=== PATIENT | male | born 1940 | race Caucasian/White ===

== ENCOUNTER 2018-02-14 16:00 | Inpatient (IN) | payer MEDICARE, OTHER, SELFPAY ==
[2018-02-14] VITALS (23 sets, daily range): BP systolic 94–154; BP diastolic 55–84; PULSE 84–94; RESP 12–41; TEMP 36.1–38.1; O2SAT 50–97; BMI 21.5; BMI 18.9; BMI 19.0
--- NOTE | 2018-02-14 16:13 | RAD_ITS ---
STUDY: X-RAY CHEST REASON FOR EXAM: Male, 77 years old. Respiratory failure. TECHNIQUE: Single frontal view of the chest. COMPARISON: Chest x-ray report dated January 21, 2010. FINDINGS: The lungs are hyperexpanded. There is a patchy opacity in the left lower lobe compatible with pneumonia. There is a left pleural effusion. There is borderline cardiomegaly. Normal mediastinum and homer. Normal visualized pulmonary arteries. Normal visualized aortic arch and descending thoracic aorta. Normal visualized thoracic spine. Normal visualized ribs, clavicles, and shoulders. There is no demonstrated abnormality of the visualized soft tissue structures of the upper abdomen. RAD/Chest 1 View (Portable) IMPRESSION: Hyperexpansion with left lower lobe pneumonia and small left effusion. Electronically Signed: Nacho Banda MD at 17:09 EST , Service support ,
--- NOTE | 2018-02-14 16:14 | EKG12_ITS ---
Test Reason : SOB Blood Pressure : / mmHG Vent. Rate : 091 BPM Atrial Rate : 091 BPM P-R Int : 164 ms QRS Dur : 074 ms QT Int : 336 ms P-R-T Axes : 081 057 087 degrees QTc Int : 413 ms Normal sinus rhythm Low voltage QRS (limb lead) Borderline ECG Confirmed by KEVIN AMOR, LAINA ([id number]), editor at large NISA CAMPOS ([id number] on 02/16/2018 12:44:47 PM Referred By: Marla Temple Confirmed By:LAINA BROWN MD
--- NOTE | 2018-02-14 16:18 | ED.VISSUMM ---
- ER Visit Summary Date of Service: 02/14/18 Chief Complaint: Shortness of breath my COPD is worse History of Present Illness: The patient is a 77 M with history of COPD was not smoked in 7 years. Presents because of increased shortness of breath over the past couple of days. He is on home oxygen. He does not have a living will and there is no POA. His initial pulse ox was 66% on 2 L. His O2 sat is presently 84% on 50% Venturi mask. CO2 on monitor is 30. Patient denies fever, chills night sweats. Does report productive cough colored sputum. He states he is having trouble breathing. He denies history of PE or DVT. He denies leg pain, swelling or discoloration. He denies history of congestive heart failure. History is limited secondary to acuity and respiratory distress several questions were answered with yes no by nodding. He denies ocular, visual or auditory symptoms. He denies rhinorrhea, congestion, postnasal drainage or sore throat. He denies palpitations or chest pain. He denies nausea, vomiting or diarrhea. He denies urologic symptoms. He does complain of weakness. Physical Examination: Vital signs noted and remarkable for a blood pressure of 110/79, heart rate 89 breathing 27 times a minute with an O2 sat of 82% presently on Venturi mask. Temperature noted. He appears cyanotic. He has both central and peripheral cyanosis. He appears somewhat cachectic. Head is atraumatic normocephalic. Pupils are equal round reactive. Extraocular muscles are intact. TMs are pearly white with landmarks noted. Nares patent with no drainage. Posterior pharynx without erythema or exudate. Uvula is midline. There is no dysphonia or dysphasia. Trachea is midline. There is no stridor with auscultation of the neck. There is use of accessory muscles with mild retractions. Breath sounds are diminished bilaterally. He has wheezing throughout. Heart is regular with distant heart tones. Abdomen soft nontender. There is no asymmetry, swelling, discoloration, leg vein distention, palpable cords or tenderness along the distribution of the deep venous system. Neuro exam is nonfocal Test Results: ABG reveals a metabolic acidosis with a significant AA gradient. White count is 19.6 thousand. Troponin is less than 0.015. Basic metabolic panel is remarkable for a BUN of 76 and a creatinine of 3.39. EKG revealed a sinus rhythm rate of 91 with motion artifact. Single view portable chest x-ray reveals a left lower lobe pneumonia with chronic changes consistent with COPD. Lactate is 3.7. Since he is not human apically unstable i.e. systolic less than 90 or mean arterial less than 65 lactate is not greater for fluid bolus is not indicated. Emergency Department Course and Treatment: ABG will be obtained to assess acid-base status and determine appropriate settings on BiPAP. DuoNeb and 3 albuterol treatments were ordered. Since he is complaining of productive cough and concern for pneumonia he was started on Rocephin and azithromycin. Troponin was obtained to determine if he had any cardiac ischemia since he was hypoxic. Sepsis workup was initiated. Since patient has COPD and dependent on oxygen goal is saturation between 88-92%. Treatment Plan: Patient will require admission to ICU for further testing, treatment and monitoring. Patient saturation on BiPAP is 92%. FiO2 is 0.8. Disposition: Full admit ICU Impression: 1. Respiratory failure with hypoxia acute on chronic 2. Severe sepsis 3. Left lower lobe pneumonia 4. Acute renal failure 5. Exacerbation of COPD 6. Critical care time 33 minutes This note was generated with [employer] dictation software. It may contain incorrect words, spelling, and punctuation that were not noted in review of the chart prior to signing ED Disposition - Plan for ED Patient: Chief Complaint: Shortness of Breath Referrals: Giovanni Aranda MD [Primary Care Provider] -
[2018-02-14] MEDS: Ipratropium/Albuterol Sulfate 3 ML AMPUL.NEB INHALATION ×3 (16:34→23:25)
[2018-02-14] MEDS: Albuterol 2.5 MG/3 ML VIAL.NEB. INHALATION ×3 (16:34→17:00)
[2018-02-14] MEDS: Ceftriaxone 1 GM/50 ML BAG IV (16:37)
[2018-02-14 16:45] LABS: Base Excess -5 mmol/L (-2 to +2); Bicarbonate 21.2 mmol/L (22-26); Blood Gas Specimen Type ART; FI02 50; PO2 52 mmHG (75-100); SITE R Brachial; SO2 82 % (95-99); Time Given 1640; Total Carbon Dioxide 23 mmol/L; pCO2 44.6 mmHg (35-45); pH 7.29 (7.35-7.45)
[2018-02-14 16:47] LABS: Absolute Lymphocyte Count 0.58 X10^3/ul (0.83-4.51); Absolute Neutrophil Count 18.9 X10^3/uL (2.0-7.7); Basophil# 0.01 X10^3/uL; Basophil% 0.1 % (0-1); Hematocrit 36.1 % (40-54); Lymphocyte # 0.58 X10^3/ul (4.0); Mean Corp Hgb Conc 33.2 g/gl (32-36); Mean Corpuscular Hgb 30.3 pg (27.0-32.0); Mean Corpuscular Volume 91.2 fL (80-94); Mean Platelet Vol. 9.8 fl (6.2-12.0); Monocyte# 0.02 X10^3/uL; Monocyte% 0.1 % (0-10); Neutrophil # 18.86 X10^3/uL (2.7-7.7); Neutrophil % 96.4 % (47-70); Platelet Count 247 K/mm3 (150-450); RBC Distribution Width CV 14.4 % (11.6-14.6); RBC Distribution Width SD 48.7 fl (35.1-43.9); Red Blood Count 3.96 M/mm3 (4.6-6.2); White Blood Count 19.6 K/mm3 (4.4-11.0)
[2018-02-14 16:49] LABS: Differential Indicated SCAN CRITERIA MET; POSITIVE COUNT NO; POSITIVE DIFFERENTIAL YES; POSITIVE MORPHOLOGY YES
[2018-02-14 16:56] LABS: ALB/GLOB Ratio 0.6 RATIO (0.9-2.4); AST(SGOT) 23 U/L (15-37); Alanine Aminotransfer ALT/SGPT 19 U/L (16-61); Albumin, Serum 2.8 g/dL (3.2-5.0); Alkaline Phosphatase 55 U/L (45-117); Anion Gap 16 (5-15); BUN 76 mg/dL (7-18); BUN/Creat Ratio 22.4 RATIO (10-20); Calcium,Total 8.7 mg/dL (8.5-10.1); Chloride 100 mmol/L (98-107); Creatinine, Serum 3.39 mg/dL (0.70-1.30); EST Glomerular Filtration Rate 19 mL/min (>60); Est Glom Filt Rate - Afr Amer 23 mL/min (>60); Estimated Creatinine Clearance 17.56 ml/min; Globulin 4.7 g/dL (2.2-4.2); Glucose 119 mg/dL (74-106); Potassium 4.9 mmol/L (3.5-5.1); Protein, Total 7.5 g/dL (6.4-8.2); Sodium Level 138 mmol/L (136-145)
[2018-02-14 17:05] LABS: Differential Comment SCANNED
--- NOTE | 2018-02-14 17:24 | ED.RN ---
lactic 3.[address] lab[address] dr zafar aware
[2018-02-14 17:25] LABS: Lactic Acid 3.7 mmol/L (0.4-2.0)
--- NOTE | 2018-02-14 18:03 | HP.PCM_ITS ---
Problem List (1) Acute renal failure (ARF) Status: Acute (2) Acute and chronic respiratory failure with hypoxia Status: Acute (3) Severe sepsis Status: Acute (4) Community acquired pneumonia Status: Acute (5) Hypertension Status: Chronic (6) Chronic respiratory failure Status: Chronic (7) COPD (chronic obstructive pulmonary disease) Status: Chronic History of Present Illness Date of Admission: 02/14/18 Chief Complaint: Shortness of breath. The patient is a 77 year old M with past medical history as mentioned above presented to the emergency room because of worsening shortness of breath. The patient is a very poor informant and was not able to provide consistent history. He came to the ED today because of worsening shortness of breath over the last couple of days, gets short of breath at rest, worsening up on minimal activity, not relieved with rest and associated with productive sputum. He mentioned that he does have oxygen at home and he has been on 2-3 L of oxygen. He quit smoking 7 years ago. He denied chest pain, palpitation, dizziness or lightheadedness. He denies fever or chills. He complained of diarrhea over the last several days and was not able to provide any more details about his diarrhea. He had a history of COPD and he has been on bronchodilators, quit smoking 7 years ago but he remained on oxygen. He has chronic respiratory failure secondary to COPD and he has been on home oxygen at 3 L. He had history of hypertension and he has been on 3 different antihypertensive medication including Norvasc, Cozaar and Toprol-XL and apparently, his blood pressure has been under control. He denied any kidney disease in the past. In the emergency department, patient was dyspneic and tachypneic, was afebrile, blood pressure was stable and pulse ox was 66% on 2 L upon arrival to ER. He was started on Ventimask and oxygen improved. Later, he was started on BiPAP and her pulse ox maintained above 90%. His routine blood work was remarkable for leukocytosis, BUN of 76 and creatinine of 3.39. His lactic acid was 3.7. His troponin was negative. EKG revealed sinus rhythm, normal parenchyma, normal QRS without evidence of acute ischemic changes. His ABG revealed pH of 7.29, PCO2 of 44 and PO2 of 52. Chest x-ray revealed left lower base infiltrate with minimal left side pleural effusion. He is being admitted for left lower lobe community acquired pneumonia complicated by severe sepsis and acute on chronic hypoxic respiratory failure as well as acute renal failure. Past Medical History Past Medical History (Chronic Problems): Chronic Problems Hypertension (Chronic) Chronic respiratory failure (Chronic) COPD (chronic obstructive pulmonary disease) (Chronic) Allergies No Known Allergies Allergy (Verified 02/14/18 16:18) Home Medications: Ambulatory Orders Medication Instructions Recorded Albuterol Aerosols [Ventolin 2.5 mg INHALATION Q4HWA.RT 02/14/18 Aerosols] Amlodipine [Norvasc] 5 mg PO DAILY 02/14/18 Losartan Potassium [Cozaar] 50 mg PO DAILY 02/14/18 Metoprolol Succinate [Toprol Xl] 100 mg PO DAILY 02/14/18 Umeclidinium Brm/Vilanterol Tr 02/14/18 [Anoro Ellipta 62.5-25 Mcg INH] Surgical History: herniorrhaphy Psychiatric History: No pertinent psych hx Lives: Alone Smoking Status: Former smoker Alcohol: None Drugs: None - *Family History Maternal History Items: No pertinent history Paternal History Items: No pertinent history Review of Systems Constitutional: Reports: Weakness. Denies: Anorexia, Chills, Fever Eyes: Denies: Blurred vision, Double vision, Drainage, Redness HEENT: Denies: Difficulty Hearing, Ear Pain, Eye Pain, Nasal Congestion, Sore Throat Cardiovascular: Denies: Chest Pain, Chest Pressure, Heaviness, Light Headedness, Palpitations, Syncope Respiratory: Reports: Cough, Shortness of Breath, Shortness of breath at rest, Shortness of breath upon exertion, Sputum production. Denies: Hemoptysis, Pleuritic Pain, Wheezing Gastrointestinal: Reports: Diarrhea. Denies: Abdominal Pain, Constipation, Nausea, Vomiting Genitourinary: Denies: Dysuria, Frequency, Hematuria Musculoskeletal: Denies: Arm Pain, Back Pain, Foot Pain Skin: Denies: Dryness, Rash Neurological: Denies: Balance problems, Double vision, Change in Speech, Slurred speech, Confusion, Focal weakness, Headaches, Incoordination Psychiatric: Denies: Anxiety, Depression Endocrine: Denies: Change in Body Habitus, Polydipsia VTE Information - Inpt Only VTE Present on Admission: No VTE Mechan Device Prophylaxis: None VTE Pharm Prophylaxis ordered?: Yes Patient Problems: Active and Suspected Problems Acute renal failure (ARF) (Acute) Acute and chronic respiratory failure with hypoxia (Acute) Severe sepsis (Acute) Community acquired pneumonia (Acute) - Physical Exam General: Alert, Oriented x3, Cooperative, - - Dyspneic, tachypneic, on BiPAP. HEENT: Atraumatic, PERRLA, EOMI, Normocephalic Oral: Moist Mucosa, No Gingival or Mucosal Lesions/ Ulcerations Neck: Supple, No JVD, Negative Carotid Bruits, Trachea Midline, Thyroid Normal Size and Texture Lungs: Diminished, Rales, Rhonchi, Short of Breath, Tachypneic, - - Decreased breath sounds bilateral, coarse crackles in the left base, bilateral rhonchi, wheezes. Cardiovascular: Regular rate, Regular Rhythm, Normal S1, Normal S2, PMI Normal Abdomen: Bowel Sounds Present, Soft, Non Tender, Non-Distended, No Hepato- splenomegaly Extremities: No clubbing, No cyanosis, No edema Skin: No rashes, No breakdown Lymphatic: No Cervical, Supraclavicular, or Inguinal Adenopathy Neurological: Cranial nerves II-XII grossly intact, Motor Exam 5/5 strength throughout Psych/Mental Status: Normal Affect, Appropriate, Alert and oriented to time, place, person, mood and affect Vital Signs Temp Pulse Resp BP Pulse Ox 98.3 F 85 27 H 122/82 H 92 02/14/18 17:05 02/14/18 17:05 02/14/18 17:05 02/14/18 17:05 02/14/18 17:05 Oxygen Flow Rate (L/min) 15 Oxygen Delivery Method Bi-pap Weight: 150 lb Body Mass Index (BMI) 21.5 Laboratory Tests Past 24 Hrs 02/14/18 02/14/18 02/14/18 16:20 16:20 16:20 WBC 19.6 H RBC 3.96 L Hgb 12.0 L Hct 36.1 L MCV 91.2 MCH 30.3 MCHC 33.2 RDW 14.4 RDW Differential 48.7 H Plt Count 247 MPV 9.8 Immature Gran % (Auto) 0.400 Neut % (Auto) 96.4 H Lymph % (Auto) 3.0 L [place] % (Auto) 0.1 Eos % (Auto) 0.0 Baso % (Auto) 0.1 Absolute Neuts (auto) 18.9 H Absolute Lymphs (auto) 0.58 L Total Counted Not Reportable Differential Comment SCANNED Specimen Type Sample Site pH Bicarbonate Actual POC Total CO2 Base Excess O2 Saturation O2 % ABG pCO2 ABG pO2 Burt Test O2 Delivery Device Blood Gas Notified Whom Blood Gas Notified Time Sodium 138 Potassium 4.9 Chloride 100 Carbon Dioxide 22.0 Anion Gap 16 H BUN 76 H Creatinine 3.39 H Estim Creat Clear Calc 17.56 Est GFR (MDRD) Af Amer 23 L Est GFR (MDRD) Non-Af 19 L BUN/Creatinine Ratio 22.4 H Glucose 119 H Lactic Acid 3.7 H Calcium 8.7 Total Bilirubin 0.70 AST 23 ALT 19 Alkaline Phosphatase 55 Troponin I < 0.015 Total Protein 7.5 Albumin 2.8 L Globulin 4.7 H Albumin/Globulin Ratio 0.6 L 02/14/18 16:37 WBC RBC Hgb Hct MCV MCH MCHC RDW RDW Differential Plt Count MPV Immature Gran % (Auto) Neut % (Auto) Lymph % (Auto) [place] % (Auto) Eos % (Auto) Baso % (Auto) Absolute Neuts (auto) Absolute Lymphs (auto) Total Counted Differential Comment Specimen Type ART Sample Site R Brachial pH 7.29 L Bicarbonate Actual 21.2 L POC Total CO2 23 Base Excess -5 L O2 Saturation 82 L O2 % 50 ABG pCO2 44.6 ABG pO2 52 L Burt Test NA O2 Delivery Device Vent Mask Blood Gas Notified Whom ED Blood Gas Notified Time 1640 Sodium Potassium Chloride Carbon Dioxide Anion Gap BUN Creatinine Estim Creat Clear Calc Est GFR (MDRD) Af Amer Est GFR (MDRD) Non-Af BUN/Creatinine Ratio Glucose Lactic Acid Calcium Total Bilirubin AST ALT Alkaline Phosphatase Troponin I Total Protein Albumin Globulin Albumin/Globulin Ratio Clinical Impression(s) from Imaging Studies Chest X-Ray 02/14/18 16:13 IMPRESSION: Hyperexpansion with left lower lobe pneumonia and small left effusion. Electronically Signed: Nacho Banda MD at 17:09 EST , Service support , Assessment/Plan All Active Problems Acute renal failure (ARF) (Acute) Acute and chronic respiratory failure with hypoxia (Acute) Severe sepsis (Acute) Community acquired pneumonia (Acute) This is a 77 years old male patient presented to the emergency room because of shortness of breath and productive cough and he was found to have left lower lobe infiltrate with small left pleural effusion consistent with community- acquired pneumonia, complicated by severe sepsis and acute on chronic hypoxic respiratory failure as well as acute kidney injury. #1 left lower lobe community-acquired pneumonia/severe sepsis: Chest x-ray reviewed as above. Lactic acid is elevated, he does have leukocytosis. Plan: Admit to PCU stepdown, clear liquids, blood culture, urine culture, sputum c ulture, urinalysis, bronchodilators, IV Rocephin and Zithromax, DuoNeb every 4 hours, albuterol as needed, repeat lactic acid in 3 hours, repeat CBC and BMP tomorrow morning, incentive spirometer, chest physiotherapy, PT OT evaluation and treatment. #2 acute on chronic hypoxic respiratory failure/probable COPD exacerbation: Patient has been on oxygen at home at 3 L. Initially in the ER, pulse ox was 60% on 2 L. Started on BiPAP. ABG revealed pH of 7.34, PCO2 of 39 and PO2 of 67. Plan: DuoNeb every 6 hours, albuterol as needed, IV antibiotics as above, continue BiPAP, incentive spirometer, chest physiotherapy, mucolytic's. #3 acute kidney injury: Admission creatinine is 3.39. Unknown baseline kidney function. Patient is unaware of any chronic kidney disease. Plan: IV fluids, input output chart, repeat BMP tomorrow morning, obtain records from PCPs office. #4 hypertension: Blood pressure stable, continue Norvasc and metoprolol. #5 COPD/chronic respiratory failure: Plan as above, continue BiPAP, bronchodilators, antibiotics. #6 CODE STATUS: Full code. At this time, patient wanted everything to be done if necessary. #7 DVT prophylaxis: Subcu heparin. This note was generated with [employer] dictation software. It may contain incorrect words, spelling, and punctuation that were not noted in checking the note before signing. Code Visit Inpatient E&M: 19334 Init Hosp L3
[2018-02-14 18:21] LABS: Base Excess -4 mmol/L (-2 to +2); Bicarbonate 21.2 mmol/L (22-26); Blood Gas Specimen Type ART; EPAP 7; FI02 70; IPAP 14; PO2 67 mmHG (75-100); RR 12; SITE R Brachial; SO2 92 % (95-99); Time Given 1813; Total Carbon Dioxide 22 mmol/L; pCO2 39.1 mmHg (35-45); pH 7.34 (7.35-7.45)
[2018-02-14 20:25] LABS: Reflex Lactate? Y
[2018-02-14] MEDS: 0.9% Normal Saline 1,000 ML 100 ML IV (21:02)
[2018-02-14 21:03] LABS: Lactic Acid 2.6 mmol/L (0.4-2.0)
[2018-02-14] MEDS: Heparin Injection (Vial) 5,000 UNIT/ML VIAL 5000 UNIT SC (21:34)
[2018-02-14] MEDS: guaiFENesin 1,200 MG Tablet 1200 MG PO (21:35)
[2018-02-14 21:57] LABS: Color, Urine Yellow (Yellow); Glucose, Dipstick Normal (Normal); Ketone-Dipstick Negative (Negative); Leukocyte Esterase-Dipstick 25 /ul (Negative); Nitrite-Dipstick Negative (Negative); Occult Blood-Urine 250 /ul (Negative); Protein-Dipstick 100 mg/dl (Negative); Urine Bilirubin Dipstick Negative (Negative); Urine Clarity Cloudy (Clear); Urine Urobilinogen Normal (Normal)
--- NOTE | 2018-02-14 23:25 | PCM.PN.BLA ---
Progress Note Patient with a significant history of hypertension, COPD, previous TIA with a CVA sepsis secondary to community-acquired pneumonia whiles on telemetric unit continued to have tachycardia; severe respiratory distress with use of accessory muscles and with respiratory rate in the 40s while on AVAP. On 70% FiO2 his oxygen saturation was 90%. A discussion was made with the patient whether it is okay to intubated to intubate him due to impending respiratory failure. Patient responded in the affirmative. His lactic acid was initially 3.7 and it decreased to 2.6 per Patient is alert and oriented. S1, S2 present; tachycardia Lung sounds are very diminished. Abdomen is soft and nontender. Extremities: No cyanosis, no edema Severe sepsis due to committee acquired pneumonia. Acute hypoxemic respiratory failure with hypoxia Acute kidney injury Probable cystitis Due to respiratory failure will transfer patient to the intensive care unit and if he continues to decompensate will intubate. We will give patient Solu-Medrol 125 mg x1. We will put patient on scheduled Solu-Medrol. Continue ceftriaxone for Streptococcus pneumoniae Azithromycin was discontinued with positive showed glucose pneumonia antigen. Will do mycoplasma antibody to see whether there is any need for azithromycin. Continue normal saline IV infusion. Blood cultures are pending. Continue scheduled and as needed breathing treatments. When the patient reached the ICU he was more talkative and interactive. His respiratory rate remained 30s-40s. A decision was made to continue patient on a AVAP; to continue clinical monitoring and get blood gas. Critical time spent with patient from [id number] (1 hour and 5 minutes.). This involved time examining patient; assessment; communication with nurses; and reviewing medical history Code Visit Procedures: 20790 Critial Care 1st Hr
[2018-02-14] MEDS: MethylPREDNISolone 125 MG/2 ML Vial IV (23:27)
--- NOTE | 2018-02-14 23:30 | PN_ITS ---
Progress Note Patient with a significant history of hypertension, COPD, previous TIA with a CVA sepsis secondary to community-acquired pneumonia whiles on telemetric unit continued to have tachycardia; severe respiratory distress with use of accessory muscles and with respiratory rate in the 40s while on AVAP. On 70% FiO2 his oxygen saturation was 90%. A discussion was made with the patient whether it is okay to intubated to intubate him due to impending respiratory failure. Patient responded in the affirmative. His lactic acid was initially 3.7 and it decreased to 2.6 per Patient is alert and oriented. S1, S2 present; tachycardia Lung sounds are very diminished. Abdomen is soft and nontender. Extremities: No cyanosis, no edema Severe sepsis due to committee acquired pneumonia. Acute hypoxemic respiratory failure with hypoxia Acute kidney injury Probable cystitis Due to respiratory failure will transfer patient to the intensive care unit and if he continues to decompensate will intubate. We will give patient Solu-Medrol 125 mg x1. We will put patient on scheduled Solu-Medrol. Continue ceftriaxone for Streptococcus pneumoniae Azithromycin was discontinued with positive showed glucose pneumonia antigen. Will do mycoplasma antibody to see whether there is any need for azithromycin. Continue normal saline IV infusion. Blood cultures are pending. Continue scheduled and as needed breathing treatments. When the patient reached the ICU he was more talkative and interactive. His respiratory rate remained 30s-40s. A decision was made to continue patient on a AVAP; to continue clinical monitoring and get blood gas. Critical time spent with patient from [id number] (1 hour and 5 minutes.). This involved time examining patient; assessment; communication with nurses; and reviewing medical history Code Visit Procedures: [id number] Critial Care 1st Hr
--- NOTE | 2018-02-14 23:35 | NURSING ---
Report given to Fani auriculotherapist at this time and pt transfered to icu at this time.
[2018-02-15] VITALS (58 sets, daily range): BP systolic 59–161; BP diastolic 34–105; PULSE 65–149; RESP 12–46; TEMP 36.8–38.4; O2SAT 89–100
--- NOTE | 2018-02-15 00:35 | NURSING ---
Pts brother Nacho aware of pts transfer to icu and plan to closer monitor pt at this time.
[2018-02-15 01:06] LABS: Anion Gap 13 (5-15); BUN 82 mg/dL (7-18); BUN/Creat Ratio 27.4 RATIO (10-20); Calcium,Total 8.3 mg/dL (8.5-10.1); Chloride 102 mmol/L (98-107); Creatinine, Serum 2.99 mg/dL (0.70-1.30); EST Glomerular Filtration Rate 22 mL/min (>60); Est Glom Filt Rate - Afr Amer 26 mL/min (>60); Estimated Creatinine Clearance 17.24 ml/min; Glucose 94 mg/dL (74-106); Magnesium 1.7 mg/dL (1.6-2.6); Potassium 4.5 mmol/L (3.5-5.1); Sodium Level 135 mmol/L (136-145)
[2018-02-15 01:07] LABS: Phosphorus 4.4 mg/dL (2.5-4.9)
[2018-02-15] MEDS: Acetaminophen 325 MG Tablet 650 MG PO (01:44)
[2018-02-15] MEDS: 0.9% NaCl Peripheral Flush Adult/Peds IV ×3 (01:46→20:17)
[2018-02-15 02:06] LABS: Allen Test POS; Base Excess -5 mmol/L (-2 to +2); Bicarbonate 20.1 mmol/L (22-26); Blood Gas Specimen Type ART; EPAP 8; FI02 100; PO2 118 mmHG (75-100); SITE R Radial; SO2 98 % (95-99); Time Given 155; Total Carbon Dioxide 21 mmol/L; pCO2 35.3 mmHg (35-45); pH 7.36 (7.35-7.45)
[2018-02-15] MEDS: Ipratropium/Albuterol Sulfate 3 ML AMPUL.NEB INHALATION ×5 (03:34→19:06)
[2018-02-15 04:13] LABS: Absolute Lymphocyte Count 0.17 X10^3/ul (0.83-4.51); Absolute Neutrophil Count 10.2 X10^3/uL (2.0-7.7); Basophil# 0.01 X10^3/uL; Basophil% 0.1 % (0-1); Hematocrit 30.1 % (40-54); Lymphocyte # 0.17 X10^3/ul (4.0); Lymphocyte % 1.6 % (19-41); Mean Corp Hgb Conc 33.2 g/gl (32-36); Mean Corpuscular Hgb 30.6 pg (27.0-32.0); Mean Platelet Vol. 10.6 fl (6.2-12.0); Monocyte# 0.16 X10^3/uL; Monocyte% 1.5 % (0-10); Neutrophil # 10.16 X10^3/uL (2.7-7.7); Neutrophil % 96.4 % (47-70); Platelet Count 191 K/mm3 (150-450); RBC Distribution Width CV 14.1 % (11.6-14.6); RBC Distribution Width SD 46.2 fl (35.1-43.9); Red Blood Count 3.27 M/mm3 (4.6-6.2); White Blood Count 10.5 K/mm3 (4.4-11.0)
[2018-02-15 04:17] LABS: Differential Indicated SCAN CRITERIA MET; POSITIVE COUNT NO; POSITIVE DIFFERENTIAL YES; POSITIVE MORPHOLOGY YES
[2018-02-15 04:22] LABS: Anion Gap 14 (5-15); BUN 85 mg/dL (7-18); BUN/Creat Ratio 27.4 RATIO (10-20); Chloride 102 mmol/L (98-107); EST Glomerular Filtration Rate 21 mL/min (>60); Est Glom Filt Rate - Afr Amer 25 mL/min (>60); Estimated Creatinine Clearance 16.63 ml/min; Glucose 99 mg/dL (74-106); Potassium 4.8 mmol/L (3.5-5.1); Sodium Level 138 mmol/L (136-145)
[2018-02-15 04:44] LABS: Differential Comment SCANNED
[2018-02-15] MEDS: Heparin Injection (Vial) 5,000 UNIT/ML VIAL 5000 UNIT SC ×3 (05:12→20:45)
[2018-02-15] MEDS: 0.9% Normal Saline 1,000 ML 100 ML IV ×2 (05:12→16:00)
--- NOTE | 2018-02-15 07:30 | CON.PCM_ITS ---
Problem List (1) Acute renal failure (ARF) Status: Acute (2) Acute and chronic respiratory failure with hypoxia Status: Acute (3) Severe sepsis Status: Acute (4) Community acquired pneumonia Status: Acute (5) Hypertension Status: Chronic (6) Chronic respiratory failure Status: Chronic (7) COPD (chronic obstructive pulmonary disease) Status: Chronic Reason for Consult Date of Consultation: 02/15/18 Reason for Consultation: Acute hypoxic respiratory failure History of Present Illness: The patient is a 77 year old M, with past medical history listed below, who presented to [facility] on 02/14/2018 secondary to increased shortness of breath over the last couple of days. Patient reportedly has a history of COPD and is on chronic supplemental oxygen at baseline. Patient was noted to be 66% on his baseline 2 L nasal cannula on presentation to the emergency room. Patient does report a cough productive of sputum, but denied any fevers, chills, leg pain or history of congestive heart failure. Patient has not had any recent URI symptoms or chest pain. On presentation to the emergency room, patient had an adequate blood pressure 110/79, but tachypneic and saturating 82% on Ventimask. Patient did appear cyanotic and was using accessory muscles for respirations. Patient was noted to have an elevated white blood cell count, BUN of 76 and creatinine of 3.39. Chest x-ray showed a left lower lobe pneumonia and patient had an elevated lactate of 3.7. Patient was placed on BiPAP therapy and received aerosols. Oxygenation is slightly improved. Patient was initially triaged to the PCU, but then was transitioned to ICU overnight secondary to worsening respiratory status. Since being in the intensive care unit, patient has responded well to AVAPS therapy. Patient will open his eyes to voice, but is not following any commands or answering questions. Patient has no family at the bedside. Unable to obtain any further information. Patient does not appear to have been here previously. No pulmonary function tests are available for review. Patient does not currently have any echocardiogram available for review. Past Medical History Past Medical History (Chronic Problems): Chronic Problems Hypertension (Chronic) Chronic respiratory failure (Chronic) COPD (chronic obstructive pulmonary disease) (Chronic) Allergies No Known Allergies Allergy (Verified 02/14/18 16:18) Home Medications: Ambulatory Orders Medication Instructions Recorded Albuterol Aerosols [Ventolin 2.5 mg INHALATION Q4HWA.RT 02/14/18 Aerosols] Amlodipine [Norvasc] 5 mg PO DAILY 02/14/18 Losartan Potassium [Cozaar] 50 mg PO DAILY 02/14/18 Metoprolol Succinate [Toprol Xl] 100 mg PO DAILY 02/14/18 Umeclidinium Brm/Vilanterol Tr 02/14/18 [Anoro Ellipta 62.5-25 Mcg INH] Surgical History: herniorrhaphy Psychiatric History: No pertinent psych hx Lives: Alone Smoking Status: Former smoker Alcohol: None Drugs: None - *Family History Maternal History Items: No pertinent history Paternal History Items: No pertinent history Review of Systems Unable to obtain accurate/complete ROS d/t: See HPI Patient Problems: Active and Suspected Problems Acute renal failure (ARF) (Acute) Acute and chronic respiratory failure with hypoxia (Acute) Severe sepsis (Acute) Community acquired pneumonia (Acute) Objective: Chest x-ray was personally reviewed and shows a possible left upper lobe infiltrate with associated effusion. - Physical Exam General: - - Good BiPAP synchrony. Appears older than stated age. Thin build. HEENT: Atraumatic, PERRLA, EOMI, Normocephalic, - - Slight temporal wasting noted. Slight scleral injection without icterus Oral: No Gingival or Mucosal Lesions/ Ulcerations, Dry Mucosa Neck: Supple, No JVD, No Nodes, Trachea Midline Lungs: No rhonchi, No wheeze, No rales, Diminished, - - Symmetric expansion. No dullness to percussion. Cardiovascular: Normal S1, Normal S2, No murmurs, Irregular Rate, No rub noted, No Gallop, - - Frequent PVCs Abdomen: Bowel Sounds Present, Soft, Non Tender, Non-Distended Extremities: No cyanosis, No edema, Capillary Refill Less than 3 Seconds, Clubbing Skin: No rashes, No breakdown Musculoskeletal: No Tenderness to Palpation of Joints or Extremities, Cachexia, Muscle Wasting Lymphatic: No Cervical, Supraclavicular, or Inguinal Adenopathy Neurological: Cranial nerves II-XII grossly intact, Neuro grossly intact, Motor Exam 5/5 strength throughout Psych/Mental Status: Flat Affect, Impulsive Vital Signs Temp Pulse Resp BP Pulse Ox 37.3 C H 67 22 H 106/64 99 02/15/18 07:00 02/15/18 07:00 02/15/18 07:00 02/15/18 07:00 02/15/18 07:00 Oxygen Flow Rate (L/min) 15 Oxygen Delivery Method Bi-pap Weight: 58.9 kg Body Mass Index (BMI) 18.9 Intake and Output for Last 24 Hours 02/13/18 02/14/18 02/15/18 23:59 23:59 23:59 Intake Total 343 / 343 660 / 660 Output Total 125 / 125 150 / 150 Balance 218 / 218 510 / 510 Microbiology Past 72 Hours 02/14/18 21:30 Streptococcus pneumoniae Antigen (M - Final Urine Catheter - Catheter Streptococcus pneumonia Ag 02/14/18 21:30 Legionella Antigen - Final Urine Catheter - Catheter Laboratory Tests Past 24 Hrs 02/14/18 02/14/18 02/14/18 16:20 16:20 16:20 WBC 19.6 H RBC 3.96 L Hgb 12.0 L Hct 36.1 L MCV 91.2 MCH 30.3 MCHC 33.2 RDW 14.4 RDW Differential 48.7 H Plt Count 247 MPV 9.8 Immature Gran % (Auto) 0.400 Neut % (Auto) 96.4 H Lymph % (Auto) 3.0 L [place] % (Auto) 0.1 Eos % (Auto) 0.0 Baso % (Auto) 0.1 Absolute Neuts (auto) 18.9 H Absolute Lymphs (auto) 0.58 L Total Counted Not Reportable Differential Comment SCANNED Specimen Type Sample Site pH Bicarbonate Actual POC Total CO2 Base Excess O2 Saturation O2 % ABG pCO2 ABG pO2 Burt Test Respiration Rate O2 Delivery Device EPAP IPAP Blood Gas Notified Whom Blood Gas Notified Time Sodium 138 Potassium 4.9 Chloride 100 Carbon Dioxide 22.0 Anion Gap 16 H BUN 76 H Creatinine 3.39 H Estim Creat Clear Calc 17.56 Est GFR (MDRD) Af Amer 23 L Est GFR (MDRD) Non-Af 19 L BUN/Creatinine Ratio 22.4 H Glucose 119 H Lactic Acid 3.7 H Calcium 8.7 Phosphorus Magnesium Total Bilirubin 0.70 AST 23 ALT 19 Alkaline Phosphatase 55 Troponin I < 0.015 Total Protein 7.5 Albumin 2.8 L Globulin 4.7 H Albumin/Globulin Ratio 0.6 L Urine Color Urine Clarity Urine pH Ur Specific [place] Urine Protein Urine Glucose (UA) Urine Ketones Urine Occult Blood Urine Nitrite Urine Bilirubin Urine Urobilinogen Ur Leukocyte Esterase Mycoplasma pneumon IgG Mycoplasma pneumon IgM 02/14/18 02/14/18 02/14/18 16:37 18:15 20:10 WBC RBC Hgb Hct MCV MCH MCHC RDW RDW Differential Plt Count MPV Immature Gran % (Auto) Neut % (Auto) Lymph % (Auto) [place] % (Auto) Eos % (Auto) Baso % (Auto) Absolute Neuts (auto) Absolute Lymphs (auto) Total Counted Differential Comment Specimen Type ART ART Sample Site R Brachial R Brachial pH 7.29 L 7.34 L Bicarbonate Actual 21.2 L 21.2 L POC Total CO2 23 22 Base Excess -5 L -4 L O2 Saturation 82 L 92 L O2 % 50 70 ABG pCO2 44.6 39.1 ABG pO2 52 L 67 L Burt Test NA NA Respiration Rate 12 O2 Delivery Device Vent Mask Bi / C PAP EPAP 7 IPAP 14 Blood Gas Notified Whom ED MD ED MD Blood Gas Notified Time 1640 1813 Sodium Potassium Chloride Carbon Dioxide Anion Gap BUN Creatinine Estim Creat Clear Calc Est GFR (MDRD) Af Amer Est GFR (MDRD) Non-Af BUN/Creatinine Ratio Glucose Lactic Acid Cancelled Calcium Phosphorus Magnesium Total Bilirubin AST ALT Alkaline Phosphatase Troponin I Total Protein Albumin Globulin Albumin/Globulin Ratio Urine Color Urine Clarity Urine pH Ur Specific [place] Urine Protein Urine Glucose (UA) Urine Ketones Urine Occult Blood Urine Nitrite Urine Bilirubin Urine Urobilinogen Ur Leukocyte Esterase Mycoplasma pneumon IgG Mycoplasma pneumon IgM 02/14/18 02/14/18 02/15/18 20:10 21:30 00:30 WBC RBC Hgb Hct MCV MCH MCHC RDW RDW Differential Plt Count MPV Immature Gran % (Auto) Neut % (Auto) Lymph % (Auto) [place] % (Auto) Eos % (Auto) Baso % (Auto) Absolute Neuts (auto) Absolute Lymphs (auto) Total Counted Differential Comment Specimen Type Sample Site pH Bicarbonate Actual POC Total CO2 Base Excess O2 Saturation O2 % ABG pCO2 ABG pO2 Burt Test Respiration Rate O2 Delivery Device EPAP IPAP Blood Gas Notified Whom Blood Gas Notified Time Sodium Potassium Chloride Carbon Dioxide Anion Gap BUN Creatinine Estim Creat Clear Calc Est GFR (MDRD) Af Amer Est GFR (MDRD) Non-Af BUN/Creatinine Ratio Glucose Lactic Acid 2.6 H Calcium Phosphorus Magnesium Total Bilirubin AST ALT Alkaline Phosphatase Troponin I Total Protein Albumin Globulin Albumin/Globulin Ratio Urine Color Yellow Urine Clarity Cloudy Urine pH 6.0 Ur Specific [place] 1.020 Urine Protein 100 H Urine Glucose (UA) Normal Urine Ketones Negative Urine Occult Blood 250 H Urine Nitrite Negative Urine Bilirubin Negative Urine Urobilinogen Normal Ur Leukocyte Esterase 25 H Mycoplasma pneumon IgG Pending Mycoplasma pneumon IgM Pending 02/15/18 02/15/18 02/15/18 00:30 00:30 01:59 WBC RBC Hgb Hct MCV MCH MCHC RDW RDW Differential Plt Count MPV Immature Gran % (Auto) Neut % (Auto) Lymph % (Auto) [place] % (Auto) Eos % (Auto) Baso % (Auto) Absolute Neuts (auto) Absolute Lymphs (auto) Total Counted Differential Comment Specimen Type ART Sample Site R Radial pH 7.36 Bicarbonate Actual 20.1 L POC Total CO2 21 Base Excess -5 L O2 Saturation 98 O2 % 100 ABG pCO2 35.3 ABG pO2 118 H Burt Test POS Respiration Rate O2 Delivery Device Bi / C PAP EPAP 8 IPAP Blood Gas Notified Whom HOSP Blood Gas Notified Time 155 Sodium 135 L Potassium 4.5 Chloride 102 Carbon Dioxide 20.0 L Anion Gap 13 BUN 82 H Creatinine 2.99 H Estim Creat Clear Calc 17.24 Est GFR (MDRD) Af Amer 26 L Est GFR (MDRD) Non-Af 22 L BUN/Creatinine Ratio 27.4 H Glucose 94 Lactic Acid Calcium 8.3 L Phosphorus 4.4 Magnesium 1.7 Total Bilirubin AST ALT Alkaline Phosphatase Troponin I Total Protein Albumin Globulin Albumin/Globulin Ratio Urine Color Urine Clarity Urine pH Ur Specific [place] Urine Protein Urine Glucose (UA) Urine Ketones Urine Occult Blood Urine Nitrite Urine Bilirubin Urine Urobilinogen Ur Leukocyte Esterase Mycoplasma pneumon IgG Mycoplasma pneumon IgM 02/15/18 02/15/18 04:00 04:00 WBC 10.5 RBC 3.27 L Hgb 10.0 L Hct 30.1 L MCV 92.0 MCH 30.6 MCHC 33.2 RDW 14.1 RDW Differential 46.2 H Plt Count 191 MPV 10.6 Immature Gran % (Auto) 0.400 Neut % (Auto) 96.4 H Lymph % (Auto) 1.6 L [place] % (Auto) 1.5 Eos % (Auto) 0.0 Baso % (Auto) 0.1 Absolute Neuts (auto) 10.2 H Absolute Lymphs (auto) 0.17 L Total Counted Not Reportable Differential Comment SCANNED Specimen Type Sample Site pH Bicarbonate Actual POC Total CO2 Base Excess O2 Saturation O2 % ABG pCO2 ABG pO2 Burt Test Respiration Rate O2 Delivery Device EPAP IPAP Blood Gas Notified Whom Blood Gas Notified Time Sodium 138 Potassium 4.8 Chloride 102 Carbon Dioxide 22.0 Anion Gap 14 BUN 85 H Creatinine 3.10 H Estim Creat Clear Calc 16.63 Est GFR (MDRD) Af Amer 25 L Est GFR (MDRD) Non-Af 21 L BUN/Creatinine Ratio 27.4 H Glucose 99 Lactic Acid Calcium 8.0 L Phosphorus Magnesium Total Bilirubin AST ALT Alkaline Phosphatase Troponin I Total Protein Albumin Globulin Albumin/Globulin Ratio Urine Color Urine Clarity Urine pH Ur Specific [place] Urine Protein Urine Glucose (UA) Urine Ketones Urine Occult Blood Urine Nitrite Urine Bilirubin Urine Urobilinogen Ur Leukocyte Esterase Mycoplasma pneumon IgG Mycoplasma pneumon IgM Clinical Impression(s) from Imaging Studies Chest X-Ray 02/14/18 16:13 IMPRESSION: Hyperexpansion with left lower lobe pneumonia and small left effusion. Electronically Signed: Nacho Banda MD at 17:09 EST , Service support , Assessment/Plan Active and Suspected Problems Acute renal failure (ARF) (Acute) Acute and chronic respiratory failure with hypoxia (Acute) Severe sepsis (Acute) Community acquired pneumonia (Acute) RECOMMENDATIONS: 1. Continue with empiric antibiotics, steroids and bronchodilator therapy 2. Continue rehydration 3. Attempt to obtain more baseline information 4. Wean oxygen as tolerated 5. Okay to initiate p.o. diet if able to tolerate 1 hour off of BiPAP 6. Obtain viral panel IMPRESSIONS: 1. Acute on chronic hypoxic respiratory failure secondary to presumed COPD exacerbation secondary to left-sided CAP Patient appears to be responding to AVAPS therapy well at this time, but is still requiring significant FiO2. We will continue to wean FiO2 as tolerated. Patient may be able to take BiPAP breaks, but anticipate short breaks over the next 24-48 hours until steroids can become effective. Patient is having significant elevation in temperature and is on empiric antibiotics. Patient may also have RSV or parainfluenza virus. Sputum culture has not been obtained to this time. Will obtain a viral panel. 2. Probable acute kidney injury Patient was significant elevation of creatinine at this time. No previous labs are available for review. Patient does have significant uremia, but this appears to be indicative of possible prerenal etiology. Cannot exclude the need for renal replacement therapy. Follow urine output closely. 3. Severe sepsis secondary to left-sided pneumonia Unclear if patient has endorgan damage as demonstrated by kidney function. Patient's blood pressure is responding well to current therapy. Will obtain an echocardiogram for evaluation of heart function. Patient reportedly had an element of diarrhea at home, but this cannot be verified. Patient is in C. difficile precautions, but is not had any stool since admission. 4. Hypertension/advanced age/lack of baseline information/metabolic encephalopathy Complicates care, management, recovery and prognosis. Blood pressure appears to be adequate at this time. Will attempt to obtain old records from patient's primary care physician. Continue with delirium protocol TIME: 40 minutes critical care time spent addressing patient's respiratory failure, acute kidney injury, severe sepsis, review of all data and collaboration with care team (6:30 AM to 7:40 AM) Code Visit 9xxxx: [id number] Critical care first hour
--- NOTE | 2018-02-15 07:32 | ECHOD_ITS ---
Reason For Study: dyspnea/SOB Procedure This was a 2D Doppler, Color Flow transthoracic echocardiogram. The study was technically difficult. Due to body habitus, deep rapid respirations and heart rhythm. Exam performed portable in ICU/CCU. Left Ventricle Normal LV size. Left ventricular systolic function is normal. The estimated ejection fraction is 65 %. Diastolic function is indeterminate. No regional wall motion abnormalities noted. Right Ventricle Normal RV size. Normal systolic function. Atria Normal left atrium. Normal right atrium. No doppler evidence for ASD. Mitral Valve There is moderate mitral annular calcification. Extension of the mitral annular calcification onto the base of the posterior mitral valve leaflet. Trivial mitral valve insufficiency. Tricuspid Valve Normal tricuspid valve. Trivial tricuspid valve insufficiency. Right ventricular systolic pressure estimated to be 41 mmHg. Aortic Valve The aortic valve is not well visualized. Pulmonic Valve The pulmonic valve is not well visualized. Great Vessels Normal sized aortic root. Pericardium/Pleural No pericardial effusion. MMode/2D Measurements & Calculations LVIDd: 3.7 cm IVSd: 0.92 cm Ao root diam: 3.5 cm LVIDs: 2.4 cm LVPWd: 0.80 cm RVDd: 3.1 cm FS: 36.9 % LAV(MOD-bp): 56.2 ml LA A4 area: 16.2 cm2 LA dimension(2D): 3.3 cm LAV(MOD-bp) Indexed: 32.5 ml/m2 LAV(MOD-sp2): 49.9 ml LAV(MOD-sp4): 47.6 ml RA A4 area: 13.3 cm2 Doppler Measurements & Calculations MV E max cresencio: 93.0 cm/sec Ao V2 max: 110.6 cm/sec LV V1 max: 73.0 cm/sec Ao max P.9 mmHg LV V1 max P.1 mmHg PA V2 max: 79.9 cm/sec TR max cresencio: 309.4 cm/sec TR max P.3 mmHg Interpretation Summary The study was technically difficult. Left ventricular systolic function is normal. The estimated ejection fraction is 65 %. There is moderate mitral annular calcification. Extension of the mitral annular calcification onto the base of the posterior mitral valve leaflet. Trivial mitral valve insufficiency. Trivial tricuspid valve insufficiency. Right ventricular systolic pressure estimated to be 41 mmHg. Diastolic function is indeterminate. Ordering Physician: Joe Zayas Referring Physician: Giovanni Aranda Performed By: Amy Acuna, FRANCISCO, RVT
[2018-02-15] MEDS: CHLORHEXIDINE GLUC 2% CLOTH 1 EACH TOWELETTE TOPICAL (10:23)
[2018-02-15] MEDS: guaiFENesin 1,200 MG Tablet 1200 MG PO ×2 (10:23→20:45)
--- NOTE | 2018-02-15 10:28 | PCM.PN.HOSP ---
Patient Problems: Active and Suspected Problems Acute renal failure (ARF) (Acute) Acute and chronic respiratory failure with hypoxia (Acute) Severe sepsis (Acute) Community acquired pneumonia (Acute) Subjective: Complains of cramps in calves bilaterally, R>L. Breathing better. Vitals/I&O's: Vital Signs Temp Pulse Resp BP Pulse Ox 37.2 C 65 22 H 101/59 L 96 02/15/18 10:00 02/15/18 10:00 02/15/18 10:00 02/15/18 10:00 02/15/18 10:00 Oxygen Flow Rate (L/min) 5 Oxygen Delivery Method Bi-pap Weight: 58.9 kg Body Mass Index (BMI) 18.9 Intake and Output for Last 24 Hours 02/13/18 02/14/18 02/15/18 23:59 23:59 23:59 Intake Total 343 / 343 660 / 660 Output Total 125 / 125 150 / 150 Balance 218 / 218 510 / 510 General: Alert, Cooperative, No apparent distress HEENT: Atraumatic, Normocephalic Oral: Moist Mucosa, No Gingival or Mucosal Lesions/ Ulcerations Neck: No Nodes, Thyroid Normal Size and Texture Lungs: Diminished, - - coarse breath sounds. Cardiovascular: Regular rate, Regular Rhythm, Normal S1, Normal S2 Abdomen: Bowel Sounds Present, Soft, Non Tender, Non-Distended Extremities: No edema, - - right calf tenderness. no palpable cords. Skin: No rashes, No breakdown Musculoskeletal: No Tenderness to Palpation of Joints or Extremities, No Muscle Wasting Neurological: Sensory exam intact to light touch and pain, - - no clonus Psych/Mental Status: Normal Affect, Appropriate Microbiology Past 72 Hours 02/14/18 21:30 Urine Catheter - Catheter Streptococcus pneumoniae Antigen (M - Final Streptococcus pneumonia Ag 02/14/18 21:30 Urine Catheter - Catheter Legionella Antigen - Final Laboratory Results 02/14/18 16:20: WBC 19.6 H, RBC 3.96 L, Hgb 12.0 L, Hct 36.1 L, MCV 91.2, MCH 30.3, MCHC 33.2, RDW 14.4, RDW Differential 48.7 H, Plt Count 247, MPV 9.8, Immature Gran % (Auto) 0.400, Neut % (Auto) 96.4 H, Lymph % (Auto) 3.0 L, [place] % (Auto) 0.1, Eos % (Auto) 0.0, Baso % (Auto) 0.1, Absolute Neuts (auto) 18.9 H, Absolute Lymphs (auto) 0.58 L, Total Counted Not Reportable, Differential Comment SCANNED 02/14/18 16:20: Sodium 138, Potassium 4.9, Chloride 100, Carbon Dioxide 22.0, Anion Gap 16 H, BUN 76 H, Creatinine 3.39 H, Estim Creat Clear Calc 17.56, Est GFR (MDRD) Af Amer 23 L, Est GFR (MDRD) Non-Af 19 L, BUN/Creatinine Ratio 22.4 H, Glucose 119 H, Calcium 8.7, Total Bilirubin 0.70, AST 23, ALT 19, Alkaline Phosphatase 55, Troponin I < 0.015, Total Protein 7.5, Albumin 2.8 L, Globulin 4.7 H, Albumin/Globulin Ratio 0.6 L 02/14/18 16:20: Lactic Acid 3.7 H 02/14/18 16:37: Specimen Type ART, Sample Site R Brachial, pH 7.29 L, Bicarbonate Actual 21.2 L, POC Total CO2 23, Base Excess -5 L, O2 Saturation 82 L, O2 % 50, ABG pCO2 44.6, ABG pO2 52 L, Burt Test NA, O2 Delivery Device Vent Mask, Blood Gas Notified Whom ED MD, Blood Gas Notified Time 1640 02/14/18 18:15: Specimen Type ART, Sample Site R Brachial, pH 7.34 L, Bicarbonate Actual 21.2 L, POC Total CO2 22, Base Excess -4 L, O2 Saturation 92 L, O2 % 70, ABG pCO2 39.1, ABG pO2 67 L, Burt Test NA, Respiration Rate 12, O2 Delivery Device Bi / C PAP, EPAP 7, IPAP 14, Blood Gas Notified Whom ED MD, Blood Gas Notified Time 1813 02/14/18 20:10: Lactic Acid Cancelled 02/14/18 20:10: Lactic Acid 2.6 H 02/14/18 21:30: Urine Color Yellow, Urine Clarity Cloudy, Urine pH 6.0, Ur Specific [place] 1.020, Urine Protein 100 H, Urine Glucose (UA) Normal, Urine Ketones Negative, Urine Occult Blood 250 H, Urine Nitrite Negative, Urine Bilirubin Negative, Urine Urobilinogen Normal, Ur Leukocyte Esterase 25 H 02/15/18 00:30: Mycoplasma pneumon IgG Pending, Mycoplasma pneumon IgM Pending 02/15/18 00:30: Sodium 135 L, Potassium 4.5, Chloride 102, Carbon Dioxide 20.0 L, Anion Gap 13, BUN 82 H, Creatinine 2.99 H, Estim Creat Clear Calc 17.24, Est GFR (MDRD) Af Amer 26 L, Est GFR (MDRD) Non-Af 22 L, BUN/Creatinine Ratio 27.4 H, Glucose 94, Calcium 8.3 L, Magnesium 1.7 02/15/18 00:30: Phosphorus 4.4 02/15/18 01:59: Specimen Type ART, Sample Site R Radial, pH 7.36, Bicarbonate Actual 20.1 L, POC Total CO2 21, Base Excess -5 L, O2 Saturation 98, O2 % 100, ABG pCO2 35.3, ABG pO2 118 H, Burt Test POS, O2 Delivery Device Bi / C PAP, EPAP 8, Blood Gas Notified Whom [facility] , Blood Gas Notified Time 155 02/15/18 04:00: WBC 10.5, RBC 3.27 L, Hgb 10.0 L, Hct 30.1 L, MCV 92.0, MCH 30.6, MCHC 33.2, RDW 14.1, RDW Differential 46.2 H, Plt Count 191, MPV 10.6, Immature Gran % (Auto) 0.400, Neut % (Auto) 96.4 H, Lymph % (Auto) 1.6 L, [place] % (Auto) 1.5, Eos % (Auto) 0.0, Baso % (Auto) 0.1, Absolute Neuts (auto) 10.2 H, Absolute Lymphs (auto) 0.17 L, Total Counted Not Reportable, Differential Comment SCANNED 02/15/18 04:00: Sodium 138, Potassium 4.8, Chloride 102, Carbon Dioxide 22.0, Anion Gap 14, BUN 85 H, Creatinine 3.10 H, Estim Creat Clear Calc 16.63, Est GFR (MDRD) Af Amer 25 L, Est GFR (MDRD) Non-Af 21 L, BUN/Creatinine Ratio 27.4 H, Glucose 99, Calcium 8.0 L Current Medications Acetaminophen (Tylenol) 650 mg PO Q4H PRN PRN PRN Reason: FEVER Last Admin: 02/15/18 01:44 Dose: 650 mg Albuterol Sulfate (Ventolin Aerosols) 2.5 mg INHALATION Q2H PRN PRN PRN Reason: SHORTNESS OF BREATH Albuterol/Ipratropium (Duoneb) 3 ml INHALATION Q4H.RT [facility] Last Admin: 02/15/18 07:21 Dose: 3 ml Amlodipine Besylate (Norvasc) 5 mg PO DAILY [facility] Last Admin: 02/15/18 09:33 Dose: Not Given Chlorhexidine Gluconate () 1 each TOPICAL DAILY [facility] Last Admin: 02/15/18 10:23 Dose: 1 each Guaifenesin (Mucinex) 1,200 mg PO BID [facility] Last Admin: 02/15/18 10:23 Dose: 1,200 mg Heparin Sodium (Porcine) (Heparin Na) 5,000 unit SC Q8 [facility] Last Admin: 02/15/18 05:12 Dose: 5,000 unit Sodium Chloride () 1,000 mls @ 100 mls/hr IV .Q10H [facility] Last Admin: 02/15/18 05:12 Dose: 100 mls/hr Ceftriaxone Sodium 2 gm/ (Sodium Chloride) 50 mls @ 100 mls/hr IV Q24 [facility] Last Admin: 02/15/18 10:23 Dose: 100 mls/hr Sodium Chloride () 250 mls @ 15 mls/hr IV .[id number] PRN PRN Reason: SALINE FLUSH Pantoprazole Sodium 40 mg/ (Sodium Chloride) 110 mls @ 330 mls/hr IV Q24 [facility] Last Admin: 02/15/18 03:35 Dose: 330 mls/hr Magnesium Hydroxide (Milk Of Magnesia) 30 ml PO DAILY PRN PRN Reason: Constipation Methylprednisolone (Solu-Medrol) 40 mg IV Q8 [facility] Last Admin: 02/15/18 05:12 Dose: 40 mg Metoprolol Succinate (Toprol Xl (Beta Ammy)) 100 mg PO DAILY [facility] Last Admin: 02/15/18 09:33 Dose: Not Given Ondansetron HCl (Zofran) 4 mg IV Q8H PRN PRN PRN Reason: NAUSEA Sodium Chloride () 5 - 15 ml IV UD PRN PRN Reason: SALINE FLUSH Last Admin: 02/15/18 10:23 Dose: 10 ml Medical Necessity - Tobacco Use Smoking Status: Former smoker Assessment/Plan All Active Problems Acute renal failure (ARF) (Acute) Acute and chronic respiratory failure with hypoxia (Acute) Severe sepsis (Acute) Community acquired pneumonia (Acute) 1. Acute hypoxic respiratory failure improved present on arrival was tachypneic on admission 2/2 pneumonia + COPD wean oxygen as tolerated 2. Pneumococcal pneumonia + antigen CTX pulmonary toilet 3. AECOPD steroids and BDs 4. Severe sepsis improving 2/2 pneumonia part of the lactic acidosis may be due to hypoxia (unable to completely separate it from it) IVF 5. IVONNE, presumed Cr minimally changed since admission Last Cr in our system from 2012 and was normal at 0.9 monitor check urine studies, renal US 6.DVT proph: SQ heparin 7. Calf pain r/o DVT check Duplex check CPK Code Visit Inpatient E&M: 30275 Subs Hosp L3
--- NOTE | 2018-02-15 10:41 | PN_ITS ---
Patient Problems: Active and Suspected Problems Acute renal failure (ARF) (Acute) Acute and chronic respiratory failure with hypoxia (Acute) Severe sepsis (Acute) Community acquired pneumonia (Acute) Subjective: Complains of cramps in calves bilaterally, R>L. Breathing better. Vitals/I&O's: Vital Signs Temp Pulse Resp BP Pulse Ox 37.2 C 65 22 H 101/59 L 96 02/15/18 10:00 02/15/18 10:00 02/15/18 10:00 02/15/18 10:00 02/15/18 10:00 Oxygen Flow Rate (L/min) 5 Oxygen Delivery Method Bi-pap Weight: 58.9 kg Body Mass Index (BMI) 18.9 Intake and Output for Last 24 Hours 02/13/18 02/14/18 02/15/18 23:59 23:59 23:59 Intake Total 343 / 343 660 / 660 Output Total 125 / 125 150 / 150 Balance 218 / 218 510 / 510 General: Alert, Cooperative, No apparent distress HEENT: Atraumatic, Normocephalic Oral: Moist Mucosa, No Gingival or Mucosal Lesions/ Ulcerations Neck: No Nodes, Thyroid Normal Size and Texture Lungs: Diminished, - - coarse breath sounds. Cardiovascular: Regular rate, Regular Rhythm, Normal S1, Normal S2 Abdomen: Bowel Sounds Present, Soft, Non Tender, Non-Distended Extremities: No edema, - - right calf tenderness. no palpable cords. Skin: No rashes, No breakdown Musculoskeletal: No Tenderness to Palpation of Joints or Extremities, No Muscle Wasting Neurological: Sensory exam intact to light touch and pain, - - no clonus Psych/Mental Status: Normal Affect, Appropriate Microbiology Past 72 Hours 02/14/18 21:30 Urine Catheter - Catheter Streptococcus pneumoniae Antigen (M - Final Streptococcus pneumonia Ag 02/14/18 21:30 Urine Catheter - Catheter Legionella Antigen - Final Laboratory Results 02/14/18 16:20: WBC 19.6 H, RBC 3.96 L, Hgb 12.0 L, Hct 36.1 L, MCV 91.2, MCH 30.3, MCHC 33.2, RDW 14.4, RDW Differential 48.7 H, Plt Count 247, MPV 9.8, Immature Gran % (Auto) 0.400, Neut % (Auto) 96.4 H, Lymph % (Auto) 3.0 L, [place] % (Auto) 0.1, Eos % (Auto) 0.0, Baso % (Auto) 0.1, Absolute Neuts (auto) 18.9 H, Absolute Lymphs (auto) 0.58 L, Total Counted Not Reportable, Differential Comment SCANNED 02/14/18 16:20: Sodium 138, Potassium 4.9, Chloride 100, Carbon Dioxide 22.0, Anion Gap 16 H, BUN 76 H, Creatinine 3.39 H, Estim Creat Clear Calc 17.56, Est GFR (MDRD) Af Amer 23 L, Est GFR (MDRD) Non-Af 19 L, BUN/Creatinine Ratio 22.4 H , Glucose 119 H, Calcium 8.7, Total Bilirubin 0.70, AST 23, ALT 19, Alkaline Phosphatase 55, Troponin I < 0.015, Total Protein 7.5, Albumin 2.8 L, Globulin 4.7 H, Albumin/Globulin Ratio 0.6 L 02/14/18 16:20: Lactic Acid 3.7 H 02/14/18 16:37: Specimen Type ART, Sample Site R Brachial, pH 7.29 L, Bicarbonate Actual 21.2 L, POC Total CO2 23, Base Excess -5 L, O2 Saturation 82 L, O2 % 50, ABG pCO2 44.6, ABG pO2 52 L, Burt Test NA, O2 Delivery Device Vent Mask, Blood Gas Notified Whom ED MD, Blood Gas Notified Time 1640 02/14/18 18:15: Specimen Type ART, Sample Site R Brachial, pH 7.34 L, Bicarbonate Actual 21.2 L, POC Total CO2 22, Base Excess -4 L, O2 Saturation 92 L, O2 % 70, ABG pCO2 39.1, ABG pO2 67 L, Burt Test NA, Respiration Rate 12, O2 Delivery Device Bi / C PAP, EPAP 7, IPAP 14, Blood Gas Notified Whom ED MD, Blood Gas Notified Time 1813 02/14/18 20:10: Lactic Acid Cancelled 02/14/18 20:10: Lactic Acid 2.6 H 02/14/18 21:30: Urine Color Yellow, Urine Clarity Cloudy, Urine pH 6.0, Ur Specific [place] 1.020, Urine Protein 100 H, Urine Glucose (UA) Normal, Urine Ketones Negative, Urine Occult Blood 250 H, Urine Nitrite Negative, Urine Bilirubin Negative, Urine Urobilinogen Normal, Ur Leukocyte Esterase 25 H 02/15/18 00:30: Mycoplasma pneumon IgG Pending, Mycoplasma pneumon IgM Pending 02/15/18 00:30: Sodium 135 L, Potassium 4.5, Chloride 102, Carbon Dioxide 20.0 L , Anion Gap 13, BUN 82 H, Creatinine 2.99 H, Estim Creat Clear Calc 17.24, Est GFR (MDRD) Af Amer 26 L, Est GFR (MDRD) Non-Af 22 L, BUN/Creatinine Ratio 27.4 H , Glucose 94, Calcium 8.3 L, Magnesium 1.7 02/15/18 00:30: Phosphorus 4.4 02/15/18 01:59: Specimen Type ART, Sample Site R Radial, pH 7.36, Bicarbonate Actual 20.1 L, POC Total CO2 21, Base Excess -5 L, O2 Saturation 98, O2 % 100, ABG pCO2 35.3, ABG pO2 118 H, Burt Test POS, O2 Delivery Device Bi / C PAP, EPAP 8, Blood Gas Notified Whom [facility] , Blood Gas Notified Time 155 02/15/18 04:00: WBC 10.5, RBC 3.27 L, Hgb 10.0 L, Hct 30.1 L, MCV 92.0, MCH 30.6, MCHC 33.2, RDW 14.1, RDW Differential 46.2 H, Plt Count 191, MPV 10.6, Immature Gran % (Auto) 0.400, Neut % (Auto) 96.4 H, Lymph % (Auto) 1.6 L, [place] % (Auto) 1.5, Eos % (Auto) 0.0, Baso % (Auto) 0.1, Absolute Neuts (auto) 10.2 H, Absolute Lymphs (auto) 0.17 L, Total Counted Not Reportable, Differential Comment SCANNED 02/15/18 04:00: Sodium 138, Potassium 4.8, Chloride 102, Carbon Dioxide 22.0, Anion Gap 14, BUN 85 H, Creatinine 3.10 H, Estim Creat Clear Calc 16.63, Est GFR (MDRD) Af Amer 25 L, Est GFR (MDRD) Non-Af 21 L, BUN/Creatinine Ratio 27.4 H, Glucose 99, Calcium 8.0 L Current Medications Acetaminophen (Tylenol) 650 mg PO Q4H PRN PRN PRN Reason: FEVER Last Admin: 02/15/18 01:44 Dose: 650 mg Albuterol Sulfate (Ventolin Aerosols) 2.5 mg INHALATION Q2H PRN PRN PRN Reason: SHORTNESS OF BREATH Albuterol/Ipratropium (Duoneb) 3 ml INHALATION Q4H.RT [facility] Last Admin: 02/15/18 07:21 Dose: 3 ml Amlodipine Besylate (Norvasc) 5 mg PO DAILY [facility] Last Admin: 02/15/18 09:33 Dose: Not Given Chlorhexidine Gluconate () 1 each TOPICAL DAILY [facility] Last Admin: 02/15/18 10:23 Dose: 1 each Guaifenesin (Mucinex) 1,200 mg PO BID [facility] Last Admin: 02/15/18 10:23 Dose: 1,200 mg Heparin Sodium (Porcine) (Heparin Na) 5,000 unit SC Q8 [facility] Last Admin: 02/15/18 05:12 Dose: 5,000 unit Sodium Chloride () 1,000 mls @ 100 mls/hr IV .Q10H [facility] Last Admin: 02/15/18 05:12 Dose: 100 mls/hr Ceftriaxone Sodium 2 gm/ (Sodium Chloride) 50 mls @ 100 mls/hr IV Q24 [facility] Last Admin: 02/15/18 10:23 Dose: 100 mls/hr Sodium Chloride () 250 mls @ 15 mls/hr IV .[id number] PRN PRN Reason: SALINE FLUSH Pantoprazole Sodium 40 mg/ (Sodium Chloride) 110 mls @ 330 mls/hr IV Q24 [facility] Last Admin: 02/15/18 03:35 Dose: 330 mls/hr Magnesium Hydroxide (Milk Of Magnesia) 30 ml PO DAILY PRN PRN Reason: Constipation Methylprednisolone (Solu-Medrol) 40 mg IV Q8 [facility] Last Admin: 02/15/18 05:12 Dose: 40 mg Metoprolol Succinate (Toprol Xl (Beta Ammy)) 100 mg PO DAILY [facility] Last Admin: 02/15/18 09:33 Dose: Not Given Ondansetron HCl (Zofran) 4 mg IV Q8H PRN PRN PRN Reason: NAUSEA Sodium Chloride () 5 - 15 ml IV UD PRN PRN Reason: SALINE FLUSH Last Admin: 02/15/18 10:23 Dose: 10 ml Medical Necessity - Tobacco Use Smoking Status: Former smoker Assessment/Plan All Active Problems Acute renal failure (ARF) (Acute) Acute and chronic respiratory failure with hypoxia (Acute) Severe sepsis (Acute) Community acquired pneumonia (Acute) 1. Acute hypoxic respiratory failure * improved * present on arrival * was tachypneic on admission * 2/2 pneumonia + COPD * wean oxygen as tolerated 2. Pneumococcal pneumonia * + antigen * CTX * pulmonary toilet 3. AECOPD * steroids and BDs 4. Severe sepsis * improving * 2/2 pneumonia * part of the lactic acidosis may be due to hypoxia (unable to completely separate it from it) * IVF 5. IVONNE, presumed * Cr minimally changed since admission * Last Cr in our system from 2012 and was normal at 0.9 * monitor * check urine studies, renal US 6.DVT proph: SQ heparin 7. Calf pain * r/o DVT * check Duplex * check CPK Code Visit Inpatient E&M: 36236 Subs Hosp L3
[2018-02-15 11:51] LABS: Urine Sodium 18 mmol/L (Not Establ.)
--- NOTE | 2018-02-15 12:33 | EKG12_ITS ---
Test Reason : AFIB Blood Pressure : / mmHG Vent. Rate : 138 BPM Atrial Rate : 070 BPM P-R Int : 000 ms QRS Dur : 084 ms QT Int : 284 ms P-R-T Axes : 000 025 115 degrees QTc Int : 430 ms Atrial fibrillation with premature ventricular or aberrantly conducted complexes Low voltage QRS (LIMB LEADS) ST & T wave abnormality, consider lateral ischemia Abnormal ECG Confirmed by KEVIN AMOR, LAINA ([id number]), newspaper copy editor NISA CAMPOS ([id number]) on 02/20/2018 3:40:29 PM Referred By: Marla Temple Confirmed By:LAINA BROWN MD
[2018-02-15] MEDS: Metoprolol Tartrate 5 MG/5 ML Vial 2.5 MG IV ×2 (12:38→14:10)
[2018-02-15] MEDS: Metoprolol Tartrate 5 MG/5 ML Vial IV ×2 (17:06→23:09)
[2018-02-15] MEDS: Haloperidol Lactate 5 MG/ML Vial 3 MG IV (20:19)
--- NOTE | 2018-02-15 20:22 | CPS ---
pt refusing I.S. and pep therapy at this time
[2018-02-15] MEDS: Haloperidol Lactate 5 MG/ML Vial 2 MG IV (21:21)
--- NOTE | 2018-02-15 21:31 | NURSING ---
Pt resistive to care, but cooperates with extensive education. Negotiates time to spend on BiPap and has high anxiety with wearing the mask. C/O dry mouth and throat. Nurse applies mouth moisturizer to aide in pt comfort. Pt tolerates poorly, is difficult to console, but reluctantly agrees to maintain BiPap for agreed upon time of 3-4 hours. Will continue to monitor after administration of ordered haldol for anxiety. While on BiPap, pt pulse ox in high 90's and respirations low to mid 20's.
[2018-02-16] VITALS (42 sets, daily range): BP systolic 101–163; BP diastolic 63–114; PULSE 24–131; RESP 12–40; TEMP 36.4–37.4; O2SAT 88–100
[2018-02-16] MEDS: 0.9% Normal Saline 1,000 ML 100 ML IV ×2 (01:51→13:38)
--- NOTE | 2018-02-16 03:49 | CPS ---
pt refusing bipap
[2018-02-16] MEDS: 0.9% NaCl Peripheral Flush Adult/Peds IV ×4 (04:32→21:58)
[2018-02-16 04:52] LABS: Absolute Lymphocyte Count 0.12 X10^3/ul (0.83-4.51); Absolute Neutrophil Count 8.3 X10^3/uL (2.0-7.7); Basophil# 0.01 X10^3/uL; Basophil% 0.1 % (0-1); Hematocrit 29.1 % (40-54); Hemoglobin 9.5 g/dl (13.0-16.5); Lymphocyte # 0.12 X10^3/ul (4.0); Lymphocyte % 1.4 % (19-41); Mean Corp Hgb Conc 32.6 g/gl (32-36); Mean Corpuscular Hgb 29.9 pg (27.0-32.0); Mean Corpuscular Volume 91.5 fL (80-94); Mean Platelet Vol. 10.4 fl (6.2-12.0); Monocyte% 4.5 % (0-10); Neutrophil # 8.27 X10^3/uL (2.7-7.7); Neutrophil % 93.2 % (47-70); Platelet Count 171 K/mm3 (150-450); RBC Distribution Width CV 14.4 % (11.6-14.6); RBC Distribution Width SD 46.3 fl (35.1-43.9); Red Blood Count 3.18 M/mm3 (4.6-6.2); White Blood Count 8.9 K/mm3 (4.4-11.0)
[2018-02-16 04:53] LABS: Differential Indicated SCAN CRITERIA MET; POSITIVE COUNT NO; POSITIVE DIFFERENTIAL YES; POSITIVE MORPHOLOGY NO
[2018-02-16 04:58] LABS: Anion Gap 13 (5-15); BUN 86 mg/dL (7-18); BUN/Creat Ratio 35.8 RATIO (10-20); Calcium,Total 8.1 mg/dL (8.5-10.1); Chloride 108 mmol/L (98-107); EST Glomerular Filtration Rate 28 mL/min (>60); Est Glom Filt Rate - Afr Amer 34 mL/min (>60); Estimated Creatinine Clearance 21.47 ml/min; Glucose 148 mg/dL (74-106); Magnesium 2.5 mg/dL (1.6-2.6); Potassium 3.5 mmol/L (3.5-5.1); Sodium Level 140 mmol/L (136-145)
[2018-02-16 05:22] LABS: Differential Comment SCANNED
[2018-02-16] MEDS: Metoprolol Tartrate 5 MG/5 ML Vial IV (06:21)
[2018-02-16] MEDS: Heparin Injection (Vial) 5,000 UNIT/ML VIAL 5000 UNIT SC ×2 (06:21→14:00)
[2018-02-16] MEDS: Ipratropium/Albuterol Sulfate 3 ML AMPUL.NEB INHALATION ×5 (07:03→23:27)
--- NOTE | 2018-02-16 07:04 | PCM.PN.INT ---
Subjective: The patient was seen and examined at the bedside this morning. Events from the last 24 hours have been reviewed. The patient is currently afebrile, hemodynamically stable and maintaining appropriate oxygen saturations on BiPAP. Yesterday, the patient was noted to go into atrial fibrillation. He was subsequently started on amiodarone infusion. He only utilized his BiPAP last night for approximately 3.5 hours. The patient reports that he utilizes anywhere between 2 and 3 L/min of supplemental oxygen at his baseline. Objective: The patient's most recent lab work, culture data and imaging studies have all been personally reviewed. Urine Streptococcus antigen was positive. Respiratory viral panel was positive for rhinovirus. General: Alert, Cooperative, No apparent distress, - - BiPAP in place HEENT: Atraumatic, PERRLA, Normocephalic Oral: Dry Mucosa Neck: Supple, No Nodes, Trachea Midline Lungs: No rhonchi, No wheeze, No rales, Diminished, Tachypneic Cardiovascular: Normal S1, Normal S2, Irregular Rate, Tachycardic Abdomen: Bowel Sounds Present, Soft, Non Tender Extremities: No cyanosis, No edema, Clubbing Skin: No breakdown Musculoskeletal: No Tenderness to Palpation of Joints or Extremities, Cachexia, Muscle Wasting Lymphatic: No Cervical, Supraclavicular, or Inguinal Adenopathy Neurological: Neuro grossly intact Psych/Mental Status: Flat Affect Vital Signs Temp Pulse Resp BP Pulse Ox 36.6 C 96 18 153/94 H 92 02/16/18 07:00 02/16/18 07:00 02/16/18 07:00 02/16/18 07:00 02/16/18 07:00 Oxygen Flow Rate (L/min) 4 Oxygen Delivery Method Nasal Cannula Weight: 135 lb 12.876 oz Body Mass Index (BMI) 18.9 Intake and Output for Last 24 Hours 02/14/18 02/15/18 02/16/18 23:59 23:59 23:59 Intake Total 343 / 343 2909 / 2909 2044 / 2044 Output Total 125 / 125 400 / 400 640 / 640 Balance 218 / 218 2509 / 2509 1404 / 1404 Labs (Last 48 Hours) 02/14/18 02/14/18 02/14/18 16:20 16:20 16:20 WBC 19.6 H RBC 3.96 L Hgb 12.0 L Hct 36.1 L MCV 91.2 MCH 30.3 MCHC 33.2 RDW 14.4 RDW Differential 48.7 H Plt Count 247 MPV 9.8 Immature Gran % (Auto) 0.400 Neut % (Auto) 96.4 H Lymph % (Auto) 3.0 L [place] % (Auto) 0.1 Eos % (Auto) 0.0 Baso % (Auto) 0.1 Absolute Neuts (auto) 18.9 H Absolute Lymphs (auto) 0.58 L Total Counted Not Reportable Differential Comment SCANNED Eos Smear Total Cells Specimen Type Sample Site pH Bicarbonate Actual POC Total CO2 Base Excess O2 Saturation O2 % ABG pCO2 ABG pO2 Burt Test Respiration Rate O2 Delivery Device EPAP IPAP Blood Gas Notified Whom Blood Gas Notified Time Sodium 138 Potassium 4.9 Chloride 100 Carbon Dioxide 22.0 Anion Gap 16 H BUN 76 H Creatinine 3.39 H Estim Creat Clear Calc 17.56 Est GFR (MDRD) Af Amer 23 L Est GFR (MDRD) Non-Af 19 L BUN/Creatinine Ratio 22.4 H Glucose 119 H Lactic Acid 3.7 H Calcium 8.7 Phosphorus Magnesium Total Bilirubin 0.70 AST 23 ALT 19 Alkaline Phosphatase 55 Troponin I < 0.015 Total Protein 7.5 Albumin 2.8 L Globulin 4.7 H Albumin/Globulin Ratio 0.6 L Urine Color Urine Clarity Urine pH Ur Specific [place] Urine Protein Urine Glucose (UA) Urine Ketones Urine Occult Blood Urine Nitrite Urine Bilirubin Urine Urobilinogen Ur Leukocyte Esterase Ur Random Sodium Urine Creatinine Mycoplasma pneumon IgG Mycoplasma pneumon IgM 02/14/18 02/14/18 02/14/18 16:37 18:15 20:10 WBC RBC Hgb Hct MCV MCH MCHC RDW RDW Differential Plt Count MPV Immature Gran % (Auto) Neut % (Auto) Lymph % (Auto) [place] % (Auto) Eos % (Auto) Baso % (Auto) Absolute Neuts (auto) Absolute Lymphs (auto) Total Counted Differential Comment Eos Smear Total Cells Specimen Type ART ART Sample Site R Brachial R Brachial pH 7.29 L 7.34 L Bicarbonate Actual 21.2 L 21.2 L POC Total CO2 23 22 Base Excess -5 L -4 L O2 Saturation 82 L 92 L O2 % 50 70 ABG pCO2 44.6 39.1 ABG pO2 52 L 67 L Burt Test NA NA Respiration Rate 12 O2 Delivery Device Vent Mask Bi / C PAP EPAP 7 IPAP 14 Blood Gas Notified Whom ED MD ED MD Blood Gas Notified Time 1640 1813 Sodium Potassium Chloride Carbon Dioxide Anion Gap BUN Creatinine Estim Creat Clear Calc Est GFR (MDRD) Af Amer Est GFR (MDRD) Non-Af BUN/Creatinine Ratio Glucose Lactic Acid Cancelled Calcium Phosphorus Magnesium Total Bilirubin AST ALT Alkaline Phosphatase Troponin I Total Protein Albumin Globulin Albumin/Globulin Ratio Urine Color Urine Clarity Urine pH Ur Specific [place] Urine Protein Urine Glucose (UA) Urine Ketones Urine Occult Blood Urine Nitrite Urine Bilirubin Urine Urobilinogen Ur Leukocyte Esterase Ur Random Sodium Urine Creatinine Mycoplasma pneumon IgG Mycoplasma pneumon IgM 02/14/18 02/14/18 02/15/18 20:10 21:30 00:30 WBC RBC Hgb Hct MCV MCH MCHC RDW RDW Differential Plt Count MPV Immature Gran % (Auto) Neut % (Auto) Lymph % (Auto) [place] % (Auto) Eos % (Auto) Baso % (Auto) Absolute Neuts (auto) Absolute Lymphs (auto) Total Counted Differential Comment Eos Smear Total Cells Specimen Type Sample Site pH Bicarbonate Actual POC Total CO2 Base Excess O2 Saturation O2 % ABG pCO2 ABG pO2 Burt Test Respiration Rate O2 Delivery Device EPAP IPAP Blood Gas Notified Whom Blood Gas Notified Time Sodium Potassium Chloride Carbon Dioxide Anion Gap BUN Creatinine Estim Creat Clear Calc Est GFR (MDRD) Af Amer Est GFR (MDRD) Non-Af BUN/Creatinine Ratio Glucose Lactic Acid 2.6 H Calcium Phosphorus Magnesium Total Bilirubin AST ALT Alkaline Phosphatase Troponin I Total Protein Albumin Globulin Albumin/Globulin Ratio Urine Color Yellow Urine Clarity Cloudy Urine pH 6.0 Ur Specific [place] 1.020 Urine Protein 100 H Urine Glucose (UA) Normal Urine Ketones Negative Urine Occult Blood 250 H Urine Nitrite Negative Urine Bilirubin Negative Urine Urobilinogen Normal Ur Leukocyte Esterase 25 H Ur Random Sodium Urine Creatinine Mycoplasma pneumon IgG Pending Mycoplasma pneumon IgM Pending 02/15/18 02/15/18 02/15/18 00:30 00:30 01:59 WBC RBC Hgb Hct MCV MCH MCHC RDW RDW Differential Plt Count MPV Immature Gran % (Auto) Neut % (Auto) Lymph % (Auto) [place] % (Auto) Eos % (Auto) Baso % (Auto) Absolute Neuts (auto) Absolute Lymphs (auto) Total Counted Differential Comment Eos Smear Total Cells Specimen Type ART Sample Site R Radial pH 7.36 Bicarbonate Actual 20.1 L POC Total CO2 21 Base Excess -5 L O2 Saturation 98 O2 % 100 ABG pCO2 35.3 ABG pO2 118 H Burt Test POS Respiration Rate O2 Delivery Device Bi / C PAP EPAP 8 IPAP Blood Gas Notified Whom [facility] Blood Gas Notified Time 155 Sodium 135 L Potassium 4.5 Chloride 102 Carbon Dioxide 20.0 L Anion Gap 13 BUN 82 H Creatinine 2.99 H Estim Creat Clear Calc 17.24 Est GFR (MDRD) Af Amer 26 L Est GFR (MDRD) Non-Af 22 L BUN/Creatinine Ratio 27.4 H Glucose 94 Lactic Acid Calcium 8.3 L Phosphorus 4.4 Magnesium 1.7 Total Bilirubin AST ALT Alkaline Phosphatase Troponin I Total Protein Albumin Globulin Albumin/Globulin Ratio Urine Color Urine Clarity Urine pH Ur Specific [place] Urine Protein Urine Glucose (UA) Urine Ketones Urine Occult Blood Urine Nitrite Urine Bilirubin Urine Urobilinogen Ur Leukocyte Esterase Ur Random Sodium Urine Creatinine Mycoplasma pneumon IgG Mycoplasma pneumon IgM 02/15/18 02/15/18 02/15/18 04:00 04:00 11:25 WBC 10.5 RBC 3.27 L Hgb 10.0 L Hct 30.1 L MCV 92.0 MCH 30.6 MCHC 33.2 RDW 14.1 RDW Differential 46.2 H Plt Count 191 MPV 10.6 Immature Gran % (Auto) 0.400 Neut % (Auto) 96.4 H Lymph % (Auto) 1.6 L [place] % (Auto) 1.5 Eos % (Auto) 0.0 Baso % (Auto) 0.1 Absolute Neuts (auto) 10.2 H Absolute Lymphs (auto) 0.17 L Total Counted Not Reportable Differential Comment SCANNED Eos Smear Total Cells Pending Specimen Type Sample Site pH Bicarbonate Actual POC Total CO2 Base Excess O2 Saturation O2 % ABG pCO2 ABG pO2 Burt Test Respiration Rate O2 Delivery Device EPAP IPAP Blood Gas Notified Whom Blood Gas Notified Time Sodium 138 Potassium 4.8 Chloride 102 Carbon Dioxide 22.0 Anion Gap 14 BUN 85 H Creatinine 3.10 H Estim Creat Clear Calc 16.63 Est GFR (MDRD) Af Amer 25 L Est GFR (MDRD) Non-Af 21 L BUN/Creatinine Ratio 27.4 H Glucose 99 Lactic Acid Calcium 8.0 L Phosphorus Magnesium Total Bilirubin AST ALT Alkaline Phosphatase Troponin I Total Protein Albumin Globulin Albumin/Globulin Ratio Urine Color Urine Clarity Urine pH Ur Specific [place] Urine Protein Urine Glucose (UA) Urine Ketones Urine Occult Blood Urine Nitrite Urine Bilirubin Urine Urobilinogen Ur Leukocyte Esterase Ur Random Sodium Urine Creatinine Mycoplasma pneumon IgG Mycoplasma pneumon IgM 02/15/18 02/15/18 02/16/18 11:25 11:25 04:35 WBC 8.9 RBC 3.18 L Hgb 9.5 L Hct 29.1 L MCV 91.5 MCH 29.9 MCHC 32.6 RDW 14.4 RDW Differential 46.3 H Plt Count 171 MPV 10.4 Immature Gran % (Auto) 0.800 Neut % (Auto) 93.2 H Lymph % (Auto) 1.4 L [place] % (Auto) 4.5 Eos % (Auto) 0.0 Baso % (Auto) 0.1 Absolute Neuts (auto) 8.3 H Absolute Lymphs (auto) 0.12 L Total Counted Not Reportable Differential Comment SCANNED Eos Smear Total Cells Specimen Type Sample Site pH Bicarbonate Actual POC Total CO2 Base Excess O2 Saturation O2 % ABG pCO2 ABG pO2 Burt Test Respiration Rate O2 Delivery Device EPAP IPAP Blood Gas Notified Whom Blood Gas Notified Time Sodium Potassium Chloride Carbon Dioxide Anion Gap BUN Creatinine Estim Creat Clear Calc Est GFR (MDRD) Af Amer Est GFR (MDRD) Non-Af BUN/Creatinine Ratio Glucose Lactic Acid Calcium Phosphorus Magnesium Total Bilirubin AST ALT Alkaline Phosphatase Troponin I Total Protein Albumin Globulin Albumin/Globulin Ratio Urine Color Urine Clarity Urine pH Ur Specific [place] Urine Protein Urine Glucose (UA) Urine Ketones Urine Occult Blood Urine Nitrite Urine Bilirubin Urine Urobilinogen Ur Leukocyte Esterase Ur Random Sodium 18 Urine Creatinine 119.00 Mycoplasma pneumon IgG Mycoplasma pneumon IgM 02/16/18 04:35 WBC RBC Hgb Hct MCV MCH MCHC RDW RDW Differential Plt Count MPV Immature Gran % (Auto) Neut % (Auto) Lymph % (Auto) [place] % (Auto) Eos % (Auto) Baso % (Auto) Absolute Neuts (auto) Absolute Lymphs (auto) Total Counted Differential Comment Eos Smear Total Cells Specimen Type Sample Site pH Bicarbonate Actual POC Total CO2 Base Excess O2 Saturation O2 % ABG pCO2 ABG pO2 Burt Test Respiration Rate O2 Delivery Device EPAP IPAP Blood Gas Notified Whom Blood Gas Notified Time Sodium 140 Potassium 3.5 Chloride 108 H Carbon Dioxide 19.0 L Anion Gap 13 BUN 86 H Creatinine 2.40 H Estim Creat Clear Calc 21.47 Est GFR (MDRD) Af Amer 34 L Est GFR (MDRD) Non-Af 28 L BUN/Creatinine Ratio 35.8 H Glucose 148 H Lactic Acid Calcium 8.1 L Phosphorus Magnesium 2.5 Total Bilirubin AST ALT Alkaline Phosphatase Troponin I Total Protein Albumin Globulin Albumin/Globulin Ratio Urine Color Urine Clarity Urine pH Ur Specific [place] Urine Protein Urine Glucose (UA) Urine Ketones Urine Occult Blood Urine Nitrite Urine Bilirubin Urine Urobilinogen Ur Leukocyte Esterase Ur Random Sodium Urine Creatinine Mycoplasma pneumon IgG Mycoplasma pneumon IgM Microbiology 02/15/18 07:30 Mucosa - Nasopharyngeal Respiratory Panel (PCR) - Final Rhinovirus 02/14/18 21:30 Urine Catheter - Catheter Streptococcus pneumoniae Antigen (M - Final Streptococcus pneumonia Ag 02/14/18 21:30 Urine Catheter - Catheter Legionella Antigen - Final Clinical Impression(s) from Imaging Studies Chest X-Ray 02/14/18 16:13 IMPRESSION: Hyperexpansion with left lower lobe pneumonia and small left effusion. Electronically Signed: Nacho Banda MD at 17:09 EST , Service support , Medical Necessity - Tobacco Use Smoking Status: Former smoker Assessment/Plan All Active Problems Acute renal failure (ARF) (Acute) Acute and chronic respiratory failure with hypoxia (Acute) Severe sepsis (Acute) Community acquired pneumonia (Acute) RECOMMENDATIONS: 1. Wean patient from BiPAP as tolerated. 2. Continue supplemental oxygen to maintain saturations at or above 90%. 3. Continue amiodarone, pending cardiology consultation. 4. Continue antibiotics 5. Continue scheduled bronchodilators and IV steroids for now. 6. Echocardiogram and renal ultrasound are pending. IMPRESSIONS: 1. Acute on chronic hypoxemic respiratory failure secondary to COPD with exacerbation due to combined pneumococcal pneumonia and rhinovirus infection Plan to continue current supportive measures including scheduled bronchodilators, antibiotics and steroids. IV Solu-Medrol can be transitioned to prednisone over the next 24-48 hours. Continue noninvasive positive pressure ventilation as tolerated. Wean FiO2/supplemental oxygen to maintain saturations at or above 90%. 2. Severe sepsis secondary to pneumococcal pneumonia and rhinovirus infection As noted above, antibiotics will be continued. Once the patient is able to tolerate p.o. intake, supplemental IV fluids will be discontinued. 3. New-onset atrial fibrillation Continue amiodarone as ordered, pending cardiology consultation. Echocardiogram is pending. 4. Acute kidney injury Likely prerenal in etiology, as the patient is responding to IV volume expansion. He may also have a component of chronic kidney disease as well. We will continue to monitor. No indication for renal replacement therapy at this time. 5. Advanced age/hypertension/metabolic encephalopathy Complicates care, management, recovery and prognosis. This note was generated with [employer] dictation software. It may contain incorrect words, spelling, and punctuation that were not noted in checking the note before signing. Code Visit Inpatient E&M: 20800 Subs Hosp L3
--- NOTE | 2018-02-16 08:10 | NURSING ---
renal US in progress
--- NOTE | 2018-02-16 08:51 | PCM.PROGNOTE ---
Patient Problems: Active and Suspected Problems Atrial fibrillation (Acute) Acute renal failure (ARF) (Acute) Acute and chronic respiratory failure with hypoxia (Acute) Severe sepsis (Acute) Community acquired pneumonia (Acute) Subjective: Mr. Nogueira is a 77-year-old male with a past medical history of chronic respiratory failure with hypoxia, hypertension and COPD who presented to the emergency department at [facility] on 02/14/2018 complaining of increasing shortness of breath. He was diagnosed with a left lower lobe community-acquired pneumonia, acute on chronic hypoxic respiratory failure and acute renal failure. He was admitted to ICU on BIPAP. All events of the past 24 hours of been reviewed. He initially had a mild increase in temp to 99.4 but has been afebrile since 02/15/2018 at 7 PM. Blood pressure is currently 153/94 and is periodically elevated. Respiratory rate is currently 35 and he is 97% saturated with an FiO2 of 40%. All lab was personally reviewed. White blood cell count is normal at 8.9 and the platelet count is also normal. Hemoglobin is 9.5, down from 14.8 in May 2017. He has normochromic normocytic indices with a normal RDW. Serum bicarb today is low at 19 and his BUN is 86 with a creatinine of 2.40, down from 3.39 at admission. The last creatinine we have on this gentleman is from 2012 and at that time it was 0.9. Microbiology: Urine streptococcal antigen is positive and patient also has positive rhinovirus on the respiratory panel. Radiology: Renal ultrasound was done today but has not been reported yet. Tells me that he had a fungal infection a few years ago and he sent a swab off to a veterinary clinic in [place] and they were able to give him a diagnosis and recommended inhaled colloidal silver for tx and a probiotic. He does not recall the name of the fungus. - Physical Exam General: Alert, Oriented x3, Cooperative HEENT: Atraumatic Oral: Dry Mucosa Lungs: No rhonchi, No wheeze, No rales, Diminished, Short of Breath, Tachypneic, Using Accessory Muscles, - - Positive conversational dyspnea, symmetric chest expansion Cardiovascular: No murmurs, Irregular Rate - at a rate in the 130's currently, Tachycardic, - - distant heart sounds Abdomen: Bowel Sounds Present, Soft, Non Tender, Distended - Mildly distended and tympanic, likely secondary to tachypnea Extremities: No cyanosis, No edema, Clubbing Skin: No rashes, No breakdown Neurological: Cranial nerves II-XII grossly intact, Neuro grossly intact Psych/Mental Status: Normal Affect, Appropriate Vital Signs Temp Pulse Resp BP Pulse Ox 97.8 F 127 H 35 H 153/94 H 97 02/16/18 07:00 02/16/18 07:44 02/16/18 07:44 02/16/18 07:00 02/16/18 07:44 Oxygen Flow Rate (L/min) 4 Oxygen Delivery Method Nasal Cannula Weight: 135 lb 12.876 oz Body Mass Index (BMI) 18.9 Intake and Output for Last 24 Hours 02/14/18 02/15/18 02/16/18 23:59 23:59 23:59 Intake Total 343 / 343 2909 / 2909 2044 / 2044 Output Total 125 / 125 400 / 400 640 / 640 Balance 218 / 218 2509 / 2509 1404 / 1404 Microbiology Past 72 Hours 02/15/18 07:30 Respiratory Panel (PCR) - Final Mucosa - Nasopharyngeal Rhinovirus 02/14/18 21:30 Streptococcus pneumoniae Antigen (M - Final Urine Catheter - Catheter Streptococcus pneumonia Ag 02/14/18 21:30 Legionella Antigen - Final Urine Catheter - Catheter Laboratory Tests Past 24 Hrs 02/15/18 02/15/18 02/15/18 11:25 11:25 11:25 WBC RBC Hgb Hct MCV MCH MCHC RDW RDW Differential Plt Count MPV Immature Gran % (Auto) Neut % (Auto) Lymph % (Auto) Rankin % (Auto) Eos % (Auto) Baso % (Auto) Absolute Neuts (auto) Absolute Lymphs (auto) Total Counted Differential Comment Eos Smear Total Cells Pending Sodium Potassium Chloride Carbon Dioxide Anion Gap BUN Creatinine Estim Creat Clear Calc Est GFR (MDRD) Af Amer Est GFR (MDRD) Non-Af BUN/Creatinine Ratio Glucose Calcium Magnesium Ur Random Sodium 18 Urine Creatinine 119.00 02/16/18 02/16/18 04:35 04:35 WBC 8.9 RBC 3.18 L Hgb 9.5 L Hct 29.1 L MCV 91.5 MCH 29.9 MCHC 32.6 RDW 14.4 RDW Differential 46.3 H Plt Count 171 MPV 10.4 Immature Gran % (Auto) 0.800 Neut % (Auto) 93.2 H Lymph % (Auto) 1.4 L Rankin % (Auto) 4.5 Eos % (Auto) 0.0 Baso % (Auto) 0.1 Absolute Neuts (auto) 8.3 H Absolute Lymphs (auto) 0.12 L Total Counted Not Reportable Differential Comment SCANNED Eos Smear Total Cells Sodium 140 Potassium 3.5 Chloride 108 H Carbon Dioxide 19.0 L Anion Gap 13 BUN 86 H Creatinine 2.40 H Estim Creat Clear Calc 21.47 Est GFR (MDRD) Af Amer 34 L Est GFR (MDRD) Non-Af 28 L BUN/Creatinine Ratio 35.8 H Glucose 148 H Calcium 8.1 L Magnesium 2.5 Ur Random Sodium Urine Creatinine Medical Necessity - Tobacco Use Smoking Status: Former smoker Assessment/Plan All Active Problems Atrial fibrillation (Acute) Acute renal failure (ARF) (Acute) Acute and chronic respiratory failure with hypoxia (Acute) Severe sepsis (Acute) Community acquired pneumonia (Acute) Impressions 1. Acute hypoxic respiratory failure secondary to pneumococcal pneumonia and rhinovirus 2. Community-acquired pneumonia secondary to Streptococcus pneumoniae 3. Severe sepsis with acute respiratory failure secondary to pneumonia 4. Atrial fibrillation with rapid ventricular response 5. Acute kidney injury? no recent baseline - FENA is consistent with prerenal azotemia-heart rate currently controlled with restarting metoprolol and amiodarone infusion. 7. Acute exacerbation of COPD Continue amiodarone, restart PO Metoprolol he was taking at home Continue ceftriaxone Continue high-dose intravenous steroids Continue subcutaneous heparin for DVT prophylaxis Obtain records from Dr. Mcgee - labs and testing and recent progress note The fractional excretion of sodium is 0.34% which is consistent with prerenal azotemia so will continue to hydrate Echo has been ordered but not done yet Supplement the potassium to keep potassium around 4 and supplement the magnesium as needed to keep the magnesium at 2 or greater. Recheck lab in the a.m. Code Visit Inpatient E&M: [id number] [facility] Hosp L3
[2018-02-16] MEDS: amLODIPine 5 MG Tablet PO (09:46)
[2018-02-16] MEDS: guaiFENesin 1,200 MG Tablet 1200 MG PO ×2 (09:46→22:00)
--- NOTE | 2018-02-16 10:00 | NURSING ---
echo in progress
--- NOTE | 2018-02-16 10:38 | US_ITS ---
STUDY: RENAL ULTRASOUND - COMPLETE REASON FOR EXAM: Male, 77 years old. Acute renal insufficiency. TECHNIQUE: Ultrasound evaluation of the kidneys was performed with real-time and static campos-scale imaging. COMPARISON: None. FINDINGS: RIGHT KIDNEY: Normal location of the right kidney, which is normal in size. The right kidney measures 9.5 cm x 4.1 cm x 3.6 cm. There is diffuse thinning of the renal cortex. The renal cortex measures 0.8 cm. There is increased echotexture of the renal cortex suggestive of possible renal medical disease. There is a 1 cm x 1 cm x 0.8 cm cyst. There are no right renal calculi. There is no right hydronephrosis. DISTAL RIGHT URETER: There is non-visualization of the distal right ureter. There is no demonstrated right ureterovesical junction calculus. There is no demonstrated right ureteral jet. LEFT KIDNEY: Normal location of the left kidney, which is normal in size. The left kidney measures 9.3 cm x 4.5 cm x 4.8 cm. There is a normal cortex of the left kidney. The renal cortex measures 1.8 cm. Increased cortical echotexture suggestive of medical renal disease. There is no left renal mass or cyst. There are no left renal calculi. There is no left hydronephrosis. DISTAL LEFT URETER: There is non-visualization of the distal left ureter. There is no demonstrated left ureterovesical junction calculus. There is no demonstrated left ureteral jet. AORTA: There is evidence of a fusiform infrarenal abdominal aortic aneurysm with a transverse dimension of 5.3 cm. I.V.C.: The IVC is patent. BLADDER: A Trejo catheter is seen within the urinary bladder. The urinary bladder is empty. US/Kidney and Bladder IMPRESSION: Cortical thinning in the right kidney. Findings suggestive of medical renal disease. Infrarenal abdominal aortic aneurysm with a transverse dimension of 5.3 cm. Electronically Signed: Vineet Carias MD at 12:24 EST Tel [phone], Service support ,
--- NOTE | 2018-02-16 13:35 | CASEMGMT ---
CAROLINE HUBER ASSESSMENT To room to meet with patient for initial transition planning/care coordination assessment. CAROLINE HUBER introduced self and role at [facility]. Pt voices understanding and consents to assessment at this time. Care providers, pharmacy, and demographics veified/updated at this time. PCP: Rosi Vizcarra [facility]acy: [facility] Insurance: [facility], [facility] Prescription Benefit: Yes, [employer] Living Will/HPOA: States does not have LW or HCPOA . Interested in more information but states does not want to talk with SW at this time to complete paperwork d/t SOB issues currently. States he is interested in talking with someone before he is discharged. SW, Kori, notified. LNOK: Brother, Nacho Living Arrangements: Lives alone. Has spaghetti press helper come in daily for about 3 hours every morning to assist with bathing, dressing, cleaning/home mgmt tasks, and meals. Pt states she is also available to come help him other times of the day as well and that he just has to call her and she'll come help him. Transportation: Pt states drives self and states no transportation concerns at this time. DME: States is independent with ambulation, although states he does not walk very far d/c SOB. States is on home O2 @ 2L/M through [employer]. Has concentrator and portable tanks. States does not need any further DME. HHC/SNF: Pt states has never used HHC or been to a SNF. Pt declines any offer of assistance on discharge. Denies need for SNF or HHC. Pt states, I have plenty of money and resources. I can get who I need and can hire someone to come live with me if I need. If I need anything, I can call and get it myself. Pt stated that he has many resources and connections where he can get help to come if he needs it and get medical equipment if needed, stating, my cousin is the head [facility] @ retirement in [place] and I have connections with the [facility]. Pt wishes to return home and states has no concerns with going home at time of discharge. CM to follow for home oxygen needs and any further discharge planning/needs. Pt voices no further concerns/needs at this time. Advised pt to ask for CM if any further questions/concerns/needs arise. Voices understanding. Plan: Home with support of family and friends. Lily GUZMANN RN CM
[2018-02-16] MEDS: Metoprolol(XL)Succ 100 MG Tablet PO ×2 (13:41→21:59)
[2018-02-16] MEDS: 0.9% NaCl IVPB Med Flush (250 mL) 15 ML IV (15:14)
[2018-02-16] MEDS: Potassium Chloride 10mEq/100mL 10 MEQ/100 ML IV.SOLN. 100 MEQ IV BOLUS ×2 (15:14→16:17)
--- NOTE | 2018-02-16 16:42 | CON.PCM_ITS ---
Problem List (1) Atrial fibrillation Status: Acute (2) Severe sepsis Status: Acute (3) Acute and chronic respiratory failure with hypoxia Status: Acute (4) Community acquired pneumonia Status: Acute (5) COPD (chronic obstructive pulmonary disease) Status: Chronic (6) Acute renal failure (ARF) Status: Acute (7) Hypertension Status: Chronic Reason for Consult Date of Consultation: 02/16/18 History of Present Illness: The patient is a 77 year old white male with a past medical history of underlying retention and COPD who is referred for evaluation of atrial fibrillation with rapid ventricular response during ongoing evaluation care for concerns of severe sepsis, acute on chronic respiratory failure/hypoxia, and a community-acquired pneumonia. He states that he has noted, with his primary care physician, that he has had episodes of elevated heart rates. He does not know whether this was a normal heart rate versus he had a true underlying cardiac dysrhythmia. He has been treated with beta-blockers in the past which she states have helped his heart rate control. He notes his main concern has been his progressive shortness of breath and dyspnea. He has not had ongoing chest discomfort that he admits to. He does not necessarily sense his heart rate changes all the time. He has had no near syncope or syncope. He has been undergoing evaluation care in the [facility] ICU for the aforementioned noncardiac issues. He was noted to develop atrial fibrillation with rapid ventricular response. Is undergone evaluation with cardiac enzymes which have been negative. His ECG on 02/14/2018 demonstrated sinus rhythm with low voltage QRS in the limb leads with no acute ECG changes. His ECG performed yesterday demonstrated the appearance of atrial fibrillation with a rapid ventricular response with occasional PVCs and nonspecific ST and T wave abnormality. He underwent evaluation this day with a transthoracic echocardiogram. His left ventricle was thought to be normal with an LVEF of 65% with moderate mitral annular calcification and trivial MR and trivial TR. His estimated RV systolic pressure was 41 mmHg. He has been treated with medical management. This has included his oral beta- anne therapy as well as the addition of IV amiodarone. [] Past Medical History Allergies/Adverse Reactions: Allergies No Known Allergies Allergy (Verified 02/14/18 16:18) Home Medications: Ambulatory Orders Medication Instructions Recorded Albuterol Aerosols [Ventolin 2.5 mg INHALATION Q4HWA.RT 02/14/18 Aerosols] Amlodipine [Norvasc] 10 mg PO DAILY 02/14/18 Losartan Potassium [Cozaar] 100 mg PO DAILY 02/14/18 Metoprolol Succinate [Toprol Xl] 200 mg PO DAILY 02/14/18 Umeclidinium Brm/Vilanterol Tr 1 puff INHALATION DAILY 02/14/18 [Anoro Ellipta 62.5-25 Mcg INH] Albuterol IH (ProAir) [Proair Hfa] 2 puff INHALATION Q4H PRN PRN 02/16/18 Fluticasone Furoate [Arnuity 1 puff INHALATION DAILY 02/16/18 Ellipta] Tamsulosin HCl 1 cap PO DAILY 02/16/18 Past Medical History (Chronic Problems): Chronic Problems Hypertension (Chronic) Chronic respiratory failure (Chronic) COPD (chronic obstructive pulmonary disease) (Chronic) Surgical History: herniorrhaphy Psychiatric History: No pertinent psych hx - *Family History Maternal History Items: No pertinent history Paternal History Items: No pertinent history Lives: Alone Smoking Status: Former smoker Alcohol: None Drugs: None Review of Systems - Review of Systems General: Denies: Fever, Night Sweats, Fatigue Cardiovascular: Reports: Shortness of Breath, Palpitations. Denies: Chest Discomfort, Orthopnea, PND, Peripheral Edema, Lightheadedness, Dizziness, Near Syncope, Syncope Respiratory: Reports: Sputum Production, Shortness of Breath. Denies: Cough, Hemoptysis Gastrointestinal: Denies: Hematemesis, Hematochezia, Melena Genitourinary: Denies: Dysuria, Hematuria Skin: Reports: Rash Subjectve: Is a thin 77-year-old white male who appears to be resting reasonably comfortably at the moment in no acute distress. Objective: Vital Signs Temp Pulse Resp BP Pulse Ox 98.6 F 124 H 40 H 159/104 H 98 02/16/18 14:00 02/16/18 15:41 02/16/18 15:41 02/16/18 14:00 02/16/18 15:41 Oxygen Flow Rate (L/min) 4 Oxygen Delivery Method Bi-pap Weight: 135 lb 12.876 oz Body Mass Index (BMI) 18.9 Intake and Output for Last 24 Hours 02/14/18 02/15/18 02/16/18 23:59 23:59 23:59 Intake Total 343 / 343 2909 / 2909 2871 / 2871 Output Total 125 / 125 400 / 400 915 / 915 Balance 218 / 218 2509 / 2509 1955 / 1955 General: Awake, Alert, Oriented x 3, Cooperative, No Acute Distress HEENT: Atraumatic, Normocephalic, PERRL, EOMI Oral: Moist Mucosa Neck: Supple, Good ROM, No JVD Lungs: Rhonchi, Expiratory Wheezes-Bebo Cardiovascular: Irregular Rhythm, Normal S1, Normal S2 Vascular: No Carotid Bruits Abdomen: Bowel Sounds Present, Soft, Non Tender Extremities: No edema Neurological: No Focal Motor or Sensory Deficit Psych/Mental Status: Appropriate 02/16/18 04:35: WBC 8.9, RBC 3.18 L, Hgb 9.5 L, Hct 29.1 L, MCV 91.5, MCH 29.9, MCHC 32.6, RDW 14.4, RDW Differential 46.3 H, Plt Count 171, MPV 10.4, Immature Gran % (Auto) 0.800, Neut % (Auto) 93.2 H, Lymph % (Auto) 1.4 L, Alger % (Auto) 4.5, Eos % (Auto) 0.0, Baso % (Auto) 0.1, Absolute Neuts (auto) 8.3 H, Total Counted Not Reportable 02/16/18 04:35: Sodium 140, Potassium 3.5, Chloride 108 H, Carbon Dioxide 19.0 L , Anion Gap 13, BUN 86 H, Creatinine 2.40 H, Est GFR (MDRD) Af Amer 34 L, Est GFR (MDRD) Non-Af 28 L, BUN/Creatinine Ratio 35.8 H, Glucose 148 H, Calcium 8.1 L, Magnesium 2.5 02/16/18 11:05: Troponin I 0.020 02/16/18 13:50: Troponin I < 0.015 Rhythm: Atrial fibrillation EKG: As noted above ECHO: As noted above Assessment/Plan 1. Atrial fibrillation with rapid ventricular response At the present time the patient's atrial fibrillation with RVR may be secondary to combination of his age, his history of hypertension, his history of under lying acute on chronic pulmonary disease, as he has had no other definitive findings thus far to explain his atrial dysrhythmia. He is being monitored. His cardiac enzymes are negative. His echocardiogram is as noted above. He is being treated medically. He has been on his beta-anne therapy. He is receiving IV amiodarone. He is also receiving subcutaneous Afrin. He will need to continue rate control therapy as best as possible along with the IV antiarrhythmic agent. He should be considered for systemic anticoagulant therapy. This would include agents such as IV heparin for the time being as he may not be an ideal candidate for agents such as subcutaneous Lovenox based upon his renal insufficiency. Depending upon his clinical course he may need a future attempt at regaining si nus rhythm with a synchronized biphasic DC cardioversion which upon the timing may or may not need to be proceeded by JACKI. However it may be challenging to obtain and maintain sinus rhythm during his underlying acute infectious disease state. Thus it is also prudent to treat that as best as possible. 2. Sepsis Again he is thought to be septic related to his underlying pulmonary condition. This may be a contributing factor to his atrial dysrhythmia. He will need continued evaluation care per internal medicine and pulmonology/radical care medicine for this. 3. Acute on chronic respiratory related issues/hypoxemia He has required oxygen supplement at home as well as at [facility]. He is required BiPAP therapy at [facility]. He will continue evaluation and care. 4. Pneumonia There is concern he has an underlying acute pneumonia. He will continue evaluation care per internal medicine. He is also receiving input per pulmonary medicine/critical care. 5. COPD He does have underlying chronic COPD. He is on various forms of inhalers and/or nebulizers at home. He states he is no longer smoking tobacco. 6. Acute renal insufficiency The patient states that his oral intake has been diminished. This may be contributing to his acute renal insufficiency as well as contribution from his underlying sepsis syndrome. He is receiving IV fluids. His creatinine level has demonstrated some element of improvement. 7. Hypertension He will continue to have his blood pressure monitored. His medication can be adjusted as needed. Comment: The patient's case has been discussed and reviewed with Dr. Smith of the pulmonology and critical care medicine staff. This note was generated with [email or web address] software. It may contain incorrect words, spelling, and punctuation that were not noted in checking the note before signing.
[2018-02-16] MEDS: dilTIAZem 25 MG/5 ML Vial 20 MG IV BOLUS (17:26)
[2018-02-16] MEDS: HEPARIN/D5w 25,000 UNITS 25,000 UNITS/250 ML IV.SOLN. 10 UNITS IV (17:29)
[2018-02-16 18:19] LABS: Partial Thromboplast Time 27.2 Seconds (24.1-36.2)
[2018-02-17] VITALS (35 sets, daily range): BP systolic 113–191; BP diastolic 65–111; PULSE 74–127; RESP 12–38; TEMP 36.9–37.3; O2SAT 86–100
[2018-02-17 00:01] LABS: Partial Thromboplast Time 68.3 Seconds (24.1-36.2)
[2018-02-17] MEDS: 0.9% Normal Saline 1,000 ML 100 ML IV (00:23)
[2018-02-17] MEDS: Ipratropium/Albuterol Sulfate 3 ML AMPUL.NEB INHALATION ×6 (03:40→22:49)
--- NOTE | 2018-02-17 03:54 | NURSING ---
Pt back on bipap per psn
--- NOTE | 2018-02-17 05:25 | EKG12_ITS ---
Test Reason : AM EKG Blood Pressure : / mmHG Vent. Rate : 083 BPM Atrial Rate : 083 BPM P-R Int : 176 ms QRS Dur : 088 ms QT Int : 386 ms P-R-T Axes : 067 027 065 degrees QTc Int : 453 ms Sinus rhythm with occasional Premature ventricular complexes Low voltage QRS (LIMB LEADS) Borderline ECG Confirmed by KEVIN AMOR, LAINA ([id number]), photo editor NISA CAMPOS ([id number]) on 02/20/2018 3:16:28 PM Referred By: Marla Temple Confirmed By:LAINA BROWN MD
[2018-02-17] MEDS: 0.9% NaCl Peripheral Flush Adult/Peds IV ×3 (06:10→18:50)
--- NOTE | 2018-02-17 06:25 | PN_ITS ---
Subjective: The patient was seen and examined at the bedside this morning. Events from the last 24 hours have been reviewed. The patient is currently afebrile, hemodynamically stable and maintaining appropriate oxygen saturations on BiPAP. The patient has been intermittently requesting the use of BiPAP due to shortness of breath, but only utilizes the therapy for approximately 1 hour at a time. He also reportedly keeps asking for his supplemental oxygen flow rate to be increased, despite having appropriate oxygen saturations. The patient's main concern this morning is that he wishes to get his bowels working. Objective: The patient's most recent lab work, culture data and imaging studies have all been personally reviewed. Respiratory viral panel was positive for the presence of rhinovirus. Streptococcus pneumoniae urinary antigen was positive. Surface echocardiogram revealed normal LV size and systolic function. Diastolic function was indeterminate. Right ventricular systolic pressure was estimated to be 41 mmHg. Renal ultrasound revealed cortical thinning of the right kidney suggestive of medical renal disease. General: Alert, Cooperative, No apparent distress, - - Nasal cannula currently in the patient's mouth. HEENT: Atraumatic, PERRLA, Normocephalic Oral: No Gingival or Mucosal Lesions/ Ulcerations Neck: Supple, No Nodes, Trachea Midline Lungs: No rhonchi, No rales, Diminished, Wheezes Cardiovascular: Normal S1, Normal S2, No murmurs, Irregular Rate Abdomen: Bowel Sounds Present, Soft, Non Tender Extremities: No cyanosis, No edema, Clubbing Skin: No breakdown Musculoskeletal: No Tenderness to Palpation of Joints or Extremities, Cachexia, Muscle Wasting Lymphatic: No Cervical, Supraclavicular, or Inguinal Adenopathy Neurological: Cranial nerves II-XII grossly intact, Neuro grossly intact Psych/Mental Status: Normal Affect, Appropriate Vital Signs Temp Pulse Resp BP Pulse Ox 37.1 C 78 27 H 133/65 H 94 02/17/18 06:00 02/17/18 06:00 02/17/18 06:00 02/17/18 06:00 02/17/18 06:00 Oxygen Flow Rate (L/min) 6 Oxygen Delivery Method Nasal Cannula Weight: 137 lb 5.568 oz Body Mass Index (BMI) 18.9 Intake and Output for Last 24 Hours 02/15/18 02/16/18 02/17/18 23:59 23:59 23:59 Intake Total 2909 / 2909 4242 / 4242 1990.5 / 1989. Output Total 400 / 400 1215 / 1215 575 / 575 Balance 2509 / 2509 3027 / 3027 1415.5 / 1415.5 Labs (Last 48 Hours) 02/15/18 02/15/18 02/15/18 11:25 11:25 11:25 WBC RBC Hgb Hct MCV MCH MCHC RDW RDW Differential Plt Count MPV Immature Gran % (Auto) Neut % (Auto) Lymph % (Auto) [place] % (Auto) Eos % (Auto) Baso % (Auto) Absolute Neuts (auto) Absolute Lymphs (auto) Total Counted Differential Comment Eos Smear Total Cells Pending APTT Sodium Potassium Chloride Carbon Dioxide Anion Gap BUN Creatinine Estim Creat Clear Calc Est GFR (MDRD) Af Amer Est GFR (MDRD) Non-Af BUN/Creatinine Ratio Glucose Calcium Magnesium Troponin I Ur Random Sodium 18 Urine Creatinine 119.00 02/16/18 02/16/18 02/16/18 04:35 04:35 11:05 WBC 8.9 RBC 3.18 L Hgb 9.5 L Hct 29.1 L MCV 91.5 MCH 29.9 MCHC 32.6 RDW 14.4 RDW Differential 46.3 H Plt Count 171 MPV 10.4 Immature Gran % (Auto) 0.800 Neut % (Auto) 93.2 H Lymph % (Auto) 1.4 L [place] % (Auto) 4.5 Eos % (Auto) 0.0 Baso % (Auto) 0.1 Absolute Neuts (auto) 8.3 H Absolute Lymphs (auto) 0.12 L Total Counted Not Reportable Differential Comment SCANNED Eos Smear Total Cells APTT Sodium 140 Potassium 3.5 Chloride 108 H Carbon Dioxide 19.0 L Anion Gap 13 BUN 86 H Creatinine 2.40 H Estim Creat Clear Calc 21.47 Est GFR (MDRD) Af Amer 34 L Est GFR (MDRD) Non-Af 28 L BUN/Creatinine Ratio 35.8 H Glucose 148 H Calcium 8.1 L Magnesium 2.5 Troponin I 0.020 Ur Random Sodium Urine Creatinine 02/16/18 02/16/18 02/16/18 13:50 17:20 17:20 WBC RBC Hgb Hct MCV MCH MCHC RDW RDW Differential Plt Count MPV Immature Gran % (Auto) Neut % (Auto) Lymph % (Auto) [place] % (Auto) Eos % (Auto) Baso % (Auto) Absolute Neuts (auto) Absolute Lymphs (auto) Total Counted Differential Comment Eos Smear Total Cells APTT 27.2 Sodium Potassium Chloride Carbon Dioxide Anion Gap BUN Creatinine Estim Creat Clear Calc Est GFR (MDRD) Af Amer Est GFR (MDRD) Non-Af BUN/Creatinine Ratio Glucose Calcium Magnesium Troponin I < 0.015 < 0.015 Ur Random Sodium Urine Creatinine 02/16/18 02/17/18 02/17/18 23:30 05:10 05:10 WBC RBC Hgb Hct MCV MCH MCHC RDW RDW Differential Plt Count MPV Immature Gran % (Auto) Neut % (Auto) Lymph % (Auto) [place] % (Auto) Eos % (Auto) Baso % (Auto) Absolute Neuts (auto) Absolute Lymphs (auto) Total Counted Differential Comment Eos Smear Total Cells APTT 68.3 H Pending Sodium Pending Potassium Pending Chloride Pending Carbon Dioxide Pending Anion Gap Pending BUN Pending Creatinine Pending Estim Creat Clear Calc Est GFR (MDRD) Af Amer Pending Est GFR (MDRD) Non-Af Pending BUN/Creatinine Ratio Pending Glucose Pending Calcium Pending Magnesium Pending Troponin I Ur Random Sodium Urine Creatinine Microbiology 02/15/18 08:00 Sputum, Expectorated/Coughed Gram Stain - Final 02/15/18 08:00 Sputum, Expectorated/Coughed Respiratory Culture - Preliminary Appears to be normal respiratory colton. Further studies to follow. 02/14/18 21:30 Urine Catheter - Catheter Urine Culture - Preliminary Culture exhibits no growth. 02/15/18 07:30 Mucosa - Nasopharyngeal Respiratory Panel (PCR) - Final Rhinovirus Clinical Impression(s) from Imaging Studies Chest X-Ray 02/14/18 16:13 IMPRESSION: Hyperexpansion with left lower lobe pneumonia and small left effusion. Electronically Signed: Nacho Banda MD at 17:09 EST , Service support , Renal Ultrasound 02/16/18 10:38 IMPRESSION: Cortical thinning in the right kidney. Findings suggestive of medical renal disease. Infrarenal abdominal aortic aneurysm with a transverse dimension of 5.3 cm. Electronically Signed: Vineet Carias MD at 12:24 EST Tel [phone], Service support , Medical Necessity - Tobacco Use Smoking Status: Former smoker Assessment/Plan All Active Problems Atrial fibrillation (Acute) Acute renal failure (ARF) (Acute) Acute and chronic respiratory failure with hypoxia (Acute) Severe sepsis (Acute) Community acquired pneumonia (Acute) RECOMMENDATIONS: 1. Wean patient from BiPAP. 2. Continue supplemental oxygen to maintain saturations at or above 90%. 3. Continue rate/rhythm control per cardiology recommendations 4. Continue antibiotics 5. Continue scheduled bronchodilators. Will transition patient to prednisone from IV steroids. 6. Encourage incentive spirometer use and mobilize patient as tolerated. 7. Discontinue supplemental IV fluids IMPRESSIONS: 1. Acute on chronic hypoxemic respiratory failure secondary to COPD with exacerbation due to combined pneumococcal pneumonia and rhinovirus infection Plan to continue current supportive measures including scheduled bronchodilators, antibiotics and steroids. IV Solu-Medrol can be transitioned to prednisone today. Wean FiO2/supplemental oxygen to maintain saturations at or above 90%. Encourage incentive spirometer use and mobilize patient as tolerated. 2. Severe sepsis secondary to pneumococcal pneumonia and rhinovirus infection As noted above, antibiotics will be continued. Okay to advance to regular diet today. Discontinue supplemental IV fluids. 3. New-onset atrial fibrillation Continue rate/rhythm control per cardiology recommendations. 4. Acute kidney injury Likely prerenal in etiology, as the patient initially responded to IV volume expansion. He may also have a component of chronic kidney disease as well. We will continue to monitor. No indication for renal replacement therapy at this time. 5. Advanced age/hypertension/metabolic encephalopathy Complicates care, management, recovery and prognosis. This note was generated with [employer] dictation software. It may contain incorrect words, spelling, and punctuation that were not noted in checking the note before signing. Code Visit Inpatient E&M: 03164 [facility] Hosp L3
[2018-02-17 06:32] LABS: Partial Thromboplast Time 70.6 Seconds (24.1-36.2)
[2018-02-17 06:39] LABS: Anion Gap 14 (5-15); BUN 83 mg/dL (7-18); BUN/Creat Ratio 33.5 RATIO (10-20); Calcium,Total 8.3 mg/dL (8.5-10.1); Chloride 111 mmol/L (98-107); Creatinine, Serum 2.48 mg/dL (0.70-1.30); EST Glomerular Filtration Rate 27 mL/min (>60); Est Glom Filt Rate - Afr Amer 33 mL/min (>60); Estimated Creatinine Clearance 21.98 ml/min; Glucose 131 mg/dL (74-106); Magnesium 2.3 mg/dL (1.6-2.6); Potassium 3.8 mmol/L (3.5-5.1); Sodium Level 142 mmol/L (136-145)
--- NOTE | 2018-02-17 07:46 | PCM.PROGNOTE ---
Patient Problems: Active and Suspected Problems Atrial fibrillation (Acute) Acute renal failure (ARF) (Acute) Acute and chronic respiratory failure with hypoxia (Acute) Severe sepsis (Acute) Community acquired pneumonia (Acute) Subjective: All events of the past 24 hours have been reviewed. Antibiotic Day #4, ceftriaxone using BIPAP intermittently for usually an hour at a time TMAX: 99.4 Vital signs: Stable, 94-100% saturated on a 6 L nasal cannula Fluid balance: + 7169 since admission Urine output: 1215 Weight: 137, up from 124 at admission All radiologic testing was reviewed: Renal ultrasound showed cortical thickening in the right kidney. There is an infrarenal abdominal aortic aneurysm with a transverse dimension of 5.3 cm All labs were personally reviewed: Creatinine today is 2.48 with a BUN of 83. Serum bicarb is low at 17. Magnesium is 2.3. Serial cardiac enzymes on 02/16 were all WNL Microbiology: Strep + in the urine and + for rhinovirus also Telemetry: ECHO: Normal left ventricular systolic function with an ejection fraction of 65%. Trivial MR and TR. Elevated right ventricular systolic pressure estimated to be 41 consistent with mild pulmonary hypertension Subjective: Denies nausea and abdominal pain. Coughing up yellow sputum. Some chest pain with prolonged coughing....does not want any pain medication. No BM since admission. Wants to have 30 cc olive oil to drink.......he does this at home regularly to keep his bowels working. He also takes a probiotic 4 times a day. Objective: - Physical Exam General: Alert, Oriented x3, Cooperative HEENT: Atraumatic Oral: Dry Mucosa Lungs: No rhonchi, expiratory wheeze, No rales, Diminished, Short of Breath, Tachypneic, Using Accessory Muscles, - - Positive conversational dyspnea, symmetric chest expansion...has his nasal cannula in his mouth...says it does not work in his mouth. I stood outside his room and observed him watching TV and he had no accessory muscle use and was less tachypneic Cardiovascular: No murmurs, Irregular Rate - in the 90's currently, Tachycardic, - - distant heart sounds Abdomen: Bowel Sounds Present, Soft, Non Tender, Distended - Mildly distended and tympanic, likely secondary to tachypnea Extremities: No cyanosis, No edema, Clubbing Skin: No rashes, No breakdown Neurological: Cranial nerves II-XII grossly intact, Neuro grossly intact Psych/Mental Status: Normal Affect, Appropriate - Physical Exam Vital Signs Temp Pulse Resp BP Pulse Ox 98.6 F 79 31 H 138/76 H 100 02/17/18 07:00 02/17/18 07:00 02/17/18 07:00 02/17/18 07:00 02/17/18 07:00 Oxygen Flow Rate (L/min) 6 Oxygen Delivery Method Nasal Cannula Weight: 137 lb 5.568 oz Body Mass Index (BMI) 18.9 Intake and Output for Last 24 Hours 02/15/18 02/16/18 02/17/18 23:59 23:59 23:59 Intake Total 2909 / 2909 4242 / 4242 1989.5 / 1989.5 Output Total 400 / 400 1215 / 1215 575 / 575 Balance 2509 / 2509 3027 / 3027 1415.5 / 1415.5 Microbiology Past 72 Hours 02/15/18 08:00 Gram Stain - Final Sputum, Expectorated/Coughed Respiratory Culture - Preliminary Appears to be normal respiratory colton. Further studies to follow. 02/14/18 21:30 Urine Culture - Preliminary Urine Catheter - Catheter Culture exhibits no growth. 02/15/18 07:30 Respiratory Panel (PCR) - Final Mucosa - Nasopharyngeal Rhinovirus 02/14/18 21:30 Streptococcus pneumoniae Antigen (M - Final Urine Catheter - Catheter Streptococcus pneumonia Ag 02/14/18 21:30 Legionella Antigen - Final Urine Catheter - Catheter Laboratory Tests Past 24 Hrs 02/16/18 02/16/18 02/16/18 11:05 13:50 17:20 APTT Sodium Potassium Chloride Carbon Dioxide Anion Gap BUN Creatinine Estim Creat Clear Calc Est GFR (MDRD) Af Amer Est GFR (MDRD) Non-Af BUN/Creatinine Ratio Glucose Calcium Magnesium Troponin I 0.020 < 0.015 < 0.015 02/16/18 02/16/18 02/17/18 17:20 23:30 05:10 APTT 27.2 68.3 H Sodium 142 Potassium 3.8 Chloride 111 H Carbon Dioxide 17.0 L Anion Gap 14 BUN 83 H Creatinine 2.48 H Estim Creat Clear Calc 21.98 Est GFR (MDRD) Af Amer 33 L Est GFR (MDRD) Non-Af 27 L BUN/Creatinine Ratio 33.5 H Glucose 131 H Calcium 8.3 L Magnesium 2.3 Troponin I 02/17/18 05:10 APTT 70.6 H Sodium Potassium Chloride Carbon Dioxide Anion Gap BUN Creatinine Estim Creat Clear Calc Est GFR (MDRD) Af Amer Est GFR (MDRD) Non-Af BUN/Creatinine Ratio Glucose Calcium Magnesium Troponin I Medical Necessity - Tobacco Use Smoking Status: Former smoker Assessment/Plan All Active Problems Atrial fibrillation (Acute) Acute renal failure (ARF) (Acute) Acute and chronic respiratory failure with hypoxia (Acute) Severe sepsis (Acute) Community acquired pneumonia (Acute) Impressions 1. Acute hypoxic respiratory failure secondary to pneumococcal pneumonia and rhinovirus 2. Community-acquired pneumonia secondary to Streptococcus pneumoniae 3. Severe sepsis with acute respiratory failure secondary to pneumonia 4. Atrial fibrillation with rapid ventricular response 5. Acute kidney injury? no recent baseline - FENA is consistent with prerenal azotemia-heart rate currently controlled with restarting metoprolol and amiodarone infusion. 7. Acute exacerbation of COPD discussed on rounds. DC intravenous steroids and convert to prednisone 40 mg daily Wean patient from BiPAP Wean oxygen to maintain saturations at or above 90% Continue Rocephin Continue bronchodilators Start probiotics Up to chair today Recheck a BMP in the AM Discussed with Dr. Olivas transitioning to an oral anticoagulant Maintain in ICU until he no longer has a BiPAP requirement CXR in the AM Code Visit Inpatient E&M: 70911 [facility] Hosp L3
[2018-02-17] MEDS: Pantoprazole Sodium 40 MG Tablet PO (10:23)
[2018-02-17] MEDS: Metoprolol(XL)Succ 100 MG Tablet PO ×2 (10:23→22:03)
[2018-02-17] MEDS: guaiFENesin 1,200 MG Tablet 1200 MG PO ×2 (10:23→22:03)
--- NOTE | 2018-02-17 11:06 | PN.CARD_ITS ---
Subjectve: The patient is awake and alert. He has been on and off BiPAP therapy. He continues with a cough with sputum production. He denies any ongoing chest discomfort or ongoing palpitations. He states he does have some difficulty at times, based upon his breathing and coughing, with respect to swallowing his food. Thus he is going to undergo evaluation by speech therapy with respect to his swallowing ability. Objective: Vital Signs Temp Pulse Resp BP Pulse Ox 98.6 F 86 31 H 138/76 H 100 02/17/18 07:00 02/17/18 10:23 02/17/18 07:00 02/17/18 07:00 02/17/18 07:00 Oxygen Flow Rate (L/min) 4 Oxygen Delivery Method Nasal Cannula Weight: 137 lb 5.568 oz Body Mass Index (BMI) 18.9 Intake and Output for Last 24 Hours 02/15/18 02/16/18 02/17/18 23:59 23:59 23:59 Intake Total 2909 / 2909 4242 / 4242 1989.5 / 1989.5 Output Total 400 / 400 1215 / 1215 575 / 575 Balance 2509 / 2509 3027 / 3027 1415.5 / 1415.5 General: Awake, Alert, Oriented x 3, Cooperative, Ill Appearing HEENT: Atraumatic, Normocephalic, PERRL, EOMI, Sclera Non Icteric Oral: Moist Mucosa Neck: Supple, Good ROM, No JVD Lungs: Expiratory Wheezes-Bebo Cardiovascular: Regular Rhythm, Premature Ectopic Beats, Normal S1, Normal S2 Abdomen: Bowel Sounds Present, Soft, Non Tender Extremities: No edema Psych/Mental Status: Appropriate 02/16/18 11:05: Troponin I 0.020 02/16/18 13:50: Troponin I < 0.015 02/16/18 17:20: Troponin I < 0.015 02/16/18 17:20: APTT 27.2 02/16/18 23:30: APTT 68.3 H 02/17/18 05:10: Sodium 142, Potassium 3.8, Chloride 111 H, Carbon Dioxide 17.0 L , Anion Gap 14, BUN 83 H, Creatinine 2.48 H, Est GFR (MDRD) Af Amer 33 L, Est GFR (MDRD) Non-Af 27 L, BUN/Creatinine Ratio 33.5 H, Glucose 131 H, Calcium 8.3 L, Magnesium 2.3 02/17/18 05:10: APTT 70.6 H Rhythm: Sinus rhythm; PVCs EKG: Sinus rhythm; low voltage QRS limb leads; PVCs ECHO: Please see official report: Left ventricle considered normal with an estimated LVEF of 65%; estimated RV systolic pressure 41 mmHg Medical Necessity - Tobacco Use Smoking Status: Former smoker Assessment/Plan 1. Atrial fibrillation with rapid ventricular response At the present time the patient's atrial fibrillation with RVR may be secondary to combination of his age, his history of hypertension, his history of underlying acute on chronic pulmonary disease, as he has had no other definitive findings thus far to explain his atrial dysrhythmia. At the present time it appears he has regained sinus rhythm. He will continue to be monitored. He will continue medical management with rate control therapy, anti-arrhythmic therapy, and anticoagulant therapy. At some point in time in the future, when he has improved from his noncardiac conditions, it may be reasonable to further evaluate his cardiovascular status for other cardiovascular concerns such as underlying coronary artery disease with at minimum a noninvasive study such as a pharmacologic stress imaging study. 2. Sepsis Again he is thought to be septic related to his underlying pulmonary condition. This may be a contributing factor to his atrial dysrhythmia. He will need continued evaluation care per internal medicine and pulmonology/radical care medicine for this. 3. Acute on chronic respiratory related issues/hypoxemia He has required oxygen supplement at home as well as at [facility]. He is required BiPAP therapy at [facility]. He will continue evaluation and care. 4. Pneumonia There is concern he has an underlying acute pneumonia. He will continue evaluation care per internal medicine. He is also receiving input per pulmonary medicine/critical care. 5. COPD He does have underlying chronic COPD. He is on various forms of inhalers and/or nebulizers at home. He states he is no longer smoking tobacco. 6. Acute renal insufficiency The patient states that his oral intake has been diminished. This may be contributing to his acute renal insufficiency as well as contribution from his underlying sepsis syndrome. His creatinine level remains elevated. This does have to be taken into consideration with respect to his ongoing evaluation and care. 7. Hypertension He will continue to have his blood pressure monitored. His medication can be adjusted as needed. Comment: The patient's case has been discussed and reviewed with Dr. Smith of the pulmonology and critical care medicine staff and Dr. Thomas of the [facility] hospitalist staff. This note was generated with [employer] software. It may contain incorrect words, spelling, and punctuation that were not noted in checking the note before signing.
[2018-02-17] MEDS: APIXABAN 2.5 MG TABLET PO ×2 (12:12→22:02)
[2018-02-17] MEDS: CHLORHEXIDINE GLUC 2% CLOTH 1 EACH TOWELETTE TOPICAL (12:12)
[2018-02-17] MEDS: 0.9% NaCl IVPB Med Flush (250 mL) 15 ML IV (12:17)
[2018-02-17] MEDS: Amiodarone 200 MG Tablet PO ×2 (12:20→22:02)
[2018-02-17 14:09] LABS: Eosinophil Ct. Urine No Eosinophils Seen % (.)
--- NOTE | 2018-02-17 16:56 | NURSING ---
Pt does not want to cooperate with the plan of care. He has firm opinions about how the care should be done regardless of education provided to the patient about how the current plan of care would benefit him. At times he threatens and swears at staff when feeling overwhelmed. Continued education and encouragement will be provided.
[2018-02-17 18:22] LABS: Allen Test POS; Base Excess -11 mmol/L (-2 to +2); Bicarbonate 16.4 mmol/L (22-26); Blood Gas Specimen Type ART; O2 Delivery Device Nasal Can; PO2 100 mmHG (75-100); SITE R Radial; SO2 96 % (95-99); Time Given 1810; Total Carbon Dioxide 18 mmol/L; pCO2 39.7 mmHg (35-45); pH 7.23 (7.35-7.45)
[2018-02-17] MEDS: Sodium Bicarbonate 8.4% 50 ML Syringe 50 MEQ IV (18:50)
--- NOTE | 2018-02-17 21:00 | NURSING ---
This RN sitting at pt bedside providing extensive education regarding current respiratory status and encouragement of BiPAP use provided. Much emotional support given and pt continues to refuse BiPAP. Pt's cousin, Evangelina, who is a nurse is at bedside attempting to console pt and encourage BiPAP use without success.
[2018-02-18] VITALS (32 sets, daily range): BP systolic 102–178; BP diastolic 66–119; PULSE 100–127; RESP 12–40; TEMP 36.2–37.2; O2SAT 92–100
--- NOTE | 2018-02-18 05:00 | RAD_ITS ---
STUDY: X-RAY CHEST REASON FOR EXAM: Male, 77 years old. Shortness of breath. TECHNIQUE: 2 AP portable views chest were obtained. COMPARISON: 02/14/2018. FINDINGS: There is a persistent left lower lobe infiltrate and small left pleural effusion, not significantly different from the previous study. There is mild interstitial prominence in the remainder of the lung villar which is probably chronic. Normal size heart. Normal mediastinum and homer. Normal visualized pulmonary arteries. There is atherosclerotic calcification of the aortic arch with tortuosity. Normal visualized thoracic spine. Normal visualized ribs, clavicles, and shoulders. There is no demonstrated abnormality of the visualized soft tissue structures of the upper abdomen. RAD/Chest 1 View (Portable) IMPRESSION: Persistent left lower lobe infiltrate and small left pleural effusion, not significantly changed. Chronic interstitial lung disease. Electronically Signed: Mil Cole MD at 5:48 EST , Service support ,
[2018-02-18 05:06] LABS: Allen Test POS; Base Excess -8 mmol/L (-2 to +2); Bicarbonate 19.6 mmol/L (22-26); Blood Gas Specimen Type ART; O2 Delivery Device Nasal Can; PO2 74 mmHG (75-100); SITE R Radial; SO2 91 % (95-99); Time Given 500; Total Carbon Dioxide 21 mmol/L; pCO2 49.5 mmHg (35-45); pH 7.21 (7.35-7.45)
[2018-02-18] MEDS: Haloperidol Lactate 5 MG/ML Vial 1 MG IV (05:23)
[2018-02-18] MEDS: Amiodarone 200 MG Tablet PO ×3 (05:24→22:20)
[2018-02-18] MEDS: CHLORHEXIDINE GLUC 2% CLOTH 1 EACH TOWELETTE TOPICAL (05:24)
[2018-02-18] MEDS: 0.9% NaCl Peripheral Flush Adult/Peds IV (05:25)
[2018-02-18 05:48] LABS: Anion Gap 13 (5-15); BUN 87 mg/dL (7-18); BUN/Creat Ratio 29.3 RATIO (10-20); Calcium,Total 8.7 mg/dL (8.5-10.1); Chloride 114 mmol/L (98-107); Creatinine, Serum 2.97 mg/dL (0.70-1.30); EST Glomerular Filtration Rate 22 mL/min (>60); Est Glom Filt Rate - Afr Amer 27 mL/min (>60); Estimated Creatinine Clearance 18.74 ml/min; Glucose 143 mg/dL (74-106); Magnesium 2.6 mg/dL (1.6-2.6); Potassium 4.3 mmol/L (3.5-5.1); Sodium Level 146 mmol/L (136-145)
--- NOTE | 2018-02-18 06:40 | PCM.PN.INT ---
Subjective: The patient was seen and examined at the bedside this morning. Events from the last 24 hours have been reviewed. The patient is currently afebrile, hemodynamically stable and maintaining appropriate oxygen saturations on 3 L/min via nasal cannula. The patient has become progressively tachycardic overnight. He has been adamantly refusing to use his BiPAP. The patient was started on a continuous bicarbonate infusion last evening. Objective: The patient's most recent lab work, culture data and imaging studies have all been personally reviewed. Respiratory viral panel was positive for the presence of rhinovirus. Streptococcus pneumoniae urinary antigen was positive. Surface echocardiogram revealed normal LV size and systolic function. Diastolic function was indeterminate. Right ventricular systolic pressure was estimated to be 41 mmHg. Renal ultrasound revealed cortical thinning of the right kidney suggestive of medical renal disease. General: Alert, Cooperative, No apparent distress, - - Nasal cannula remains in the patient's mouth. HEENT: Atraumatic, PERRLA, Normocephalic Oral: No Gingival or Mucosal Lesions/ Ulcerations Neck: Supple, No Nodes, Trachea Midline Lungs: No rhonchi, No rales, Diminished, Wheezes Cardiovascular: Normal S1, Normal S2, No murmurs, Irregular Rate Abdomen: Bowel Sounds Present, Soft, Non Tender Extremities: No cyanosis, No edema, Clubbing Skin: No breakdown Musculoskeletal: No Tenderness to Palpation of Joints or Extremities, Cachexia, Muscle Wasting Lymphatic: No Cervical, Supraclavicular, or Inguinal Adenopathy Neurological: Cranial nerves II-XII grossly intact, Neuro grossly intact Psych/Mental Status: Normal Affect, Appropriate Vital Signs Temp Pulse Resp BP Pulse Ox 36.2 C L 120 H 37 H 178/94 H 95 02/18/18 00:00 02/18/18 06:00 02/18/18 06:00 02/18/18 06:00 02/18/18 06:00 Oxygen Flow Rate (L/min) 3 Oxygen Delivery Method Nasal Cannula Weight: 140 lb 3.424 oz Body Mass Index (BMI) 18.9 Intake and Output for Last 24 Hours 02/16/18 02/17/18 02/18/18 23:59 23:59 23:59 Intake Total 4242 / 4242 2780.5 / 2780.5 799 / 799 Output Total 1215 / 1215 985 / 985 275 / 275 Balance 3027 / 3027 1795.5 / 1795.5 524 / 524 Labs (Last 48 Hours) 02/15/18 02/16/18 02/16/18 11:25 11:05 13:50 Eos Smear Total Cells No Eosinophils Seen APTT Specimen Type Sample Site pH Bicarbonate Actual POC Total CO2 Base Excess O2 Saturation ABG pCO2 ABG pO2 Burt Test O2 Delivery Device Liter Flow Blood Gas Notified Whom Blood Gas Notified Time Sodium Potassium Chloride Carbon Dioxide Anion Gap BUN Creatinine Estim Creat Clear Calc Est GFR (MDRD) Af Amer Est GFR (MDRD) Non-Af BUN/Creatinine Ratio Glucose Calcium Magnesium Troponin I 0.020 < 0.015 Urine Color Urine Clarity Urine pH Ur Specific [place] Urine Protein Urine Glucose (UA) Urine Ketones Urine Occult Blood Urine Nitrite Urine Bilirubin Urine Urobilinogen Ur Leukocyte Esterase 02/16/18 02/16/18 02/16/18 17:20 17:20 23:30 Eos Smear Total Cells APTT 27.2 68.3 H Specimen Type Sample Site pH Bicarbonate Actual POC Total CO2 Base Excess O2 Saturation ABG pCO2 ABG pO2 Burt Test O2 Delivery Device Liter Flow Blood Gas Notified Whom Blood Gas Notified Time Sodium Potassium Chloride Carbon Dioxide Anion Gap BUN Creatinine Estim Creat Clear Calc Est GFR (MDRD) Af Amer Est GFR (MDRD) Non-Af BUN/Creatinine Ratio Glucose Calcium Magnesium Troponin I < 0.015 Urine Color Urine Clarity Urine pH Ur Specific [place] Urine Protein Urine Glucose (UA) Urine Ketones Urine Occult Blood Urine Nitrite Urine Bilirubin Urine Urobilinogen Ur Leukocyte Esterase 02/17/18 02/17/18 02/17/18 05:10 05:10 18:15 Eos Smear Total Cells APTT 70.6 H Specimen Type ART Sample Site R Radial pH 7.23 L Bicarbonate Actual 16.4 L POC Total CO2 18 Base Excess -11 L O2 Saturation 96 ABG pCO2 39.7 ABG pO2 100 Burt Test POS O2 Delivery Device Nasal Can Liter Flow 3.0 Blood Gas Notified Whom [facility] Blood Gas Notified Time 1810 Sodium 142 Potassium 3.8 Chloride 111 H Carbon Dioxide 17.0 L Anion Gap 14 BUN 83 H Creatinine 2.48 H Estim Creat Clear Calc 21.98 Est GFR (MDRD) Af Amer 33 L Est GFR (MDRD) Non-Af 27 L BUN/Creatinine Ratio 33.5 H Glucose 131 H Calcium 8.3 L Magnesium 2.3 Troponin I Urine Color Urine Clarity Urine pH Ur Specific [place] Urine Protein Urine Glucose (UA) Urine Ketones Urine Occult Blood Urine Nitrite Urine Bilirubin Urine Urobilinogen Ur Leukocyte Esterase 02/18/18 02/18/18 02/18/18 04:58 05:15 06:15 Eos Smear Total Cells APTT Specimen Type ART Sample Site R Radial pH 7.21 L Bicarbonate Actual 19.6 L POC Total CO2 21 Base Excess -8 L O2 Saturation 91 L ABG pCO2 49.5 H ABG pO2 74 L Burt Test POS O2 Delivery Device Nasal Can Liter Flow 3.0 Blood Gas Notified Whom [facility] Blood Gas Notified Time 500 Sodium 146 H Potassium 4.3 Chloride 114 H Carbon Dioxide 19.0 L Anion Gap 13 BUN 87 H Creatinine 2.97 H Estim Creat Clear Calc 18.74 Est GFR (MDRD) Af Amer 27 L Est GFR (MDRD) Non-Af 22 L BUN/Creatinine Ratio 29.3 H Glucose 143 H Calcium 8.7 Magnesium 2.6 Troponin I Urine Color Pending Urine Clarity Pending Urine pH Pending Ur Specific [place] Pending Urine Protein Pending Urine Glucose (UA) Pending Urine Ketones Pending Urine Occult Blood Pending Urine Nitrite Pending Urine Bilirubin Pending Urine Urobilinogen Pending Ur Leukocyte Esterase Pending Microbiology 02/14/18 16:20 Blood Culture (Wb) - Left Forearm Blood Culture - Preliminary No growth in 48 hours. 02/14/18 16:20 Blood Culture (Wb) - Anticubital Right Blood Culture - Preliminary No growth in 48 hours. 02/15/18 08:00 Sputum, Expectorated/Coughed Gram Stain - Final 02/15/18 08:00 Sputum, Expectorated/Coughed Respiratory Culture - Preliminary Streptococcus pneumoniae 02/14/18 21:30 Urine Catheter - Catheter Urine Culture - Final Culture exhibits no growth. Clinical Impression(s) from Imaging Studies Chest X-Ray 02/14/18 16:13 IMPRESSION: Hyperexpansion with left lower lobe pneumonia and small left effusion. Electronically Signed: Nacho Banda MD at 17:09 EST , Service support , Renal Ultrasound 02/16/18 10:38 IMPRESSION: Cortical thinning in the right kidney. Findings suggestive of medical renal disease. Infrarenal abdominal aortic aneurysm with a transverse dimension of 5.3 cm. Electronically Signed: Vineet Carias MD at 12:24 EST Tel [phone], Service support , Chest X-Ray 02/18/18 05:00 IMPRESSION: Persistent left lower lobe infiltrate and small left pleural effusion, not significantly changed. Chronic interstitial lung disease. Electronically Signed: Mil Cole MD at 5:48 EST , Service support , Medical Necessity - Tobacco Use Smoking Status: Former smoker Assessment/Plan All Active Problems Atrial fibrillation (Acute) Acute renal failure (ARF) (Acute) Acute and chronic respiratory failure with hypoxia (Acute) Severe sepsis (Acute) Community acquired pneumonia (Acute) RECOMMENDATIONS: 1. Transition patient from AVAPS to BIPAP 12/6 and utilize as needed. 2. Continue supplemental oxygen to maintain saturations at or above 90%. 3. Continue rate/rhythm control per cardiology recommendations 4. Continue antibiotics 5. Continue scheduled bronchodilators and prednisone. 6. Encourage incentive spirometer use and mobilize patient as tolerated. 7. Nephrology consultation is pending. IMPRESSIONS: 1. Acute on chronic hypoxemic respiratory failure secondary to COPD with exacerbation due to combined pneumococcal pneumonia and rhinovirus infection Plan to continue current supportive measures including scheduled bronchodilators, antibiotics and steroids. Recommend prolonged steroid taper at discharge. The patient's AVAPS will be transition to BiPAP 12/6 centimeters of water, in hopes of encouraging patient compliance with use. Continue to wean supplemental oxygen to maintain saturations at or above 90%. Encourage incentive spirometer use and mobilize patient as tolerated. 2. Severe sepsis secondary to pneumococcal pneumonia and rhinovirus infection As noted above, antibiotics will be continued. The patient remains hemodynamically stable. 3. New-onset atrial fibrillation Continue rate/rhythm control per cardiology recommendations. 4. Combined metabolic and respiratory acidosis Likely secondary to underlying COPD and renal insufficiency. Defer management of the patient's kidney disease to nephrology. Compliance with the use of noninvasive positive pressure ventilation has been encouraged to the patient. 5. Acute kidney injury Likely prerenal in etiology, as the patient initially responded to IV volume expansion. He may also have a component of chronic kidney disease as well. We will continue to monitor. No indication for renal replacement therapy at this time. Nephrology has been consulted to assist with management. 6. Advanced age/hypertension/metabolic encephalopathy Complicates care, management, recovery and prognosis. Aggressive physical therapy is warranted. This note was generated with [employer] dictation software. It may contain incorrect words, spelling, and punctuation that were not noted in checking the note before signing. DISPOSITION: The patient is medically stable for transfer out of the intensive care unit. Code Visit Inpatient E&M: 75285 Subs Hosp L3
[2018-02-18 06:42] LABS: Color, Urine Yellow (Yellow); Glucose, Dipstick Normal (Normal); Ketone-Dipstick Negative (Negative); Leukocyte Esterase-Dipstick Negative /ul (Negative); Nitrite-Dipstick Negative (Negative); Occult Blood-Urine 250 /ul (Negative); Protein-Dipstick 30 mg/dl (Negative); Urine Bilirubin Dipstick Negative (Negative); Urine Clarity Sl. Cloudy (Clear); Urine Urobilinogen Normal (Normal)
[2018-02-18] MEDS: Ipratropium/Albuterol Sulfate 3 ML AMPUL.NEB INHALATION ×5 (06:42→23:09)
--- NOTE | 2018-02-18 06:45 | PN_ITS ---
Subjective: The patient was seen and examined at the bedside this morning. Events from the last 24 hours have been reviewed. The patient is currently afebrile, hemodynamically stable and maintaining appropriate oxygen saturations on 3 L/min via nasal cannula. The patient has become progressively tachycardic overnight. He has been adamantly refusing to use his BiPAP. The patient was started on a continuous bicarbonate infusion last evening. Objective: The patient's most recent lab work, culture data and imaging studies have all been personally reviewed. Respiratory viral panel was positive for the presence of rhinovirus. Streptococcus pneumoniae urinary antigen was positive. Surface echocardiogram revealed normal LV size and systolic function. Diastolic function was indeterminate. Right ventricular systolic pressure was estimated to be 41 mmHg. Renal ultrasound revealed cortical thinning of the right kidney suggestive of medical renal disease. General: Alert, Cooperative, No apparent distress, - - Nasal cannula remains in the patient's mouth. HEENT: Atraumatic, PERRLA, Normocephalic Oral: No Gingival or Mucosal Lesions/ Ulcerations Neck: Supple, No Nodes, Trachea Midline Lungs: No rhonchi, No rales, Diminished, Wheezes Cardiovascular: Normal S1, Normal S2, No murmurs, Irregular Rate Abdomen: Bowel Sounds Present, Soft, Non Tender Extremities: No cyanosis, No edema, Clubbing Skin: No breakdown Musculoskeletal: No Tenderness to Palpation of Joints or Extremities, Cachexia, Muscle Wasting Lymphatic: No Cervical, Supraclavicular, or Inguinal Adenopathy Neurological: Cranial nerves II-XII grossly intact, Neuro grossly intact Psych/Mental Status: Normal Affect, Appropriate Vital Signs Temp Pulse Resp BP Pulse Ox 36.2 C L 120 H 37 H 178/94 H 95 02/18/18 00:00 02/18/18 06:00 02/18/18 06:00 02/18/18 06:00 02/18/18 06:00 Oxygen Flow Rate (L/min) 3 Oxygen Delivery Method Nasal Cannula Weight: 140 lb 3.424 oz Body Mass Index (BMI) 18.9 Intake and Output for Last 24 Hours 02/16/18 02/17/18 02/18/18 23:59 23:59 23:59 Intake Total 4242 / 4242 2780.5 / 2780.5 799 / 799 Output Total 1215 / 1215 985 / 985 275 / 275 Balance 3027 / 3027 1795.5 / 1795.5 524 / 524 Labs (Last 48 Hours) 02/15/18 02/16/18 02/16/18 11:25 11:05 13:50 Eos Smear Total Cells No Eosinophils Seen APTT Specimen Type Sample Site pH Bicarbonate Actual POC Total CO2 Base Excess O2 Saturation ABG pCO2 ABG pO2 Burt Test O2 Delivery Device Liter Flow Blood Gas Notified Whom Blood Gas Notified Time Sodium Potassium Chloride Carbon Dioxide Anion Gap BUN Creatinine Estim Creat Clear Calc Est GFR (MDRD) Af Amer Est GFR (MDRD) Non-Af BUN/Creatinine Ratio Glucose Calcium Magnesium Troponin I 0.020 < 0.015 Urine Color Urine Clarity Urine pH Ur Specific [place] Urine Protein Urine Glucose (UA) Urine Ketones Urine Occult Blood Urine Nitrite Urine Bilirubin Urine Urobilinogen Ur Leukocyte Esterase 02/16/18 02/16/18 02/16/18 17:20 17:20 23:30 Eos Smear Total Cells APTT 27.2 68.3 H Specimen Type Sample Site pH Bicarbonate Actual POC Total CO2 Base Excess O2 Saturation ABG pCO2 ABG pO2 Burt Test O2 Delivery Device Liter Flow Blood Gas Notified Whom Blood Gas Notified Time Sodium Potassium Chloride Carbon Dioxide Anion Gap BUN Creatinine Estim Creat Clear Calc Est GFR (MDRD) Af Amer Est GFR (MDRD) Non-Af BUN/Creatinine Ratio Glucose Calcium Magnesium Troponin I < 0.015 Urine Color Urine Clarity Urine pH Ur Specific [place] Urine Protein Urine Glucose (UA) Urine Ketones Urine Occult Blood Urine Nitrite Urine Bilirubin Urine Urobilinogen Ur Leukocyte Esterase 02/17/18 02/17/18 02/17/18 05:10 05:10 18:15 Eos Smear Total Cells APTT 70.6 H Specimen Type ART Sample Site R Radial pH 7.23 L Bicarbonate Actual 16.4 L POC Total CO2 18 Base Excess -11 L O2 Saturation 96 ABG pCO2 39.7 ABG pO2 100 Burt Test POS O2 Delivery Device Nasal Can Liter Flow 3.0 Blood Gas Notified Whom [facility] Blood Gas Notified Time 1810 Sodium 142 Potassium 3.8 Chloride 111 H Carbon Dioxide 17.0 L Anion Gap 14 BUN 83 H Creatinine 2.48 H Estim Creat Clear Calc 21.98 Est GFR (MDRD) Af Amer 33 L Est GFR (MDRD) Non-Af 27 L BUN/Creatinine Ratio 33.5 H Glucose 131 H Calcium 8.3 L Magnesium 2.3 Troponin I Urine Color Urine Clarity Urine pH Ur Specific [place] Urine Protein Urine Glucose (UA) Urine Ketones Urine Occult Blood Urine Nitrite Urine Bilirubin Urine Urobilinogen Ur Leukocyte Esterase 02/18/18 02/18/18 02/18/18 04:58 05:15 06:15 Eos Smear Total Cells APTT Specimen Type ART Sample Site R Radial pH 7.21 L Bicarbonate Actual 19.6 L POC Total CO2 21 Base Excess -8 L O2 Saturation 91 L ABG pCO2 49.5 H ABG pO2 74 L Burt Test POS O2 Delivery Device Nasal Can Liter Flow 3.0 Blood Gas Notified Whom [facility] Blood Gas Notified Time 500 Sodium 146 H Potassium 4.3 Chloride 114 H Carbon Dioxide 19.0 L Anion Gap 13 BUN 87 H Creatinine 2.97 H Estim Creat Clear Calc 18.74 Est GFR (MDRD) Af Amer 27 L Est GFR (MDRD) Non-Af 22 L BUN/Creatinine Ratio 29.3 H Glucose 143 H Calcium 8.7 Magnesium 2.6 Troponin I Urine Color Pending Urine Clarity Pending Urine pH Pending Ur Specific [place] Pending Urine Protein Pending Urine Glucose (UA) Pending Urine Ketones Pending Urine Occult Blood Pending Urine Nitrite Pending Urine Bilirubin Pending Urine Urobilinogen Pending Ur Leukocyte Esterase Pending Microbiology 02/14/18 16:20 Blood Culture (Wb) - Left Forearm Blood Culture - Preliminary No growth in 48 hours. 02/14/18 16:20 Blood Culture (Wb) - Anticubital Right Blood Culture - Preliminary No growth in 48 hours. 02/15/18 08:00 Sputum, Expectorated/Coughed Gram Stain - Final 02/15/18 08:00 Sputum, Expectorated/Coughed Respiratory Culture - Preliminary Streptococcus pneumoniae 02/14/18 21:30 Urine Catheter - Catheter Urine Culture - Final Culture exhibits no growth. Clinical Impression(s) from Imaging Studies Chest X-Ray 02/14/18 16:13 IMPRESSION: Hyperexpansion with left lower lobe pneumonia and small left effusion. Electronically Signed: Nacho Banda MD at 17:09 EST , Service support , Renal Ultrasound 02/16/18 10:38 IMPRESSION: Cortical thinning in the right kidney. Findings suggestive of medical renal disease. Infrarenal abdominal aortic aneurysm with a transverse dimension of 5.3 cm. Electronically Signed: Vineet Carias MD at 12:24 EST Tel [phone], Service support , Chest X-Ray 02/18/18 05:00 IMPRESSION: Persistent left lower lobe infiltrate and small left pleural effusion, not significantly changed. Chronic interstitial lung disease. Electronically Signed: Mil Cole MD at 5:48 EST , Service support , Medical Necessity - Tobacco Use Smoking Status: Former smoker Assessment/Plan All Active Problems Atrial fibrillation (Acute) Acute renal failure (ARF) (Acute) Acute and chronic respiratory failure with hypoxia (Acute) Severe sepsis (Acute) Community acquired pneumonia (Acute) RECOMMENDATIONS: 1. Transition patient from AVAPS to BIPAP 12/6 and utilize as needed. 2. Continue supplemental oxygen to maintain saturations at or above 90%. 3. Continue rate/rhythm control per cardiology recommendations 4. Continue antibiotics 5. Continue scheduled bronchodilators and prednisone. 6. Encourage incentive spirometer use and mobilize patient as tolerated. 7. Nephrology consultation is pending. IMPRESSIONS: 1. Acute on chronic hypoxemic respiratory failure secondary to COPD with exacerbation due to combined pneumococcal pneumonia and rhinovirus infection Plan to continue current supportive measures including scheduled bronchodilators, antibiotics and steroids. Recommend prolonged steroid taper at discharge. The patient's AVAPS will be transition to BiPAP 12/6 centimeters of water, in hopes of encouraging patient compliance with use. Continue to wean supplemental oxygen to maintain saturations at or above 90%. Encourage incentive spirometer use and mobilize patient as tolerated. 2. Severe sepsis secondary to pneumococcal pneumonia and rhinovirus infection As noted above, antibiotics will be continued. The patient remains hemodynamically stable. 3. New-onset atrial fibrillation Continue rate/rhythm control per cardiology recommendations. 4. Combined metabolic and respiratory acidosis Likely secondary to underlying COPD and renal insufficiency. Defer management of the patient's kidney disease to nephrology. Compliance with the use of noninvasive positive pressure ventilation has been encouraged to the patient. 5. Acute kidney injury Likely prerenal in etiology, as the patient initially responded to IV volume expansion. He may also have a component of chronic kidney disease as well. We will continue to monitor. No indication for renal replacement therapy at this time. Nephrology has been consulted to assist with management. 6. Advanced age/hypertension/metabolic encephalopathy Complicates care, management, recovery and prognosis. Aggressive physical therapy is warranted. This note was generated with [employer] dictation software. It may contain incorrect words, spelling, and punctuation that were not noted in checking the note before signing. DISPOSITION: The patient is medically stable for transfer out of the intensive care unit. Code Visit Inpatient E&M: 03807 Subs Hosp L3
--- NOTE | 2018-02-18 06:49 | CPS ---
Pt refusing to wear PAP at this time. Benefits of PAP explained to pt and pt continues to refuse.
--- NOTE | 2018-02-18 08:33 | PCM.CONS.R ---
Consultation - Renal 02/18/18 PCP/ Referring MD: Requesting physician: [] Primary care physician: Giovanni Aranda MD Reason for Consultation:: IVONNE on CKD, metabolic acidosis - History of Present Illness History of Present Illness: The patient is a 77 year old M who was at his baseline respiratory status well compensated over the past several years with COPD on home oxygen presents with worsening shortness of breath with productive cough with yellow sputum. He had his nieces children over for the holiday. He denied fever, chills, nausea, vomiting. He has increased wheezing, SOB at rest with increase secretions. He is treated for rhinovirus and strep pneumonia CAP. He currently is full code. He was refusing the BiPAP due to trouble breathing with it on especially with productive cough. His niece is at bedside. He quit smoking 7 years ago. He denied chest pain, palpitation, dizziness or lightheadedness. He complained of diarrhea over the last several days with diarrhea resolved. He had history of hypertension and he has been on 3 different antihypertensive medication including Norvasc, Cozaar and Toprol-XL. His bedside states that he had kidney disease but details unknown. He has not seen a foreman/project manager in the past. She is not aware of his baseline renal function. His COPD was managed by his PCP. In the emergency department, patient was dyspneic and tachypneic, was afebrile, blood pressure was stable and pulse ox was 66% on 2 L upon arrival to ER. His routine blood work was remarkable for leukocytosis, BUN of 76 and creatinine of 3.39. His lactic acid was 3.7. His troponin was negative. Chest x-ray revealed left lower base infiltrate with minimal left side pleural effusion. Echocardiogram during this admission showed normal LV function. Creatinine improved to 2.4 then back up to 2.97 today. He had a hypotensive episode last night. No recent IV contrast exposure. His Cardizem was discontinued. Currently he is nonoliguric. He does complain of thirst and feels dehydrated. Complains that his fluid intake was restricted with IV Lasix ordered 8 L positive fluid balance since admission. - Allergies Allergies: Allergies No Known Allergies Allergy (Verified 02/14/18 16:18) - Current Medications Current Medications: Current Medications Acetaminophen (Tylenol) 650 mg PO Q4H PRN PRN PRN Reason: FEVER Last Admin: 02/15/18 01:44 Dose: 650 mg Albuterol Sulfate (Ventolin Aerosols) 2.5 mg INHALATION Q2H PRN PRN PRN Reason: SHORTNESS OF BREATH Albuterol/Ipratropium (Duoneb) 3 ml INHALATION Q4H.RT [facility] Last Admin: 02/18/18 06:42 Dose: 3 ml Amiodarone HCl (Cordarone) 200 mg PO TID [facility] Last Admin: 02/18/18 05:24 Dose: 200 mg Apixaban (Eliquis) 2.5 mg PO BID [facility] Last Admin: 02/17/18 22:02 Dose: 2.5 mg Chlorhexidine Gluconate () 1 each TOPICAL DAILY [facility] Last Admin: 02/18/18 05:24 Dose: 1 each Guaifenesin (Mucinex) 1,200 mg PO BID [facility] Last Admin: 02/17/18 22:03 Dose: 1,200 mg Ceftriaxone Sodium 2 gm/ (Sodium Chloride) 50 mls @ 100 mls/hr IV Q24 [facility] Last Admin: 02/17/18 10:17 Dose: 100 mls/hr Sodium Chloride () 250 mls @ 15 mls/hr IV .[id number] PRN PRN Reason: SALINE FLUSH Last Admin: 02/17/18 12:17 Dose: 15 mls/hr Lactobacillus Acidophilus (Acidophilus) 1 tablet PO 4X/DAY [facility] Last Admin: 02/17/18 22:02 Dose: 1 tablet Magnesium Hydroxide (Milk Of Magnesia) 30 ml PO DAILY PRN PRN Reason: Constipation Metoprolol Succinate (Toprol Xl (Beta Ammy)) 100 mg PO BID [facility] Last Admin: 02/17/18 22:03 Dose: 100 mg Nutritional Formula (Lactose Free) (Ensure Clear) 120 ml PO 4X/DAY [facility] Last Admin: 02/17/18 22:03 Dose: 120 ml Ondansetron HCl (Zofran) 4 mg IV Q8H PRN PRN PRN Reason: NAUSEA Pantoprazole Sodium (Protonix) 40 mg PO DAILY [facility] Last Admin: 02/17/18 10:23 Dose: 40 mg Potassium Chloride (K-Dur) [facility] Prednisone () 40 mg PO DAILY@0800 [facility] Sodium Chloride () 5 - 15 ml IV UD PRN PRN Reason: SALINE FLUSH Last Admin: 02/18/18 05:25 Dose: 10 ml - Past Medical History Past Medical History (Chronic Problems): Chronic Problems Hypertension (Chronic) Chronic respiratory failure (Chronic) COPD (chronic obstructive pulmonary disease) (Chronic) - Past Surgical History Surgical History: herniorrhaphy - Social History Marital Status: Smoking Status: Former smoker Alcohol: None Drugs: None - Family History Maternal History Items: No pertinent history Paternal History Items: No pertinent history Review of Systems Constitutional: Reports: Malaise, Weakness, Fatigue. Denies: Anorexia, Chills, Fever Eyes: Denies: Vision Change HEENT: Denies: Head Aches, Sore Throat Cardiovascular: Reports: Orthopnea, Palpitations. Denies: Chest Pain, Edema, Syncope Respiratory: Reports: Cough, Shortness of Breath, Shortness of breath at rest, Sputum production, Wheezing. Denies: Hemoptysis Gastrointestinal: Reports: Diarrhea - 1 week then resolved. Denies: Abdominal Pain, Constipation, Nausea, Vomiting Genitourinary: Denies: Dysuria, Frequency, Hematuria, Hesitancy, Nocturia, Retention Musculoskeletal: Reports: - - no swelling. Denies: Joint Pain Neurological: Denies: Balance problems, Tremor, Seizures Psychiatric: Reports: Anxiety Hematologic/ Lymphatic: Reports: Anemia. Denies: Hx of blood clot Patient Problems: Active and Suspected Problems Streptococcal pneumonia (Acute) Rhinovirus (Acute) Atrial fibrillation (Acute) Acute renal failure (ARF) (Acute) Acute and chronic respiratory failure with hypoxia (Acute) Severe sepsis (Acute) Community acquired pneumonia (Acute) - Physical Exam General: Alert, Oriented x3, Cooperative, - - Tachypneic, tachycardic HEENT: PERRLA, EOMI Oral: Dry Mucosa Neck: Supple Lungs: Rales, Rhonchi, Wheezes Cardiovascular: Tachycardic Abdomen: Bowel Sounds Present, Soft, Non Tender, Non-Distended Extremities: No edema Skin: No rashes Musculoskeletal: Muscle Wasting Neurological: Cranial nerves II-XII grossly intact Psych/Mental Status: Normal Affect, Appropriate, Alert and oriented to time, place, person, mood and affect Vital Signs Temp Pulse Resp BP Pulse Ox 97.1 F L 110 H 29 H 163/102 H 94 02/18/18 00:00 02/18/18 08:00 02/18/18 08:00 02/18/18 08:00 02/18/18 08:00 Oxygen Flow Rate (L/min) 3 Oxygen Delivery Method Nasal Cannula Weight: 63.6 kg Body Mass Index (BMI) 18.9 Intake and Output for Last 24 Hours 02/16/18 02/17/18 02/18/18 23:59 23:59 23:59 Intake Total 4242 / 4242 2780.5 / 2780.5 799 / 799 Output Total 1215 / 1215 985 / 985 275 / 275 Balance 3027 / 3027 1795.5 / 1795.5 524 / 524 Microbiology Past 72 Hours 02/15/18 08:00 Gram Stain - Final Sputum, Expectorated/Coughed Respiratory Culture - Final Streptococcus pneumoniae 02/14/18 16:20 Blood Culture - Preliminary Blood Culture (Wb) - Left Forearm No growth in 48 hours. 02/14/18 16:20 Blood Culture - Preliminary Blood Culture (Wb) - Anticubital Right No growth in 48 hours. 02/14/18 21:30 Urine Culture - Final Urine Catheter - Catheter Culture exhibits no growth. 02/15/18 07:30 Respiratory Panel (PCR) - Final Mucosa - Nasopharyngeal Rhinovirus Laboratory Tests Past 24 Hrs 02/15/18 02/17/18 02/18/18 11:25 18:15 04:58 Eos Smear Total Cells No Eosinophils Seen Specimen Type ART ART Sample Site R Radial R Radial pH 7.23 L 7.21 L Bicarbonate Actual 16.4 L 19.6 L POC Total CO2 18 21 Base Excess -11 L -8 L O2 Saturation 96 91 L ABG pCO2 39.7 49.5 H ABG pO2 100 74 L Burt Test POS POS O2 Delivery Device Nasal Can Nasal Can Liter Flow 3.0 3.0 Blood Gas Notified Whom HOSP HOSP Blood Gas Notified Time 1810 500 Sodium Potassium Chloride Carbon Dioxide Anion Gap BUN Creatinine Estim Creat Clear Calc Est GFR (MDRD) Af Amer Est GFR (MDRD) Non-Af BUN/Creatinine Ratio Glucose Calcium Magnesium Urine Color Urine Clarity Urine pH Ur Specific [place] Urine Protein Urine Glucose (UA) Urine Ketones Urine Occult Blood Urine Nitrite Urine Bilirubin Urine Urobilinogen Ur Leukocyte Esterase 02/18/18 02/18/18 05:15 06:15 Eos Smear Total Cells Specimen Type Sample Site pH Bicarbonate Actual POC Total CO2 Base Excess O2 Saturation ABG pCO2 ABG pO2 Burt Test O2 Delivery Device Liter Flow Blood Gas Notified Whom Blood Gas Notified Time Sodium 146 H Potassium 4.3 Chloride 114 H Carbon Dioxide 19.0 L Anion Gap 13 BUN 87 H Creatinine 2.97 H Estim Creat Clear Calc 18.74 Est GFR (MDRD) Af Amer 27 L Est GFR (MDRD) Non-Af 22 L BUN/Creatinine Ratio 29.3 H Glucose 143 H Calcium 8.7 Magnesium 2.6 Urine Color Yellow Urine Clarity Sl. Cloudy Urine pH 6.0 Ur Specific [place] 1.020 Urine Protein 30 H Urine Glucose (UA) Normal Urine Ketones Negative Urine Occult Blood 250 H Urine Nitrite Negative Urine Bilirubin Negative Urine Urobilinogen Normal Ur Leukocyte Esterase Negative Clinical Impression(s) from Imaging Studies Chest X-Ray 02/14/18 16:13 IMPRESSION: Hyperexpansion with left lower lobe pneumonia and small left effusion. Electronically Signed: Nacho Banda MD at 17:09 EST , Service support , Renal Ultrasound 02/16/18 10:38 IMPRESSION: Cortical thinning in the right kidney. Findings suggestive of medical renal disease. Infrarenal abdominal aortic aneurysm with a transverse dimension of 5.3 cm. Electronically Signed: Vineet Carias MD at 12:24 EST Tel [phone], Service support , Chest X-Ray 02/18/18 05:00 IMPRESSION: Persistent left lower lobe infiltrate and small left pleural effusion, not significantly changed. Chronic interstitial lung disease. Electronically Signed: Mil Cole MD at 5:48 EST , Service support , Assessment/Plan All Active Problems Streptococcal pneumonia (Acute) Rhinovirus (Acute) Atrial fibrillation (Acute) Acute renal failure (ARF) (Acute) Acute and chronic respiratory failure with hypoxia (Acute) Severe sepsis (Acute) Community acquired pneumonia (Acute) 1. Acute on chronic kidney disease. Baseline creatinine unknown. Creatinine 3.38 on admit improved to 2.4 now at 2.97. Will obtain old records from his PCP office. Rise in creatinine likely from prerenal event. 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 Suggest to discontinue his Lasix. FENA < 1%. Pt Full code. discussed advanced care. No urgent indication for dialysis at this time. Avoid nephrotoxins. 2. Acute respiratory and metabolic acidosis. Received bicarbonate solution overnight. Patient intolerant to BiPAP for prolonged period of time due to increased respiratory secretions. Suggest low-dose bicarb drip. 3. CAP with strep pna, rhinoviris on renal dose antibx. 4. COPD exacerbation pulmonary following 5. HTN stable
[2018-02-18] MEDS: AMOXICILLIN 500 MG CAPSULE PO ×2 (10:35→22:20)
[2018-02-18] MEDS: Metoprolol(XL)Succ 100 MG Tablet PO ×2 (10:35→22:21)
[2018-02-18] MEDS: Pantoprazole Sodium 40 MG Tablet PO (10:35)
[2018-02-18] MEDS: guaiFENesin 1,200 MG Tablet 1200 MG PO ×2 (10:35→22:20)
[2018-02-18] MEDS: APIXABAN 2.5 MG TABLET PO ×2 (10:35→22:21)
[2018-02-18] MEDS: predniSONE 20 MG Tablet 40 MG PO (10:35)
--- NOTE | 2018-02-18 13:49 | CPS ---
Pt switched from AVAPS to bipap 01/[address] Smith verbal order.
[2018-02-18] MEDS: Sodium Bicarbonate 75 MEQ in 0.45% Normal Saline 1,000 ML 50 MEQ IV (16:29)
--- NOTE | 2018-02-18 19:10 | PN.CARD_ITS ---
Subjectve: The patient is awake and alert. He continues with his cough, sputum production, and shortness of breath. He continues with difficulty using his BiPAP device. He denies any ongoing chest pain or obvious palpitations. Objective: Vital Signs Temp Pulse Resp BP Pulse Ox 99.0 F 108 H 16 129/72 H 94 02/18/18 16:00 02/18/18 16:00 02/18/18 16:00 02/18/18 16:00 02/18/18 16:00 Oxygen Flow Rate (L/min) 3 Oxygen Delivery Method Nasal Cannula Weight: 140 lb 3.424 oz Body Mass Index (BMI) 18.9 Intake and Output for Last 24 Hours 02/16/18 02/17/18 02/18/18 23:59 23:59 23:59 Intake Total 4242 / 4242 2780.5 / 2780.5 1049 / 1049 Output Total 1215 / 1215 985 / 985 875 / 875 Balance 3027 / 3027 1795.5 / 1795.5 174 / 174 General: Awake, Alert, Oriented x 3, Cooperative, Ill Appearing HEENT: Atraumatic, Normocephalic, PERRL, EOMI, Sclera Non Icteric Oral: Moist Mucosa Neck: Supple, Good ROM Lungs: Rhonchi, Expiratory Wheezes-[place]ebo Cardiovascular: Irregular Rhythm, Normal S1, Normal S2 Abdomen: Bowel Sounds Present, Soft, Non Tender Extremities: No edema Psych/Mental Status: Appropriate 02/18/18 04:58: pH 7.21 L, Bicarbonate Actual 19.6 L, POC Total CO2 21, Base Excess -8 L, O2 Saturation 91 L, ABG pCO2 49.5 H, ABG pO2 74 L, Burt Test POS 02/18/18 05:15: Sodium 146 H, Potassium 4.3, Chloride 114 H, Carbon Dioxide 19.0 L, Anion Gap 13, BUN 87 H, Creatinine 2.97 H, Est GFR (MDRD) Af Amer 27 L, Est GFR (MDRD) Non-Af 22 L, BUN/Creatinine Ratio 29.3 H, Glucose 143 H, Calcium 8.7, Magnesium 2.6 02/18/18 06:15: Urine Color Yellow, Urine Clarity Sl. Cloudy, Urine pH 6.0, Ur Specific [place] 1.020, Urine Protein 30 H, Urine Glucose (UA) Normal, Urine Ketones Negative, Urine Occult Blood 250 H, Urine Nitrite Negative, Urine Bilirubin Negative, Urine Urobilinogen Normal, Ur Leukocyte Esterase Negative Rhythm: Atrial fibrillation; PVCs Medical Necessity - Tobacco Use Smoking Status: Former smoker Assessment/Plan 1. Atrial fibrillation with rapid ventricular response At the present time the patient's atrial fibrillation with RVR may be secondary to combination of his age, his history of hypertension, his history of underlying acute on chronic pulmonary disease, as he has had no other definitive findings thus far to explain his atrial dysrhythmia. He has returned to atrial fibrillation with occasional PVCs. He will continue to be monitored. He will continue medical management with rate control therapy, anti-arrhythmic therapy, and anticoagulant therapy. At some point in time in the future, when he has improved from his noncardiac conditions, it may be reasonable to further evaluate his cardiovascular status for other cardiovascular concerns such as underlying coronary artery disease with at minimum a noninvasive study such as a pharmacologic stress imaging study. 2. Sepsis Again he is thought to be septic related to his underlying pulmonary condition. This may be a contributing factor to his atrial dysrhythmia. He will need continued evaluation care per internal medicine and pulmonology/radical care medicine for this. 3. Acute on chronic respiratory related issues/hypoxemia He has required oxygen supplement at home as well as at [facility]. He is required BiPAP therapy at [facility]. He will continue evaluation and care. 4. Pneumonia There is concern he has an underlying acute pneumonia. He will continue evaluation care per internal medicine. He is also receiving input per pulmonary medicine/critical care. 5. COPD He does have underlying chronic COPD. He is on various forms of inhalers and/or nebulizers at home. He states he is no longer smoking tobacco. 6. Acute renal insufficiency The patient states that his oral intake has been diminished. This may be contributing to his acute renal insufficiency as well as contribution from his underlying sepsis syndrome. His creatinine level remains elevated. He is now being evaluated by nephrology. This does have to be taken into consideration with respect to his ongoing evaluation and care. 7. Hypertension He will continue to have his blood pressure monitored. His medication can be adjusted as needed. Comment: The patient's case has been discussed and reviewed with Dr. Smith of the pulmonology and critical care medicine staff. This note was generated with [employer] software. It may contain incorrect words, spelling, and punctuation that were not noted in checking the note before signing.
[2018-02-18] MEDS: Albuterol 2.5 MG/3 ML VIAL.NEB. INHALATION (20:40)
[2018-02-19] VITALS (38 sets, daily range): BP systolic 81–183; BP diastolic 49–139; PULSE 93–129; RESP 14–37; TEMP 36.4–37.2; O2SAT 86–99
[2018-02-19] MEDS: Ipratropium/Albuterol Sulfate 3 ML AMPUL.NEB INHALATION ×6 (03:09→23:17)
[2018-02-19] MEDS: Amiodarone 200 MG Tablet PO (05:07)
[2018-02-19 06:15] LABS: Albumin, Serum 2.5 g/dL (3.2-5.0); BUN 89 mg/dL (7-18); BUN/Creat Ratio 30.3 RATIO (10-20); Calcium,Total 8.6 mg/dL (8.5-10.1); Chloride 113 mmol/L (98-107); Creatinine, Serum 2.94 mg/dL (0.70-1.30); EST Glomerular Filtration Rate 22 mL/min (>60); Est Glom Filt Rate - Afr Amer 27 mL/min (>60); Estimated Creatinine Clearance 18.87 ml/min; Glucose 155 mg/dL (74-106); Phosphorus 5.4 mg/dL (2.5-4.9); Potassium 4.2 mmol/L (3.5-5.1); Sodium Level 146 mmol/L (136-145)
--- NOTE | 2018-02-19 07:08 | PN_ITS ---
Subjective: The patient was seen and examined at the bedside this morning. Events from the last 24 hours have been reviewed. The patient is currently afebrile, hemodynamically stable and maintaining appropriate oxygen saturations on 3 L/min via nasal cannula. The patient refuses to utilize his BiPAP for greater than 1 hour at a time. He is currently overall net +7.9 L for the admission. Physical therapy is recommending additional rehabilitation. Unfortunately, the patient has been refusing treatment, including supplemental oxygen. The importance of the use of supplemental oxygen was emphasized to the patient. The consequences of noncompliance with prescribed medical therapy, including clinical decompensation leading to intubation, was described to the patient. He is understanding of the potential outcome of his current medical decision making. Over the course of the afternoon the patient's respiratory status continued to decline. He remained increasingly tachypneic with increased worked of breathing. A repeat arterial blood gas revealed continued respiratory acidosis. Despite recommendations, the patient remained insistent that he would not use the Bipap. In addition, he has been removing his supplemental oxygen and allowing himself to become increasingly hypoxic. I spent a great deal of time at the bedside explaining my concerns to the patient and my recommendations to proceed with intubation, as I felt he would continue to deteriorate over the course of the night. Despite this, the patient reported to me that he wanted to wait and refused to allow for intubation. He understood that by waiting, his declining respiratory status could lead to an emergency situation in which he had to be intubated. The patient still wishes to remain a full code. Objective: The patient's most recent lab work, culture data and imaging studies have all been personally reviewed. Respiratory viral panel was positive for the presence of rhinovirus. Streptococcus pneumoniae urinary antigen was positive. Surface echocardiogram revealed normal LV size and systolic function. Diastolic function was indeterminate. Right ventricular systolic pressure was estimated to be 41 mmHg. Renal ultrasound revealed cortical thinning of the right kidney suggestive of medical renal disease. General: Alert, Cooperative, No apparent distress HEENT: Atraumatic, PERRLA, Normocephalic Oral: No Gingival or Mucosal Lesions/ Ulcerations Neck: Supple, No Nodes, Trachea Midline Lungs: Diminished, Short of Breath, Tachypneic, Wheezes Cardiovascular: Normal S1, Normal S2, No murmurs, Irregular Rate, Tachycardic Abdomen: Bowel Sounds Present, Soft, Non Tender Extremities: No cyanosis, No edema, Clubbing Skin: No breakdown Musculoskeletal: Cachexia, Muscle Wasting Lymphatic: No Cervical, Supraclavicular, or Inguinal Adenopathy Neurological: Neuro grossly intact Psych/Mental Status: Anxious, Impulsive Vital Signs Temp Pulse Resp BP Pulse Ox 36.5 C L 113 H 34 H 154/86 H 95 02/19/18 07:00 02/19/18 07:00 02/19/18 07:00 02/19/18 07:00 02/19/18 07:00 Oxygen Flow Rate (L/min) 3 Oxygen Delivery Method Nasal Cannula Weight: 139 lb 12.369 oz Body Mass Index (BMI) 18.9 Intake and Output for Last 24 Hours 02/17/18 02/18/18 02/19/18 23:59 23:59 23:59 Intake Total 2780.5 / 2780.5 1049 / 1049 938 / 938 Output Total 985 / 985 875 / 875 750 / 750 Balance 1795.5 / 1795.5 174 / 174 188 / 188 Labs (Last 48 Hours) 02/15/18 02/17/18 02/18/18 11:25 18:15 04:58 Eos Smear Total Cells No Eosinophils Seen Specimen Type ART ART Sample Site R Radial R Radial pH 7.23 L 7.21 L Bicarbonate Actual 16.4 L 19.6 L POC Total CO2 18 21 Base Excess -11 L -8 L O2 Saturation 96 91 L ABG pCO2 39.7 49.5 H ABG pO2 100 74 L Burt Test POS POS O2 Delivery Device Nasal Can Nasal Can Liter Flow 3.0 3.0 Blood Gas Notified Whom HOSP MD HOSP MD Blood Gas Notified Time 1810 500 Sodium Potassium Chloride Carbon Dioxide Anion Gap BUN Creatinine Estim Creat Clear Calc Est GFR (MDRD) Af Amer Est GFR (MDRD) Non-Af BUN/Creatinine Ratio Glucose Calcium Phosphorus Magnesium Albumin Urine Color Urine Clarity Urine pH Ur Specific [place] Urine Protein Urine Glucose (UA) Urine Ketones Urine Occult Blood Urine Nitrite Urine Bilirubin Urine Urobilinogen Ur Leukocyte Esterase 02/18/18 02/18/18 02/19/18 05:15 06:15 05:20 Eos Smear Total Cells Specimen Type Sample Site pH Bicarbonate Actual POC Total CO2 Base Excess O2 Saturation ABG pCO2 ABG pO2 Burt Test O2 Delivery Device Liter Flow Blood Gas Notified Whom Blood Gas Notified Time Sodium 146 H 146 H Potassium 4.3 4.2 Chloride 114 H 113 H Carbon Dioxide 19.0 L 20.0 L Anion Gap 13 BUN 87 H 89 H Creatinine 2.97 H 2.94 H Estim Creat Clear Calc 18.74 18.87 Est GFR (MDRD) Af Amer 27 L 27 L Est GFR (MDRD) Non-Af 22 L 22 L BUN/Creatinine Ratio 29.3 H 30.3 H Glucose 143 H 155 H Calcium 8.7 8.6 Phosphorus 5.4 H Magnesium 2.6 Albumin 2.5 L Urine Color Yellow Urine Clarity Sl. Cloudy Urine pH 6.0 Ur Specific [place] 1.020 Urine Protein 30 H Urine Glucose (UA) Normal Urine Ketones Negative Urine Occult Blood 250 H Urine Nitrite Negative Urine Bilirubin Negative Urine Urobilinogen Normal Ur Leukocyte Esterase Negative Microbiology 02/15/18 08:00 Sputum, Expectorated/Coughed Gram Stain - Final 02/15/18 08:00 Sputum, Expectorated/Coughed Respiratory Culture - Final Streptococcus pneumoniae 02/14/18 16:20 Blood Culture (Wb) - Left Forearm Blood Culture - Preliminary No growth in 48 hours. 02/14/18 16:20 Blood Culture (Wb) - Anticubital Right Blood Culture - Preliminary No growth in 48 hours. 02/14/18 21:30 Urine Catheter - Catheter Urine Culture - Final Culture exhibits no growth. Clinical Impression(s) from Imaging Studies Chest X-Ray 02/14/18 16:13 IMPRESSION: Hyperexpansion with left lower lobe pneumonia and small left effusion. Electronically Signed: Nacho Banda MD at 17:09 EST , Service support , Renal Ultrasound 02/16/18 10:38 IMPRESSION: Cortical thinning in the right kidney. Findings suggestive of medical renal disease. Infrarenal abdominal aortic aneurysm with a transverse dimension of 5.3 cm. Electronically Signed: Vineet Carias MD at 12:24 EST Tel [phone], Service support , Chest X-Ray 02/18/18 05:00 IMPRESSION: Persistent left lower lobe infiltrate and small left pleural effusion, not significantly changed. Chronic interstitial lung disease. Electronically Signed: Mil Cole MD at 5:48 EST , Service support , Medical Necessity - Tobacco Use Smoking Status: Former smoker Assessment/Plan All Active Problems Streptococcal pneumonia (Acute) Rhinovirus (Acute) Atrial fibrillation (Acute) Acute renal failure (ARF) (Acute) Acute and chronic respiratory failure with hypoxia (Acute) Severe sepsis (Acute) Community acquired pneumonia (Acute) RECOMMENDATIONS: 1. Compliance with the use of BiPAP was emphasized to the patient. Low threshold for intubation. 2. Continue supplemental oxygen to maintain saturations at or above 90%. 3. Continue rate/rhythm control per cardiology recommendations 4. Continue antibiotics 5. Continue scheduled bronchodilators and prednisone. 6. Encourage incentive spirometer use and mobilize patient as tolerated. IMPRESSIONS: 1. Acute on chronic hypoxemic respiratory failure secondary to COPD with exacerbation due to combined pneumococcal pneumonia and rhinovirus infection Plan to continue current supportive measures including scheduled bronchodilators, antibiotics and steroids. Recommend prolonged steroid taper at discharge. The patient's AVAPS will be transition to BiPAP 12/6 centimeters of water, in hopes of encouraging patient compliance with use. However, the patient's respiratory status has continued to decline with time due to patient noncompliance with the use of noninvasive positive pressure ventilation and supplemental oxygen. Given the patient's tenuous respiratory status, there is a low threshold for intubation. Continue to wean supplemental oxygen to maintain saturations at or above 90%. Encourage incentive spirometer use and mobilize patient as tolerated. 2. Severe sepsis secondary to pneumococcal pneumonia and rhinovirus infection As noted above, antibiotics will be continued. The patient remains hemodynamically stable. 3. New-onset atrial fibrillation Continue rate/rhythm control per cardiology recommendations. 4. Combined metabolic and respiratory acidosis Likely secondary to underlying COPD and renal insufficiency. Defer management of the patient's kidney disease to nephrology. Compliance with the use of noninvasive positive pressure ventilation has been encouraged to the patient. 5. Acute kidney injury Likely prerenal in etiology, as the patient initially responded to IV volume expansion. He may also have a component of chronic kidney disease as well. We will continue to monitor. No indication for renal replacement therapy at this time. Nephrology is following. 6. Advanced age/hypertension/metabolic encephalopathy Complicates care, management, recovery and prognosis. Aggressive physical therapy is warranted. This note was generated with [employer] dictation software. It may contain incorrect words, spelling, and punctuation that were not noted in checking the note before signing. Code Visit Inpatient E&M: 94075 Subs Hosp L3
[2018-02-19] MEDS: predniSONE 20 MG Tablet 40 MG PO (08:42)
[2018-02-19 08:46] LABS: Mycoplasma Pneum AB IgG < 100 U/mL (0-99); Mycoplasma pneum. AB IgM < 770 U/mL (0-769)
--- NOTE | 2018-02-19 08:56 | PCM.PN.REN ---
Patient Problems: Active and Suspected Problems Atrial fibrillation (Acute) Acute renal failure (ARF) (Acute) Acute and chronic respiratory failure with hypoxia (Acute) Severe sepsis (Acute) Community acquired pneumonia (Acute) Subjective: less secretions, still with productive cough and shortness of breath. Refusing medications, oxygen, BIPAP per nursing staff. Mouth dry. - Physical Exam General: Alert, Oriented x3, - - mild tachypnea Oral: Dry Mucosa Lungs: Diminished Cardiovascular: Tachycardic Abdomen: Bowel Sounds Present, Soft, Non Tender, Non-Distended Extremities: No edema Musculoskeletal: Muscle Wasting Neurological: Cranial nerves II-XII grossly intact Psych/Mental Status: Agitated, Alert and oriented to time, place, person, mood and affect Vital Signs Temp Pulse Resp BP Pulse Ox 98.7 F 112 H 23 H 183/93 H 88 02/19/18 08:00 02/19/18 08:00 02/19/18 08:00 02/19/18 08:00 02/19/18 08:00 Oxygen Flow Rate (L/min) 3 Oxygen Delivery Method Nasal Cannula Weight: 63.4 kg Body Mass Index (BMI) 18.9 Intake and Output for Last 24 Hours 02/17/18 02/18/18 02/19/18 23:59 23:59 23:59 Intake Total 2780.5 / 2780.5 1049 / 1049 938 / 938 Output Total 985 / 985 875 / 875 750 / 750 Balance 1795.5 / 1795.5 174 / 174 188 / 188 Microbiology Past 72 Hours 02/15/18 08:00 Gram Stain - Final Sputum, Expectorated/Coughed Respiratory Culture - Final Streptococcus pneumoniae 02/14/18 16:20 Blood Culture - Preliminary Blood Culture (Wb) - Left Forearm No growth in 48 hours. 02/14/18 16:20 Blood Culture - Preliminary Blood Culture (Wb) - Anticubital Right No growth in 48 hours. 02/14/18 21:30 Urine Culture - Final Urine Catheter - Catheter Culture exhibits no growth. Laboratory Tests Past 24 Hrs 02/15/18 02/19/18 00:30 05:20 Sodium 146 H Potassium 4.2 Chloride 113 H Carbon Dioxide 20.0 L BUN 89 H Creatinine 2.94 H Estim Creat Clear Calc 18.87 Est GFR (MDRD) Af Amer 27 L Est GFR (MDRD) Non-Af 22 L BUN/Creatinine Ratio 30.3 H Glucose 155 H Calcium 8.6 Phosphorus 5.4 H Albumin 2.5 L Mycoplasma pneumon IgG < 100 Mycoplasma pneumon IgM < 770 Medical Necessity - Tobacco Use Smoking Status: Former smoker Assessment/Plan All Active Problems Streptococcal pneumonia (Acute) Rhinovirus (Acute) Atrial fibrillation (Acute) Acute renal failure (ARF) (Acute) Acute and chronic respiratory failure with hypoxia (Acute) Severe sepsis (Acute) Community acquired pneumonia (Acute) 1. Acute on chronic kidney disease. Baseline creatinine unknown. Creatinine 3.38 on admit improved to 2.4 now at 2.94. Will obtain old records from his PCP office. Rise in creatinine likely from prerenal event. 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 2. Acute respiratory and metabolic acidosis. continue bicarbonate drip. 3. CAP with strep pna, rhinoviris on renal dose antibx. 4. COPD exacerbation pulmonary following 5. HTN stable
--- NOTE | 2018-02-19 09:53 | PCM.PN.CARD ---
Subjectve: The patient continues to be short of breath and dyspneic. He continues to use O2 nasal cannula. He has been resistant with respect to BiPAP therapy at least for prolonged periods of time. He denies any other forms of chest discomfort or palpitations at this time. Objective: Vital Signs Temp Pulse Resp BP Pulse Ox 98.7 F 112 H 23 H 183/93 H 86 02/19/18 08:00 02/19/18 08:00 02/19/18 08:00 02/19/18 08:00 02/19/18 08:30 Oxygen Flow Rate (L/min) 3 Oxygen Delivery Method Nasal Cannula Weight: 139 lb 12.369 oz Body Mass Index (BMI) 18.9 Intake and Output for Last 24 Hours 02/17/18 02/18/18 02/19/18 23:59 23:59 23:59 Intake Total 2780.5 / 2780.5 1049 / 1049 938 / 938 Output Total 985 / 985 875 / 875 750 / 750 Balance 1795.5 / 1795.5 174 / 174 188 / 188 General: Awake, Alert, Oriented x 3, Ill Appearing HEENT: Atraumatic, Normocephalic, PERRL, EOMI, Sclera Non Icteric Oral: Moist Mucosa Neck: Supple, Good ROM, No JVD Lungs: Rhonchi, Expiratory Wheezes-Bebo Cardiovascular: Irregular Rhythm, Normal S1, Normal S2 Abdomen: Bowel Sounds Present, Soft, Non Tender Extremities: No edema Psych/Mental Status: Appropriate 02/19/18 05:20: Sodium 146 H, Potassium 4.2, Chloride 113 H, Carbon Dioxide 20.0 L, BUN 89 H, Creatinine 2.94 H, Est GFR (MDRD) Af Amer 27 L, Est GFR (MDRD) Non-Af 22 L, BUN/Creatinine Ratio 30.3 H, Glucose 155 H, Calcium 8.6, Phosphorus 5.4 H Rhythm: Atrial fibrillation Medical Necessity - Tobacco Use Smoking Status: Former smoker Assessment/Plan 1. Atrial fibrillation with rapid ventricular response At the present time the patient's atrial fibrillation with RVR may be secondary to combination of his age, his history of hypertension, his history of underlying acute on chronic pulmonary disease, as he has had no other definitive findings thus far to explain his atrial dysrhythmia. He has returned to atrial fibrillation with occasional PVCs. He will continue to be monitored. He will continue medical management with rate control therapy, anti-arrhythmic therapy, and anticoagulant therapy. He may eventually need an attempt at regaining sinus rhythm with synchronized biphasic DC cardioversion. However prior to doing so it would be prudent to improve his underlying pulmonary disease process and metabolic process if possible. At some point in time in the future, when he has improved from his noncardiac conditions, it may be reasonable to further evaluate his cardiovascular status for other cardiovascular concerns such as underlying coronary artery disease with at minimum a noninvasive study such as a pharmacologic stress imaging study. 2. Sepsis Again he is thought to be septic related to his underlying pulmonary condition. This may be a contributing factor to his atrial dysrhythmia. He will need continued evaluation care per internal medicine and pulmonology/radical care medicine for this. 3. Acute on chronic respiratory related issues/hypoxemia He has required oxygen supplement at home as well as at [facility]. He is required BiPAP therapy at [facility]. He will continue evaluation and care. 4. Pneumonia There is concern he has an underlying acute pneumonia. He will continue evaluation care per internal medicine. He is also receiving input per pulmonary medicine/critical care. 5. COPD He does have underlying chronic COPD. He is on various forms of inhalers and/or nebulizers at home. He states he is no longer smoking tobacco. 6. Acute renal insufficiency The patient states that his oral intake has been diminished. This may be contributing to his acute renal insufficiency as well as contribution from his underlying sepsis syndrome. His creatinine level remains elevated. He is now being evaluated by nephrology. 7. Hypertension He will continue to have his blood pressure monitored. His medication can be adjusted as needed. Comment: The patient's case has been discussed and reviewed with Dr. Smith of the pulmonology and critical care medicine staff. This note was generated with [employer] dictation software. It may contain incorrect words, spelling, and punctuation that were not noted in checking the note before signing.
[2018-02-19] MEDS: Metoprolol(XL)Succ 100 MG Tablet PO ×2 (10:55→22:16)
[2018-02-19] MEDS: guaiFENesin 1,200 MG Tablet 1200 MG PO (10:55)
[2018-02-19] MEDS: APIXABAN 2.5 MG TABLET PO (10:55)
[2018-02-19] MEDS: amLODIPine 2.5 MG Tablet PO (10:56)
[2018-02-19] MEDS: AMOXICILLIN 500 MG CAPSULE PO (10:56)
[2018-02-19] MEDS: Pantoprazole Sodium 40 MG Tablet PO (10:56)
--- NOTE | 2018-02-19 11:01 | NURSING ---
pt sitting slouched in bed w/tray pushed away a few inches. pt states he is unable to eat tray is too far away, she (RT) moved it 30min ago. RT has only been in room a few minutes. pt again positioned w/tray in approp place for eating. This RN gave pt meds in applesauce, which he took w/no diff. he states he needs to be fed. Pt has been seen on camera, moving tray, picking up/dialing/talking on phone, moving oxygen tubing around. He refuses to put on VM till I am done eating. pt instructed to push call button when finished. This RN to station and saw pt push tray away.
--- NOTE | 2018-02-19 11:20 | PN_ITS ---
Patient Problems: Active and Suspected Problems Atrial fibrillation (Acute) Acute renal failure (ARF) (Acute) Acute and chronic respiratory failure with hypoxia (Acute) Severe sepsis (Acute) Community acquired pneumonia (Acute) Subjective: All events of the past 24 hours of been reviewed. He has been afebrile. Blood pressure and heart rate are consistently increased- likely secondary to adrenaline drive due to fear and SOB He is 90% to 95% saturated on a Ventimask at 35% FiO2, he is tachypneic with conversational dyspnea and using accessory muscles of respiration. All lab was personally reviewed. The sodium is 146 today with a creatinine of 2.94 and a BUN of 89. Serum bicarb is 20. He will not consistently keep his oxygen on and has not been wearing BiPAP. Laboratory atrial fibrillation with rapid ventricular response Fluid balance is +7.9 L since admission however he has been incontinent a number of times. He has been refusing BiPAP and when he does wear it he wears it only for 1 hour at a time. He is taking his oxygen off. He is desaturating into the 70s and low 80s when he takes his oxygen off. He continues to have accessory muscle use, tachypnea and conversational dyspnea. Objective: - Physical Exam General: Alert, Oriented x3, Cooperative at times but wants things to be done his way HEENT: Atraumatic Oral: Very Dry Mucosa Lungs: No rhonchi, expiratory wheeze, No rales, Very Diminished, Short of Breath, Tachypneic, Using Accessory Muscles, - - Positive conversational dyspnea, symmetric chest expansion...has his nasal cannula in his mouth... and s ometimes it is on his shoulder. Cardiovascular: No murmurs, Irregular Rate - in the 108-115 range currently, Tachycardic, - - distant heart sounds Abdomen: Bowel Sounds Present, Soft, Non Tender, Distended - Mildly distended and tympanic, likely secondary to tachypnea Extremities: No cyanosis, No edema, Clubbing Skin: No rashes, No breakdown Neurological: Cranial nerves II-XII grossly intact, Neuro grossly intact Psych/Mental Status: Normal Affect, Appropriate....he is very afraid and he finally admitted that today. - Physical Exam Vital Signs Temp Pulse Resp BP Pulse Ox 98.7 F 129 H 26 H 172/98 H 86 02/19/18 08:00 02/19/18 10:55 02/19/18 10:40 02/19/18 10:55 02/19/18 08:30 Oxygen Flow Rate (L/min) 3 Oxygen Delivery Method Nasal Cannula Weight: 139 lb 12.369 oz Body Mass Index (BMI) 18.9 Intake and Output for Last 24 Hours 02/17/18 02/18/18 02/19/18 23:59 23:59 23:59 Intake Total 2780.5 / 2780.5 1049 / 1049 938 / 938 Output Total 985 / 985 875 / 875 750 / 750 Balance 1795.5 / 1795.5 174 / 174 188 / 188 Microbiology Past 72 Hours 02/15/18 08:00 Gram Stain - Final Sputum, Expectorated/Coughed Respiratory Culture - Final Streptococcus pneumoniae 02/14/18 16:20 Blood Culture - Preliminary Blood Culture (Wb) - Left Forearm No growth in 48 hours. 02/14/18 16:20 Blood Culture - Preliminary Blood Culture (Wb) - Anticubital Right No growth in 48 hours. 02/14/18 21:30 Urine Culture - Final Urine Catheter - Catheter Culture exhibits no growth. Laboratory Tests Past 24 Hrs 02/15/18 02/19/18 00:30 05:20 Sodium 146 H Potassium 4.2 Chloride 113 H Carbon Dioxide 20.0 L BUN 89 H Creatinine 2.94 H Estim Creat Clear Calc 18.87 Est GFR (MDRD) Af Amer 27 L Est GFR (MDRD) Non-Af 22 L BUN/Creatinine Ratio 30.3 H Glucose 155 H Calcium 8.6 Phosphorus 5.4 H Albumin 2.5 L Mycoplasma pneumon IgG < 100 Mycoplasma pneumon IgM < 770 Medical Necessity - Tobacco Use Smoking Status: Former smoker Assessment/Plan All Active Problems Streptococcal pneumonia (Acute) Rhinovirus (Acute) Atrial fibrillation (Acute) Acute renal failure (ARF) (Acute) Acute and chronic respiratory failure with hypoxia (Acute) Severe sepsis (Acute) Community acquired pneumonia (Acute) Impressions 1. Acute hypoxic respiratory failure secondary to pneumococcal pneumonia and rhinovirus 2. Community-acquired pneumonia secondary to Streptococcus pneumoniae 3. Severe sepsis with acute respiratory failure secondary to pneumonia 4. Atrial fibrillation with rapid ventricular response 5. Acute kidney injury? no recent baseline - FENA is consistent with prerenal azotemia-heart rate currently not adequately controlled and I think this may be due to the high adrenaline drive due to air hunger and fear 7. Acute exacerbation of COPD 8. Acute on chronic kidney disease 9. Hyperphosphatemia 10. Normochromic normocytic anemia I had a long discussion with the patient regarding his CODE STATUS, noncompliance, weakness and plans for discharge. We discussed intubation and he is considering but, wants to talk with family. He is fatiguing and would like to do this electively rather than emergently. Dr. Smith has discussed this with him as well. Urged him to try the BIPAP again and to wear his oxygen continuously....will try a venti mask CODE STATUS: Discussed code status at length with him including the difference between FULL CODE, DNR CCA and DNR CC status. All questions were answered. An order for full code was entered into the computer. A total of 20 minutes face to face time was devoted to advanced care planning. Code Visit Inpatient E&M: 11283 Subs Hosp L3
--- NOTE | 2018-02-19 12:48 | NURSING ---
This RN entered patients room to clear IV alarm. Patient was found to be slouched down in recliner with Venti-mask pulled down around neck. Offered to assist patient with replacing the Venti-mask, he refused and stated that he would replace it when he felt like it.
[2018-02-19 13:31] LABS: Allen Test POS; Base Excess -4 mmol/L (-2 to +2); Bicarbonate 22.6 mmol/L (22-26); Blood Gas Specimen Type ART; FI02 35; PO2 64 mmHG (75-100); SITE R Radial; SO2 88 % (95-99); Time Given 1322; Total Carbon Dioxide 24 mmol/L; pCO2 50.2 mmHg (35-45); pH 7.26 (7.35-7.45)
--- NOTE | 2018-02-19 17:41 | NURSING ---
pt refuses all attempts at education, wether it be for chronic or acute illnes
[2018-02-19] MEDS: Propofol 200 MG/20 ML Vial 100 MG IV BOLUS (18:31)
[2018-02-19] MEDS: Etomidate 20 MG/10 ML Vial IV (18:32)
[2018-02-19] MEDS: Propofol 10MG/Ml 1,000 MG/100 ML Bottle 3.804 MG CONT INF (18:35)
--- NOTE | 2018-02-19 18:50 | PCM.PN.BLA ---
Progress Note Procedure note: Pt was electively intubated tonight with a 7.5 ETT on the first pass. There was thick dry green brown DC above the vocal cords that was suctioned out prior to intubation. He was given 100 mg of Propofol for sedation and then Atomidate 20 mg. He tolerated the procedure well and tube was verified with a CXR. Will get an ABG in 30 minutes. Trejo and OG to be inserted and will sedate with Propofol and Fentanyl. Dr. Smith notified.
[2018-02-19] MEDS: fentaNYL drip 100 ML 5 MCG IV (19:15)
--- NOTE | 2018-02-19 19:38 | NURSING ---
Patient intubated by Dr Thomas with Dr Reyez, Alyssa RT, and Jocelyne RN at bedside. Events/Medications administered and times administered during intubation as follows: 183: 100 Mg Propofol administered per Dr Thomas 183: 20 Mg Etomidate administered per Dr Thomas 1833: Patient intubated with 7.5 Fr Ett, 23 CM @ lip. Lung sounds equal bilaterally, good color change on Easy Cap. CXR ordered 183: Propofol gtt initiated at 10 mcg/kg/min 1900: Fentanyl gtt initiated at 50 mcg/hr Intubation successful on first attempt without complication
--- NOTE | 2018-02-19 19:55 | RAD_ITS ---
STUDY: X-RAY CHEST REASON FOR EXAM: Male, 77 years old. Endotracheal tube placement. Oral gastric tube placement. TECHNIQUE: Single AP portable view of the chest. COMPARISON: February 18, 2018. FINDINGS: There is an endotracheal tube with its tip 4.7 cm above the [place]ingo. There is an NG tube extending below the left hemidiaphragm. There is persistent left lower lobe infiltrate. There is mild interstitial prominence in the remainder of the lungs most marked at the right lung base appears stable. There is no demonstrated pleural abnormality. Normal size heart. Normal mediastinum and homer. Normal visualized pulmonary arteries. There is atherosclerotic calcification of the aortic arch with tortuosity. No visualized osseous changes. There is no demonstrated abnormality of the visualized soft tissue structures of the upper abdomen. RAD/Chest 1 View (Portable) IMPRESSION: Endotracheal tube and enteric tube as described. There is no other major interval change. Electronically Signed: Javier Dos Santos DO at 20:33 EST Tel [phone], Service support ,
[2018-02-19 20:55] LABS: Base Excess -2 mmol/L (-2 to +2); Bicarbonate 24.5 mmol/L (22-26); Blood Gas Specimen Type ART; FI02 35; Mode A-C; O2 Delivery Device Vent; PEEP 5; PO2 60 mmHG (75-100); RR 14; SITE R Radial; SO2 88 % (95-99); Time Given 2047; Total Carbon Dioxide 26 mmol/L; Vt 450; pH 7.31 (7.35-7.45)
[2018-02-19] MEDS: APIXABAN 2.5 MG TABLET GT (22:16)
[2018-02-19] MEDS: CHLORHEXIDINE GLUC 2% CLOTH 1 EACH TOWELETTE TOPICAL (22:16)
[2018-02-19] MEDS: AMOXICILLIN 500 MG CAPSULE GT (22:16)
[2018-02-20] VITALS (48 sets, daily range): BP systolic 65–160; BP diastolic 40–108; PULSE 79–132; RESP 14–30; TEMP 36.4–37.4; O2SAT 91–98
[2018-02-20] MEDS: Propofol 10MG/Ml 1,000 MG/100 ML Bottle 3.804 MG CONT INF ×2 (02:37→13:58)
[2018-02-20] MEDS: Chlorhexidine 15 ML PO ×2 (02:38→07:45)
[2018-02-20] MEDS: Ipratropium/Albuterol Sulfate 3 ML AMPUL.NEB INHALATION ×6 (03:01→23:10)
[2018-02-20 05:25] LABS: Albumin, Serum 2.3 g/dL (3.2-5.0); BUN 80 mg/dL (7-18); BUN/Creat Ratio 30.9 RATIO (10-20); Calcium,Total 8.1 mg/dL (8.5-10.1); Chloride 110 mmol/L (98-107); Creatinine, Serum 2.59 mg/dL (0.70-1.30); EST Glomerular Filtration Rate 26 mL/min (>60); Est Glom Filt Rate - Afr Amer 31 mL/min (>60); Estimated Creatinine Clearance 21.42 ml/min; Glucose 171 mg/dL (74-106); Phosphorus 4.6 mg/dL (2.5-4.9); Potassium 3.9 mmol/L (3.5-5.1); Sodium Level 147 mmol/L (136-145)
--- NOTE | 2018-02-20 06:53 | PCM.PN.INT ---
Subjective: The patient was seen and examined at the bedside this morning. Events from the last 24 hours have been reviewed. The patient is currently afebrile, hemodynamically stable and maintaining appropriate oxygen saturations with an FiO2 requirement of 40%. Following a period of gradually worsening respiratory status due to noncompliance with the use of BiPAP and supplemental oxygen, the patient was intubated on the evening of February 19. Overnight, the patient has had tenuous blood pressure readings, likely due to to his current sedation regimen. Ventilator settings are currently being adjusted to optimize his minute ventilation. Thick secretions were noted by the overnight respiratory staff. Creatinine is improved this morning. The patient is currently overall net +9 L for the admission, as of this morning. Objective: The patient's most recent lab work, culture data and imaging studies have all been personally reviewed. Respiratory viral panel was positive for the presence of rhinovirus. Streptococcus pneumoniae urinary antigen was positive. Surface echocardiogram revealed normal LV size and systolic function. Diastolic function was indeterminate. Right ventricular systolic pressure was estimated to be 41 mmHg. Renal ultrasound revealed cortical thinning of the right kidney suggestive of medical renal disease. General: - - Intubated, sedated and mechanically ventilated. HEENT: Atraumatic, PERRLA, Normocephalic Oral: No Gingival or Mucosal Lesions/ Ulcerations, - - Endotracheal and OG tubes currently in place. Neck: Supple, No Nodes, Trachea Midline Lungs: No rhonchi, No wheeze, No rales, Diminished Cardiovascular: Normal S1, Normal S2, No murmurs, Irregular Rate Abdomen: Bowel Sounds Present, Soft, Non Tender Extremities: No cyanosis, No edema, Clubbing Skin: No breakdown Musculoskeletal: No Tenderness to Palpation of Joints or Extremities, Cachexia, Muscle Wasting Lymphatic: No Cervical, Supraclavicular, or Inguinal Adenopathy Neurological: - - No focal neurological deficits. Currently sedated. Vital Signs Temp Pulse Resp BP Pulse Ox 36.4 C L 87 14 85/61 L 92 02/20/18 04:00 02/20/18 06:00 02/20/18 06:00 02/20/18 06:00 02/20/18 06:00 Oxygen Flow Rate (L/min) 3 Oxygen Delivery Method Mechanical Ventilator Weight: 144 lb 13.499 oz Body Mass Index (BMI) 18.9 Intake and Output for Last 24 Hours 02/18/18 02/19/1819 23:59 23:59 23:59 Intake Total 1049 / 1049 2020 1104 / 1104 Output Total 875 / 875 1370 / 1370 550 / 550 Balance 174 / 174 651 / 651 554 / 554 Labs (Last 48 Hours) 02/15/18 02/19/18 02/19/18 00:30 05:20 13:26 Specimen Type ART Sample Site R Radial pH 7.26 L Bicarbonate Actual 22.6 POC Total CO2 24 Base Excess -4 L O2 Saturation 88 L O2 % 35 ABG pCO2 50.2 H ABG pO2 64 L Burt Test POS Respiration Rate O2 Delivery Device Vent Mask Minute Volume Vent Mode Tidal Volume POC PEEP Blood Gas Notified Whom ICU MD Blood Gas Notified Time 1322 Sodium 146 H Potassium 4.2 Chloride 113 H Carbon Dioxide 20.0 L BUN 89 H Creatinine 2.94 H Estim Creat Clear Calc 18.87 Est GFR (MDRD) Af Amer 27 L Est GFR (MDRD) Non-Af 22 L BUN/Creatinine Ratio 30.3 H Glucose 155 H Calcium 8.6 Phosphorus 5.4 H Total Creatine Kinase Albumin 2.5 L Triglycerides Mycoplasma pneumon IgG < 100 Mycoplasma pneumon IgM < 770 02/19/18 02/19/18 02/20/18 20:52 21:30 05:00 Specimen Type ART Sample Site R Radial pH 7.31 L Bicarbonate Actual 24.5 POC Total CO2 26 Base Excess -2 O2 Saturation 88 L O2 % 35 ABG pCO2 49.0 H ABG pO2 60 L Burt Test Respiration Rate 14 O2 Delivery Device Vent Minute Volume 6.00 Vent Mode A-C Tidal Volume 450 POC PEEP 5 Blood Gas Notified Whom [facility] MD Blood Gas Notified Time 2046 Sodium 147 H Potassium 3.9 Chloride 110 H Carbon Dioxide 27.0 BUN 80 H Creatinine 2.59 H Estim Creat Clear Calc 21.42 Est GFR (MDRD) Af Amer 31 L Est GFR (MDRD) Non-Af 26 L BUN/Creatinine Ratio 30.9 H Glucose 171 H Calcium 8.1 L Phosphorus 4.6 Total Creatine Kinase Cancelled Albumin 2.3 L Triglycerides Cancelled Mycoplasma pneumon IgG Mycoplasma pneumon IgM Microbiology 02/15/18 08:00 Sputum, Expectorated/Coughed Gram Stain - Final 02/15/18 08:00 Sputum, Expectorated/Coughed Respiratory Culture - Final Streptococcus pneumoniae Clinical Impression(s) from Imaging Studies Chest X-Ray 02/14/18 16:13 IMPRESSION: Hyperexpansion with left lower lobe pneumonia and small left effusion. Electronically Signed: Nacho Banda MD at 17:09 EST , Service support , Renal Ultrasound 02/16/18 10:38 IMPRESSION: Cortical thinning in the right kidney. Findings suggestive of medical renal disease. Infrarenal abdominal aortic aneurysm with a transverse dimension of 5.3 cm. Electronically Signed: Vineet Carias MD at 12:24 EST Tel [phone], Service support , Chest X-Ray 02/18/18 05:00 IMPRESSION: Persistent left lower lobe infiltrate and small left pleural effusion, not significantly changed. Chronic interstitial lung disease. Electronically Signed: Mil Cole MD at 5:48 EST , Service support , Chest X-Ray 02/19/18 19:55 IMPRESSION: Endotracheal tube and enteric tube as described. There is no other major interval change. Electronically Signed: Javier Dos Santos DO at 20:33 EST Tel [phone], Service support , Medical Necessity - Tobacco Use Smoking Status: Former smoker Assessment/Plan All Active Problems Streptococcal pneumonia (Acute) Rhinovirus (Acute) Atrial fibrillation (Acute) Acute renal failure (ARF) (Acute) Acute and chronic respiratory failure with hypoxia (Acute) Severe sepsis (Acute) Community acquired pneumonia (Acute) RECOMMENDATIONS: 1. We will adjust patient's tidal volume, respiratory rate and flow volumes to optimize minute ventilation. 2. Continue to wean propofol and continue fentanyl for sedation. 3. If hemodynamics improved, can consider gentle diuresis. 4. We will plan to start tube feeds today. 5. Amiodarone can be transitioned from IV to p.o. formulation down OG tube. 6. Continue bronchodilators and steroids. 7. Discontinue bicarbonate infusion 8. Continue appropriate ICU prophylaxis IMPRESSIONS: 1. Acute on chronic hypoxemic respiratory failure secondary to COPD with exacerbation due to combined pneumococcal pneumonia and rhinovirus infection The patient was initially admitted to the hospital on February 14 with significant pneumococcal pneumonia and superimposed rhinovirus infection. Despite attempts at aggressive therapy, the patient's respiratory status progressively declined with time, largely due to patient noncompliance with the use of prescribed noninvasive positive pressure ventilation and supplemental oxygen. Despite the patient's insistence to refuse certain medical therapies, he wished to remain full code. Due to the aforementioned, the patient had to be intubated on February 19. He remains on appropriate antimicrobial coverage, bronchodilators and steroids. His ventilator settings are currently being augmented to optimize his minute ventilation. We will plan to continue these supportive measures accordingly. We will plan to start tube feeds today. Propofol will be weaned and fentanyl continued for sedation. If the patient's hemodynamics improved today, would recommend initiation of gentle diuresis. Continue to wean FiO2 to maintain an oxygen saturation at or above 90%. 2. Severe sepsis secondary to pneumococcal pneumonia and rhinovirus infection As noted above, antibiotics will be continued as ordered. 3. New-onset atrial fibrillation Continue rate/rhythm control per cardiology recommendations. 4. Combined metabolic and respiratory acidosis Improved. Likely secondary to underlying COPD and renal insufficiency. Defer management of the patient's kidney disease to nephrology. Continuous bicarbonate infusion has been discontinued. 5. Acute kidney injury Likely prerenal in etiology, as the patient initially responded to IV volume expansion. He may also have a component of chronic kidney disease as well. We will continue to monitor. No indication for renal replacement therapy at this time. Nephrology is following. 6. Advanced age/hypertension/metabolic encephalopathy Complicates care, management, recovery and prognosis. Aggressive physical therapy is warranted. TIME: 40 minutes of critical care time, independent of procedures, was spent addressing the patient's acute on chronic hypoxemic and hypercarbic respiratory failure, COPD with exacerbation, pneumococcal pneumonia, rhinovirus infection, severe sepsis, atrial fibrillation, acute kidney injury, review of all data and collaboration with the care team. ([id number]) Code Visit 9xxxx: [id number] Critical care first hour
--- NOTE | 2018-02-20 07:02 | PN_ITS ---
Subjective: The patient was seen and examined at the bedside this morning. Events from the last 24 hours have been reviewed. The patient is currently afebrile, hemodynamically stable and maintaining appropriate oxygen saturations with an FiO2 requirement of 40%. Following a period of gradually worsening respiratory status due to noncompliance with the use of BiPAP and supplemental oxygen, the patient was intubated on the evening of February 19. Overnight, the patient has had tenuous blood pressure readings, likely due to to his current sedation regimen. Ventilator settings are currently being adjusted to optimize his minute ventilation. Thick secretions were noted by the overnight respiratory staff. Creatinine is improved this morning. The patient is currently overall net +9 L for the admission, as of this morning. Objective: The patient's most recent lab work, culture data and imaging studies have all been personally reviewed. Respiratory viral panel was positive for the presence of rhinovirus. Streptococcus pneumoniae urinary antigen was positive. Surface echocardiogram revealed normal LV size and systolic function. Diastolic function was indeterminate. Right ventricular systolic pressure was estimated to be 41 mmHg. Renal ultrasound revealed cortical thinning of the right kidney suggestive of medical renal disease. General: - - Intubated, sedated and mechanically ventilated. HEENT: Atraumatic, PERRLA, Normocephalic Oral: No Gingival or Mucosal Lesions/ Ulcerations, - - Endotracheal and OG tubes currently in place. Neck: Supple, No Nodes, Trachea Midline Lungs: No rhonchi, No wheeze, No rales, Diminished Cardiovascular: Normal S1, Normal S2, No murmurs, Irregular Rate Abdomen: Bowel Sounds Present, Soft, Non Tender Extremities: No cyanosis, No edema, Clubbing Skin: No breakdown Musculoskeletal: No Tenderness to Palpation of Joints or Extremities, Cachexia, Muscle Wasting Lymphatic: No Cervical, Supraclavicular, or Inguinal Adenopathy Neurological: - - No focal neurological deficits. Currently sedated. Vital Signs Temp Pulse Resp BP Pulse Ox 36.4 C L 87 14 85/61 L 92 02/20/18 04:00 02/20/18 06:00 02/20/18 06:00 02/20/18 06:00 02/20/18 06:00 Oxygen Flow Rate (L/min) 3 Oxygen Delivery Method Mechanical Ventilator Weight: 144 lb 13.499 oz Body Mass Index (BMI) 18.9 Intake and Output for Last 24 Hours 02/18/18 02/19/1819 23:59 23:59 23:59 Intake Total 1049 / 1049 2020 1104 / 1104 Output Total 875 / 875 1370 / 1370 550 / 550 Balance 174 / 174 651 / 651 554 / 554 Labs (Last 48 Hours) 02/15/18 02/19/18 02/19/18 00:30 05:20 13:26 Specimen Type ART Sample Site R Radial pH 7.26 L Bicarbonate Actual 22.6 POC Total CO2 24 Base Excess -4 L O2 Saturation 88 L O2 % 35 ABG pCO2 50.2 H ABG pO2 64 L Butr Test POS Respiration Rate O2 Delivery Device Vent Mask Minute Volume Vent Mode Tidal Volume POC PEEP Blood Gas Notified Whom ICU MD Blood Gas Notified Time 1322 Sodium 146 H Potassium 4.2 Chloride 113 H Carbon Dioxide 20.0 L BUN 89 H Creatinine 2.94 H Estim Creat Clear Calc 18.87 Est GFR (MDRD) Af Amer 27 L Est GFR (MDRD) Non-Af 22 L BUN/Creatinine Ratio 30.3 H Glucose 155 H Calcium 8.6 Phosphorus 5.4 H Total Creatine Kinase Albumin 2.5 L Triglycerides Mycoplasma pneumon IgG < 100 Mycoplasma pneumon IgM < 770 02/19/18 02/19/18 02/20/18 20:52 21:30 05:00 Specimen Type ART Sample Site R Radial pH 7.31 L Bicarbonate Actual 24.5 POC Total CO2 26 Base Excess -2 O2 Saturation 88 L O2 % 35 ABG pCO2 49.0 H ABG pO2 60 L Burt Test Respiration Rate 14 O2 Delivery Device Vent Minute Volume 6.00 Vent Mode A-C Tidal Volume 450 POC PEEP 5 Blood Gas Notified Whom [facility] MD Blood Gas Notified Time 2046 Sodium 147 H Potassium 3.9 Chloride 110 H Carbon Dioxide 27.0 BUN 80 H Creatinine 2.59 H Estim Creat Clear Calc 21.42 Est GFR (MDRD) Af Amer 31 L Est GFR (MDRD) Non-Af 26 L BUN/Creatinine Ratio 30.9 H Glucose 171 H Calcium 8.1 L Phosphorus 4.6 Total Creatine Kinase Cancelled Albumin 2.3 L Triglycerides Cancelled Mycoplasma pneumon IgG Mycoplasma pneumon IgM Microbiology 02/15/18 08:00 Sputum, Expectorated/Coughed Gram Stain - Final 02/15/18 08:00 Sputum, Expectorated/Coughed Respiratory Culture - Final Streptococcus pneumoniae Clinical Impression(s) from Imaging Studies Chest X-Ray 02/14/18 16:13 IMPRESSION: Hyperexpansion with left lower lobe pneumonia and small left effusion. Electronically Signed: Nacho Banda MD at 17:09 EST , Service support , Renal Ultrasound 02/16/18 10:38 IMPRESSION: Cortical thinning in the right kidney. Findings suggestive of medical renal disease. Infrarenal abdominal aortic aneurysm with a transverse dimension of 5.3 cm. Electronically Signed: Vineet Carias MD at 12:24 EST Tel [phone], Service support , Chest X-Ray 02/18/18 05:00 IMPRESSION: Persistent left lower lobe infiltrate and small left pleural effusion, not significantly changed. Chronic interstitial lung disease. Electronically Signed: Mil Cole MD at 5:48 EST , Service support , Chest X-Ray 02/19/18 19:55 IMPRESSION: Endotracheal tube and enteric tube as described. There is no other major interval change. Electronically Signed: Javier Dos Santos DO at 20:33 EST Tel [phone], Service support , Medical Necessity - Tobacco Use Smoking Status: Former smoker Assessment/Plan All Active Problems Streptococcal pneumonia (Acute) Rhinovirus (Acute) Atrial fibrillation (Acute) Acute renal failure (ARF) (Acute) Acute and chronic respiratory failure with hypoxia (Acute) Severe sepsis (Acute) Community acquired pneumonia (Acute) RECOMMENDATIONS: 1. We will adjust patient's tidal volume, respiratory rate and flow volumes to optimize minute ventilation. 2. Continue to wean propofol and continue fentanyl for sedation. 3. If hemodynamics improved, can consider gentle diuresis. 4. We will plan to start tube feeds today. 5. Amiodarone can be transitioned from IV to p.o. formulation down OG tube. 6. Continue bronchodilators and steroids. 7. Discontinue bicarbonate infusion 8. Continue appropriate ICU prophylaxis IMPRESSIONS: 1. Acute on chronic hypoxemic respiratory failure secondary to COPD with exacerbation due to combined pneumococcal pneumonia and rhinovirus infection The patient was initially admitted to the hospital on February 14 with significant pneumococcal pneumonia and superimposed rhinovirus infection. Despite attempts at aggressive therapy, the patient's respiratory status progressively declined with time, largely due to patient noncompliance with the use of prescribed noninvasive positive pressure ventilation and supplemental oxygen. Despite the patient's insistence to refuse certain medical therapies, he wished to remain full code. Due to the aforementioned, the patient had to be intubated on February 19. He remains on appropriate antimicrobial coverage, bronchodilators and steroids. His ventilator settings are currently being augmented to optimize his minute ventilation. We will plan to continue these supportive measures accordingly. We will plan to start tube feeds today. Propofol will be weaned and fentanyl continued for sedation. If the patient's hemodynamics improved today, would recommend initiation of gentle diuresis. Continue to wean FiO2 to maintain an oxygen saturation at or above 90%. 2. Severe sepsis secondary to pneumococcal pneumonia and rhinovirus infection As noted above, antibiotics will be continued as ordered. 3. New-onset atrial fibrillation Continue rate/rhythm control per cardiology recommendations. 4. Combined metabolic and respiratory acidosis Improved. Likely secondary to underlying COPD and renal insufficiency. Defer management of the patient's kidney disease to nephrology. Continuous bicarbonate infusion has been discontinued. 5. Acute kidney injury Likely prerenal in etiology, as the patient initially responded to IV volume expansion. He may also have a component of chronic kidney disease as well. We will continue to monitor. No indication for renal replacement therapy at this time. Nephrology is following. 6. Advanced age/hypertension/metabolic encephalopathy Complicates care, management, recovery and prognosis. Aggressive physical therapy is warranted. TIME: 40 minutes of critical care time, independent of procedures, was spent addressing the patient's acute on chronic hypoxemic and hypercarbic respiratory failure, COPD with exacerbation, pneumococcal pneumonia, rhinovirus infection, severe sepsis, atrial fibrillation, acute kidney injury, review of all data and collaboration with the care team. ([id number]) Code Visit 9xxxx: [id number] Critical care first hour
[2018-02-20] MEDS: 0.9% NaCl Peripheral Flush Adult/Peds IV ×3 (07:45→21:32)
[2018-02-20 07:59] LABS: CPK Total, Creatine Kinase 903 U/L (39-308); Triglycerides 223 mg/dL
[2018-02-20] MEDS: predniSONE 20 MG Tablet 40 MG GT (09:32)
[2018-02-20] MEDS: Amiodarone 200 MG Tablet GT ×3 (09:32→21:29)
[2018-02-20] MEDS: Vital AF 1.2 Cal Liquid 1,000 ML 60 ML GT (09:33)
[2018-02-20] MEDS: APIXABAN 2.5 MG TABLET GT ×2 (09:33→22:35)
[2018-02-20] MEDS: AMOXICILLIN 500 MG CAPSULE GT ×2 (09:33→21:29)
--- NOTE | 2018-02-20 11:26 | PCM.PN.REN ---
Patient Problems: Active and Suspected Problems Atrial fibrillation (Acute) Acute renal failure (ARF) (Acute) Acute and chronic respiratory failure with hypoxia (Acute) Severe sepsis (Acute) Community acquired pneumonia (Acute) Subjective: Sedated on vent. Intubated last night for respiratory distress. Blood pressure low with antihypertensive medications on hold. Remains in atrial fibrillation. Rate controlled on amiodarone. - Physical Exam General: - - Sedate on vent Oral: Moist Mucosa Neck: No JVD Lungs: Clear to auscultation, Diminished Cardiovascular: Irregular Rate - Atrial fibrillation on the monitor Abdomen: Bowel Sounds Present, Soft, Non Tender, Non-Distended Extremities: No edema, - - Cool extremities Musculoskeletal: Muscle Wasting Neurological: - - Sedate Psych/Mental Status: - Vital Signs Temp Pulse Resp BP Pulse Ox 98.4 F 101 H 14 85/61 L 94 02/20/18 08:00 02/20/18 09:17 02/20/18 09:17 02/20/18 09:34 02/20/18 09:17 Oxygen Flow Rate (L/min) 3 Oxygen Delivery Method Mechanical Ventilator Weight: 65.7 kg Body Mass Index (BMI) 18.9 Intake and Output for Last 24 Hours 02/18/18 02/19/18 02/20/18 23:59 23:59 23:59 Intake Total 1049 / 1049 202 / 202 1154 / 1154 Output Total 875 / 875 1370 / 1370 550 / 550 Balance 174 / 174 651 / 651 604 / 604 Microbiology Past 72 Hours 02/14/18 16:20 Blood Culture - Final Blood Culture (Wb) - Left Forearm No growth in 5 days. 02/14/18 16:20 Blood Culture - Final Blood Culture (Wb) - Anticubital Right No growth in 5 days. 02/15/18 08:00 Gram Stain - Final Sputum, Expectorated/Coughed Respiratory Culture - Final Streptococcus pneumoniae 02/14/18 21:30 Urine Culture - Final Urine Catheter - Catheter Culture exhibits no growth. Laboratory Tests Past 24 Hrs 02/19/18 02/19/18 02/19/18 13:26 20:52 21:30 Specimen Type ART ART Sample Site R Radial R Radial pH 7.26 L 7.31 L Bicarbonate Actual 22.6 24.5 POC Total CO2 24 26 Base Excess -4 L -2 O2 Saturation 88 L 88 L O2 % 35 35 ABG pCO2 50.2 H 49.0 H ABG pO2 64 L 60 L Burt Test POS Respiration Rate 14 O2 Delivery Device Vent Mask Vent Minute Volume 6.00 Vent Mode A-C Tidal Volume 450 POC PEEP 5 Blood Gas Notified Whom ICU MD HOSP Blood Gas Notified Time 1321 2046 Sodium Potassium Chloride Carbon Dioxide BUN Creatinine Estim Creat Clear Calc Est GFR (MDRD) Af Amer Est GFR (MDRD) Non-Af BUN/Creatinine Ratio Glucose Calcium Phosphorus Total Creatine Kinase Cancelled B-Natriuretic Peptide Albumin Triglycerides Cancelled 02/20/18 02/20/18 02/20/18 05:00 05:00 05:00 Specimen Type Sample Site pH Bicarbonate Actual POC Total CO2 Base Excess O2 Saturation O2 % ABG pCO2 ABG pO2 Burt Test Respiration Rate O2 Delivery Device Minute Volume Vent Mode Tidal Volume POC PEEP Blood Gas Notified Whom Blood Gas Notified Time Sodium 147 H Potassium 3.9 Chloride 110 H Carbon Dioxide 27.0 BUN 80 H Creatinine 2.59 H Estim Creat Clear Calc 21.42 Est GFR (MDRD) Af Amer 31 L Est GFR (MDRD) Non-Af 26 L BUN/Creatinine Ratio 30.9 H Glucose 171 H Calcium 8.1 L Phosphorus 4.6 Total Creatine Kinase 903 H B-Natriuretic Peptide 883.0 H Albumin 2.3 L Triglycerides 223 H Clinical Impression(s) from Imaging Studies Chest X-Ray 02/19/18 19:55 IMPRESSION: Endotracheal tube and enteric tube as described. There is no other major interval change. Electronically Signed: Javier Dos Santos DO at 20:33 EST Tel [phone], Service support , Medical Necessity - Tobacco Use Smoking Status: Former smoker Assessment/Plan All Active Problems Streptococcal pneumonia (Acute) Rhinovirus (Acute) Atrial fibrillation (Acute) Acute renal failure (ARF) (Acute) Acute and chronic respiratory failure with hypoxia (Acute) Severe sepsis (Acute) Community acquired pneumonia (Acute) 1. Acute on chronic kidney disease. Baseline creatinine unknown. Creatinine improved to 2.59 today but urine output dropping. May need iv fluids. Initiating TF with free water. Will obtain old records from his PCP office. Rise in creatinine likely from prerenal event. 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 2. Acute respiratory and metabolic acidosis. s/p intubation 3. CAP with strep pna, rhinoviris on renal dose antibx. 4. COPD exacerbation pulmonary following 5. HTN BP low, holding BP medications 6. Hypernatremia free water via OG/NGT DW CCM team
[2018-02-20] MEDS: fentaNYL drip 100 ML 5 MCG IV ×2 (12:00→22:38)
--- NOTE | 2018-02-20 12:19 | PN.CARD_ITS ---
Subjectve: The patient was evaluated earlier this day in the ICU. He is currently intubated/sedated. He remains in atrial fibrillation. Objective: Vital Signs Temp Pulse Resp BP Pulse Ox 98.6 F 100 16 106/71 93 02/20/18 12:00 02/20/18 12:00 02/20/18 12:00 02/20/18 12:00 02/20/18 12:00 Oxygen Flow Rate (L/min) 3 Oxygen Delivery Method Mechanical Ventilator Weight: 144 lb 13.499 oz Body Mass Index (BMI) 18.9 Intake and Output for Last 24 Hours 02/18/18 02/19/18 02/20/18 23:59 23:59 23:59 Intake Total 1049 / 1049 202 / 2020 1444 / 1444 Output Total 875 / 875 1370 / 1370 700 / 700 Balance 174 / 174 651 / 651 744 / 744 Lungs: - - Scattered upper airway sounds Cardiovascular: Irregular Rhythm, Normal S1, Normal S2 Abdomen: Bowel Sounds Present, Soft Extremities: No edema 02/19/18 13:26: pH 7.26 L, Bicarbonate Actual 22.6, POC Total CO2 24, Base Excess -4 L, O2 Saturation 88 L, ABG pCO2 50.2 H, ABG pO2 64 L, Burt Test POS 02/19/18 20:52: pH 7.31 L, Bicarbonate Actual 24.5, POC Total CO2 26, Base Excess -2, O2 Saturation 88 L, ABG pCO2 49.0 H, ABG pO2 60 L 02/19/18 21:30: Triglycerides Cancelled 02/20/18 05:00: Sodium 147 H, Potassium 3.9, Chloride 110 H, Carbon Dioxide 27.0, BUN 80 H, Creatinine 2.59 H, Est GFR (MDRD) Af Amer 31 L, Est GFR (MDRD) Non-Af 26 L, BUN/Creatinine Ratio 30.9 H, Glucose 171 H, Calcium 8.1 L, Phosphorus 4.6 02/20/18 05:00: Triglycerides 223 H 02/20/18 05:00: B-Natriuretic Peptide 883.0 H Rhythm: Atrial fibrillation Medical Necessity - Tobacco Use Smoking Status: Former smoker Assessment/Plan 1. Atrial fibrillation with rapid ventricular response At the present time the patient's atrial fibrillation with RVR may be secondary to combination of his age, his history of hypertension, his history of underlying acute on chronic pulmonary disease, as he has had no other definitive findings thus far to explain his atrial dysrhythmia. He will continue medical management with rate control therapy, anti-arrhythmic therapy, and anticoagulant therapy as he is able to. He may eventually need an attempt at regaining sinus rhythm with synchronized biphasic DC cardioversion. However prior to doing so it would be prudent to improve his underlying pulmonary disease process and metabolic process if possible. At some point in time in the future, when he has improved from his noncardiac conditions, it may be reasonable to further evaluate his cardiovascular status for other cardiovascular concerns such as underlying coronary artery disease with at minimum a noninvasive study such as a pharmacologic stress imaging study. 2. Sepsis Again he is thought to be septic related to his underlying pulmonary condition. This may be a contributing factor to his atrial dysrhythmia. He will need continued evaluation care per internal medicine and pulmonology/radical care medicine for this. 3. Acute on chronic respiratory related issues/hypoxemia He is respiratory status had declined. He is now currently sedated/intubated. 4. Pneumonia There is concern he has an underlying acute pneumonia. He will continue evaluation care per internal medicine. He is also receiving input per pulmonary medicine/critical care. 5. COPD He does have underlying chronic COPD. He is on various forms of inhalers and/or nebulizers at home. He states he is no longer smoking tobacco. 6. Acute renal insufficiency The patient states that his oral intake has been diminished. This may be contributing to his acute renal insufficiency as well as contribution from his underlying sepsis syndrome. His creatinine level remains elevated. He is now being evaluated by nephrology. 7. Hypertension He has had intermittently low blood pressures. Thus his medications have been adjusted to avoid significant hypotension. This note was generated with [employer] dictation software. It may contain incorrect words, spelling, and punctuation that were not noted in checking the note before signing.
[2018-02-20] MEDS: Magnesium Hydroxide 30 ML UDC GT (13:58)
--- NOTE | 2018-02-20 16:59 | PN_ITS ---
Patient Problems: Active and Suspected Problems Atrial fibrillation (Acute) Acute renal failure (ARF) (Acute) Acute and chronic respiratory failure with hypoxia (Acute) Severe sepsis (Acute) Community acquired pneumonia (Acute) Subjective: Day 7 antibiotics Ventilator day #2 All events of the past 24 hours of been reviewed. Afebrile. Blood pressure has ranged from 85/61 to 106/55 over the past 11 hours. His HR is under much better control He is 97% saturated on a 40% FiO2. He is not assisting the ventilator. Fluid balance on 02/19/2018 was +651. Since admission he is positive greater than 9 L his weight is up from 124 pounds and 12 ounces on 2917-144 pounds and 13 ounces today and this would be equivalent to about 9 liters up. All lab was personally reviewed. Sodium is up to 147 today with a chloride of 110. BUN is 80 with a creatinine of 2.59, down from 2.97 on 02/18/2018. BNP is 883 today and this is not remarkable for a patient with stage IV chronic renal failure. He is sedated and on the ventilator. Objective: PHYSICAL EXAM: GENERAL: Sedated and on the ventilator, no plans for weaning trial today HEENT: Atraumatic, pupils are equal round reactive to light, normocephalic ORAL: dry mucosa, no mucosal lesions NECK: No JVD, supple, trachea midline LUNGS: Breath sounds are very diminished but the lungs are clear to auscultation today, symmetric chest expansion HEART: irregular, Normal S1 and S2, no rub, no gallop, distant heart sounds ABDOMEN: soft, NT, ND, BS present, no guarding with palpation EXTREMITIES: no edema, no cyanosis, no calf tenderness SKIN: No rashes, no breakdown - Physical Exam Vital Signs Temp Pulse Resp BP Pulse Ox 98.6 F 100 14 103/71 97 02/20/18 12:00 02/20/18 16:00 02/20/18 16:00 02/20/18 16:00 02/20/18 16:00 Oxygen Flow Rate (L/min) 3 Oxygen Delivery Method Mechanical Ventilator Weight: 144 lb 13.499 oz Body Mass Index (BMI) 18.9 Intake and Output for Last 24 Hours 02/18/18 02/19/18 02/20/18 23:59 23:59 23:59 Intake Total 1049 / 1049 2020 1644 / 1644 Output Total 875 / 875 1370 / 1370 700 / 700 Balance 174 / 174 651 / 651 944 / 944 Microbiology Past 72 Hours 02/14/18 16:20 Blood Culture - Final Blood Culture (Wb) - Left Forearm No growth in 5 days. 02/14/18 16:20 Blood Culture - Final Blood Culture (Wb) - Anticubital Right No growth in 5 days. 02/15/18 08:00 Gram Stain - Final Sputum, Expectorated/Coughed Respiratory Culture - Final Streptococcus pneumoniae Laboratory Tests Past 24 Hrs 02/19/18 02/19/18 02/20/18 20:52 21:30 05:00 Specimen Type ART Sample Site R Radial pH 7.31 L Bicarbonate Actual 24.5 POC Total CO2 26 Base Excess -2 O2 Saturation 88 L O2 % 35 ABG pCO2 49.0 H ABG pO2 60 L Respiration Rate 14 O2 Delivery Device Vent Minute Volume 6.00 Vent Mode A-C Tidal Volume 450 POC PEEP 5 Blood Gas Notified Whom [facility] Blood Gas Notified Time 2046 Sodium 147 H Potassium 3.9 Chloride 110 H Carbon Dioxide 27.0 BUN 80 H Creatinine 2.59 H Estim Creat Clear Calc 21.42 Est GFR (MDRD) Af Amer 31 L Est GFR (MDRD) Non-Af 26 L BUN/Creatinine Ratio 30.9 H Glucose 171 H Calcium 8.1 L Phosphorus 4.6 Total Creatine Kinase Cancelled B-Natriuretic Peptide Albumin 2.3 L Triglycerides Cancelled 02/20/18 02/20/18 05:00 05:00 Specimen Type Sample Site pH Bicarbonate Actual POC Total CO2 Base Excess O2 Saturation O2 % ABG pCO2 ABG pO2 Respiration Rate O2 Delivery Device Minute Volume Vent Mode Tidal Volume POC PEEP Blood Gas Notified Whom Blood Gas Notified Time Sodium Potassium Chloride Carbon Dioxide BUN Creatinine Estim Creat Clear Calc Est GFR (MDRD) Af Amer Est GFR (MDRD) Non-Af BUN/Creatinine Ratio Glucose Calcium Phosphorus Total Creatine Kinase 903 H B-Natriuretic Peptide 883.0 H Albumin Triglycerides 223 H Medical Necessity - Tobacco Use Smoking Status: Former smoker Assessment/Plan All Active Problems Streptococcal pneumonia (Acute) Rhinovirus (Acute) Atrial fibrillation (Acute) Acute renal failure (ARF) (Acute) Acute and chronic respiratory failure with hypoxia (Acute) Severe sepsis (Acute) Community acquired pneumonia (Acute) I Day #7 antibiotics Impressions 1. Acute hypoxic respiratory failure secondary to pneumococcal pneumonia and rhinovirus 2. Community-acquired pneumonia secondary to Streptococcus pneumoniae 3. Severe sepsis with acute respiratory failure secondary to pneumonia 4. Atrial fibrillation with rapid ventricular response 5. Acute kidney injury? no recent baseline - FENA is consistent with prerenal azotemia 7. Acute exacerbation of COPD 8. Acute on chronic kidney disease 9. Hyperphosphatemia 10. Normochromic normocytic anemia 11. Hypernatremia Tube feeds started and will add water flushes Accu-Cheks every 6 hours times 24 hours and if no sugar greater than 200 will discontinue Recheck lab in the a.m. Glycerides and CK are both elevated at 223 and 903 respectively Incision to amoxicillin per G-tube today Continue Keppra but decrease the dose to 750 mg IV every 12 hours Continue fentanyl infusion Transition to prednisone 40 mg per G-tube daily Will D/W Dr. Smith if Propofol should be discontinued due to high CK and TG Code Visit Inpatient E&M: 08590 [facility] L[facility]
--- NOTE | 2018-02-20 18:15 | RAD_ITS ---
STUDY: X-RAY CHEST REASON FOR EXAM: Male, 77 years old. PICC line placement. TECHNIQUE: Single AP portable view of the chest. COMPARISON: February 19, 2018 FINDINGS: There is a right PICC line with its tip in the upper superior vena cava. Stable endotracheal tube and nasogastric tube. The lungs are mildly hypoexpanded when compared to the prior study. There is persistent and lower lobe infiltrates left greater than right with questionable left pleural effusion. Normal size heart. Normal mediastinum and homer. Normal visualized pulmonary arteries. Normal visualized aortic arch and descending thoracic aorta. The thoracic spine is obscured by the mediastinum. Normal visualized ribs, clavicles, and shoulders. There is no demonstrated abnormality of the visualized soft tissue structures of the upper abdomen. RAD/CXR for Line Placement IMPRESSION: 1. Right PICC line as described. 2. Minimally diminished inspiratory effort without other major change from the previous exam. Electronically Signed: Javier Dos Santos DO at 18:56 EST Tel [phone], Service support ,
--- NOTE | 2018-02-20 18:40 | RAD_ITS ---
STUDY: X-RAY CHEST REASON FOR EXAM: Male, 77 years old. PICC line placement. TECHNIQUE: Portable chest. COMPARISON: 6:15 PM. FINDINGS: Right PICC line terminates in the superior vena cava. ET tube and nasogastric tube are unchanged in position. There is no pleural effusion. Moderate interstitial prominence is noted in the lung bases, unchanged from the prior study. Normal size heart. Normal mediastinum and homer. Normal visualized pulmonary arteries. Normal visualized aortic arch and descending thoracic aorta. Normal visualized thoracic spine. Normal visualized ribs, clavicles, and shoulders. There is no demonstrated abnormality of the visualized soft tissue structures of the upper abdomen. RAD/CXR for Line Placement IMPRESSION: 1. PICC line in the SVC. 2. Bibasilar interstitial prominence, no significant change from the prior study. Electronically Signed: Yu Mata MD at 22:15 EST Tel , Service support ,
[2018-02-20 22:19] LABS: Albumin, Serum 2.3 g/dL (3.2-5.0); BUN 81 mg/dL (7-18); BUN/Creat Ratio 31.3 RATIO (10-20); Calcium,Total 8.1 mg/dL (8.5-10.1); Chloride 110 mmol/L (98-107); Creatinine, Serum 2.59 mg/dL (0.70-1.30); EST Glomerular Filtration Rate 26 mL/min (>60); Est Glom Filt Rate - Afr Amer 31 mL/min (>60); Glucose 141 mg/dL (74-106); Phosphorus 3.4 mg/dL (2.5-4.9); Sodium Level 145 mmol/L (136-145)
[2018-02-21] VITALS (77 sets, daily range): BP systolic 70–180; BP diastolic 43–100; PULSE 78–126; RESP 12–25; TEMP 36.1–37.6; O2SAT 87–100
[2018-02-21] MEDS: Chlorhexidine 15 ML PO ×3 (00:22→21:55)
--- NOTE | 2018-02-21 01:06 | PCM.PN.BLA ---
Progress Note Arterial Line Placement Note Procedure: Right Radial Artery Arterial Line, U/S guided. Indication: Septic Shock Performed By: Dr. Velasquez Blanca Procedure Summary:Arterial Line Placement Note Procedure: Right Radial Artery Arterial Line Indication: Inability to obtain blood pressure on a patient with Sepsis Performed By: Dr. Velasquez Blanca Consent: Consent was obtained from the patient's family prior to the procedure. Indications, risks, and benefits were explained. Procedure Summary: The radial artery was assessed with ultrasound. A time-out was performed. The patient?s right wrist region was prepped and draped in sterile fashion using chlorhexidine scrub. The radial artery was palpated and accessed using a needle which was part of a [id number] assembly (Modified Seldinger Technique). The guidewire was advanced through the needle and the catheter was advanced over the guidewire with appropriate pulsatile blood return. The catheter was then sutured in place to the skin and a sterile dressing was applied. Perfusion to the extremity distal to the point of catheter insertion was checked and found to be adequate. Complications: NONE Estimated Blood Loss: 5ml Code Visit Procedures: 85998 Insertion Catheter Artery
[2018-02-21] MEDS: Ipratropium/Albuterol Sulfate 3 ML AMPUL.NEB INHALATION ×6 (03:14→22:55)
[2018-02-21 05:06] LABS: Albumin, Serum 2.2 g/dL (3.2-5.0); BUN 77 mg/dL (7-18); BUN/Creat Ratio 32.8 RATIO (10-20); Calcium,Total 7.8 mg/dL (8.5-10.1); Chloride 112 mmol/L (98-107); Creatinine, Serum 2.35 mg/dL (0.70-1.30); EST Glomerular Filtration Rate 29 mL/min (>60); Est Glom Filt Rate - Afr Amer 35 mL/min (>60); Estimated Creatinine Clearance 24.46 ml/min; Glucose 146 mg/dL (74-106); Phosphorus 3.2 mg/dL (2.5-4.9); Potassium 4.5 mmol/L (3.5-5.1); Sodium Level 146 mmol/L (136-145)
[2018-02-21] MEDS: fentaNYL drip 100 ML 5 MCG IV ×2 (05:44→15:50)
[2018-02-21] MEDS: Amiodarone 200 MG Tablet GT ×3 (05:48→21:55)
--- NOTE | 2018-02-21 06:28 | PCM.PN.INT ---
Subjective: The patient was seen and examined at the bedside this morning. Events from the last 24 hours have been reviewed. The patient is currently afebrile, hemodynamically stable and maintaining appropriate oxygen saturations with an FiO2 requirement of 40%. The patient's propofol was weaned and eventually discontinued yesterday due to elevated triglycerides and total CK level. Overnight, the patient's fentanyl was maximized and he was started on Precedex for additional sedation. In addition to the aforementioned, the patient's hemodynamics became unstable last night. It was difficult to obtain blood pressures. Therefore, the overnight hospitalist placed an arterial line. The patient was also subsequently started on a low-dose of Levophed. Objective: The patient's most recent lab work, culture data and imaging studies have all been personally reviewed. Respiratory viral panel was positive for the presence of rhinovirus. Streptococcus pneumoniae urinary antigen was positive. Surface echocardiogram revealed normal LV size and systolic function. Diastolic function was indeterminate. Right ventricular systolic pressure was estimated to be 41 mmHg. Renal ultrasound revealed cortical thinning of the right kidney suggestive of medical renal disease. General: - - Currently intubated, sedated and mechanically ventilated. HEENT: Atraumatic, PERRLA, Normocephalic Oral: Moist Mucosa, - - Endotracheal and OG tubes in place Neck: Supple, No Nodes, Trachea Midline Lungs: No rhonchi, No wheeze, No rales, Diminished Cardiovascular: Normal S1, Normal S2, No murmurs, Irregular Rate Abdomen: Bowel Sounds Present, Soft, Non Tender Extremities: No cyanosis, No edema, Clubbing Skin: - - No significant change from previous. Musculoskeletal: Cachexia, Muscle Wasting Lymphatic: No Cervical, Supraclavicular, or Inguinal Adenopathy Neurological: - - No focal neurological deficits. Currently sedated. Vital Signs Temp Pulse Resp BP Pulse Ox 36.1 C L 92 14 121/62 H 97 02/21/18 04:00 02/21/18 06:00 02/21/18 06:00 02/21/18 06:00 02/21/18 06:00 Oxygen Flow Rate (L/min) 3 Oxygen Delivery Method Mechanical Ventilator Weight: 145 lb 8.081 oz Body Mass Index (BMI) 18.9 Intake and Output for Last 24 Hours 02/19/18 02/20/18 02/21/18 23:59 23:59 23:59 Intake Total 2020 2220 / 2220 1266 / 1266 Output Total 1370 / 1370 950 / 950 400 / 400 Balance 651 / 651 1270 / 1270 866 / 866 Labs (Last 48 Hours) 02/15/18 02/19/18 02/19/18 00:30 13:26 20:52 Specimen Type ART ART Sample Site R Radial R Radial pH 7.26 L 7.31 L Bicarbonate Actual 22.6 24.5 POC Total CO2 24 26 Base Excess -4 L -2 O2 Saturation 88 L 88 L O2 % 35 35 ABG pCO2 50.2 H 49.0 H ABG pO2 64 L 60 L Burt Test POS Respiration Rate 14 O2 Delivery Device Vent Mask Vent Minute Volume 6.00 Vent Mode A-C Tidal Volume 450 POC PEEP 5 Blood Gas Notified Whom ICU MD HOSP Blood Gas Notified Time 1322 2047 Sodium Potassium Chloride Carbon Dioxide BUN Creatinine Estim Creat Clear Calc Est GFR (MDRD) Af Amer Est GFR (MDRD) Non-Af BUN/Creatinine Ratio Glucose Calcium Phosphorus Total Creatine Kinase B-Natriuretic Peptide Albumin Triglycerides Mycoplasma pneumon IgG < 100 Mycoplasma pneumon IgM < 770 02/19/18 02/20/18 02/20/18 21:30 05:00 05:00 Specimen Type Sample Site pH Bicarbonate Actual POC Total CO2 Base Excess O2 Saturation O2 % ABG pCO2 ABG pO2 Burt Test Respiration Rate O2 Delivery Device Minute Volume Vent Mode Tidal Volume POC PEEP Blood Gas Notified Whom Blood Gas Notified Time Sodium 147 H Potassium 3.9 Chloride 110 H Carbon Dioxide 27.0 BUN 80 H Creatinine 2.59 H Estim Creat Clear Calc 21.42 Est GFR (MDRD) Af Amer 31 L Est GFR (MDRD) Non-Af 26 L BUN/Creatinine Ratio 30.9 H Glucose 171 H Calcium 8.1 L Phosphorus 4.6 Total Creatine Kinase Cancelled 903 H B-Natriuretic Peptide Albumin 2.3 L Triglycerides Cancelled 223 H Mycoplasma pneumon IgG Mycoplasma pneumon IgM 02/20/18 02/20/18 02/21/18 05:00 21:45 04:45 Specimen Type Sample Site pH Bicarbonate Actual POC Total CO2 Base Excess O2 Saturation O2 % ABG pCO2 ABG pO2 Burt Test Respiration Rate O2 Delivery Device Minute Volume Vent Mode Tidal Volume POC PEEP Blood Gas Notified Whom Blood Gas Notified Time Sodium 145 146 H Potassium 5.0 4.5 Chloride 110 H 112 H Carbon Dioxide 26.0 27.0 BUN 81 H 77 H Creatinine 2.59 H 2.35 H Estim Creat Clear Calc 22.20 24.46 Est GFR (MDRD) Af Amer 31 L 35 L Est GFR (MDRD) Non-Af 26 L 29 L BUN/Creatinine Ratio 31.3 H 32.8 H Glucose 141 H 146 H Calcium 8.1 L 7.8 L Phosphorus 3.4 3.2 Total Creatine Kinase B-Natriuretic Peptide 883.0 H Albumin 2.3 L 2.2 L Triglycerides Mycoplasma pneumon IgG Mycoplasma pneumon IgM Microbiology 02/14/18 16:20 Blood Culture (Wb) - Left Forearm Blood Culture - Final No growth in 5 days. 02/14/18 16:20 Blood Culture (Wb) - Anticubital Right Blood Culture - Final No growth in 5 days. Clinical Impression(s) from Imaging Studies Chest X-Ray 02/14/18 16:13 IMPRESSION: Hyperexpansion with left lower lobe pneumonia and small left effusion. Electronically Signed: Nacho Banda MD at 17:09 EST , Service support , Renal Ultrasound 02/16/18 10:38 IMPRESSION: Cortical thinning in the right kidney. Findings suggestive of medical renal disease. Infrarenal abdominal aortic aneurysm with a transverse dimension of 5.3 cm. Electronically Signed: Vineet Carias MD at 12:24 EST Tel [phone], Service support , Chest X-Ray 02/18/18 05:00 IMPRESSION: Persistent left lower lobe infiltrate and small left pleural effusion, not significantly changed. Chronic interstitial lung disease. Electronically Signed: Mil Cole MD at 5:48 EST , Service support , Chest X-Ray 02/19/18 19:55 IMPRESSION: Endotracheal tube and enteric tube as described. There is no other major interval change. Electronically Signed: Javier Dos Santos DO at 20:33 EST Tel [phone], Service support , Chest X-Ray 02/20/18 18:15 IMPRESSION: 1. Right PICC line as described. 2. Minimally diminished inspiratory effort without other major change from the previous exam. Electronically Signed: Javier Dos Santos DO at 18:56 EST Tel [phone], Service support , Chest X-Ray 02/20/18 18:40 IMPRESSION: 1. PICC line in the SVC. 2. Bibasilar interstitial prominence, no significant change from the prior study. Electronically Signed: Yu Mata MD at 22:15 EST Tel , Service support , Medical Necessity - Tobacco Use Smoking Status: Former smoker Assessment/Plan All Active Problems Streptococcal pneumonia (Acute) Rhinovirus (Acute) Atrial fibrillation (Acute) Acute renal failure (ARF) (Acute) Acute and chronic respiratory failure with hypoxia (Acute) Severe sepsis (Acute) Community acquired pneumonia (Acute) RECOMMENDATIONS: 1. Give 500 cc bolus of D5W. 2. Wean Levophed. Goal to maintain a mean arterial pressure at or above 65 mmHg. 3. Wean sedation as tolerated. Can consider starting scheduled Seroquel twice daily in hopes of weaning fentanyl and/or Precedex. 4. Continue tube feeds and free water flushes. 5. Continue bronchodilators and steroids. 6. Continue appropriate ICU prophylaxis. IMPRESSIONS: 1. Acute on chronic hypoxemic respiratory failure secondary to COPD with exacerbation due to combined pneumococcal pneumonia and rhinovirus infection The patient was initially admitted to the hospital on February 14 with significant pneumococcal pneumonia and superimposed rhinovirus infection. Despite attempts at aggressive therapy, the patient's respiratory status progressively declined with time, largely due to patient noncompliance with the use of prescribed noninvasive positive pressure ventilation and supplemental oxygen. Despite the patient's insistence to refuse certain medical therapies, he wished to remain full code. Due to the aforementioned, the patient had to be intubated on February 19. He remains on appropriate antimicrobial coverage, bronchodilators and steroids. Tube feeds and free water flushes will be continued. Propofol was discontinued overnight due to elevated CK and triglyceride levels. The patient is currently sedated with fentanyl and Precedex. 2. Severe sepsis secondary to pneumococcal pneumonia and rhinovirus infection As noted above, antibiotics will be continued as ordered. While the patient is currently on a very low dose of Levophed, this is likely the consequence of his current sedation regimen. He did receive a small fluid bolus this morning and his sedation regimen is currently being optimized. Anticipate improvement in hemodynamics with weaning of sedation. 3. New-onset atrial fibrillation Continue rate/rhythm control per cardiology recommendations. 4. Combined metabolic and respiratory acidosis Improved. Likely secondary to underlying COPD and renal insufficiency. Defer management of the patient's kidney disease to nephrology. 5. Acute kidney injury Likely prerenal in etiology, as the patient initially responded to IV volume expansion. He may also have a component of chronic kidney disease as well. We will continue to monitor. No indication for renal replacement therapy at this time. Nephrology is following. 6. Advanced age/hypertension/metabolic encephalopathy Complicates care, management, recovery and prognosis. Aggressive physical therapy is warranted. TIME: 38 minutes of critical care time, independent of procedures, was spent addressing the patient's acute on chronic hypoxemic and hypercarbic respiratory failure, COPD with exacerbation, pneumococcal pneumonia, rhinovirus infection, severe sepsis, atrial fibrillation, acute kidney injury, review of all data and collaboration with the care team. ([id number]) Code Visit 9xxxx: 42062 Critical care first hour
--- NOTE | 2018-02-21 07:22 | PCM.PROGNOTE ---
Patient Problems: Active and Suspected Problems Atrial fibrillation (Acute) Acute renal failure (ARF) (Acute) Acute and chronic respiratory failure with hypoxia (Acute) Severe sepsis (Acute) Community acquired pneumonia (Acute) Subjective: Day #8 antibiotics Day #3 ventilator All events of the past 24 hours been reviewed. An arterial line was inserted by the night hospitalist early this morning. Propofol was discontinued last evening secondary to elevated triglycerides and a total creatine kinase of 903. Temperature today is low at 96.9 and this is a core temp. Blood pressures since midnight have ranged from 95/54-130 6/64. Current blood pressure is 97/52. Oxygen saturation ranges from 95-100% on a 40% FiO2 on AC Sodium remains elevated mildly at 146 with a chloride of 112. BUN is 77 with a creatinine of 2.35 today. He arouses and open his eyes and makes eye contact with me this morning. He is appropriately answering yes and no questions. He denies chest pain or any pain. He denies shortness of breath and when I ask him if he is adequately sedated he says yes. He is able to squeeze my hand on command. Objective: PHYSICAL EXAM: GENERAL: Sedated and on the ventilator, no plans for weaning trial today, he was converted to Precedex for sedation since the fentanyl dropped his blood pressure. He is currently arousable, follows commands and answers yes and no questions appropriately. He makes good eye contact with me. HEENT: Atraumatic, pupils are equal round reactive to light, normocephalic ORAL: dry mucosa, no mucosal lesions NECK: No JVD, supple, trachea midline LUNGS: Breath sounds are very diminished but the lungs are clear to auscultation today, symmetric chest expansion HEART: irregular, Normal S1 and S2, no rub, no gallop, distant heart sounds ABDOMEN: soft, NT, ND, BS present, no guarding with palpation EXTREMITIES: no edema, no cyanosis, no calf tenderness SKIN: No rashes, no breakdown - Physical Exam Vital Signs Temp Pulse Resp BP Pulse Ox 96.9 F L 100 14 97/52 L 100 02/21/18 04:00 02/21/18 07:00 02/21/18 07:00 02/21/18 07:00 02/21/18 07:00 Oxygen Flow Rate (L/min) 3 Oxygen Delivery Method Mechanical Ventilator Weight: 145 lb 8.081 oz Body Mass Index (BMI) 18.9 Intake and Output for Last 24 Hours 02/19/18 02/20/18 02/21/18 23:59 23:59 23:59 Intake Total 2020 2220 / 2220 1266 / 1266 Output Total 1370 / 1370 950 / 950 400 / 400 Balance 651 / 651 1270 / 1270 866 / 866 Microbiology Past 72 Hours 02/14/18 16:20 Blood Culture - Final Blood Culture (Wb) - Left Forearm No growth in 5 days. 02/14/18 16:20 Blood Culture - Final Blood Culture (Wb) - Anticubital Right No growth in 5 days. 02/15/18 08:00 Gram Stain - Final Sputum, Expectorated/Coughed Respiratory Culture - Final Streptococcus pneumoniae Laboratory Tests Past 24 Hrs 02/20/18 02/20/18 02/20/18 05:00 05:00 21:45 Sodium 145 Potassium 5.0 Chloride 110 H Carbon Dioxide 26.0 BUN 81 H Creatinine 2.59 H Estim Creat Clear Calc 22.20 Est GFR (MDRD) Af Amer 31 L Est GFR (MDRD) Non-Af 26 L BUN/Creatinine Ratio 31.3 H Glucose 141 H Calcium 8.1 L Phosphorus 3.4 Total Creatine Kinase 903 H B-Natriuretic Peptide 883.0 H Albumin 2.3 L Triglycerides 223 H 02/21/18 04:45 Sodium 146 H Potassium 4.5 Chloride 112 H Carbon Dioxide 27.0 BUN 77 H Creatinine 2.35 H Estim Creat Clear Calc 24.46 Est GFR (MDRD) Af Amer 35 L Est GFR (MDRD) Non-Af 29 L BUN/Creatinine Ratio 32.8 H Glucose 146 H Calcium 7.8 L Phosphorus 3.2 Total Creatine Kinase B-Natriuretic Peptide Albumin 2.2 L Triglycerides Medical Necessity - Tobacco Use Smoking Status: Former smoker Assessment/Plan All Active Problems Streptococcal pneumonia (Acute) Rhinovirus (Acute) Atrial fibrillation (Acute) Acute renal failure (ARF) (Acute) Acute and chronic respiratory failure with hypoxia (Acute) Severe sepsis (Acute) Community acquired pneumonia (Acute) I Day #8 antibiotics Ventilator day #3 Impressions 1. Acute hypoxic respiratory failure secondary to pneumococcal pneumonia and rhinovirus 2. Community-acquired pneumonia secondary to Streptococcus pneumoniae 3. Severe sepsis with acute respiratory failure secondary to pneumonia 4. Atrial fibrillation with rapid ventricular response 5. Acute kidney injury? no recent baseline - FENA is consistent with prerenal azotemia 7. Acute exacerbation of COPD 8. Acute on chronic kidney disease 9. Hyperphosphatemia 10. Normochromic normocytic anemia 11. Hypernatremia 12. Hypotension-currently on Levophed at 2 mcg Continue antibiotics Continue tube feed No weaning trial today Doing well on Precedex and hypotension is improving-currently on 2 mcg of Levophed with a blood pressure of 104 systolic and the Levophed is being weaned Recheck lab in the a.m. Chest x-ray in the a.m. FiO2 has been weaned down to 35% and he is tolerating Continue bronchodilators and steroids Start Seroquel 25 mg p.o. twice daily if the QT interval on an EKG is 450 ms or less Accu-Cheks every 6 hours and if all are less than 180 will discontinue Code Visit Inpatient E&M: 99251 [facility] Hosp L3
[2018-02-21 09:21] LABS: Hemoglobin A1c 5.5 % (4.2-6.3)
--- NOTE | 2018-02-21 09:39 | NS ---
Previous free fluid flushes ordered as 100cc every 4 hours to provide 1167cc H2O from formula and 600cc from flushes. Discussed in ICU rounds, Dr. Smith stating to increase flushes to 200cc every 4 hours to provide 1167cc H2O from formula and 1200cc from flushes (2376cc total/day). Jose Francisco Oneal MS, RDN, LD
--- NOTE | 2018-02-21 09:56 | CM.UR ---
Participated in ICU interdisciplinary rounds this am. Patient has been reintubated. Case management will continue to follow for discharge planning. Per Dr. Smith anticipating needing facility placement. Dr. Smith does not feel as if he should go straight home. Li Prado RN, [facility].
--- NOTE | 2018-02-21 10:24 | PCM.PN.CARD ---
Subjectve: Patient doing well, no 24-hour events. Telemetry shows atrial fibrillation with controlled ventricular response. No chest pain symptoms. Objective: Vital Signs Temp Pulse Resp BP Pulse Ox 97.6 F L 94 14 114/63 97 02/21/18 08:15 02/21/18 09:34 02/21/18 09:34 02/21/18 08:45 02/21/18 09:34 Oxygen Flow Rate (L/min) 3 Oxygen Delivery Method Mechanical Ventilator Weight: 145 lb 8.081 oz Body Mass Index (BMI) 18.9 Intake and Output for Last 24 Hours 02/19/18 02/20/18 02/21/18 23:59 23:59 23:59 Intake Total 2020 2220 / 2220 1266 / 1266 Output Total 1370 / 1370 950 / 950 400 / 400 Balance 651 / 651 1270 / 1270 866 / 866 General: Awake, Alert, Oriented x 3 HEENT: PERRL, EOMI, Sclera Non Icteric Neck: Supple, Good ROM, No Lymph Node Enlargement Lungs: Clear to auscultation Cardiovascular: Irregular Rhythm, Normal S1, Normal S2, No Murmurs, No Rubs, No Gallops Vascular: No Carotid Bruits, Normal Femoral Pulses, Normal Radial Pulses, Normal Dorsalis Pedal Pulse, Normal Posterior Tibial Pulses Abdomen: Bowel Sounds Present, Soft, Non Tender, No HSM, No Organomegaly Extremities: No Cyanosis, No Clubbing, No edema Neurological: No Focal Motor or Sensory Deficit 02/20/18 21:45: Sodium 145, Potassium 5.0, Chloride 110 H, Carbon Dioxide 26.0, BUN 81 H, Creatinine 2.59 H, Est GFR (MDRD) Af Amer 31 L, Est GFR (MDRD) Non-Af 26 L, BUN/Creatinine Ratio 31.3 H, Glucose 141 H, Calcium 8.1 L, Phosphorus 3.4 02/21/18 04:45: Sodium 146 H, Potassium 4.5, Chloride 112 H, Carbon Dioxide 27.0, BUN 77 H, Creatinine 2.35 H, Est GFR (MDRD) Af Amer 35 L, Est GFR (MDRD) Non-Af 29 L, BUN/Creatinine Ratio 32.8 H, Glucose 146 H, Calcium 7.8 L, Phosphorus 3.2 02/21/18 08:05: Hemoglobin A1c 5.5 Rhythm: EKG: ECHO: Stress Test: Cardiac Cath: PCI: CT Surgery: Holter monitor: EPS: PPM: CXR: Chest CT Scan: Medical Necessity - Tobacco Use Smoking Status: Former smoker Assessment/Plan 1. Atrial fibrillation with rapid ventricular response At the present time the patient's atrial fibrillation with RVR may be secondary to combination of his age, his history of hypertension, his history of underlying acute on chronic pulmonary disease, as he has had no other definitive findings thus far to explain his atrial dysrhythmia. His heart rate is well controlled on amiodarone therapy. He will continue medical management with rate control therapy, anti-arrhythmic therapy, and anticoagulant therapy with Eliquis as he is able to. He may eventually need an attempt at regaining sinus rhythm with synchronized biphasic DC cardioversion. However prior to doing so it would be prudent to improve his underlying pulmonary disease process and metabolic process if possible. At some point in time in the future, when he has improved from his noncardiac conditions, it may be reasonable to further evaluate his cardiovascular status for other cardiovascular concerns such as underlying coronary artery disease with at minimum a noninvasive study such as a pharmacologic stress imaging study. Recommend continuing amiodarone loading at 200 mg p.o. 3 times daily for a total of 5 days followed by decreasing to 200 mg p.o. daily. Continue Eliquis based therapy. His heart rate and blood pressure well controlled. 2. Thank you very much for the opportunity to participate in the cardiac care of your patient. Code Visit Inpatient E&M: 13134 [facility] Hosp L2
[2018-02-21] MEDS: AMOXICILLIN 500 MG CAPSULE GT ×2 (11:35→21:55)
[2018-02-21] MEDS: predniSONE 20 MG Tablet 40 MG GT (11:35)
[2018-02-21] MEDS: CHLORHEXIDINE GLUC 2% CLOTH 1 EACH TOWELETTE TOPICAL (11:36)
[2018-02-21] MEDS: APIXABAN 2.5 MG TABLET GT ×2 (11:36→21:55)
[2018-02-21] MEDS: QUEtiapine 25 MG Tablet PO ×2 (12:52→21:55)
[2018-02-21 13:00] LABS: Bedside Glucose 90 mg/dL (70-110)
--- NOTE | 2018-02-21 14:27 | PCM.PN.REN ---
Patient Problems: Active and Suspected Problems Atrial fibrillation (Acute) Acute renal failure (ARF) (Acute) Acute and chronic respiratory failure with hypoxia (Acute) Severe sepsis (Acute) Community acquired pneumonia (Acute) Subjective: Remains on vent, sedated. Renal function improved today. - Physical Exam General: - - Sedated on vent Oral: Moist Mucosa Lungs: Clear to auscultation, Diminished Cardiovascular: Irregular Rate - Atrial fibrillation with rate control Abdomen: Bowel Sounds Present, Soft, Non Tender, Non-Distended Extremities: Edema - Diffuse mild edema Musculoskeletal: Muscle Wasting Psych/Mental Status: - Vital Signs Temp Pulse Resp BP Pulse Ox 97.6 F L 101 H 15 114/63 91 02/21/18 08:15 02/21/18 13:08 02/21/18 13:08 02/21/18 08:45 02/21/18 13:08 Oxygen Flow Rate (L/min) 3 Oxygen Delivery Method Mechanical Ventilator Weight: 66 kg Body Mass Index (BMI) 18.9 Intake and Output for Last 24 Hours 02/19/18 02/20/18 02/21/18 23:59 23:59 23:59 Intake Total 2020 2220 / 2220 2811 / 2811 Output Total 1370 / 1370 950 / 950 725 / 725 Balance 651 / 651 1270 / 1270 2085 / 208 Microbiology Past 72 Hours 02/14/18 16:20 Blood Culture - Final Blood Culture (Wb) - Left Forearm No growth in 5 days. 02/14/18 16:20 Blood Culture - Final Blood Culture (Wb) - Anticubital Right No growth in 5 days. Laboratory Tests Past 24 Hrs 02/20/18 02/21/18 02/21/18 21:45 04:45 08:05 Sodium 145 146 H Potassium 5.0 4.5 Chloride 110 H 112 H Carbon Dioxide 26.0 27.0 BUN 81 H 77 H Creatinine 2.59 H 2.35 H Estim Creat Clear Calc 22.20 24.46 Est GFR (MDRD) Af Amer 31 L 35 L Est GFR (MDRD) Non-Af 26 L 29 L BUN/Creatinine Ratio 31.3 H 32.8 H Glucose 141 H 146 H Hemoglobin A1c 5.5 Calcium 8.1 L 7.8 L Phosphorus 3.4 3.2 Albumin 2.3 L 2.2 L POC Glucose 02/21/18 12:43 POC Glucose 90 Medical Necessity - Tobacco Use Smoking Status: Former smoker Assessment/Plan All Active Problems Streptococcal pneumonia (Acute) Rhinovirus (Acute) Atrial fibrillation (Acute) Acute renal failure (ARF) (Acute) Acute and chronic respiratory failure with hypoxia (Acute) Severe sepsis (Acute) Community acquired pneumonia (Acute) 1. Acute on chronic kidney disease. Baseline creatinine unknown. 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 2. Acute respiratory acidosis. s/p intubation 3. CAP with strep pna, rhinoviris on renal dose antibx. 4. COPD exacerbation pulmonary following 5. HTN BP low, holding BP medications 6. Hypernatremia free water via OG/NGT
[2018-02-21] MEDS: Vital AF 1.2 Cal Liquid 1,000 ML 60 ML GT (15:55)
[2018-02-21 18:06] LABS: Bedside Glucose 129 mg/dL (70-110)
[2018-02-22] VITALS (45 sets, daily range): BP systolic 101–158; BP diastolic 44–72; PULSE 58–96; RESP 14–33; TEMP 36–37.7; O2SAT 68–99
[2018-02-22] MEDS: Insulin Lispro 100 UNIT/ML INSULN.PEN SC (00:20)
[2018-02-22 00:26] LABS: Bedside Glucose 167 mg/dL (70-110)
[2018-02-22] MEDS: fentaNYL drip 100 ML 5 MCG IV (02:18)
[2018-02-22] MEDS: CHLORHEXIDINE GLUC 2% CLOTH 1 EACH TOWELETTE TOPICAL (02:19)
[2018-02-22] MEDS: Ipratropium/Albuterol Sulfate 3 ML AMPUL.NEB INHALATION ×6 (02:25→22:17)
[2018-02-22 04:33] LABS: Hematocrit 26.9 % (40-54); Hemoglobin 8.5 g/dl (13.0-16.5); Mean Corp Hgb Conc 31.6 g/gl (32-36); Mean Corpuscular Hgb 29.9 pg (27.0-32.0); Mean Corpuscular Volume 94.7 fL (80-94); Mean Platelet Vol. 9.9 fl (6.2-12.0); Platelet Count 356 K/mm3 (150-450); RBC Distribution Width CV 15.8 % (11.6-14.6); RBC Distribution Width SD 52.5 fl (35.1-43.9); Red Blood Count 2.84 M/mm3 (4.6-6.2); White Blood Count 14.7 K/mm3 (4.4-11.0)
[2018-02-22 04:37] LABS: Scan Indicated on CBC? Y/N NO
[2018-02-22 04:50] LABS: Anion Gap 8 (5-15); BUN 80 mg/dL (7-18); BUN/Creat Ratio 37.4 RATIO (10-20); Calcium,Total 7.6 mg/dL (8.5-10.1); Chloride 109 mmol/L (98-107); Creatinine, Serum 2.14 mg/dL (0.70-1.30); EST Glomerular Filtration Rate 32 mL/min (>60); Est Glom Filt Rate - Afr Amer 39 mL/min (>60); Estimated Creatinine Clearance 26.99 ml/min; Glucose 123 mg/dL (74-106); Phosphorus 3.9 mg/dL (2.5-4.9); Potassium 5.1 mmol/L (3.5-5.1); Sodium Level 144 mmol/L (136-145)
--- NOTE | 2018-02-22 05:35 | CPS ---
Patient placed on SBT. Pt started on 5/5 and increased to 10/5 for pt comfort. After ten minutes pt with accessory muscle use and periods of 20 second apneas. Patient placed back on rate and nursing aware of the following.
[2018-02-22] MEDS: Amiodarone 200 MG Tablet GT ×3 (06:26→22:54)
[2018-02-22 06:31] LABS: Bedside Glucose 115 mg/dL (70-110)
--- NOTE | 2018-02-22 06:43 | PCM.PN.INT ---
Subjective: The patient was seen and examined at the bedside this morning. Events from the last 24 hours have been reviewed. The patient is currently afebrile, hemodynamically stable and maintaining appropriate oxygen saturations with an FiO2 requirement of 35%. The patient is no longer on Levophed. His fentanyl has been discontinued and he is doing well from a sedation standpoint on Precedex alone. He failed his spontaneous breathing trial this morning with tachypnea and increased work of breathing noted. The patient is currently overall net +13.4 L for the admission. The patient also converted to normal sinus rhythm as well. Objective: The patient's most recent lab work, culture data and imaging studies have all been personally reviewed. Respiratory viral panel was positive for the presence of rhinovirus. Streptococcus pneumoniae urinary antigen was positive. Surface echocardiogram revealed normal LV size and systolic function. Diastolic function was indeterminate. Right ventricular systolic pressure was estimated to be 41 mmHg. Renal ultrasound revealed cortical thinning of the right kidney suggestive of medical renal disease. General: - - Remains intubated, sedated and mechanically ventilated. No ventilator dyssynchrony noted. HEENT: Atraumatic, PERRLA, Normocephalic Oral: No Gingival or Mucosal Lesions/ Ulcerations, - - Endotracheal and OG tubes in place Neck: Supple, No Nodes, Trachea Midline Lungs: Diminished, - - Clear across anterior lung villar. No wheezes, rales or rhonchi present. Cardiovascular: Regular rate, Regular Rhythm, Normal S1, Normal S2, No murmurs Abdomen: Bowel Sounds Present, Soft, Non Tender, - - Tolerating tube feeds currently Extremities: No cyanosis, No edema, Clubbing Skin: - - No significant change from previous. Musculoskeletal: Cachexia, Muscle Wasting Lymphatic: No Cervical, Supraclavicular, or Inguinal Adenopathy Neurological: - - No focal neurological deficits. The patient is currently sedated with a RASS of -1. He opens eyes to verbal cues. Vital Signs Temp Pulse Resp BP Pulse Ox 36.7 C 84 24 H 128/55 H 94 02/22/18 04:00 02/22/18 05:04 02/22/18 05:20 02/22/18 04:00 02/22/18 05:04 Oxygen Flow Rate (L/min) 3 Oxygen Delivery Method Mechanical Ventilator Weight: 149 lb 4.047 oz Body Mass Index (BMI) 18.9 Intake and Output for Last 24 Hours 02/20/18 02/21/18 02/22/18 23:59 23:59 23:59 Intake Total 2220 / 2220 3900 / 3900 1472 / 1472 Output Total 950 / 950 1075 / 1075 450 / 450 Balance 1270 / 1270 2825 / 2825 1022 / 1022 Labs (Last 48 Hours) 02/20/18 02/20/18 02/20/18 05:00 05:00 21:45 WBC RBC Hgb Hct MCV MCH MCHC RDW RDW Differential Plt Count MPV Sodium 145 Potassium 5.0 Chloride 110 H Carbon Dioxide 26.0 Anion Gap BUN 81 H Creatinine 2.59 H Estim Creat Clear Calc 22.20 Est GFR (MDRD) Af Amer 31 L Est GFR (MDRD) Non-Af 26 L BUN/Creatinine Ratio 31.3 H Glucose 141 H Hemoglobin A1c Calcium 8.1 L Phosphorus 3.4 Magnesium Total Creatine Kinase 903 H B-Natriuretic Peptide 883.0 H Albumin 2.3 L Triglycerides 223 H POC Glucose 02/21/18 02/21/18 02/21/18 04:45 08:05 12:43 WBC RBC Hgb Hct MCV MCH MCHC RDW RDW Differential Plt Count MPV Sodium 146 H Potassium 4.5 Chloride 112 H Carbon Dioxide 27.0 Anion Gap BUN 77 H Creatinine 2.35 H Estim Creat Clear Calc 24.46 Est GFR (MDRD) Af Amer 35 L Est GFR (MDRD) Non-Af 29 L BUN/Creatinine Ratio 32.8 H Glucose 146 H Hemoglobin A1c 5.5 Calcium 7.8 L Phosphorus 3.2 Magnesium Total Creatine Kinase B-Natriuretic Peptide Albumin 2.2 L Triglycerides POC Glucose 90 02/21/18 02/22/18 02/22/18 18:02 00:16 04:15 WBC 14.7 H RBC 2.84 L Hgb 8.5 L Hct 26.9 L MCV 94.7 H MCH 29.9 MCHC 31.6 L RDW 15.8 H RDW Differential 52.5 H Plt Count 356 MPV 9.9 Sodium Potassium Chloride Carbon Dioxide Anion Gap BUN Creatinine Estim Creat Clear Calc Est GFR (MDRD) Af Amer Est GFR (MDRD) Non-Af BUN/Creatinine Ratio Glucose Hemoglobin A1c Calcium Phosphorus Magnesium Total Creatine Kinase B-Natriuretic Peptide Albumin Triglycerides POC Glucose 129 H 167 H 02/22/18 02/22/18 04:15 06:25 WBC RBC Hgb Hct MCV MCH MCHC RDW RDW Differential Plt Count MPV Sodium 144 Potassium 5.1 Chloride 109 H Carbon Dioxide 27.0 Anion Gap 8 BUN 80 H Creatinine 2.14 H Estim Creat Clear Calc 26.99 Est GFR (MDRD) Af Amer 39 L Est GFR (MDRD) Non-Af 32 L BUN/Creatinine Ratio 37.4 H Glucose 123 H Hemoglobin A1c Calcium 7.6 L Phosphorus 3.9 Magnesium 2.0 Total Creatine Kinase B-Natriuretic Peptide Albumin Triglycerides POC Glucose 115 H Microbiology 02/14/18 16:20 Blood Culture (Wb) - Left Forearm Blood Culture - Final No growth in 5 days. 02/14/18 16:20 Blood Culture (Wb) - Anticubital Right Blood Culture - Final No growth in 5 days. Clinical Impression(s) from Imaging Studies Chest X-Ray 02/14/18 16:13 IMPRESSION: Hyperexpansion with left lower lobe pneumonia and small left effusion. Electronically Signed: Nacho Banda MD at 17:09 EST , Service support , Renal Ultrasound 02/16/18 10:38 IMPRESSION: Cortical thinning in the right kidney. Findings suggestive of medical renal disease. Infrarenal abdominal aortic aneurysm with a transverse dimension of 5.3 cm. Electronically Signed: Vineet Carias MD at 12:24 EST Tel [phone], Service support , Chest X-Ray 02/18/18 05:00 IMPRESSION: Persistent left lower lobe infiltrate and small left pleural effusion, not significantly changed. Chronic interstitial lung disease. Electronically Signed: Mil Cole MD at 5:48 EST , Service support , Chest X-Ray 02/19/18 19:55 IMPRESSION: Endotracheal tube and enteric tube as described. There is no other major interval change. Electronically Signed: Javier Dos Santos DO at 20:33 EST Tel [phone], Service support , Chest X-Ray 02/20/18 18:15 IMPRESSION: 1. Right PICC line as described. 2. Minimally diminished inspiratory effort without other major change from the previous exam. Electronically Signed: Javier Dos Santos DO at 18:56 EST Tel [phone], Service support , Chest X-Ray 02/20/18 18:40 IMPRESSION: 1. PICC line in the SVC. 2. Bibasilar interstitial prominence, no significant change from the prior study. Electronically Signed: Yu Mata MD at 22:15 EST Tel , Service support , Medical Necessity - Tobacco Use Smoking Status: Former smoker Assessment/Plan All Active Problems Streptococcal pneumonia (Acute) Rhinovirus (Acute) Atrial fibrillation (Acute) Acute renal failure (ARF) (Acute) Acute and chronic respiratory failure with hypoxia (Acute) Severe sepsis (Acute) Community acquired pneumonia (Acute) RECOMMENDATIONS: 1. Continue current supportive measures with invasive mechanical ventilation and antibiotics to complete treatment course. 2. Consider initiation of gentle diuresis 3. Continue scheduled Seroquel and Precedex for sedation. 4. Plan for daily paired spontaneous awakening and breathing trials. 5. Continue scheduled bronchodilators. 6. Continue tube feeds as ordered. 7. Continue appropriate ICU prophylaxis. IMPRESSIONS: 1. Acute on chronic hypoxemic respiratory failure secondary to COPD with exacerbation due to combined pneumococcal pneumonia and rhinovirus infection The patient was initially admitted to the hospital on February 14 with significant pneumococcal pneumonia and superimposed rhinovirus infection. Despite attempts at aggressive therapy, the patient's respiratory status progressively declined with time, largely due to patient noncompliance with the use of prescribed noninvasive positive pressure ventilation and supplemental oxygen. Despite the patient's insistence to refuse certain medical therapies, he wished to remain full code. Due to the aforementioned, the patient had to be intubated on February 19. He remains on appropriate antimicrobial coverage, bronchodilators and steroids. Tube feeds and free water flushes will be continued. He is appropriately sedated with scheduled Seroquel and Precedex. Plan for daily paired spontaneous awakening and breathing trials. In addition, the patient is overall net positive for the admission and would likely benefit from gentle diuresis. 2. Severe sepsis secondary to pneumococcal pneumonia and rhinovirus infection As noted above, antibiotics will be continued as ordered. The patient remains hemodynamically stable and afebrile. 3. New-onset atrial fibrillation Resolved. The patient converted to normal sinus rhythm overnight. Defer management to cardiology. 4. Combined metabolic and respiratory acidosis Improved. Likely secondary to underlying COPD and renal insufficiency. Defer management of the patient's kidney disease to nephrology. 5. Acute kidney injury Improving. Likely prerenal in etiology, as the patient initially responded to IV volume expansion. He may also have a component of chronic kidney disease as well. We will continue to monitor. No indication for renal replacement therapy at this time. Nephrology is following. 6. Advanced age/hypertension/metabolic encephalopathy Complicates care, management, recovery and prognosis. Aggressive physical therapy is warranted. TIME: 40 minutes of critical care time, independent of procedures, was spent addressing the patient's acute on chronic hypoxemic and hypercarbic respiratory failure, COPD with exacerbation, pneumococcal pneumonia, rhinovirus infection, severe sepsis, atrial fibrillation, acute kidney injury, review of all data and collaboration with the care team. ([id number]) Code Visit 9xxxx: [id number] Critical care first hour
--- NOTE | 2018-02-22 06:47 | PN_ITS ---
Subjective: The patient was seen and examined at the bedside this morning. Events from the last 24 hours have been reviewed. The patient is currently afebrile, hemodynamically stable and maintaining appropriate oxygen saturations with an FiO2 requirement of 35%. The patient is no longer on Levophed. His fentanyl has been discontinued and he is doing well from a sedation standpoint on Precedex alone. He failed his spontaneous breathing trial this morning with tachypnea and increased work of breathing noted. The patient is currently overall net +13.4 L for the admission. The patient also converted to normal sinus rhythm as well. Objective: The patient's most recent lab work, culture data and imaging studies have all been personally reviewed. Respiratory viral panel was positive for the presence of rhinovirus. Streptococcus pneumoniae urinary antigen was positive. Surface echocardiogram revealed normal LV size and systolic function. Diastolic function was indeterminate. Right ventricular systolic pressure was estimated to be 41 mmHg. Renal ultrasound revealed cortical thinning of the right kidney suggestive of medical renal disease. General: - - Remains intubated, sedated and mechanically ventilated. No ventilator dyssynchrony noted. HEENT: Atraumatic, PERRLA, Normocephalic Oral: No Gingival or Mucosal Lesions/ Ulcerations, - - Endotracheal and OG tubes in place Neck: Supple, No Nodes, Trachea Midline Lungs: Diminished, - - Clear across anterior lung villar. No wheezes, rales or rhonchi present. Cardiovascular: Regular rate, Regular Rhythm, Normal S1, Normal S2, No murmurs Abdomen: Bowel Sounds Present, Soft, Non Tender, - - Tolerating tube feeds currently Extremities: No cyanosis, No edema, Clubbing Skin: - - No significant change from previous. Musculoskeletal: Cachexia, Muscle Wasting Lymphatic: No Cervical, Supraclavicular, or Inguinal Adenopathy Neurological: - - No focal neurological deficits. The patient is currently sedated with a RASS of -1. He opens eyes to verbal cues. Vital Signs Temp Pulse Resp BP Pulse Ox 36.7 C 84 24 H 128/55 H 94 02/22/18 04:00 02/22/18 05:04 02/22/18 05:20 02/22/18 04:00 02/22/18 05:04 Oxygen Flow Rate (L/min) 3 Oxygen Delivery Method Mechanical Ventilator Weight: 149 lb 4.047 oz Body Mass Index (BMI) 18.9 Intake and Output for Last 24 Hours 02/20/18 02/21/18 02/22/18 23:59 23:59 23:59 Intake Total 2220 / 2220 3900 / 3900 1472 / 1472 Output Total 950 / 950 1075 / 1075 450 / 450 Balance 1270 / 1270 2825 / 2825 1022 / 1022 Labs (Last 48 Hours) 02/20/18 02/20/18 02/20/18 05:00 05:00 21:45 WBC RBC Hgb Hct MCV MCH MCHC RDW RDW Differential Plt Count MPV Sodium 145 Potassium 5.0 Chloride 110 H Carbon Dioxide 26.0 Anion Gap BUN 81 H Creatinine 2.59 H Estim Creat Clear Calc 22.20 Est GFR (MDRD) Af Amer 31 L Est GFR (MDRD) Non-Af 26 L BUN/Creatinine Ratio 31.3 H Glucose 141 H Hemoglobin A1c Calcium 8.1 L Phosphorus 3.4 Magnesium Total Creatine Kinase 903 H B-Natriuretic Peptide 883.0 H Albumin 2.3 L Triglycerides 223 H POC Glucose 02/21/18 02/21/18 02/21/18 04:45 08:05 12:43 WBC RBC Hgb Hct MCV MCH MCHC RDW RDW Differential Plt Count MPV Sodium 146 H Potassium 4.5 Chloride 112 H Carbon Dioxide 27.0 Anion Gap BUN 77 H Creatinine 2.35 H Estim Creat Clear Calc 24.46 Est GFR (MDRD) Af Amer 35 L Est GFR (MDRD) Non-Af 29 L BUN/Creatinine Ratio 32.8 H Glucose 146 H Hemoglobin A1c 5.5 Calcium 7.8 L Phosphorus 3.2 Magnesium Total Creatine Kinase B-Natriuretic Peptide Albumin 2.2 L Triglycerides POC Glucose 90 02/21/18 02/22/18 02/22/18 18:02 00:16 04:15 WBC 14.7 H RBC 2.84 L Hgb 8.5 L Hct 26.9 L MCV 94.7 H MCH 29.9 MCHC 31.6 L RDW 15.8 H RDW Differential 52.5 H Plt Count 356 MPV 9.9 Sodium Potassium Chloride Carbon Dioxide Anion Gap BUN Creatinine Estim Creat Clear Calc Est GFR (MDRD) Af Amer Est GFR (MDRD) Non-Af BUN/Creatinine Ratio Glucose Hemoglobin A1c Calcium Phosphorus Magnesium Total Creatine Kinase B-Natriuretic Peptide Albumin Triglycerides POC Glucose 129 H 167 H 02/22/18 02/22/18 04:15 06:25 WBC RBC Hgb Hct MCV MCH MCHC RDW RDW Differential Plt Count MPV Sodium 144 Potassium 5.1 Chloride 109 H Carbon Dioxide 27.0 Anion Gap 8 BUN 80 H Creatinine 2.14 H Estim Creat Clear Calc 26.99 Est GFR (MDRD) Af Amer 39 L Est GFR (MDRD) Non-Af 32 L BUN/Creatinine Ratio 37.4 H Glucose 123 H Hemoglobin A1c Calcium 7.6 L Phosphorus 3.9 Magnesium 2.0 Total Creatine Kinase B-Natriuretic Peptide Albumin Triglycerides POC Glucose 115 H Microbiology 02/14/18 16:20 Blood Culture (Wb) - Left Forearm Blood Culture - Final No growth in 5 days. 02/14/18 16:20 Blood Culture (Wb) - Anticubital Right Blood Culture - Final No growth in 5 days. Clinical Impression(s) from Imaging Studies Chest X-Ray 02/14/18 16:13 IMPRESSION: Hyperexpansion with left lower lobe pneumonia and small left effusion. Electronically Signed: Nacho Banda MD at 17:09 EST , Service support , Renal Ultrasound 02/16/18 10:38 IMPRESSION: Cortical thinning in the right kidney. Findings suggestive of medical renal disease. Infrarenal abdominal aortic aneurysm with a transverse dimension of 5.3 cm. Electronically Signed: Vineet Carias MD at 12:24 EST Tel [phone], Service support , Chest X-Ray 02/18/18 05:00 IMPRESSION: Persistent left lower lobe infiltrate and small left pleural effusion, not significantly changed. Chronic interstitial lung disease. Electronically Signed: Mil Cole MD at 5:48 EST , Service support , Chest X-Ray 02/19/18 19:55 IMPRESSION: Endotracheal tube and enteric tube as described. There is no other major interval change. Electronically Signed: Javier Dos Santos DO at 20:33 EST Tel [phone], Service support , Chest X-Ray 02/20/18 18:15 IMPRESSION: 1. Right PICC line as described. 2. Minimally diminished inspiratory effort without other major change from the previous exam. Electronically Signed: Javier Dos Santos DO at 18:56 EST Tel [phone], Service support , Chest X-Ray 02/20/18 18:40 IMPRESSION: 1. PICC line in the SVC. 2. Bibasilar interstitial prominence, no significant change from the prior study. Electronically Signed: Yu Mata MD at 22:15 EST Tel , Service support , Medical Necessity - Tobacco Use Smoking Status: Former smoker Assessment/Plan All Active Problems Streptococcal pneumonia (Acute) Rhinovirus (Acute) Atrial fibrillation (Acute) Acute renal failure (ARF) (Acute) Acute and chronic respiratory failure with hypoxia (Acute) Severe sepsis (Acute) Community acquired pneumonia (Acute) RECOMMENDATIONS: 1. Continue current supportive measures with invasive mechanical ventilation a nd antibiotics to complete treatment course. 2. Consider initiation of gentle diuresis 3. Continue scheduled Seroquel and Precedex for sedation. 4. Plan for daily paired spontaneous awakening and breathing trials. 5. Continue scheduled bronchodilators. 6. Continue tube feeds as ordered. 7. Continue appropriate ICU prophylaxis. IMPRESSIONS: 1. Acute on chronic hypoxemic respiratory failure secondary to COPD with exacerbation due to combined pneumococcal pneumonia and rhinovirus infection The patient was initially admitted to the hospital on February 14 with significant pneumococcal pneumonia and superimposed rhinovirus infection. Despite attempts at aggressive therapy, the patient's respiratory status progressively declined with time, largely due to patient noncompliance with the use of prescribed noninvasive positive pressure ventilation and supplemental oxygen. Despite the patient's insistence to refuse certain medical therapies, he wished to remain full code. Due to the aforementioned, the patient had to be intubated on February 19. He remains on appropriate antimicrobial coverage, bronchodilators and steroids. Tube feeds and free water flushes will be continued. He is appropriately sedated with scheduled Seroquel and Precedex. Plan for daily paired spontaneous awakening and breathing trials. In addition, the patient is overall net positive for the admission and would likely benefit from gentle diuresis. 2. Severe sepsis secondary to pneumococcal pneumonia and rhinovirus infection As noted above, antibiotics will be continued as ordered. The patient remains hemodynamically stable and afebrile. 3. New-onset atrial fibrillation Resolved. The patient converted to normal sinus rhythm overnight. Defer management to cardiology. 4. Combined metabolic and respiratory acidosis Improved. Likely secondary to underlying COPD and renal insufficiency. Defer management of the patient's kidney disease to nephrology. 5. Acute kidney injury Improving. Likely prerenal in etiology, as the patient initially responded to IV volume expansion. He may also have a component of chronic kidney disease as well. We will continue to monitor. No indication for renal replacement therapy at this time. Nephrology is following. 6. Advanced age/hypertension/metabolic encephalopathy Complicates care, management, recovery and prognosis. Aggressive physical therapy is warranted. TIME: 40 minutes of critical care time, independent of procedures, was spent addressing the patient's acute on chronic hypoxemic and hypercarbic respiratory failure, COPD with exacerbation, pneumococcal pneumonia, rhinovirus infection, severe sepsis, atrial fibrillation, acute kidney injury, review of all data and collaboration with the care team. ([id number]) Code Visit 9xxxx: [id number] Critical care first hour
--- NOTE | 2018-02-22 07:14 | PN_ITS ---
Patient Problems: Active and Suspected Problems Atrial fibrillation (Acute) Acute renal failure (ARF) (Acute) Acute and chronic respiratory failure with hypoxia (Acute) Severe sepsis (Acute) Community acquired pneumonia (Acute) Subjective: Mr. Nogueira is a 77-year-old male with a past medical history of chronic respiratory failure with hypoxia, hypertension and COPD who presented to the emergency department at [facility] on 02/14/2018 complaining of increasing shortness of breath. He was diagnosed with a left lower lobe community-acquired pneumonia, acute on chronic hypoxic respiratory failure and acute renal failure. He was admitted to ICU on BIPAP. Respiratory panel was + for rhinovirus and the streptococcal antigen in the urine was postive. Treated with high dose steroids, aerosolized bronchodilators and antibiotics. Intubated on 02/19/18. All events of the past 24 hours have been reviewed. He failed his weaning trial today due to tachypnea and increased work of breathing. He is off fentanyl and sedated with Precedex at the present time. He was started on Seroquel by Dr. Smith yesterday afternoon. Remains afebrile. Vital signs are stable and he is 94-96% saturated on the 35% FiO2. Hemoglobin today is 8.5 and I suspect this is dilutional. Platelets are within normal limits. Potassium is 5.1 today and the BUN is 80 with a creatinine of 2.14. Magnesium and phosphorus are within normal limits. Sodium is down to 144 with the addition of free water boluses to his tube feedings. Tolerating the TF with no large residuals. Scant DC from the ET tube He was intubated on 02/19/2018 in the early evening. Fluid balance on 02/20/2018 was +1270, on 02/21/2018 fluid balance was +2825 and overnight he was +1022. Her to that he was incontinent but intake likely grossly exceeded output. He is awake and able to answer yes and no questions appropriately. Denies pain, SOB, nausea. He appears anxious and gets agitated and the HR and BP increases. Chest x-ray today is consistent with congestive heart failure/pulmonary edema Objective: GENERAL: Sedated with Precedex and on the ventilator, no plans for weaning trial today, he was converted to Precedex for sedation since the fentanyl dropped his blood pressure. He is currently arousable, follows commands and answers yes and no questions appropriately. He makes good eye contact with me. HEENT: Atraumatic, pupils are equal round reactive to light, normocephalic ORAL: dry mucosa, no mucosal lesions NECK: No JVD, supple, trachea midline LUNGS: Breath sounds are very diminished but the lungs are clear to auscultation today, symmetric chest expansion HEART: regular, Normal S1 and S2, no rub, no gallop, distant heart sounds TELEMETRY: AF and then converted to NSR with PVC's...NO NSVT ABDOMEN: soft, NT, mildly distended adn tympanic, BS present, no guarding with palpation EXTREMITIES: + edema, no cyanosis, no calf tenderness SKIN: No rashes, no breakdown - Physical Exam Vital Signs Temp Pulse Resp BP Pulse Ox 98.1 F 70 17 121/57 H 96 02/22/18 04:00 02/22/18 06:49 02/22/18 06:49 02/22/18 06:00 02/22/18 06:48 Oxygen Flow Rate (L/min) 3 Oxygen Delivery Method Mechanical Ventilator Weight: 149 lb 4.047 oz Body Mass Index (BMI) 18.9 Intake and Output for Last 24 Hours 02/20/18 02/21/18 02/22/18 23:59 23:59 23:59 Intake Total 2220 / 2220 3900 / 3900 1472 / 1472 Output Total 950 / 950 1075 / 1075 450 / 450 Balance 1270 / 1270 2825 / 2825 1022 / 1022 Microbiology Past 72 Hours 02/14/18 16:20 Blood Culture - Final Blood Culture (Wb) - Left Forearm No growth in 5 days. 02/14/18 16:20 Blood Culture - Final Blood Culture (Wb) - Anticubital Right No growth in 5 days. Laboratory Tests Past 24 Hrs 02/21/18 02/22/18 02/22/18 08:05 04:15 04:15 WBC 14.7 H RBC 2.84 L Hgb 8.5 L Hct 26.9 L MCV 94.7 H MCH 29.9 MCHC 31.6 L RDW 15.8 H RDW Differential 52.5 H Plt Count 356 MPV 9.9 Sodium 144 Potassium 5.1 Chloride 109 H Carbon Dioxide 27.0 Anion Gap 8 BUN 80 H Creatinine 2.14 H Estim Creat Clear Calc 26.99 Est GFR (MDRD) Af Amer 39 L Est GFR (MDRD) Non-Af 32 L BUN/Creatinine Ratio 37.4 H Glucose 123 H Hemoglobin A1c 5.5 Calcium 7.6 L Phosphorus 3.9 Magnesium 2.0 POC Glucose 02/22/18 02/22/18 02/21/18 06:25 00:16 18:02 POC Glucose 115 H 167 H 129 H 02/21/18 12:43 POC Glucose 90 Medical Necessity - Tobacco Use Smoking Status: Former smoker Assessment/Plan All Active Problems Streptococcal pneumonia (Acute) Rhinovirus (Acute) Atrial fibrillation (Acute) Acute renal failure (ARF) (Acute) Acute and chronic respiratory failure with hypoxia (Acute) Severe sepsis (Acute) Community acquired pneumonia (Acute) I Day #9antibiotics Ventilator day #4 Impressions 1. Acute hypoxic respiratory failure secondary to pneumococcal pneumonia and rhinovirus 2. Community-acquired pneumonia secondary to Streptococcus pneumoniae 3. Severe sepsis with acute respiratory failure secondary to pneumonia 4. Atrial fibrillation with rapid ventricular response - converted to NSR 02/22/18 5. Acute kidney injury? no recent baseline - FENA is consistent with prerenal azotemia 7. Acute exacerbation of COPD 8. Acute on chronic kidney disease - suspected 9. Hyperphosphatemia 10. Normochromic normocytic anemia 11. Hypernatremia - resolved 12. Hypotension - resolved off Levophed....hypotension was likely due to the Propofol and the high dose Fentanyl Continue antibiotics Continue tube feed diurese today Recheck the lab in the AM Repeat weaning trial in the AM - hopefully will do better with diuresis but, he is very anxious and this complicates things Start BuSpar 5 mg per G-tube every 6 hours Continue apixaban for paroxysmal atrial fibrillation Continue Precedex through extubation Discontinue Accu-Cheks and insulin sliding scale Continue Prednisone and aerosolized bronchodilators Continue Seroquel Code Visit Inpatient E&M: [id number] [facility] H[facility] L3
--- NOTE | 2018-02-22 07:25 | RAD_ITS ---
STUDY: X-RAY CHEST REASON FOR EXAM: Male, 77 years old. CHF TECHNIQUE: Single AP portable view of the chest. COMPARISON: 02/20/2018 FINDINGS: Endotracheal tube tip 3 cm superior to the [place]. The enteric tube courses inferior to the left diaphragm, its tip is not included or visualized. There are superimposed monitor leads. Right-sided PICC line catheter tip over the superior vena cava. Stable areas of hyperinflation likely emphysema with interstitial opacification left greater than right base. Indistinct right diaphragmatic contour. Normal size heart. Normal mediastinum and homer. Normal visualized pulmonary arteries. There is atherosclerotic calcification of the aortic arch with tortuosity. Normal visualized thoracic spine. Normal visualized ribs, clavicles, and shoulders. There is no demonstrated abnormality of the visualized soft tissue structures of the upper abdomen. RAD/Chest 1 View (Portable) IMPRESSION: Emphysema with left greater than right basilar interstitial opacification. No significant interval change. Indistinct right diaphragmatic contour possible due to effusion or mild motion. Electronically Signed: Indira Hernandez MD at 7:56 EST , Service support ,
--- NOTE | 2018-02-22 09:48 | PN.CARD_ITS ---
Subjectve: Patient awake, intubated, somewhat agitated. Telemetry shows conversion from atrial fibrillation to normal sinus rhythm sometime last evening. No ve ntricular arrhythmias. Objective: Vital Signs Temp Pulse Resp BP Pulse Ox 99.8 F H 82 30 H 158/68 H 94 02/22/18 09:00 02/22/18 09:17 02/22/18 09:17 02/22/18 09:00 02/22/18 09:17 Oxygen Flow Rate (L/min) 3 Oxygen Delivery Method Mechanical Ventilator Weight: 149 lb 4.047 oz Body Mass Index (BMI) 18.9 Intake and Output for Last 24 Hours 02/20/18 02/21/18 02/22/18 23:59 23:59 23:59 Intake Total 2220 / 2220 3900 / 3900 1472 / 1472 Output Total 950 / 950 1075 / 1075 450 / 450 Balance 1270 / 1270 2825 / 2825 1022 / 1022 General: Awake, Alert, Oriented x 3 HEENT: PERRL, EOMI, Sclera Non Icteric Neck: Supple, Good ROM, No Lymph Node Enlargement Lungs: Clear to auscultation Cardiovascular: Regular Rhythm, Normal S1, Normal S2, No Murmurs, No Rubs, No Gallops 02/22/18 04:15: WBC 14.7 H, RBC 2.84 L, Hgb 8.5 L, Hct 26.9 L, MCV 94.7 H, MCH 29.9, MCHC 31.6 L, RDW 15.8 H, RDW Differential 52.5 H, Plt Count 356, MPV 9.9 02/22/18 04:15: Sodium 144, Potassium 5.1, Chloride 109 H, Carbon Dioxide 27.0, Anion Gap 8, BUN 80 H, Creatinine 2.14 H, Est GFR (MDRD) Af Amer 39 L, Est GFR (MDRD) Non-Af 32 L, BUN/Creatinine Ratio 37.4 H, Glucose 123 H, Calcium 7.6 L, Phosphorus 3.9, Magnesium 2.0 Rhythm: EKG: ECHO: Stress Test: Cardiac Cath: PCI: CT Surgery: Holter monitor: EPS: PPM: CXR: Chest CT Scan: Medical Necessity - Tobacco Use Smoking Status: Former smoker Assessment/Plan 1. Atrial fibrillation with rapid ventricular response At the present time the patient's atrial fibrillation with RVR may be secondary to combination of his age, his history of hypertension, his history of underlying acute on chronic pulmonary disease, as he has had no other definitive findings thus far to explain his atrial dysrhythmia. His heart rate is well controlled on amiodarone therapy. Patient converted to normal sinus rhythm last evening. Recommend continuing antiarrhythmic therapy. He will continue medical management with rate control therapy, anti-arrhythmic therapy, and anticoagulant therapy with Eliquis as he is able to. At some point in time in the future, when he has improved from his noncardiac conditions, it may be reasonable to further evaluate his cardiovascular status for other cardiovascular concerns such as underlying coronary artery disease with at minimum a noninvasive study such as a pharmacologic stress imaging study. Recommend continuing amiodarone loading at 200 mg p.o. 3 times daily for a total of 5 days followed by decreasing to 200 mg p.o. daily. Continue Eliquis based therapy. His heart rate and blood pressure well controlled. Land for extubation sometime tomorrow 02/23/18. 2. Thank you very much for the opportunity to participate in the cardiac care of your patient. Code Visit Inpatient E&M: 48768 Subs Hosp L2
[2018-02-22] MEDS: QUEtiapine 25 MG Tablet PO ×2 (10:30→22:54)
[2018-02-22] MEDS: Furosemide 40 MG/4 ML Vial IV ×2 (10:31→18:12)
[2018-02-22] MEDS: AMOXICILLIN 500 MG CAPSULE GT ×2 (10:31→22:54)
[2018-02-22] MEDS: APIXABAN 2.5 MG TABLET GT ×2 (10:31→22:54)
[2018-02-22] MEDS: predniSONE 20 MG Tablet 40 MG GT (10:31)
[2018-02-22] MEDS: Chlorhexidine 15 ML PO ×2 (10:31→22:55)
[2018-02-22] MEDS: 0.9% NaCl Peripheral Flush Adult/Peds IV ×2 (10:32→23:47)
[2018-02-22] MEDS: ALPRAZolam 0.25 MG Tablet PO (10:45)
[2018-02-22] MEDS: busPIRone 5 MG Tablet GT ×3 (10:45→23:00)
[2018-02-22] MEDS: Vital AF 1.2 Cal Liquid 1,000 ML 60 ML GT (13:11)
[2018-02-22] MEDS: Magnesium Hydroxide 30 ML UDC GT (23:46)
[2018-02-23] VITALS (41 sets, daily range): BP systolic 95–155; BP diastolic 47–89; PULSE 62–106; RESP 14–25; TEMP 35.8–37.7; O2SAT 86–98
[2018-02-23] MEDS: Ipratropium/Albuterol Sulfate 3 ML AMPUL.NEB INHALATION ×5 (03:47→18:54)
[2018-02-23 04:27] LABS: Hematocrit 27.9 % (40-54); Hemoglobin 9.2 g/dl (13.0-16.5)
[2018-02-23 04:47] LABS: Anion Gap 10 (5-15); BUN 78 mg/dL (7-18); BUN/Creat Ratio 40.4 RATIO (10-20); Calcium,Total 7.7 mg/dL (8.5-10.1); Chloride 103 mmol/L (98-107); Creatinine, Serum 1.93 mg/dL (0.70-1.30); EST Glomerular Filtration Rate 36 mL/min (>60); Est Glom Filt Rate - Afr Amer 44 mL/min (>60); Estimated Creatinine Clearance 30.69 ml/min; Glucose 135 mg/dL (74-106); Potassium 3.8 mmol/L (3.5-5.1); Sodium Level 144 mmol/L (136-145)
[2018-02-23] MEDS: busPIRone 5 MG Tablet GT (06:15)
[2018-02-23] MEDS: Amiodarone 200 MG Tablet GT (06:15)
[2018-02-23] MEDS: 0.9% NaCl Peripheral Flush Adult/Peds IV ×3 (06:17→17:30)
[2018-02-23 06:41] LABS: Base Excess 6 mmol/L (-2 to +2); Bicarbonate 29.3 mmol/L (22-26); Blood Gas Specimen Type ALINE; FI02 35; Mode CPAP PS; O2 Delivery Device Vent; PEEP 5; PO2 74 mmHG (75-100); PS 5; SITE OTHER; SO2 96 % (95-99); Time Given 638; Total Carbon Dioxide 30 mmol/L; pCO2 36.9 mmHg (35-45); pH 7.51 (7.35-7.45)
--- NOTE | 2018-02-23 06:48 | NURSING ---
Patient extubated at 0648 and placed on 3L NC. Vital Signs: 74 hr, 26 RR, 94% pulse ox, 119/51. 99 F core temp. Patient resting comfortably without any signs of respiratory distress.
--- NOTE | 2018-02-23 06:58 | PN_ITS ---
Subjective: Patient did well overnight. No acute issues were reported. Patient was able to be placed on a spontaneous breathing trial this morning and was able to tolerate 1 hour. Patient currently on Precedex therapy and not readily answering questions. Patient was reportedly tolerating tube feeds prior to spontaneous breathing trial. Patient has not had a bowel movement overnight per nursing. Objective: Patient passed spontaneous breathing and awakening trial. Patient was extubated under my direct supervision without complications. General: Alert, Cooperative, No apparent distress, - - RASS -1. Appears stated age. HEENT: Atraumatic, PERRLA, EOMI, Normocephalic, - - No scleral icterus or injection noted. Oral: Moist Mucosa, No Gingival or Mucosal Lesions/ Ulcerations Neck: Supple, No JVD, No Nodes, Trachea Midline Lungs: No rhonchi, No wheeze, No rales, Diminished, - - Symmetric expansion. No dullness to percussion. Cardiovascular: Regular rate, Regular Rhythm, Normal S1, Normal S2, No murmurs, No rub noted, No Gallop Abdomen: Bowel Sounds Present, Soft, Non Tender, Distended - Slightly Extremities: No cyanosis, No edema, Capillary Refill Less than 3 Seconds, Clubbing Skin: No rashes, No breakdown Musculoskeletal: No Tenderness to Palpation of Joints or Extremities Lymphatic: No Cervical, Supraclavicular, or Inguinal Adenopathy Neurological: Cranial nerves II-XII grossly intact, Neuro grossly intact, Motor Exam 5/5 strength throughout Psych/Mental Status: Appropriate, Flat Affect Vital Signs Temp Pulse Resp BP Pulse Ox 37.1 C 71 17 122/53 H 97 02/23/18 06:00 02/23/18 06:00 02/23/18 06:00 02/23/18 06:00 02/23/18 06:00 Oxygen Flow Rate (L/min) 3 Oxygen Delivery Method Mechanical Ventilator Weight: 63.3 kg Body Mass Index (BMI) 18.9 Intake and Output for Last 24 Hours 02/21/18 02/22/18 02/23/18 23:59 23:59 23:59 Intake Total 3900 / 3900 3017 / 3017 477 / 477 Output Total 1075 / 1075 4875 / 4875 950 / 950 Balance 2825 / 2825 -1858 / -1858 -473 / -473 Labs (Last 48 Hours) 02/21/18 02/21/18 02/21/18 08:05 12:43 18:02 WBC RBC Hgb Hct MCV MCH MCHC RDW RDW Differential Plt Count MPV Specimen Type Sample Site pH Bicarbonate Actual POC Total CO2 Base Excess O2 Saturation O2 % ABG pCO2 ABG pO2 O2 Delivery Device Vent Mode POC PEEP POC Pressure Suppt Blood Gas Notified Whom Blood Gas Notified Time Sodium Potassium Chloride Carbon Dioxide Anion Gap BUN Creatinine Estim Creat Clear Calc Est GFR (MDRD) Af Amer Est GFR (MDRD) Non-Af BUN/Creatinine Ratio Glucose Hemoglobin A1c 5.5 Calcium Phosphorus Magnesium POC Glucose 90 129 H 02/22/18 02/22/18 02/22/18 00:16 04:15 04:15 WBC 14.7 H RBC 2.84 L Hgb 8.5 L Hct 26.9 L MCV 94.7 H MCH 29.9 MCHC 31.6 L RDW 15.8 H RDW Differential 52.5 H Plt Count 356 MPV 9.9 Specimen Type Sample Site pH Bicarbonate Actual POC Total CO2 Base Excess O2 Saturation O2 % ABG pCO2 ABG pO2 O2 Delivery Device Vent Mode POC PEEP POC Pressure Suppt Blood Gas Notified Whom Blood Gas Notified Time Sodium 144 Potassium 5.1 Chloride 109 H Carbon Dioxide 27.0 Anion Gap 8 BUN 80 H Creatinine 2.14 H Estim Creat Clear Calc 26.99 Est GFR (MDRD) Af Amer 39 L Est GFR (MDRD) Non-Af 32 L BUN/Creatinine Ratio 37.4 H Glucose 123 H Hemoglobin A1c Calcium 7.6 L Phosphorus 3.9 Magnesium 2.0 POC Glucose 167 H 02/22/18 02/23/18 02/23/18 06:25 04:05 04:05 WBC RBC Hgb 9.2 L Hct 27.9 L MCV MCH MCHC RDW RDW Differential Plt Count MPV Specimen Type Sample Site pH Bicarbonate Actual POC Total CO2 Base Excess O2 Saturation O2 % ABG pCO2 ABG pO2 O2 Delivery Device Vent Mode POC PEEP POC Pressure Suppt Blood Gas Notified Whom Blood Gas Notified Time Sodium 144 Potassium 3.8 Chloride 103 Carbon Dioxide 31.0 Anion Gap 10 BUN 78 H Creatinine 1.93 H Estim Creat Clear Calc 30.69 Est GFR (MDRD) Af Amer 44 L Est GFR (MDRD) Non-Af 36 L BUN/Creatinine Ratio 40.4 H Glucose 135 H Hemoglobin A1c Calcium 7.7 L Phosphorus Magnesium POC Glucose 115 H 02/23/18 06:38 WBC RBC Hgb Hct MCV MCH MCHC RDW RDW Differential Plt Count MPV Specimen Type HENNIKER Sample Site OTHER pH 7.51 H Bicarbonate Actual 29.3 H POC Total CO2 30 Base Excess 6 H O2 Saturation 96 O2 % 35 ABG pCO2 36.9 ABG pO2 74 L O2 Delivery Device Vent Vent Mode CPAP PS POC PEEP 5 POC Pressure Suppt 5 Blood Gas Notified Whom ICU Blood Gas Notified Time 638 Sodium Potassium Chloride Carbon Dioxide Anion Gap BUN Creatinine Estim Creat Clear Calc Est GFR (MDRD) Af Amer Est GFR (MDRD) Non-Af BUN/Creatinine Ratio Glucose Hemoglobin A1c Calcium Phosphorus Magnesium POC Glucose Clinical Impression(s) from Imaging Studies Chest X-Ray 02/22/18 07:25 IMPRESSION: Emphysema with left greater than right basilar interstitial opacification. No significant interval change. Indistinct right diaphragmatic contour possible due to effusion or mild motion. Electronically Signed: Indira Hernandez MD at 7:56 EST , Service support , Medical Necessity - Tobacco Use Smoking Status: Former smoker Assessment/Plan All Active Problems Streptococcal pneumonia (Acute) Rhinovirus (Acute) Atrial fibrillation (Acute) Acute renal failure (ARF) (Acute) Acute and chronic respiratory failure with hypoxia (Acute) Severe sepsis (Acute) Community acquired pneumonia (Acute) RECOMMENDATIONS: 1. Extubate patient to supplemental oxygen 2. Continue gentle diuresis 3. Okay to discontinue Precedex therapy, will continue Seroquel for now 4. Wean oxygen as tolerated 5. Bedside swallow evaluation prior to initiation of p.o. diet IMPRESSIONS: 1. Acute on chronic hypoxic respiratory failure secondary to presumed COPD exacerbation secondary to left-sided CAP Patient intubated on February 19 secondary to aggressive respiratory failure. Patient has been on appropriate antimicrobial coverage, bronchodilators and steroids. Patient passed spontaneous breathing trial this morning and was successfully extubated. Precedex can likely be discontinued, but will continue Seroquel for now. No change in steroids for now, but possible weaning tomorrow. Continue with bronchodilators. 2. Severe sepsis secondary to pneumococcal pneumonia and rhinovirus infection As noted above, antibiotics will be continued as ordered. The patient remains hemodynamically stable and afebrile. 3. New-onset atrial fibrillation Resolved. Remains in normal sinus rhythm on amiodarone therapy. Patient is also anticoagulated with Eliquis therapy. Defer management to cardiology. 4. Combined metabolic and respiratory acidosis Resolved. Likely secondary to underlying COPD and renal insufficiency. Defer management of the patient's kidney disease to nephrology. 5. Acute kidney injury Improving. Likely prerenal in etiology, as the patient initially responded to IV volume expansion. He may also have a component of chronic kidney disease as well. We will continue to monitor. No indication for renal replacement therapy at this time. No plans for dialysis per nephrology. 6. Advanced age/hypertension/metabolic encephalopathy Complicates care, management, recovery and prognosis. Aggressive physical therapy is warranted. TIME: 32 minutes critical care time spent addressing patient's respiratory failure, acute kidney injury, severe sepsis, review of all data and collaboration with care team (6:00 AM to 7:00 AM) Code Visit 9xxxx: [id number] Critical care first hour
--- NOTE | 2018-02-23 08:31 | PCM.PN.HOSP ---
Patient Problems: Active and Suspected Problems Atrial fibrillation (Acute) Acute renal failure (ARF) (Acute) Acute and chronic respiratory failure with hypoxia (Acute) Severe sepsis (Acute) Community acquired pneumonia (Acute) Subjective: Extubated this morning, he is still on Precedex. Fatigued, and will open eyes and slowly answer questions. No issues overnight Vitals/I&O's: Vital Signs Temp Pulse Resp BP Pulse Ox 98.6 F 70 22 H 123/52 H 96 02/23/18 08:00 02/23/18 08:00 02/23/18 08:00 02/23/18 08:00 02/23/18 08:00 Oxygen Flow Rate (L/min) 3 Oxygen Delivery Method Nasal Cannula Weight: 139 lb 8.842 oz Body Mass Index (BMI) 18.9 Intake and Output for Last 24 Hours 02/21/18 02/22/18 02/23/18 23:59 23:59 23:59 Intake Total 3900 / 3900 3017 / 3017 477 / 477 Output Total 1075 / 1075 4875 / 4875 950 / 950 Balance 2825 / 2825 -1858 / -1858 -473 / -473 General: Alert, Cooperative, No apparent distress HEENT: Atraumatic, EOMI, Normocephalic Oral: Moist Mucosa Neck: Supple, No JVD, Trachea Midline Lungs: Clear to auscultation, Normal air movement, No rhonchi, No wheeze, No rales, Diminished Cardiovascular: Regular rate, Regular Rhythm, Normal S1, Normal S2, No murmurs, No rub noted, No Gallop Abdomen: Soft, Non Tender, Non-Distended, No Hepato-splenomegaly Extremities: No edema, Capillary Refill Less than 3 Seconds Skin: No rashes, No breakdown Neurological: Neuro grossly intact, Sensory exam intact to light touch and pain Psych/Mental Status: Appropriate, Flat Affect Microbiology Past 72 Hours 02/14/18 16:20 Blood Culture (Wb) - Left Forearm Blood Culture - Final No growth in 5 days. 02/14/18 16:20 Blood Culture (Wb) - Anticubital Right Blood Culture - Final No growth in 5 days. Laboratory Results 02/23/18 04:05: Hgb 9.2 L, Hct 27.9 L 02/23/18 04:05: Sodium 144, Potassium 3.8, Chloride 103, Carbon Dioxide 31.0, Anion Gap 10, BUN 78 H, Creatinine 1.93 H, Estim Creat Clear Calc 30.69, Est GFR (MDRD) Af Amer 44 L, Est GFR (MDRD) Non-Af 36 L, BUN/Creatinine Ratio 40.4 H, Glucose 135 H, Calcium 7.7 L 02/23/18 06:38: Specimen Type BRAVO, Sample Site OTHER, pH 7.51 H, Bicarbonate Actual 29.3 H, POC Total CO2 30, Base Excess 6 H, O2 Saturation 96, O2 % 35, ABG pCO2 36.9, ABG pO2 74 L, O2 Delivery Device Vent, Vent Mode CPAP PS, POC PEEP 5, POC Pressure Suppt 5, Blood Gas Notified Whom ICU MD, Blood Gas Notified Time 638 Current Medications Acetaminophen (Tylenol Liquid) 650 mg GT Q4H PRN PRN PRN Reason: FEVER Albuterol Sulfate (Ventolin Aerosols) 2.5 mg INHALATION Q2H PRN PRN PRN Reason: SHORTNESS OF BREATH Last Admin: 02/18/18 20:40 Dose: 2.5 mg Albuterol/Ipratropium (Duoneb) 3 ml INHALATION Q4H.RT [facility] Last Admin: 02/23/18 06:30 Dose: 3 ml Alprazolam (Xanax) 0.25 mg PO BID PRN PRN PRN Reason: ANXIETY Last Admin: 02/22/18 10:45 Dose: 0.25 mg Amiodarone HCl (Cordarone) 200 mg GT TID [facility] Last Admin: 02/23/18 06:15 Dose: 200 mg Amoxicillin (Amoxil) 500 mg GT Q12 LIANE Stop: 02/24/18 22:01 Last Admin: 02/22/18 22:54 Dose: 500 mg Apixaban (Eliquis) 2.5 mg GT BID [facility] Last Admin: 02/22/18 22:54 Dose: 2.5 mg Buspirone HCl (Buspar) 5 mg GT Q6 [facility] Last Admin: 02/23/18 06:15 Dose: 5 mg Chlorhexidine Gluconate () 1 each TOPICAL DAILY [facility] Last Admin: 02/22/18 02:19 Dose: 1 each Chlorhexidine Gluconate () 15 ml PO BID [facility] Last Admin: 02/22/18 22:55 Dose: 15 ml Furosemide (Lasix) 40 mg IV BID@1000,1800 [facility] Last Admin: 02/22/18 18:12 Dose: 40 mg Guaifenesin (Robitussin) 10 ml GT Q4H PRN PRN Sodium Chloride () 250 mls @ 15 mls/hr IV .[id number] PRN PRN Reason: SALINE FLUSH Last Admin: 02/17/18 12:17 Dose: 15 mls/hr Dexmedetomidine HCl 1,000 mcg/ (Sodium Chloride) 250 mls @ 8.46 mls/hr IV .[id number] [facility] Last Admin: 02/23/18 01:37 Dose: 8.46 mls/hr Enteral Nutritional Formula (Vital Af 1.2 Deyvi Liquid) 1,000 mls @ 60 mls/hr GT .[id number] [facility] Last Admin: 02/22/18 18:12 Dose: Not Given Lactobacillus Acidophilus (Acidophilus) 1 tablet GT 4X/DAY [facility] Last Admin: 02/22/18 22:54 Dose: 1 tablet Lansoprazole (Prevacid) 30 mg GT DAILY [facility] Last Admin: 02/22/18 10:31 Dose: 30 mg Magnesium Hydroxide (Milk Of Magnesia) 30 ml GT DAILY PRN PRN Reason: Constipation Last Admin: 02/22/18 23:46 Dose: 30 ml Ondansetron HCl (Zofran) 4 mg IV Q8H PRN PRN PRN Reason: NAUSEA Prednisone () 40 mg GT DAILY@0800 [facility] Last Admin: 02/22/18 10:31 Dose: 40 mg Quetiapine Fumarate (Seroquel) 25 mg PO BID [facility] Last Admin: 02/22/18 22:54 Dose: 25 mg Sodium Chloride () 5 - 15 ml IV UD PRN PRN Reason: SALINE FLUSH Last Admin: 02/23/18 06:17 Dose: 15 ml Medical Necessity - Tobacco Use Smoking Status: Former smoker Assessment/Plan All Active Problems Streptococcal pneumonia (Acute) Rhinovirus (Acute) Atrial fibrillation (Acute) Acute renal failure (ARF) (Acute) Acute and chronic respiratory failure with hypoxia (Acute) Severe sepsis (Acute) Community acquired pneumonia (Acute) 1. Acute hypoxic respiratory failure secondary to community-acquired pneumonia/sepsis secondary to pneumonia/IVONNE/acute exacerbation of COPD/metabolic encephalopathy secondary to sepsis and IVONNE -Continue with amoxicillin -Continue with breathing treatment -Creatinine is improving, 2.14 yesterday to 1.93 today -Sepsis is resolved -Continue with breathing treatments and prednisone. 2. Atrial fibrillation with RVR/hypertension -Continue with amiodarone and Eliquis, currently rate is normal as is rhythm -Continue with Lasix 3. Anxiety/depression -Stable on Xanax and Seroquel -BuSpar was added yesterday Diet: Tube feeds at 60 DVT: Lyly Code Visit Inpatient E&M: 11650 Subs Hosp L2
--- NOTE | 2018-02-23 08:41 | PN_ITS ---
Patient Problems: Active and Suspected Problems Atrial fibrillation (Acute) Acute renal failure (ARF) (Acute) Acute and chronic respiratory failure with hypoxia (Acute) Severe sepsis (Acute) Community acquired pneumonia (Acute) Subjective: Extubated this morning, he is still on Precedex. Fatigued, and will open eyes and slowly answer questions. No issues overnight Vitals/I&O's: Vital Signs Temp Pulse Resp BP Pulse Ox 98.6 F 70 22 H 123/52 H 96 02/23/18 08:00 02/23/18 08:00 02/23/18 08:00 02/23/18 08:00 02/23/18 08:00 Oxygen Flow Rate (L/min) 3 Oxygen Delivery Method Nasal Cannula Weight: 139 lb 8.842 oz Body Mass Index (BMI) 18.9 Intake and Output for Last 24 Hours 02/21/18 02/22/18 02/23/18 23:59 23:59 23:59 Intake Total 3900 / 3900 3017 / 3017 477 / 477 Output Total 1075 / 1075 4875 / 4875 950 / 950 Balance 2825 / 2825 -1858 / -1858 -473 / -473 General: Alert, Cooperative, No apparent distress HEENT: Atraumatic, EOMI, Normocephalic Oral: Moist Mucosa Neck: Supple, No JVD, Trachea Midline Lungs: Clear to auscultation, Normal air movement, No rhonchi, No wheeze, No rales, Diminished Cardiovascular: Regular rate, Regular Rhythm, Normal S1, Normal S2, No murmurs, No rub noted, No Gallop Abdomen: Soft, Non Tender, Non-Distended, No Hepato-splenomegaly Extremities: No edema, Capillary Refill Less than 3 Seconds Skin: No rashes, No breakdown Neurological: Neuro grossly intact, Sensory exam intact to light touch and pain Psych/Mental Status: Appropriate, Flat Affect Microbiology Past 72 Hours 02/14/18 16:20 Blood Culture (Wb) - Left Forearm Blood Culture - Final No growth in 5 days. 02/14/18 16:20 Blood Culture (Wb) - Anticubital Right Blood Culture - Final No growth in 5 days. Laboratory Results 02/23/18 04:05: Hgb 9.2 L, Hct 27.9 L 02/23/18 04:05: Sodium 144, Potassium 3.8, Chloride 103, Carbon Dioxide 31.0, Anion Gap 10, BUN 78 H, Creatinine 1.93 H, Estim Creat Clear Calc 30.69, Est GFR (MDRD) Af Amer 44 L, Est GFR (MDRD) Non-Af 36 L, BUN/Creatinine Ratio 40.4 H, Glucose 135 H, Calcium 7.7 L 02/23/18 06:38: Specimen Type BRAVO, Sample Site OTHER, pH 7.51 H, Bicarbonate Actual 29.3 H, POC Total CO2 30, Base Excess 6 H, O2 Saturation 96, O2 % 35, ABG pCO2 36.9, ABG pO2 74 L, O2 Delivery Device Vent, Vent Mode CPAP PS, POC PEEP 5, POC Pressure Suppt 5, Blood Gas Notified Whom ICU MD, Blood Gas Notified Time 638 Current Medications Acetaminophen (Tylenol Liquid) 650 mg GT Q4H PRN PRN PRN Reason: FEVER Albuterol Sulfate (Ventolin Aerosols) 2.5 mg INHALATION Q2H PRN PRN PRN Reason: SHORTNESS OF BREATH Last Admin: 02/18/18 20:40 Dose: 2.5 mg Albuterol/Ipratropium (Duoneb) 3 ml INHALATION Q4H.RT [facility] Last Admin: 02/23/18 06:30 Dose: 3 ml Alprazolam (Xanax) 0.25 mg PO BID PRN PRN PRN Reason: ANXIETY Last Admin: 02/22/18 10:45 Dose: 0.25 mg Amiodarone HCl (Cordarone) 200 mg GT TID [facility] Last Admin: 02/23/18 06:15 Dose: 200 mg Amoxicillin (Amoxil) 500 mg GT Q12 LIANE Stop: 02/24/18 22:01 Last Admin: 02/22/18 22:54 Dose: 500 mg Apixaban (Eliquis) 2.5 mg GT BID [facility] Last Admin: 02/22/18 22:54 Dose: 2.5 mg Buspirone HCl (Buspar) 5 mg GT Q6 [facility] Last Admin: 02/23/18 06:15 Dose: 5 mg Chlorhexidine Gluconate () 1 each TOPICAL DAILY [facility] Last Admin: 02/22/18 02:19 Dose: 1 each Chlorhexidine Gluconate () 15 ml PO BID [facility] Last Admin: 02/22/18 22:55 Dose: 15 ml Furosemide (Lasix) 40 mg IV BID@1000,1800 [facility] Last Admin: 02/22/18 18:12 Dose: 40 mg Guaifenesin (Robitussin) 10 ml GT Q4H PRN PRN Sodium Chloride () 250 mls @ 15 mls/hr IV .[id number] PRN PRN Reason: SALINE FLUSH Last Admin: 02/17/18 12:17 Dose: 15 mls/hr Dexmedetomidine HCl 1,000 mcg/ (Sodium Chloride) 250 mls @ 8.46 mls/hr IV .[id number] [facility] Last Admin: 02/23/18 01:37 Dose: 8.46 mls/hr Enteral Nutritional Formula (Vital Af 1.2 Deyvi Liquid) 1,000 mls @ 60 mls/hr GT .[id number] [facility] Last Admin: 02/22/18 18:12 Dose: Not Given Lactobacillus Acidophilus (Acidophilus) 1 tablet GT 4X/DAY [facility] Last Admin: 02/22/18 22:54 Dose: 1 tablet Lansoprazole (Prevacid) 30 mg GT DAILY [facility] Last Admin: 02/22/18 10:31 Dose: 30 mg Magnesium Hydroxide (Milk Of Magnesia) 30 ml GT DAILY PRN PRN Reason: Constipation Last Admin: 02/22/18 23:46 Dose: 30 ml Ondansetron HCl (Zofran) 4 mg IV Q8H PRN PRN PRN Reason: NAUSEA Prednisone () 40 mg GT DAILY@0800 [facility] Last Admin: 02/22/18 10:31 Dose: 40 mg Quetiapine Fumarate (Seroquel) 25 mg PO BID [facility] Last Admin: 02/22/18 22:54 Dose: 25 mg Sodium Chloride () 5 - 15 ml IV UD PRN PRN Reason: SALINE FLUSH Last Admin: 02/23/18 06:17 Dose: 15 ml Medical Necessity - Tobacco Use Smoking Status: Former smoker Assessment/Plan All Active Problems Streptococcal pneumonia (Acute) Rhinovirus (Acute) Atrial fibrillation (Acute) Acute renal failure (ARF) (Acute) Acute and chronic respiratory failure with hypoxia (Acute) Severe sepsis (Acute) Community acquired pneumonia (Acute) 1. Acute hypoxic respiratory failure secondary to community-acquired pneumonia/sepsis secondary to pneumonia/IVONNE/acute exacerbation of COPD/metabolic encephalopathy secondary to sepsis and IVONNE -Continue with amoxicillin -Continue with breathing treatment -Creatinine is improving, 2.14 yesterday to 1.93 today -Sepsis is resolved -Continue with breathing treatments and prednisone. 2. Atrial fibrillation with RVR/hypertension -Continue with amiodarone and Eliquis, currently rate is normal as is rhythm -Continue with Lasix 3. Anxiety/depression -Stable on Xanax and Seroquel -BuSpar was added yesterday Diet: Tube feeds at 60 DVT: Lyly Code Visit Inpatient E&M: 13490 Subs Hosp L2
[2018-02-23] MEDS: AMOXICILLIN 500 MG CAPSULE PO ×2 (10:10→21:56)
[2018-02-23] MEDS: CHLORHEXIDINE GLUC 2% CLOTH 1 EACH TOWELETTE TOPICAL (10:10)
[2018-02-23] MEDS: Furosemide 40 MG/4 ML Vial IV ×2 (10:11→17:30)
[2018-02-23] MEDS: Pantoprazole Sodium 40 MG Tablet PO (10:11)
[2018-02-23] MEDS: APIXABAN 2.5 MG TABLET PO ×2 (10:11→21:57)
[2018-02-23] MEDS: QUEtiapine 25 MG Tablet PO ×2 (10:11→21:56)
--- NOTE | 2018-02-23 11:52 | PCM.PN.REN ---
Patient Problems: Active and Suspected Problems Atrial fibrillation (Acute) Acute renal failure (ARF) (Acute) Acute and chronic respiratory failure with hypoxia (Acute) Severe sepsis (Acute) Community acquired pneumonia (Acute) Subjective: denies nausea, vomiting, abdominal pain. Breathing improved, cough improved. - Physical Exam General: Alert, No apparent distress, - - thin Oral: Dry Mucosa Neck: Supple, No JVD Lungs: Clear to auscultation, Diminished Cardiovascular: Irregular Rate - afib Abdomen: Bowel Sounds Present, Soft, Non Tender, Non-Distended Extremities: No edema Skin: No rashes Musculoskeletal: Muscle Wasting, - - generalized weakness, debilitated Neurological: Cranial nerves II-XII grossly intact Psych/Mental Status: Normal Affect, Agitated Vital Signs Temp Pulse Resp BP Pulse Ox 98.1 F 82 21 H 108/57 L 93 02/23/18 11:00 02/23/18 11:46 02/23/18 11:03 02/23/18 11:00 02/23/18 11:03 Oxygen Flow Rate (L/min) 4 Oxygen Delivery Method Nasal Cannula Weight: 63.3 kg Body Mass Index (BMI) 18.9 Intake and Output for Last 24 Hours 02/21/18 02/22/18 02/23/18 23:59 23:59 23:59 Intake Total 3900 / 3900 3017 / 3017 477 / 477 Output Total 1075 / 1075 4875 / 4875 950 / 950 Balance 2825 / 2825 -1858 / -1858 -473 / -473 Microbiology Past 72 Hours 02/14/18 16:20 Blood Culture - Final Blood Culture (Wb) - Left Forearm No growth in 5 days. 02/14/18 16:20 Blood Culture - Final Blood Culture (Wb) - Anticubital Right No growth in 5 days. Laboratory Tests Past 24 Hrs 02/23/18 02/23/18 02/23/18 04:05 04:05 06:38 Hgb 9.2 L Hct 27.9 L Specimen Type BRAVO Sample Site OTHER pH 7.51 H Bicarbonate Actual 29.3 H POC Total CO2 30 Base Excess 6 H O2 Saturation 96 O2 % 35 ABG pCO2 36.9 ABG pO2 74 L O2 Delivery Device Vent Vent Mode CPAP PS POC PEEP 5 POC Pressure Suppt 5 Blood Gas Notified Whom ICU Blood Gas Notified Time 638 Sodium 144 Potassium 3.8 Chloride 103 Carbon Dioxide 31.0 Anion Gap 10 BUN 78 H Creatinine 1.93 H Estim Creat Clear Calc 30.69 Est GFR (MDRD) Af Amer 44 L Est GFR (MDRD) Non-Af 36 L BUN/Creatinine Ratio 40.4 H Glucose 135 H Calcium 7.7 L Medical Necessity - Tobacco Use Smoking Status: Former smoker Assessment/Plan All Active Problems Streptococcal pneumonia (Acute) Rhinovirus (Acute) Atrial fibrillation (Acute) Acute renal failure (ARF) (Acute) Acute and chronic respiratory failure with hypoxia (Acute) Severe sepsis (Acute) Community acquired pneumonia (Acute) 1. Acute on chronic kidney disease. Creatinine 1.7 in August 2017. Creatinine improved to 1.93 today. 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 2. Acute respiratory acidosis. s/p extubation 3. CAP with strep pna, rhinoviris on renal dose antibx. 4. COPD exacerbation pulmonary following 5. HTN BP low, consider change to po lasix 6. Hypernatremia resolved 7. debilitation, PT/OT
[2018-02-23] MEDS: predniSONE 20 MG Tablet 40 MG PO (12:26)
[2018-02-23] MEDS: busPIRone 5 MG Tablet PO ×2 (12:27→17:29)
--- NOTE | 2018-02-23 13:15 | PCM.PN.CARD ---
Subjectve: The patient is now extubated. He remains somewhat lethargic. His sedation is wearing off. Objective: Vital Signs Temp Pulse Resp BP Pulse Ox 98.1 F 78 20 H 132/65 H 94 02/23/18 12:00 02/23/18 12:00 02/23/18 12:00 02/23/18 12:00 02/23/18 12:00 Oxygen Flow Rate (L/min) 4 Oxygen Delivery Method Nasal Cannula Weight: 139 lb 8.842 oz Body Mass Index (BMI) 18.9 Intake and Output for Last 24 Hours 02/21/18 02/22/18 02/23/18 23:59 23:59 23:59 Intake Total 3900 / 3900 3017 / 3017 597 / 597 Output Total 1075 / 1075 4875 / 4875 1650 / 1650 Balance 2825 / 2825 -1858 / -1858 -1053 / -1053 General: Lethargic HEENT: Atraumatic, Normocephalic Neck: No JVD Lungs: - - Scattered rhonchi and expiratory wheezing Cardiovascular: Regular Rhythm, Normal S1, Normal S2 Abdomen: Bowel Sounds Present, Soft Extremities: No edema 02/23/18 04:05: Hgb 9.2 L, Hct 27.9 L 02/23/18 04:05: Sodium 144, Potassium 3.8, Chloride 103, Carbon Dioxide 31.0, Anion Gap 10, BUN 78 H, Creatinine 1.93 H, Est GFR (MDRD) Af Amer 44 L, Est GFR (MDRD) Non-Af 36 L, BUN/Creatinine Ratio 40.4 H, Glucose 135 H, Calcium 7.7 L 02/23/18 06:38: pH 7.51 H, Bicarbonate Actual 29.3 H, POC Total CO2 30, Base Excess 6 H, O2 Saturation 96, ABG pCO2 36.9, ABG pO2 74 L Rhythm: Sinus rhythm Medical Necessity - Tobacco Use Smoking Status: Former smoker Assessment/Plan 1. Atrial fibrillation with rapid ventricular response The patient appears to be in sinus rhythm at this time. He will continue a combination of rate control therapy, antiarrhythmic therapy, and anticoagulant therapy. 2. Acute on chronic respiratory related issues/hypoxemia He is currently extubated. He will continue evaluation care per internal medicine and pulmonology. 3. Pneumonia There is concern he has an underlying acute pneumonia. He will continue evaluation care per internal medicine. He is also receiving input per pulmonary medicine/critical care. 4. COPD He does have underlying chronic COPD. He is on various forms of inhalers and/or nebulizers at home. He states he is no longer smoking tobacco. 5. Acute renal insufficiency The patient states that his oral intake has been diminished. This may be contributing to his acute renal insufficiency as well as contribution from his underlying sepsis syndrome. His creatinine level remains elevated but improved. He is now being evaluated by nephrology. 6. Hypertension He has had intermittently low blood pressures. Thus his medications have been adjusted to avoid significant hypotension. This note was generated with [employer] dictation software. It may contain incorrect words, spelling, and punctuation that were not noted in checking the note before signing.
[2018-02-23] MEDS: ALPRAZolam 0.25 MG Tablet PO (14:14)
[2018-02-23] MEDS: Amiodarone 200 MG Tablet PO ×2 (14:15→21:56)
[2018-02-24] VITALS (22 sets, daily range): BP systolic 112–157; BP diastolic 81–110; PULSE 88–104; RESP 13–18; TEMP 36.9–37.7; O2SAT 93–97
[2018-02-24] MEDS: busPIRone 5 MG Tablet PO ×2 (00:19→06:19)
--- NOTE | 2018-02-24 03:22 | NURSING ---
Pt with eyes closed, respirations unlabored, no visible distress noted.
[2018-02-24] MEDS: Amiodarone 200 MG Tablet PO ×3 (06:19→22:18)
[2018-02-24] MEDS: 0.9% NaCl Peripheral Flush Adult/Peds IV ×2 (06:23→08:48)
[2018-02-24] MEDS: Ipratropium/Albuterol Sulfate 3 ML AMPUL.NEB INHALATION ×2 (06:36→13:30)
[2018-02-24 06:55] LABS: Phosphorus 3.5 mg/dL (2.5-4.9)
[2018-02-24 06:58] LABS: Anion Gap 11 (5-15); BUN 75 mg/dL (7-18); BUN/Creat Ratio 35.9 RATIO (10-20); Calcium,Total 8.5 mg/dL (8.5-10.1); Chloride 101 mmol/L (98-107); Creatinine, Serum 2.09 mg/dL (0.70-1.30); EST Glomerular Filtration Rate 33 mL/min (>60); Est Glom Filt Rate - Afr Amer 40 mL/min (>60); Glucose 110 mg/dL (74-106); Magnesium 2.1 mg/dL (1.6-2.6); Sodium Level 144 mmol/L (136-145)
[2018-02-24 07:46] LABS: Absolute Neutrophil Count 15.4 X10^3/uL (2.0-7.7); Basophil# 0.04 X10^3/uL; Basophil% 0.2 % (0-1); Hematocrit 30.6 % (40-54); Hemoglobin 9.8 g/dl (13.0-16.5); Lymphocyte % 2.4 % (19-41); Mean Corpuscular Volume 93.6 fL (80-94); Mean Platelet Vol. 10.1 fl (6.2-12.0); Monocyte# 0.69 X10^3/uL; Monocyte% 4.1 % (0-10); Neutrophil # 15.38 X10^3/uL (2.7-7.7); Neutrophil % 91.1 % (47-70); Platelet Count 443 K/mm3 (150-450); RBC Distribution Width CV 15.8 % (11.6-14.6); RBC Distribution Width SD 51.4 fl (35.1-43.9); Red Blood Count 3.27 M/mm3 (4.6-6.2); White Blood Count 16.9 K/mm3 (4.4-11.0)
[2018-02-24 07:53] LABS: POSITIVE COUNT YES; POSITIVE DIFFERENTIAL YES; POSITIVE MORPHOLOGY YES
[2018-02-24 07:54] LABS: Differential Indicated SCAN CRITERIA MET
--- NOTE | 2018-02-24 08:13 | PCM.PN.HOSP ---
Patient Problems: Active and Suspected Problems Atrial fibrillation (Acute) Acute renal failure (ARF) (Acute) Acute and chronic respiratory failure with hypoxia (Acute) Severe sepsis (Acute) Community acquired pneumonia (Acute) Subjective: More alert today off the Precedex. States that he feels like he is doing better. He would like to go home because he has a friend who is a nurse who can be able to take care of him, as well as multiple friends who are physical therapist who would be more than happy to do physical therapy on him daily. Vitals/I&O's: Vital Signs Temp Pulse Resp BP Pulse Ox 99.1 F 94 13 131/103 H 95 02/24/18 07:00 02/24/18 07:00 02/24/18 07:00 02/24/18 07:00 02/24/18 07:00 Oxygen Flow Rate (L/min) 3 Oxygen Delivery Method Nasal Cannula Weight: 139 lb 8.842 oz Body Mass Index (BMI) 18.9 Intake and Output for Last 24 Hours 02/22/18 02/23/18 02/24/18 23:59 23:59 23:59 Intake Total 3017 / 3017 888 / 888 320 / 320 Output Total 4875 / 4875 2375 / 2375 1550 / 1550 Balance -1858 / -1858 -1487 / -1487 -1230 / -1230 General: Alert, orientedx3, cooperative, No apparent distress HEENT: Atraumatic, EOMI, Normocephalic Oral: Moist Mucosa Neck: Supple, No JVD, Trachea Midline Lungs: Clear to auscultation, Normal air movement, No rhonchi, No wheeze, No rales, Diminished Cardiovascular: Regular rate, Regular Rhythm, Normal S1, Normal S2, No murmurs, No rub noted, No Gallop Abdomen: Soft, Non Tender, Non-Distended, No Hepato-splenomegaly Extremities: No edema, Capillary Refill Less than 3 Seconds Skin: No rashes, No breakdown Neurological: Neuro grossly intact, Sensory exam intact to light touch and pain Psych/Mental Status: Appropriate, Flat Affect Laboratory Results 02/24/18 06:30: WBC 16.9 H, RBC 3.27 L, Hgb 9.8 L, Hct 30.6 L, MCV 93.6, MCH 30.0, MCHC 32.0, RDW 15.8 H, RDW Differential 51.4 H, Plt Count 443, MPV 10.1, Immature Gran % (Auto) 2.200 H, Neut % (Auto) 91.1 H, Lymph % (Auto) 2.4 L, [place] % (Auto) 4.1, Eos % (Auto) 0.0, Baso % (Auto) 0.2, Absolute Neuts (auto) 15.4 H, Absolute Lymphs (auto) 0.40 L, Total Counted Pending 02/24/18 06:30: Sodium 144, Potassium 4.0, Chloride 101, Carbon Dioxide 32.0, Anion Gap 11, BUN 75 H, Creatinine 2.09 H, Estim Creat Clear Calc 26.50, Est GFR (MDRD) Af Amer 40 L, Est GFR (MDRD) Non-Af 33 L, BUN/Creatinine Ratio 35.9 H, Glucose 110 H, Calcium 8.5, Magnesium 2.1 02/24/18 06:30: Phosphorus 3.5 Current Medications Acetaminophen (Tylenol) 650 mg PO Q4H PRN PRN PRN Reason: FEVER Albuterol Sulfate (Ventolin Aerosols) 2.5 mg INHALATION Q2H PRN PRN PRN Reason: SHORTNESS OF BREATH Last Admin: 02/18/18 20:40 Dose: 2.5 mg Albuterol/Ipratropium (Duoneb) 3 ml INHALATION Q4H.RT [facility] [place] Last Admin: 02/24/18 06:36 Dose: 3 ml Alprazolam (Xanax) 0.25 mg PO BID PRN PRN PRN Reason: ANXIETY Last Admin: 02/23/18 14:14 Dose: 0.25 mg Amiodarone HCl (Cordarone) 200 mg PO TID [facility] Last Admin: 02/24/18 06:19 Dose: 200 mg Amoxicillin (Amoxil) 500 mg PO Q12 [facility] Stop: 02/24/18 22:01 Last Admin: 02/23/18 21:56 Dose: 500 mg Apixaban (Eliquis) 2.5 mg PO BID [facility] [place] Last Admin: 02/23/18 21:57 Dose: 2.5 mg Buspirone HCl (Buspar) 5 mg PO Q6 [facility] [place] Last Admin: 02/24/18 06:19 Dose: 5 mg Chlorhexidine Gluconate () 1 each TOPICAL DAILY [facility] [place] Last Admin: 02/23/18 10:10 Dose: 1 each Furosemide (Lasix) 40 mg IV BID@1000,1800 [facility] [place] Last Admin: 02/23/18 17:30 Dose: 40 mg Guaifenesin (Robitussin) 10 ml PO Q4H PRN PRN Sodium Chloride () 250 mls @ 15 mls/hr IV .[id number] PRN PRN Reason: SALINE FLUSH Last Admin: 02/17/18 12:17 Dose: 15 mls/hr Lactobacillus Acidophilus (Acidophilus) 1 tablet PO 4X/DAY [facility] [place] Last Admin: 02/23/18 21:56 Dose: 1 tablet Magnesium Hydroxide (Milk Of Magnesia) 30 ml PO DAILY PRN PRN Reason: Constipation Ondansetron HCl (Zofran) 4 mg IV Q8H PRN PRN PRN Reason: NAUSEA Pantoprazole Sodium (Protonix) 40 mg PO DAILY [facility] [place] Last Admin: 02/23/18 10:11 Dose: 40 mg Prednisone () 40 mg PO DAILY@0800 [facility] [place] Last Admin: 02/23/18 12:26 Dose: 40 mg Quetiapine Fumarate (Seroquel) 25 mg PO BID [facility] [place] Last Admin: 02/23/18 21:56 Dose: 25 mg Sodium Chloride () 5 - 15 ml IV UD PRN PRN Reason: SALINE FLUSH Last Admin: 02/24/18 06:23 Dose: 10 ml Medical Necessity - Tobacco Use Smoking Status: Former smoker Assessment/Plan All Active Problems Streptococcal pneumonia (Acute) Rhinovirus (Acute) Atrial fibrillation (Acute) Acute renal failure (ARF) (Acute) Acute and chronic respiratory failure with hypoxia (Acute) Severe sepsis (Acute) Community acquired pneumonia (Acute) 1. Acute hypoxic respiratory failure secondary to community-acquired pneumonia/sepsis secondary to pneumonia/IVONNE/acute exacerbation of COPD/metabolic encephalopathy secondary to sepsis and IVONNE -Continue with amoxicillin, for sensitive Streptococcus pneumoniae -Continue with breathing treatment -Creatinine appears to have stabilized around 2. -Sepsis is resolved -Continue with breathing treatments and prednisone. 2. Atrial fibrillation with RVR/hypertension -Continue with amiodarone and Eliquis, currently rate is normal as is rhythm -Continue with Lasix, as long as his creatinine remains stable, he has had excellent urine output 3. Anxiety/depression -Stable on Xanax and Seroquel -BuSpar was added which she is tolerating DVT: Eliquis Code Visit Inpatient E&M: 41081 Subs Hosp L2
--- NOTE | 2018-02-24 08:16 | PN_ITS ---
Subjective: Patient extubated yesterday. No acute issues were reported overnight. Patient states that he feels a generalized weakness, but is denying any pain at this time. Patient does report his right upper extremity does not feel as strong. Patient has been weaned down to 3 L nasal cannula. No hemodynamic instability is been reported by nursing overnight. General: Alert, Oriented x3, Cooperative, No apparent distress, - - Appears older than stated age. No conversational dyspnea appreciated. HEENT: Atraumatic, PERRLA, EOMI, Normocephalic, - - No scleral icterus or injection noted. Oral: Moist Mucosa, No Gingival or Mucosal Lesions/ Ulcerations Neck: Supple, No JVD, No Nodes, Trachea Midline Lungs: No rhonchi, No wheeze, No rales, Diminished Cardiovascular: Normal S1, Normal S2, No murmurs, Irregular Rate, No rub noted, No Gallop Abdomen: Bowel Sounds Present, Soft, Non Tender, Non-Distended Extremities: No cyanosis, Capillary Refill Less than 3 Seconds, Clubbing, Edema - Right upper extremity greater than others Skin: - - No significant change compared to previous Musculoskeletal: No Tenderness to Palpation of Joints or Extremities Lymphatic: No Cervical, Supraclavicular, or Inguinal Adenopathy Neurological: Cranial nerves II-XII grossly intact, Neuro grossly intact, Motor Exam 5/5 strength throughout Psych/Mental Status: Normal Affect, Agitated Vital Signs Temp Pulse Resp BP Pulse Ox 37.3 C 94 13 131/103 H 95 02/24/18 07:00 02/24/18 07:00 02/24/18 07:00 02/24/18 07:00 02/24/18 07:00 Oxygen Flow Rate (L/min) 3 Oxygen Delivery Method Nasal Cannula Weight: 63.3 kg Body Mass Index (BMI) 18.9 Intake and Output for Last 24 Hours 02/22/18 02/23/18 02/24/18 23:59 23:59 23:59 Intake Total 3017 / 3017 888 / 888 320 / 320 Output Total 4875 / 4875 2375 / 2375 1550 / 1550 Balance -1858 / -1858 -1487 / -1487 -1230 / -1230 Labs (Last 48 Hours) 02/23/18 02/23/18 02/23/18 04:05 04:05 06:38 WBC RBC Hgb 9.2 L Hct 27.9 L MCV MCH MCHC RDW RDW Differential Plt Count MPV Immature Gran % (Auto) Neut % (Auto) Lymph % (Auto) [place] % (Auto) Eos % (Auto) Baso % (Auto) Absolute Neuts (auto) Absolute Lymphs (auto) Total Counted Specimen Type BRAVO Sample Site OTHER pH 7.51 H Bicarbonate Actual 29.3 H POC Total CO2 30 Base Excess 6 H O2 Saturation 96 O2 % 35 ABG pCO2 36.9 ABG pO2 74 L O2 Delivery Device Vent Vent Mode CPAP PS POC PEEP 5 POC Pressure Suppt 5 Blood Gas Notified Whom ICU MD Blood Gas Notified Time 638 Sodium 144 Potassium 3.8 Chloride 103 Carbon Dioxide 31.0 Anion Gap 10 BUN 78 H Creatinine 1.93 H Estim Creat Clear Calc 30.69 Est GFR (MDRD) Af Amer 44 L Est GFR (MDRD) Non-Af 36 L BUN/Creatinine Ratio 40.4 H Glucose 135 H Calcium 7.7 L Phosphorus Magnesium 02/24/18 02/24/18 02/24/18 06:30 06:30 06:30 WBC 16.9 H RBC 3.27 L Hgb 9.8 L Hct 30.6 L MCV 93.6 MCH 30.0 MCHC 32.0 RDW 15.8 H RDW Differential 51.4 H Plt Count 443 MPV 10.1 Immature Gran % (Auto) 2.200 H Neut % (Auto) 91.1 H Lymph % (Auto) 2.4 L [place] % (Auto) 4.1 Eos % (Auto) 0.0 Baso % (Auto) 0.2 Absolute Neuts (auto) 15.4 H Absolute Lymphs (auto) 0.40 L Total Counted Pending Specimen Type Sample Site pH Bicarbonate Actual POC Total CO2 Base Excess O2 Saturation O2 % ABG pCO2 ABG pO2 O2 Delivery Device Vent Mode POC PEEP POC Pressure Suppt Blood Gas Notified Whom Blood Gas Notified Time Sodium 144 Potassium 4.0 Chloride 101 Carbon Dioxide 32.0 Anion Gap 11 BUN 75 H Creatinine 2.09 H Estim Creat Clear Calc 26.50 Est GFR (MDRD) Af Amer 40 L Est GFR (MDRD) Non-Af 33 L BUN/Creatinine Ratio 35.9 H Glucose 110 H Calcium 8.5 Phosphorus 3.5 Magnesium 2.1 Medical Necessity - Tobacco Use Smoking Status: Former smoker Assessment/Plan All Active Problems Streptococcal pneumonia (Acute) Rhinovirus (Acute) Atrial fibrillation (Acute) Acute renal failure (ARF) (Acute) Acute and chronic respiratory failure with hypoxia (Acute) Severe sepsis (Acute) Community acquired pneumonia (Acute) RECOMMENDATIONS: 1. Increase activity as tolerated 2. Continue gentle diuresis 3. Continue Seroquel for now 4. Wean oxygen as tolerated 5. Okay to leave the intensive care unit from my perspective IMPRESSIONS: 1. Acute on chronic hypoxic respiratory failure secondary to presumed COPD exacerbation secondary to left-sided CAP Patient intubated on February 19 secondary to aggressive respiratory failure. Patient has been on appropriate antimicrobial coverage, bronchodilators and steroids. Steroids can be weaned over the next 12-14 days. Continue Seroquel for now. Continue with bronchodilators. 2. Severe sepsis secondary to pneumococcal pneumonia and rhinovirus infection As noted above, antibiotics will be continued as ordered. The patient remains hemodynamically stable and afebrile. 3. New-onset atrial fibrillation Resolved. Remains in normal sinus rhythm on amiodarone therapy. Patient is also anticoagulated with Eliquis therapy. No bleeding complications have been reported. Defer management to cardiology. 4. Combined metabolic and respiratory acidosis Resolved. Likely secondary to underlying COPD and renal insufficiency. Defer management of the patient's kidney disease to nephrology. 5. Acute kidney injury Improving. Likely prerenal in etiology, as the patient initially responded to IV volume expansion. He may also have a component of chronic kidne y disease as well. We will continue to monitor. No indication for renal replacement therapy at this time. No plans for dialysis per nephrology. 6. Advanced age/hypertension/metabolic encephalopathy Complicates care, management, recovery and prognosis. Aggressive physical therapy is warranted. Code Visit Inpatient E&M: 46190 [facility] Hosp L3
--- NOTE | 2018-02-24 08:19 | PN_ITS ---
Patient Problems: Active and Suspected Problems Atrial fibrillation (Acute) Acute renal failure (ARF) (Acute) Acute and chronic respiratory failure with hypoxia (Acute) Severe sepsis (Acute) Community acquired pneumonia (Acute) Subjective: More alert today off the Precedex. States that he feels like he is doing better. He would like to go home because he has a friend who is a nurse who can be able to take care of him, as well as multiple friends who are physical therapist who would be more than happy to do physical therapy on him daily. Vitals/I&O's: Vital Signs Temp Pulse Resp BP Pulse Ox 99.1 F 94 13 131/103 H 95 02/24/18 07:00 02/24/18 07:00 02/24/18 07:00 02/24/18 07:00 02/24/18 07:00 Oxygen Flow Rate (L/min) 3 Oxygen Delivery Method Nasal Cannula Weight: 139 lb 8.842 oz Body Mass Index (BMI) 18.9 Intake and Output for Last 24 Hours 02/22/18 02/23/18 02/24/18 23:59 23:59 23:59 Intake Total 3017 / 3017 888 / 888 320 / 320 Output Total 4875 / 4875 2375 / 2375 1550 / 1550 Balance -1858 / -1858 -1487 / -1487 -1230 / -1230 General: Alert, orientedx3, cooperative, No apparent distress HEENT: Atraumatic, EOMI, Normocephalic Oral: Moist Mucosa Neck: Supple, No JVD, Trachea Midline Lungs: Clear to auscultation, Normal air movement, No rhonchi, No wheeze, No rales, Diminished Cardiovascular: Regular rate, Regular Rhythm, Normal S1, Normal S2, No murmurs, No rub noted, No Gallop Abdomen: Soft, Non Tender, Non-Distended, No Hepato-splenomegaly Extremities: No edema, Capillary Refill Less than 3 Seconds Skin: No rashes, No breakdown Neurological: Neuro grossly intact, Sensory exam intact to light touch and pain Psych/Mental Status: Appropriate, Flat Affect Laboratory Results 02/24/18 06:30: WBC 16.9 H, RBC 3.27 L, Hgb 9.8 L, Hct 30.6 L, MCV 93.6, MCH 30.0, MCHC 32.0, RDW 15.8 H, RDW Differential 51.4 H, Plt Count 443, MPV 10.1, Immature Gran % (Auto) 2.200 H, Neut % (Auto) 91.1 H, Lymph % (Auto) 2.4 L, [place] % (Auto) 4.1, Eos % (Auto) 0.0, Baso % (Auto) 0.2, Absolute Neuts (auto) 15.4 H, Absolute Lymphs (auto) 0.40 L, Total Counted Pending 02/24/18 06:30: Sodium 144, Potassium 4.0, Chloride 101, Carbon Dioxide 32.0, Anion Gap 11, BUN 75 H, Creatinine 2.09 H, Estim Creat Clear Calc 26.50, Est GFR (MDRD) Af Amer 40 L, Est GFR (MDRD) Non-Af 33 L, BUN/Creatinine Ratio 35.9 H, Glucose 110 H, Calcium 8.5, Magnesium 2.1 02/24/18 06:30: Phosphorus 3.5 Current Medications Acetaminophen (Tylenol) 650 mg PO Q4H PRN PRN PRN Reason: FEVER Albuterol Sulfate (Ventolin Aerosols) 2.5 mg INHALATION Q2H PRN PRN PRN Reason: SHORTNESS OF BREATH Last Admin: 02/18/18 20:40 Dose: 2.5 mg Albuterol/Ipratropium (Duoneb) 3 ml INHALATION Q4H.RT [facility] Last Admin: 02/24/18 06:36 Dose: 3 ml Alprazolam (Xanax) 0.25 mg PO BID PRN PRN PRN Reason: ANXIETY Last Admin: 02/23/18 14:14 Dose: 0.25 mg Amiodarone HCl (Cordarone) 200 mg PO TID [facility] Last Admin: 02/24/18 06:19 Dose: 200 mg Amoxicillin (Amoxil) 500 mg PO Q12 [facility] Stop: 02/24/18 22:01 Last Admin: 02/23/18 21:56 Dose: 500 mg Apixaban (Eliquis) 2.5 mg PO BID [facility] Last Admin: 02/23/18 21:57 Dose: 2.5 mg Buspirone HCl (Buspar) 5 mg PO Q6 [facility] Last Admin: 02/24/18 06:19 Dose: 5 mg Chlorhexidine Gluconate () 1 each TOPICAL DAILY [facility] Last Admin: 02/23/18 10:10 Dose: 1 each Furosemide (Lasix) 40 mg IV BID@1000,1800 [facility] Last Admin: 02/23/18 17:30 Dose: 40 mg Guaifenesin (Robitussin) 10 ml PO Q4H PRN PRN Sodium Chloride () 250 mls @ 15 mls/hr IV .[id number] PRN PRN Reason: SALINE FLUSH Last Admin: 02/17/18 12:17 Dose: 15 mls/hr Lactobacillus Acidophilus (Acidophilus) 1 tablet PO 4X/DAY [facility] Last Admin: 02/23/18 21:56 Dose: 1 tablet Magnesium Hydroxide (Milk Of Magnesia) 30 ml PO DAILY PRN PRN Reason: Constipation Ondansetron HCl (Zofran) 4 mg IV Q8H PRN PRN PRN Reason: NAUSEA Pantoprazole Sodium (Protonix) 40 mg PO DAILY [facility] Last Admin: 02/23/18 10:11 Dose: 40 mg Prednisone () 40 mg PO DAILY@0800 [facility] Last Admin: 02/23/18 12:26 Dose: 40 mg Quetiapine Fumarate (Seroquel) 25 mg PO BID [facility] Last Admin: 02/23/18 21:56 Dose: 25 mg Sodium Chloride () 5 - 15 ml IV UD PRN PRN Reason: SALINE FLUSH Last Admin: 02/24/18 06:23 Dose: 10 ml Medical Necessity - Tobacco Use Smoking Status: Former smoker Assessment/Plan All Active Problems Streptococcal pneumonia (Acute) Rhinovirus (Acute) Atrial fibrillation (Acute) Acute renal failure (ARF) (Acute) Acute and chronic respiratory failure with hypoxia (Acute) Severe sepsis (Acute) Community acquired pneumonia (Acute) 1. Acute hypoxic respiratory failure secondary to community-acquired pneumon ia/sepsis secondary to pneumonia/IVONNE/acute exacerbation of COPD/metabolic encephalopathy secondary to sepsis and IVONNE -Continue with amoxicillin, for sensitive Streptococcus pneumoniae -Continue with breathing treatment -Creatinine appears to have stabilized around 2. -Sepsis is resolved -Continue with breathing treatments and prednisone. 2. Atrial fibrillation with RVR/hypertension -Continue with amiodarone and Eliquis, currently rate is normal as is rhythm -Continue with Lasix, as long as his creatinine remains stable, he has had excellent urine output 3. Anxiety/depression -Stable on Xanax and Seroquel -BuSpar was added which she is tolerating DVT: Eliquis Code Visit Inpatient E&M: 07448 Subs Hosp L2
[2018-02-24] MEDS: predniSONE 20 MG Tablet 40 MG PO (08:46)
[2018-02-24] MEDS: QUEtiapine 25 MG Tablet PO ×2 (08:46→22:18)
[2018-02-24] MEDS: APIXABAN 2.5 MG TABLET PO ×2 (08:46→22:19)
[2018-02-24] MEDS: AMOXICILLIN 500 MG CAPSULE PO ×2 (08:47→22:18)
[2018-02-24] MEDS: Pantoprazole Sodium 40 MG Tablet PO (08:47)
[2018-02-24] MEDS: Furosemide 40 MG Tablet PO ×2 (10:10→17:14)
--- NOTE | 2018-02-24 10:22 | CASEMGMT ---
Patient is very weak and lives alone. He is insisting that he is going home at discharge. SW wanted to spend some time with patient discussing his plan. SW met with patient, introduced self and role at [facility]. SW did not want to jump right to the subject of group home as patient is resistant to this idea and he would likely not respond well to SW. Therefore, SW spent an extensive amount of time listening to patient and his story in an effort to build a rapport. Things were going well and then a visitor came to see him. The visitor was a lady that helps him with paying bills and other things around his home. He started telling her that he is going to need her to find an RN that can assist in providing 24 hour care. He said he is going to need a lot of help and he will need 24/7 care. They started talking about bills etc. ANGELIQUE told patient SW will check back with him another time so he can visit. Izabella RAYGOZA MSW
[2018-02-24 13:48] LABS: Pathologist Review Reviewed
--- NOTE | 2018-02-24 16:12 | PCM.PN.CARD ---
Subjectve: The patient appears somewhat more awake and alert today. He has no new acute adverse events. Objective: Vital Signs Temp Pulse Resp BP Pulse Ox 98.5 F 100 16 121/90 H 94 02/24/18 12:00 02/24/18 15:00 02/24/18 14:00 02/24/18 12:00 02/24/18 13:30 Oxygen Flow Rate (L/min) 3 Oxygen Delivery Method Nasal Cannula Weight: 139 lb 8.842 oz Body Mass Index (BMI) 18.9 Intake and Output for Last 24 Hours 02/22/18 02/23/18 02/24/18 23:59 23:59 23:59 Intake Total 3017 / 3017 888 / 888 620 / 620 Output Total 4875 / 4875 2375 / 2375 2200 / 2200 Balance -1858 / -1858 -1487 / -1487 -1580 / -1580 General: Awake, Alert Neck: No JVD Lungs: - - Scattered rhonchi Cardiovascular: Regular Rhythm, Premature Ectopic Beats, Normal S1, Normal S2 Abdomen: Bowel Sounds Present, Soft 02/24/18 06:30: WBC 16.9 H, RBC 3.27 L, Hgb 9.8 L, Hct 30.6 L, MCV 93.6, MCH 30.0, MCHC 32.0, RDW 15.8 H, RDW Differential 51.4 H, Plt Count 443, MPV 10.1, Immature Gran % (Auto) 2.200 H, Neut % (Auto) 91.1 H, Lymph % (Auto) 2.4 L, [place] % (Auto) 4.1, Eos % (Auto) 0.0, Baso % (Auto) 0.2, Absolute Neuts (auto) 15.4 H, Total Counted Not Reportable 02/24/18 06:30: Sodium 144, Potassium 4.0, Chloride 101, Carbon Dioxide 32.0, Anion Gap 11, BUN 75 H, Creatinine 2.09 H, Est GFR (MDRD) Af Amer 40 L, Est GFR (MDRD) Non-Af 33 L, BUN/Creatinine Ratio 35.9 H, Glucose 110 H, Calcium 8.5, Magnesium 2.1 02/24/18 06:30: Phosphorus 3.5 Rhythm: Sinus rhythm; premature ectopic complexes Medical Necessity - Tobacco Use Smoking Status: Former smoker Assessment/Plan 1. Atrial fibrillation with rapid ventricular response The patient appears to be in sinus rhythm at this time. He will need to continue medical management. He is currently not on rate limiting therapy. Depending upon his clinical status he may eventually need to be back on rate limiting therapy. He is on antiarrhythmic therapy. He is amiodarone can be tapered over time. It may be reasonable to consider 200 mg 3 times daily times 1 week, then 200 mg twice daily times 2 weeks, then 200 mg daily. He remains on anticoagulant therapy. 2. Acute on chronic respiratory related issues/hypoxemia He is currently extubated. He will continue evaluation care per internal medicine and pulmonology. 3. Pneumonia There is concern he has an underlying acute pneumonia. He will continue evaluation care per internal medicine. He is also receiving input per pulmonary medicine/critical care. 4. COPD He does have underlying chronic COPD. He is on various forms of inhalers and/or nebulizers at home. He states he is no longer smoking tobacco. 5. Acute renal insufficiency His creatinine level remains elevated. He is now being evaluated by nephrology. 6. Hypertension His medications may need to be adjusted over time for his blood pressure. This note was generated with [employer] dictation software. It may contain incorrect words, spelling, and punctuation that were not noted in checking the note before signing.
--- NOTE | 2018-02-24 18:11 | PN.RENAL_ITS ---
Patient Problems: Active and Suspected Problems Atrial fibrillation (Acute) Acute renal failure (ARF) (Acute) Acute and chronic respiratory failure with hypoxia (Acute) Severe sepsis (Acute) Community acquired pneumonia (Acute) Subjective: transferred to floor. Denies SOB or cough. Anxious to go home. - Physical Exam General: Alert, Oriented x3 Oral: Dry Mucosa Neck: Supple Lungs: Clear to auscultation, Diminished Cardiovascular: Irregular Rate - afib Abdomen: Bowel Sounds Present, Soft, Non Tender, Non-Distended Extremities: Edema - RUE from PICC line Musculoskeletal: Muscle Wasting Neurological: Cranial nerves II-XII grossly intact Psych/Mental Status: Normal Affect, Appropriate, Alert and oriented to time, place, person, mood and affect Vital Signs Temp Pulse Resp BP Pulse Ox 98.8 F 96 16 131/82 H 94 02/24/18 17:26 02/24/18 17:26 02/24/18 17:26 02/24/18 17:26 02/24/18 17:26 Oxygen Flow Rate (L/min) 3 Oxygen Delivery Method Nasal Cannula Weight: 63.3 kg Body Mass Index (BMI) 18.9 Intake and Output for Last 24 Hours 02/22/18 02/23/18 02/24/18 23:59 23:59 23:59 Intake Total 3017 / 3017 888 / 888 620 / 620 Output Total 4875 / 4875 2375 / 2375 2200 / 2200 Balance -1858 / -1858 -1487 / -1487 -1580 / -1580 Laboratory Tests Past 24 Hrs 02/24/18 02/24/18 02/24/18 06:30 06:30 06:30 WBC 16.9 H RBC 3.27 L Hgb 9.8 L Hct 30.6 L MCV 93.6 MCH 30.0 MCHC 32.0 RDW 15.8 H RDW Differential 51.4 H Plt Count 443 MPV 10.1 Immature Gran % (Auto) 2.200 H Neut % (Auto) 91.1 H Lymph % (Auto) 2.4 L [place] % (Auto) 4.1 Eos % (Auto) 0.0 Baso % (Auto) 0.2 Absolute Neuts (auto) 15.4 H Absolute Lymphs (auto) 0.40 L Total Counted Not Reportable Differential Comment COMMENT Diff Path Review Reviewed Sodium 144 Potassium 4.0 Chloride 101 Carbon Dioxide 32.0 Anion Gap 11 BUN 75 H Creatinine 2.09 H Estim Creat Clear Calc 26.50 Est GFR (MDRD) Af Amer 40 L Est GFR (MDRD) Non-Af 33 L BUN/Creatinine Ratio 35.9 H Glucose 110 H Calcium 8.5 Phosphorus 3.5 Magnesium 2.1 Medical Necessity - Tobacco Use Smoking Status: Former smoker Assessment/Plan All Active Problems Streptococcal pneumonia (Acute) Rhinovirus (Acute) Atrial fibrillation (Acute) Acute renal failure (ARF) (Acute) Acute and chronic respiratory failure with hypoxia (Acute) Severe sepsis (Acute) Community acquired pneumonia (Acute) 1. Acute on chronic kidney disease. Creatinine 1.7 in August 2017. Creatinine 2.08 today. IV lasix switched to po. Consider decreasing lasix to daily if creatinine continues to rise. 2. Acute respiratory failure due to pneumonia, rhinovirus resolved 3. CAP with strep pna, rhinovirus 4. Hypernatremia resolved 5. Anemia hgb stable
[2018-02-25] VITALS (17 sets, daily range): BP systolic 118–142; BP diastolic 89–104; PULSE 68–102; RESP 17–20; TEMP 36.1–37.3; O2SAT 93–99
[2018-02-25] MEDS: 0.9% NaCl Peripheral Flush Adult/Peds IV (06:56)
[2018-02-25] MEDS: Amiodarone 200 MG Tablet PO ×3 (06:57→21:08)
[2018-02-25 07:07] LABS: Absolute Lymphocyte Count 1.43 X10^3/ul (0.83-4.51); Absolute Neutrophil Count 15.6 X10^3/uL (2.0-7.7); Eosinophil# 0.01 X10^3/uL; Eosinophils% 0.1 % (0-5); Hematocrit 31.4 % (40-54); Lymphocyte # 1.43 X10^3/ul (4.0); Lymphocyte % 8.2 % (19-41); Mean Corp Hgb Conc 31.8 g/gl (32-36); Mean Corpuscular Hgb 29.9 pg (27.0-32.0); Mean Platelet Vol. 9.3 fl (6.2-12.0); Monocyte# 0.26 X10^3/uL; Monocyte% 1.5 % (0-10); Neutrophil # 15.57 X10^3/uL (2.7-7.7); Neutrophil % 89.7 % (47-70); Platelet Count 378 K/mm3 (150-450); RBC Distribution Width CV 16.1 % (11.6-14.6); RBC Distribution Width SD 55.4 fl (35.1-43.9); Red Blood Count 3.34 M/mm3 (4.6-6.2); White Blood Count 17.4 K/mm3 (4.4-11.0)
[2018-02-25 07:11] LABS: POSITIVE COUNT NO; POSITIVE DIFFERENTIAL NO; POSITIVE MORPHOLOGY NO
[2018-02-25] MEDS: Ipratropium/Albuterol Sulfate 3 ML AMPUL.NEB INHALATION ×4 (07:15→23:15)
[2018-02-25 07:17] LABS: Anion Gap 9 (5-15); BUN 66 mg/dL (7-18); BUN/Creat Ratio 31.9 RATIO (10-20); Calcium,Total 8.4 mg/dL (8.5-10.1); Chloride 99 mmol/L (98-107); Creatinine, Serum 2.07 mg/dL (0.70-1.30); EST Glomerular Filtration Rate 33 mL/min (>60); Est Glom Filt Rate - Afr Amer 40 mL/min (>60); Estimated Creatinine Clearance 27.26 ml/min; Glucose 97 mg/dL (74-106); Potassium 3.9 mmol/L (3.5-5.1); Sodium Level 144 mmol/L (136-145)
--- NOTE | 2018-02-25 08:30 | PCM.PROGNOTE ---
Patient Problems: Active and Suspected Problems Atrial fibrillation (Acute) Acute renal failure (ARF) (Acute) Acute and chronic respiratory failure with hypoxia (Acute) Severe sepsis (Acute) Community acquired pneumonia (Acute) Subjective: Patient transferred out of the intensive care unit yesterday. Patient feels subjectively improved compared to previous. Patient continues to have cough, but is having difficulty with production. Patient has used Mucinex at home for several years to assist with mobilization. Patient did reaffirm that he uses 2-3 L nasal cannula oxygen at baseline - Physical Exam General: Alert, Oriented x3, Cooperative, No apparent distress, Well developed, Well nourished, - - Speaking in full sentences. HEENT: Atraumatic, PERRLA, EOMI, Normocephalic, - - No scleral icterus or injection noted. Oral: Moist Mucosa, No Gingival or Mucosal Lesions/ Ulcerations Neck: Supple, No JVD, No Nodes, Trachea Midline Lungs: No rhonchi, No rales, Diminished, Wheezes, - - Symmetric expansion. No dullness to percussion. Cardiovascular: Regular rate, Regular Rhythm, Normal S1, Normal S2, Murmur, No rub noted, No Gallop Abdomen: Bowel Sounds Present, Soft, Non Tender, Non-Distended Extremities: No cyanosis, Capillary Refill Less than 3 Seconds, Clubbing, Edema - Trace lower extremity Skin: - - No significant change compared to previous Musculoskeletal: No Tenderness to Palpation of Joints or Extremities, No Muscle Wasting Lymphatic: No Cervical, Supraclavicular, or Inguinal Adenopathy Neurological: Cranial nerves II-XII grossly intact, Neuro grossly intact, Motor Exam 5/5 strength throughout Psych/Mental Status: Alert and oriented to time, place, person, mood and affect Vital Signs Temp Pulse Resp BP Pulse Ox 36.7 C 84 18 140/93 H 94 02/25/18 03:30 02/25/18 07:29 02/25/18 07:16 02/25/18 03:30 02/25/18 07:16 Oxygen Flow Rate (L/min) 3 Oxygen Delivery Method Nasal Cannula Weight: 64.5 kg Body Mass Index (BMI) 18.9 Intake and Output for Last 24 Hours 02/23/18 02/24/18 02/25/18 23:59 23:59 23:59 Intake Total 888 / 888 860 / 860 360 / 360 Output Total 2375 / 2375 2850 / 2850 1525 / 1525 Balance -1487 / -1487 -1989 / -1165 / -1165 Laboratory Tests Past 24 Hrs 02/24/18 02/25/18 02/25/18 06:30 06:54 06:54 WBC 17.4 H RBC 3.34 L Hgb 10.0 L Hct 31.4 L MCV 94.0 MCH 29.9 MCHC 31.8 L RDW 16.1 H RDW Differential 55.4 H Plt Count 378 MPV 9.3 Immature Gran % (Auto) 0.500 Neut % (Auto) 89.7 H Lymph % (Auto) 8.2 L [place] % (Auto) 1.5 Eos % (Auto) 0.1 Baso % (Auto) 0.0 Absolute Neuts (auto) 15.6 H Absolute Lymphs (auto) 1.43 Total Counted Not Reportable Not Reportable Differential Comment COMMENT Diff Path Review Reviewed Sodium 144 Potassium 3.9 Chloride 99 Carbon Dioxide 36.0 H Anion Gap 9 BUN 66 H Creatinine 2.07 H Estim Creat Clear Calc 27.26 Est GFR (MDRD) Af Amer 40 L Est GFR (MDRD) Non-Af 33 L BUN/Creatinine Ratio 31.9 H Glucose 97 Calcium 8.4 L Medical Necessity - Tobacco Use Smoking Status: Former smoker Assessment/Plan All Active Problems Streptococcal pneumonia (Acute) Rhinovirus (Acute) Atrial fibrillation (Acute) Acute renal failure (ARF) (Acute) Acute and chronic respiratory failure with hypoxia (Acute) Severe sepsis (Acute) Community acquired pneumonia (Acute) RECOMMENDATIONS: 1. Add Mucinex therapy 2. Increase activity as tolerated 3. Continue Seroquel for now 4. Wean oxygen as tolerated, walking oximetry prior to discharge 5. Disposition per hospitalist IMPRESSIONS: 1. Acute on chronic hypoxic respiratory failure secondary to presumed COPD exacerbation secondary to left-sided CAP Patient intubated on February 19 secondary to aggressive respiratory failure. Patient has been on appropriate antimicrobial coverage, bronchodilators and steroids. Steroids can be weaned over the next 12-14 days. Continue Seroquel for now. Continue with bronchodilators. Patient on 2-3 L nasal cannula oxygen at baseline. Patient should have a walking oximetry prior to discharge. 2. Severe sepsis secondary to pneumococcal pneumonia and rhinovirus infection As noted above, antibiotics will be continued as ordered. The patient remains hemodynamically stable and afebrile. Antibiotic course has been completed. 3. New-onset atrial fibrillation Resolved. Remains in normal sinus rhythm on amiodarone therapy. Patient is also anticoagulated with Eliquis therapy. No bleeding complications have been reported. Defer management to cardiology. 4. Combined metabolic and respiratory acidosis Resolved. Likely secondary to underlying COPD and renal insufficiency. Defer management of the patient's kidney disease to nephrology. 5. Acute kidney injury Stable. Likely prerenal in etiology, as the patient initially responded to IV volume expansion. He may also have a component of chronic kidney disease as well. Unclear if this indicates new baseline for renal function. We will continue to monitor. No indication for renal replacement therapy at this time. No plans for dialysis per nephrology. 6. Advanced age/hypertension/metabolic encephalopathy Complicates care, management, recovery and prognosis. Aggressive physical therapy is warranted. Code Visit Inpatient E&M: 55268 Subs Hosp L2
[2018-02-25] MEDS: Furosemide 40 MG Tablet PO ×2 (08:52→18:19)
[2018-02-25] MEDS: QUEtiapine 25 MG Tablet PO ×2 (08:52→21:09)
[2018-02-25] MEDS: APIXABAN 2.5 MG TABLET PO ×2 (08:52→21:08)
[2018-02-25] MEDS: predniSONE 20 MG Tablet 40 MG PO (08:52)
[2018-02-25] MEDS: Pantoprazole Sodium 40 MG Tablet PO (08:52)
--- NOTE | 2018-02-25 09:19 | CASEMGMT ---
ANGELIQUE spoke with patient this am. SW asked him about his plan at d/c. 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 He has a nice condo. He said he has people who need to get him pots and pans and towels. He said he has some, but not enough for all of the people that will be staying with him. He knows a therapist from [facility] and a therapist from [facility] that can do therapy with him. He said he has friends that make ambulances and they could arrange to get him home. SW asked him if he will need equipment as some of it would be covered by his insurance. He said the [facility] has all kinds of equipment that they lend out all of the time. SW asked him if there is someone SW could call to verify these plans. ANGELIQUE said it is not that SW does not believe him, but normally a patient in his condition does not go home and they go to rehab. He said he has plenty of money in the bank to pay for all the help he needs. He said SW could call his brother, Nacho or sister in law Quezada. ANGELIQUE asked him if the physician came in today and said he would be discharged would he be able to have everything lined up. He said it would probably be more like tomorrow. ANGELIQUE told him that if he was not able to get everything lined up right away he could go to the hospital's Transitional Care Unit until it could be lined up. He said he needs to make one phone call and does not need that. ANGELIQUE called patient's sister in law, Pilar. She said she knows nothing about things being actually lined up. She said she knows he was talking about this, but she doesn't know anything more. She knows he is very stubborn. Izabella RAYGOZA MSW
[2018-02-25] MEDS: guaiFENesin 1,200 MG Tablet 1200 MG PO ×2 (10:23→21:08)
--- NOTE | 2018-02-25 10:45 | NURSING ---
Addendum entered by Katia Henley 02/25/18 11:31: pt called back to RN and stated that he has reconsidered your offer about removing the merino. attends placed under pt per pt request following merino DC. Original Note: explained to the patient that his merino catheter would need to be D/Nilson. explained the procedure and pt requested that we wait until after lunch to DC merino. taught about risk of infection and purpose of removing the catheter as soon as appropriate and pt continued to refuse at this time. he stated i just want to rest and not have to worry about voiding
--- NOTE | 2018-02-25 11:32 | PCM.PN.REN ---
Patient Problems: Active and Suspected Problems Atrial fibrillation (Acute) Acute renal failure (ARF) (Acute) Acute and chronic respiratory failure with hypoxia (Acute) Severe sepsis (Acute) Community acquired pneumonia (Acute) Subjective: DISLA CATHETER REMOVED. COUGH IMPROVING ON MUCINEX. RENAL FXN STABLE ON LASIX. - Physical Exam General: Alert, Oriented x3, No apparent distress Oral: Dry Mucosa Lungs: Clear to auscultation, Diminished Cardiovascular: Irregular Rate - AFIB Abdomen: Bowel Sounds Present, Soft, Non Tender, Non-Distended Extremities: Edema - IMPROVING Skin: No rashes Musculoskeletal: Muscle Wasting Psych/Mental Status: Normal Affect, Appropriate Vital Signs Temp Pulse Resp BP Pulse Ox 97.6 F L 83 18 134/92 H 93 02/25/18 08:45 02/25/18 11:24 02/25/18 08:45 02/25/18 08:45 02/25/18 08:45 Oxygen Flow Rate (L/min) 3 Oxygen Delivery Method Nasal Cannula Weight: 64.5 kg Body Mass Index (BMI) 18.9 Intake and Output for Last 24 Hours 02/23/18 02/24/18 02/25/18 23:59 23:59 23:59 Intake Total 888 / 888 860 / 860 360 / 360 Output Total 2375 / 2375 2850 / 2850 1525 / 1525 Balance -1487 / -1487 -1989 / -1989 -1165 / -1165 Laboratory Tests Past 24 Hrs 02/24/18 02/25/18 02/25/18 06:30 06:54 06:54 WBC 17.4 H RBC 3.34 L Hgb 10.0 L Hct 31.4 L MCV 94.0 MCH 29.9 MCHC 31.8 L RDW 16.1 H RDW Differential 55.4 H Plt Count 378 MPV 9.3 Immature Gran % (Auto) 0.500 Neut % (Auto) 89.7 H Lymph % (Auto) 8.2 L [place] % (Auto) 1.5 Eos % (Auto) 0.1 Baso % (Auto) 0.0 Absolute Neuts (auto) 15.6 H Absolute Lymphs (auto) 1.43 Total Counted Not Reportable Diff Path Review Reviewed Sodium 144 Potassium 3.9 Chloride 99 Carbon Dioxide 36.0 H Anion Gap 9 BUN 66 H Creatinine 2.07 H Estim Creat Clear Calc 27.26 Est GFR (MDRD) Af Amer 40 L Est GFR (MDRD) Non-Af 33 L BUN/Creatinine Ratio 31.9 H Glucose 97 Calcium 8.4 L Medical Necessity - Tobacco Use Smoking Status: Former smoker Assessment/Plan All Active Problems Streptococcal pneumonia (Acute) Rhinovirus (Acute) Atrial fibrillation (Acute) Acute renal failure (ARF) (Acute) Acute and chronic respiratory failure with hypoxia (Acute) Severe sepsis (Acute) Community acquired pneumonia (Acute) 1. Acute on chronic kidney disease. Creatinine 1.7 in August 2017. Creatinine STABLE today. 2. Acute respiratory failure due to pneumonia, rhinovirus resolved 3. CAP with strep pna, rhinovirus 4. Hypernatremia resolved 5. Anemia hgb stable
--- NOTE | 2018-02-25 14:13 | CASEMGMT ---
SW has spent a great deal of time with patient trying to get him to understand why SNF is needed before he goes home. Patient insists he can have all the help he needs arranged before he goes home tomorrow. SW told him that would be great, but it does not seem realistic. SW told him it is very difficult to arrange private duty especially 24/7 care. He consistently talks about all the people he knows that would do anything for him. SW told him he needs to call them and not just assume they have availability. SW gave him a list of private duty agencies. SW told him SW cannot arrange private duty for him. SW told him we can arranged home health through his insurance. SW told him insurance would cover a nurse maybe a couple of times a week, therapy a couple of times a week and an aide maybe 3 hours a week. He said he knows therapists he can pay to be there daily. SW told him he needs to call all of these people he thinks will help him and make sure they have availability. He asked SW what would it do if he went to [facility] for 3 weeks. ANGELIQUE told him it would buy him some time to get stronger and to get help lined up for when he returns home. He asked SW to call [facility] and the new one in [facility]. ANGELIQUE told him SW will make initial calls to see what services they offer and then let him know and give him the phone numbers. ANGELIQUE called [facility] and they do not offer private pay services. ANGELIQUE called [facility] and left a voice mail. ANGELIQUE let patient know this information. ANGELIQUE also let patient know [facility] will have a bed for him if he changes his mind. Izabella RAYGOZA MSW
--- NOTE | 2018-02-25 14:27 | PCM.PN.HOSP ---
Patient Problems: Active and Suspected Problems Atrial fibrillation (Acute) Acute renal failure (ARF) (Acute) Acute and chronic respiratory failure with hypoxia (Acute) Severe sepsis (Acute) Community acquired pneumonia (Acute) Subjective: Stable today, no issues overnight. No fever, chills. States that he wants to go home and that he will be able to pay for living nursing and respiratory therapy as well as physical therapy. Vitals/I&O's: Vital Signs Temp Pulse Resp BP Pulse Ox 97.6 F L 68 17 134/92 H 93 02/25/18 08:45 02/25/18 12:40 02/25/18 12:40 02/25/18 08:45 02/25/18 08:45 Oxygen Flow Rate (L/min) 3 Oxygen Delivery Method Nasal Cannula Weight: 142 lb 3.17 oz Body Mass Index (BMI) 18.9 Intake and Output for Last 24 Hours 02/23/18 02/24/18 02/25/18 23:59 23:59 23:59 Intake Total 888 / 888 860 / 860 480 / 480 Output Total 2375 / 2375 2850 / 2850 2125 / 2125 Balance -1487 / -1487 -1989 / -1645 / -1645 General: Alert, orientedx3, cooperative, No apparent distress HEENT: Atraumatic, EOMI, Normocephalic Oral: Moist Mucosa Neck: Supple, No JVD, Trachea Midline Lungs: Clear to auscultation, Normal air movement, No rhonchi, No wheeze, No rales, Diminished Cardiovascular: Regular rate, Regular Rhythm, Normal S1, Normal S2, No murmurs, No rub noted, No Gallop Abdomen: Soft, Non Tender, Non-Distended, No Hepato-splenomegaly Extremities: No edema, Capillary Refill Less than 3 Seconds Skin: No rashes, No breakdown Neurological: Neuro grossly intact, strength 4/5, Sensory exam intact to light touch and pain Psych/Mental Status: Appropriate, Flat Affect Laboratory Results 02/25/18 06:54: WBC 17.4 H, RBC 3.34 L, Hgb 10.0 L, Hct 31.4 L, MCV 94.0, MCH 29.9, MCHC 31.8 L, RDW 16.1 H, RDW Differential 55.4 H, Plt Count 378, MPV 9.3, Immature Gran % (Auto) 0.500, Neut % (Auto) 89.7 H, Lymph % (Auto) 8.2 L, [place] % (Auto) 1.5, Eos % (Auto) 0.1, Baso % (Auto) 0.0, Absolute Neuts (auto) 15.6 H, Absolute Lymphs (auto) 1.43, Total Counted Not Reportable 02/25/18 06:54: Sodium 144, Potassium 3.9, Chloride 99, Carbon Dioxide 36.0 H, Anion Gap 9, BUN 66 H, Creatinine 2.07 H, Estim Creat Clear Calc 27.26, Est GFR (MDRD) Af Amer 40 L, Est GFR (MDRD) Non-Af 33 L, BUN/Creatinine Ratio 31.9 H, Glucose 97, Calcium 8.4 L Current Medications Acetaminophen (Tylenol) 650 mg PO Q4H PRN PRN PRN Reason: FEVER Albuterol Sulfate (Ventolin Aerosols) 2.5 mg INHALATION Q2H PRN PRN PRN Reason: SHORTNESS OF BREATH Last Admin: 02/18/18 20:40 Dose: 2.5 mg Albuterol/Ipratropium (Duoneb) 3 ml INHALATION Q6HWA.RT [facility] Last Admin: 02/25/18 12:40 Dose: 3 ml Alprazolam (Xanax) 0.25 mg PO BID PRN PRN PRN Reason: ANXIETY Last Admin: 02/23/18 14:14 Dose: 0.25 mg Amiodarone HCl (Cordarone) 200 mg PO TID [facility] Last Admin: 02/25/18 06:57 Dose: 200 mg Apixaban (Eliquis) 2.5 mg PO BID [facility] Last Admin: 02/25/18 08:52 Dose: 2.5 mg Buspirone HCl (Buspar) 5 mg PO 06,12,18 [facility] Last Admin: 02/25/18 11:37 Dose: Not Given Furosemide (Lasix) 40 mg PO BID@1000,1800 [facility] Last Admin: 02/25/18 08:52 Dose: 40 mg Guaifenesin (Mucinex) 1,200 mg PO BID [facility] Last Admin: 02/25/18 10:23 Dose: 1,200 mg Heparin Sodium (Beef Lung) () 50 units IV UD PRN PRN Reason: HEPARIN FLUSH Sodium Chloride () 250 mls @ 15 mls/hr IV .[id number] PRN PRN Reason: SALINE FLUSH Last Admin: 02/17/18 12:17 Dose: 15 mls/hr Lactobacillus Acidophilus (Acidophilus) 1 tablet PO 4X/DAY [facility] Last Admin: 02/25/18 08:52 Dose: 1 tablet Magnesium Hydroxide (Milk Of Magnesia) 30 ml PO DAILY PRN PRN Reason: Constipation Ondansetron HCl (Zofran) 4 mg IV Q8H PRN PRN PRN Reason: NAUSEA Pantoprazole Sodium (Protonix) 40 mg PO DAILY [facility] Last Admin: 02/25/18 08:52 Dose: 40 mg Prednisone () 40 mg PO DAILY@0800 [facility] Last Admin: 02/25/18 08:52 Dose: 40 mg Quetiapine Fumarate (Seroquel) 25 mg PO BID [facility] Last Admin: 02/25/18 08:52 Dose: 25 mg Sodium Chloride () 5 - 15 ml IV UD PRN PRN Reason: SALINE FLUSH Last Admin: 02/25/18 06:56 Dose: 10 ml Sodium Chloride () 10 - 20 ml IV UD PRN PRN Reason: PICC FLUSH Medical Necessity - Tobacco Use Smoking Status: Former smoker Assessment/Plan All Active Problems Streptococcal pneumonia (Acute) Rhinovirus (Acute) Atrial fibrillation (Acute) Acute renal failure (ARF) (Acute) Acute and chronic respiratory failure with hypoxia (Acute) Severe sepsis (Acute) Community acquired pneumonia (Acute) 1. Acute hypoxic respiratory failure secondary to community-acquired pneumonia/sepsis secondary to pneumonia/IVONNE/acute exacerbation of COPD/metabolic encephalopathy secondary to sepsis and IVONNE (resolved) -Off antibiotics -Continue with breathing treatment -Creatinine appears to have stabilized around 2 we will continue to monitor -Continue with breathing treatments and prednisone, she is the likely cause of his continued elevation in WBC 2. Atrial fibrillation with RVR/hypertension -Continue with amiodarone and Eliquis, currently rate is normal as is rhythm -Continue with Lasix, as long as his creatinine remains stable, he has had excellent urine output -We will remove Trejo to encourage ambulation 3. Anxiety/depression -Stable on Xanax and Seroquel -BuSpar was added which she is tolerating Dispo: Unknown DVT: Eliquis Code Visit Inpatient E&M: 02322 Subs Hosp L2
--- NOTE | 2018-02-25 14:31 | PN_ITS ---
Patient Problems: Active and Suspected Problems Atrial fibrillation (Acute) Acute renal failure (ARF) (Acute) Acute and chronic respiratory failure with hypoxia (Acute) Severe sepsis (Acute) Community acquired pneumonia (Acute) Subjective: Stable today, no issues overnight. No fever, chills. States that he wants to go home and that he will be able to pay for living nursing and respiratory therapy as well as physical therapy. Vitals/I&O's: Vital Signs Temp Pulse Resp BP Pulse Ox 97.6 F L 68 17 134/92 H 93 02/25/18 08:45 02/25/18 12:40 02/25/18 12:40 02/25/18 08:45 02/25/18 08:45 Oxygen Flow Rate (L/min) 3 Oxygen Delivery Method Nasal Cannula Weight: 142 lb 3.17 oz Body Mass Index (BMI) 18.9 Intake and Output for Last 24 Hours 02/23/18 02/24/18 02/25/18 23:59 23:59 23:59 Intake Total 888 / 888 860 / 860 480 / 480 Output Total 2375 / 2375 2850 / 2850 2125 / 2125 Balance -1487 / -1487 -1989 / -1645 / -1645 General: Alert, orientedx3, cooperative, No apparent distress HEENT: Atraumatic, EOMI, Normocephalic Oral: Moist Mucosa Neck: Supple, No JVD, Trachea Midline Lungs: Clear to auscultation, Normal air movement, No rhonchi, No wheeze, No rales, Diminished Cardiovascular: Regular rate, Regular Rhythm, Normal S1, Normal S2, No murmurs, No rub noted, No Gallop Abdomen: Soft, Non Tender, Non-Distended, No Hepato-splenomegaly Extremities: No edema, Capillary Refill Less than 3 Seconds Skin: No rashes, No breakdown Neurological: Neuro grossly intact, strength 4/5, Sensory exam intact to light touch and pain Psych/Mental Status: Appropriate, Flat Affect Laboratory Results 02/25/18 06:54: WBC 17.4 H, RBC 3.34 L, Hgb 10.0 L, Hct 31.4 L, MCV 94.0, MCH 29.9, MCHC 31.8 L, RDW 16.1 H, RDW Differential 55.4 H, Plt Count 378, MPV 9.3, Immature Gran % (Auto) 0.500, Neut % (Auto) 89.7 H, Lymph % (Auto) 8.2 L, [place] % (Auto) 1.5, Eos % (Auto) 0.1, Baso % (Auto) 0.0, Absolute Neuts (auto) 15.6 H, Absolute Lymphs (auto) 1.43, Total Counted Not Reportable 02/25/18 06:54: Sodium 144, Potassium 3.9, Chloride 99, Carbon Dioxide 36.0 H, Anion Gap 9, BUN 66 H, Creatinine 2.07 H, Estim Creat Clear Calc 27.26, Est GFR (MDRD) Af Amer 40 L, Est GFR (MDRD) Non-Af 33 L, BUN/Creatinine Ratio 31.9 H, Glucose 97, Calcium 8.4 L Current Medications Acetaminophen (Tylenol) 650 mg PO Q4H PRN PRN PRN Reason: FEVER Albuterol Sulfate (Ventolin Aerosols) 2.5 mg INHALATION Q2H PRN PRN PRN Reason: SHORTNESS OF BREATH Last Admin: 02/18/18 20:40 Dose: 2.5 mg Albuterol/Ipratropium (Duoneb) 3 ml INHALATION Q6HWA.RT [facility] Last Admin: 02/25/18 12:40 Dose: 3 ml Alprazolam (Xanax) 0.25 mg PO BID PRN PRN PRN Reason: ANXIETY Last Admin: 02/23/18 14:14 Dose: 0.25 mg Amiodarone HCl (Cordarone) 200 mg PO TID [facility] Last Admin: 02/25/18 06:57 Dose: 200 mg Apixaban (Eliquis) 2.5 mg PO BID [facility] Last Admin: 02/25/18 08:52 Dose: 2.5 mg Buspirone HCl (Buspar) 5 mg PO 06,12,18 [facility] Last Admin: 02/25/18 11:37 Dose: Not Given Furosemide (Lasix) 40 mg PO BID@1000,1800 [facility] Last Admin: 02/25/18 08:52 Dose: 40 mg Guaifenesin (Mucinex) 1,200 mg PO BID [facility] Last Admin: 02/25/18 10:23 Dose: 1,200 mg Heparin Sodium (Beef Lung) () 50 units IV UD PRN PRN Reason: HEPARIN FLUSH Sodium Chloride () 250 mls @ 15 mls/hr IV .[id number] PRN PRN Reason: SALINE FLUSH Last Admin: 02/17/18 12:17 Dose: 15 mls/hr Lactobacillus Acidophilus (Acidophilus) 1 tablet PO 4X/DAY [facility] Last Admin: 02/25/18 08:52 Dose: 1 tablet Magnesium Hydroxide (Milk Of Magnesia) 30 ml PO DAILY PRN PRN Reason: Constipation Ondansetron HCl (Zofran) 4 mg IV Q8H PRN PRN PRN Reason: NAUSEA Pantoprazole Sodium (Protonix) 40 mg PO DAILY [facility] Last Admin: 02/25/18 08:52 Dose: 40 mg Prednisone () 40 mg PO DAILY@0800 [facility] Last Admin: 02/25/18 08:52 Dose: 40 mg Quetiapine Fumarate (Seroquel) 25 mg PO BID [facility] Last Admin: 02/25/18 08:52 Dose: 25 mg Sodium Chloride () 5 - 15 ml IV UD PRN PRN Reason: SALINE FLUSH Last Admin: 02/25/18 06:56 Dose: 10 ml Sodium Chloride () 10 - 20 ml IV UD PRN PRN Reason: PICC FLUSH Medical Necessity - Tobacco Use Smoking Status: Former smoker Assessment/Plan All Active Problems Streptococcal pneumonia (Acute) Rhinovirus (Acute) Atrial fibrillation (Acute) Acute renal failure (ARF) (Acute) Acute and chronic respiratory failure with hypoxia (Acute) Severe sepsis (Acute) Community acquired pneumonia (Acute) 1. Acute hypoxic respiratory failure secondary to community-acquired pneumonia/sepsis secondary to pneumonia/IVONNE/acute exacerbation of COPD/metabolic encephalopathy secondary to sepsis and IVONNE (resolved) -Off antibiotics -Continue with breathing treatment -Creatinine appears to have stabilized around 2 we will continue to monitor -Continue with breathing treatments and prednisone, she is the likely cause of his continued elevation in WBC 2. Atrial fibrillation with RVR/hypertension -Continue with amiodarone and Eliquis, currently rate is normal as is rhythm -Continue with Lasix, as long as his creatinine remains stable, he has had excellent urine output -We will remove Trejo to encourage ambulation 3. Anxiety/depression -Stable on Xanax and Seroquel -BuSpar was added which she is tolerating Dispo: Unknown DVT: Eliquis Code Visit Inpatient E&M: 62817 Subs Hosp L2
[2018-02-26] VITALS (9 sets, daily range): BP systolic 100–143; BP diastolic 78–86; PULSE 82–95; RESP 16–20; TEMP 36.6–37.2; O2SAT 3–96
[2018-02-26] MEDS: 0.9% NaCl Peripheral Flush Adult/Peds IV ×2 (04:35→04:37)
[2018-02-26 05:10] LABS: Absolute Lymphocyte Count 1.28 X10^3/ul (0.83-4.51); Absolute Neutrophil Count 12.2 X10^3/uL (2.0-7.7); Hematocrit 32.3 % (40-54); Hemoglobin 10.1 g/dl (13.0-16.5); Lymphocyte # 1.28 X10^3/ul (4.0); Lymphocyte % 9.3 % (19-41); Mean Corp Hgb Conc 31.3 g/gl (32-36); Mean Corpuscular Hgb 29.4 pg (27.0-32.0); Mean Corpuscular Volume 94.2 fL (80-94); Mean Platelet Vol. 9.6 fl (6.2-12.0); Monocyte# 0.22 X10^3/uL; Monocyte% 1.6 % (0-10); Neutrophil % 88.4 % (47-70); Platelet Count 380 K/mm3 (150-450); RBC Distribution Width CV 15.7 % (11.6-14.6); RBC Distribution Width SD 53.9 fl (35.1-43.9); Red Blood Count 3.43 M/mm3 (4.6-6.2); White Blood Count 13.8 K/mm3 (4.4-11.0)
[2018-02-26 05:14] LABS: Anion Gap 9 (5-15); BUN 64 mg/dL (7-18); BUN/Creat Ratio 30.6 RATIO (10-20); Calcium,Total 8.5 mg/dL (8.5-10.1); Chloride 96 mmol/L (98-107); Creatinine, Serum 2.09 mg/dL (0.70-1.30); EST Glomerular Filtration Rate 33 mL/min (>60); Est Glom Filt Rate - Afr Amer 40 mL/min (>60); Glucose 105 mg/dL (74-106); Potassium 3.8 mmol/L (3.5-5.1); Sodium Level 142 mmol/L (136-145)
[2018-02-26 05:50] LABS: POSITIVE COUNT NO; POSITIVE DIFFERENTIAL NO; POSITIVE MORPHOLOGY NO
[2018-02-26] MEDS: Amiodarone 200 MG Tablet PO ×2 (06:19→14:45)
[2018-02-26] MEDS: Ipratropium/Albuterol Sulfate 3 ML AMPUL.NEB INHALATION (07:51)
--- NOTE | 2018-02-26 08:58 | CASEMGMT ---
ANGELIQUE met with patient this am to discuss d/c as he is ready for discharge. Patient said he is being discharged today. He made 3 phone calls yesterday to people offering them $10,000 to find an army to care for him. ANGELIQUE asked him how he is going to get home. He said his brother is 230 lbs and he has 2 strong nephews. SW asked him if they know he cannot walk and he said they do. SW asked him how he will get up and go to the bathroom. He said he will have people staying with him 09/09. SW asked if he has oxygen at home. He said he has 5 big green tanks and a concentrator from [facility]. ANGELIQUE told him there is still a bed in TCU for him. ANGELIQUE called patient's brother, Nacho. SW asked him for assistance. ANGELIQUE explained to him patient is not budging on going to TCU or any other SNF. ANGELIQUE told him he keeps saying he has people that are going to care for him. Nacho said he is not ready to come home and he needs to go somewhere for rehab. He said he wishes he would just stay at [facility] for his re[facility]. He said he will get his sister and they will come in sometime before 1p. Izabella RAYGOZA MSW
[2018-02-26] MEDS: predniSONE 20 MG Tablet 40 MG PO (09:35)
[2018-02-26] MEDS: guaiFENesin 1,200 MG Tablet 1200 MG PO (09:36)
[2018-02-26] MEDS: Furosemide 40 MG Tablet PO (09:36)
[2018-02-26] MEDS: APIXABAN 2.5 MG TABLET PO (09:36)
[2018-02-26] MEDS: QUEtiapine 25 MG Tablet PO (09:36)
[2018-02-26] MEDS: Pantoprazole Sodium 40 MG Tablet PO (09:36)
--- NOTE | 2018-02-26 09:58 | PN_ITS ---
Patient Problems: Active and Suspected Problems Atrial fibrillation (Acute) Acute renal failure (ARF) (Acute) Acute and chronic respiratory failure with hypoxia (Acute) Severe sepsis (Acute) Community acquired pneumonia (Acute) Subjective: Patient did well overnight. No acute issues were reported. Patient feels the Mucinex is helping with mobilizing secretions. Patient denies any chest pain. Patient feels that he is at his baseline at this time. Patient is on his baseline supplemental oxygen requirement - Physical Exam General: Alert, Oriented x3, Cooperative, No apparent distress, - - Appears stated age. No conversational dyspnea noted. HEENT: Atraumatic, PERRLA, EOMI, Normocephalic, - - No scleral icterus or injection noted. Oral: Moist Mucosa, No Gingival or Mucosal Lesions/ Ulcerations Neck: Supple, No JVD, No Nodes, Trachea Midline Lungs: No rhonchi, No wheeze, No rales, Diminished, - - Symmetric expansion. No dullness to percussion. Cardiovascular: Regular rate, Regular Rhythm, Normal S1, Normal S2, Murmur, No rub noted, No Gallop Abdomen: Bowel Sounds Present, Soft, Non Tender, Non-Distended Extremities: No cyanosis, No edema, Capillary Refill Less than 3 Seconds, Clubbing Skin: No rashes, No breakdown Musculoskeletal: No Tenderness to Palpation of Joints or Extremities Lymphatic: No Cervical, Supraclavicular, or Inguinal Adenopathy Neurological: Cranial nerves II-XII grossly intact, Neuro grossly intact, Motor Exam 5/5 strength throughout Psych/Mental Status: Alert and oriented to time, place, person, mood and affect Vital Signs Temp Pulse Resp BP Pulse Ox 37.0 C 87 16 100/78 3 02/26/18 09:00 02/26/18 09:00 02/26/18 09:00 02/26/18 09:00 02/26/18 09:00 Oxygen Flow Rate (L/min) 95 Oxygen Delivery Method Nasal Cannula Weight: 54 kg Body Mass Index (BMI) 18.9 Intake and Output for Last 24 Hours 02/24/18 02/25/18 02/26/18 23:59 23:59 23:59 Intake Total 860 / 860 780 / 780 600 / 600 Output Total 2850 / 2850 2125 / 2125 900 / 900 Balance -1989 / -1345 / -1345 -300 / -300 Laboratory Tests Past 24 Hrs 02/26/18 02/26/18 04:35 04:35 WBC 13.8 H RBC 3.43 L Hgb 10.1 L Hct 32.3 L MCV 94.2 H MCH 29.4 MCHC 31.3 L RDW 15.7 H RDW Differential 53.9 H Plt Count 380 MPV 9.6 Immature Gran % (Auto) 0.700 Neut % (Auto) 88.4 H Lymph % (Auto) 9.3 L [place] % (Auto) 1.6 Eos % (Auto) 0.0 Baso % (Auto) 0.0 Absolute Neuts (auto) 12.2 H Absolute Lymphs (auto) 1.28 Total Counted Not Reportable Sodium 142 Potassium 3.8 Chloride 96 L Carbon Dioxide 37.0 H Anion Gap 9 BUN 64 H Creatinine 2.09 H Estim Creat Clear Calc 27.00 Est GFR (MDRD) Af Amer 40 L Est GFR (MDRD) Non-Af 33 L BUN/Creatinine Ratio 30.6 H Glucose 105 Calcium 8.5 Medical Necessity - Tobacco Use Smoking Status: Former smoker Assessment/Plan All Active Problems Streptococcal pneumonia (Acute) Rhinovirus (Acute) Atrial fibrillation (Acute) Acute renal failure (ARF) (Acute) Acute and chronic respiratory failure with hypoxia (Acute) Severe sepsis (Acute) Community acquired pneumonia (Acute) RECOMMENDATIONS: 1. Continue Mucinex therapy 2. Increase activity as tolerated 3. Continue Seroquel for now 4. Wean oxygen as tolerated, walking oximetry prior to discharge 5. Disposition per hospitalist 6. Wean steroids IMPRESSIONS: 1. Acute on chronic hypoxic respiratory failure secondary to presumed COPD exacerbation secondary to left-sided CAP Patient intubated on February 19 secondary to aggressive respiratory failure. Patient has been on appropriate antimicrobial coverage, bronchodilators and steroids. Steroids can be weaned over the next 8-10 days. Will wean to 30 mg today. Continue Seroquel for now. Continue with bronchodilators. Patient on 2-3 L nasal cannula oxygen at baseline. Patient should have a walking oximetry prior to discharge. 2. Severe sepsis secondary to pneumococcal pneumonia and rhinovirus infection As noted above, antibiotics will be continued as ordered. The patient remains hemodynamically stable and afebrile. Antibiotic course has been completed. 3. New-onset atrial fibrillation Resolved. Remains in normal sinus rhythm on amiodarone therapy. Patient is also anticoagulated with Eliquis therapy. No bleeding complications have been reported. Defer management to cardiology. 4. Combined metabolic and respiratory acidosis Resolved. Likely secondary to underlying COPD and renal insufficiency. Defer management of the patient's kidney disease to nephrology. 5. Acute kidney injury Stable. Likely prerenal in etiology, as the patient initially responded to IV volume expansion. He may also have a component of chronic kidney disease as well. Unclear if this indicates new baseline for renal function. We will continue to monitor. No indication for renal replacement therapy at this time. No plans for dialysis per nephrology. New baseline creatinine appears to be around 2. 6. Advanced age/hypertension/metabolic encephalopathy Complicates care, management, recovery and prognosis. Aggressive physical therapy is warranted. Code Visit Inpatient E&M: 25421 Subs Hosp L2
--- NOTE | 2018-02-26 10:00 | NURSING ---
PT REFUSED P.O. W/ AMBULATION. 02 WAS REMOVED FOR APPROX 10 MINUTES AND PULSE OX TAKEN. RESULT WAS 88% ON RA.
--- NOTE | 2018-02-26 11:49 | TREXTCAR_ITS ---
- Diet 02/23/18 10:45 Diet: Regular Diet Food consistency:: Mechanical Soft/Ground Liquid Consistency:: Regular/Thin Is pt able to select menu?: Yes Diet Comments: No added salt - Wound(s) RT Wrist Wound Type: Puncture - Allergies/Procedures Done in Hospital Allergies/Adverse Reactions: Allergies No Known Allergies Allergy (Verified 02/14/18 16:18) - Type of Care/Length of Stay Estimated LOS: Convalescent Care Less Than 30 days Type of Care Needed: Skilled Rehab Potential: Good Prognosis: Good - Additional Orders/Day of Discharge Day of Discharge: 02/26/18 - Dietary and Speech Recommendations Dietitian Recommendations/Changes: When medically able, rec JOVI to liberal Regular NO ADDED SALT - consistency per WEATHER ALGORITHM SCIENTIST. Will provide magic cup w/ meals for increased nutrition if consumed. - Follow Up Care Primary Care Physician: Giovanni Aranda MD [Primary Care Provider] - Please follow up with your Primary Care Physician in: 3-5 days
--- NOTE | 2018-02-26 11:53 | DS.PCM_ITS ---
Discharge Date and Diagnosis - Problem List Patient Problems: Active and Suspected Problems Atrial fibrillation (Acute) Acute renal failure (ARF) (Acute) Acute and chronic respiratory failure with hypoxia (Acute) Severe sepsis (Acute) Community acquired pneumonia (Acute) Date of Admission: 02/14/18 Date of Discharge: 02/26/18 - Primary Discharge Diagnosis Active and Suspected Problems Atrial fibrillation (Acute) Acute renal failure (ARF) (Acute) Acute and chronic respiratory failure with hypoxia (Acute) Severe sepsis (Acute) Community acquired pneumonia (Acute) - Secondary Discharge Diagnosis Chronic Problems Hypertension (Chronic) Chronic respiratory failure (Chronic) COPD (chronic obstructive pulmonary disease) (Chronic) Hospital Course and Treatment Imaging Results: CXR: IMPRESSION: Hyperexpansion with left lower lobe pneumonia and small left effusion. Consults: Artificial Insemination Technician Cardiology Nephrology Operations: None Procedures: 2-D Echocardiogram - Interpretation Summary The study was technically difficult. Left ventricular systolic function is normal. The estimated ejection fraction is 65 %. There is moderate mitral annular calcification. Extension of the mitral annular calcification onto the base of th e posterior mitral valve leaflet. Trivial mitral valve insufficiency. Trivial tricuspid valve insufficiency. Right ventricular systolic pressure estimated to be 41 mmHg. Diastolic function is indeterminate. Summary of Care Provided: Per HPI: The patient is a 77 year old M with past medical history as mentioned above presented to the emergency room because of worsening shortness of breath. The patient is a very poor informant and was not able to provide consistent history. He came to the ED today because of worsening shortness of breath over the last couple of days, gets short of breath at rest, worsening up on minimal activity, not relieved with rest and associated with productive sputum. He mentioned that he does have oxygen at home and he has been on 2-3 L of oxygen. He quit smoking 7 years ago. He denied chest pain, palpitation, dizziness or lightheadedness. He denies fever or chills. He complained of diarrhea over the last several days and was not able to provide any more details about his diarrhea. He had a history of COPD and he has been on bronchodilators, quit smoking 7 years ago but he remained on oxygen. He has chronic respiratory failure secondary to COPD and he has been on home oxygen at 3 L. He had history of hypertension and he has been on 3 different antihypertensive medication including Norvasc, Cozaar and Toprol-XL and apparently, his blood pressure has been under control. He denied any kidney disease in the past. In the emergency department, patient was dyspneic and tachypneic, was afebrile, blood pressure was stable and pulse ox was 66% on 2 L upon arrival to ER. He was started on Ventimask and oxygen improved. Later, he was started on BiPAP and her pulse ox maintained above 90%. His routine blood work was remarkable for leukocytosis, BUN of 76 and creatinine of 3.39. His lactic acid was 3.7. His troponin was negative. EKG revealed sinus rhythm, normal parenchyma, normal QRS without evidence of acute ischemic changes. His ABG revealed pH of 7.29, PCO2 of 44 and PO2 of 52. Chest x-ray revealed left lower base infiltrate with minimal left side pleural effusion. He is being admitted for left lower lobe community acquired pneumonia complicated by severe sepsis and acute on chronic hypoxic respiratory failure as well as acute renal failure. Hospital Course: 1. Acute hypoxic respiratory failure and sepsis secondary to community-acquired pneumonia/AK I/acute exacerbation of COPD/metabolic encephalopathy secondary to sepsis and IVONNE -77-year-old male who presented to the emergency room with worsening shortness of breath. He was found to have an acute exacerbation of COPD as well as community-acquired pneumonia. The urine antigen test and sputum culture came back positive for strep pneumonia and he was treated with amoxicillin and completed that course during his acute inpatient stay. Test positive for rhinovirus. Blood cultures were negative. He progressed from being in the ICU and intubated to being on 3 L nasal cannula on discharge to TCU. Part of his respiratory difficulties in the ICU from his respiratory standpoint was his anxiety which has improved from being on Seroquel and Xanax as needed as well as BuSpar. He also had a bit of an AK I on admission with his creatinine being 3.39 his previous creatinine was 1.7. 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 His creatinine did improve during his stay and is appears to have stabilized at around 2. Part of the difficulty with discharge has been his insistence on being able to go home and higher in a private duty nurses and respiratory therapists and physical therapist to meet his needs at home however he has been unsuccessful in being able to provide names and contact information for all of these people so it could be verify that they would be willing to provide care. He did finally agreed to go to the TCU for rehab. As stated previously he completed all of his antibiotics, and will be discharged to TCU on a prednisone taper. 2. New onset A. fib with RVR/hypertension -during his initial admission into the ICU he was found to be in A. fib with RVR. Cardiology was consulted and an echo was performed which was essentially normal with a normal EF and grade 1 diastolic dysfunction. He did have a slight increase in his right systolic ventricular pressures of 41 mmHg. He was started on amiodarone and was discharged on amiodarone taper of 200 mg 3 times daily for 5 days then 200 mg twice daily for 2 weeks then 200 mg daily. He was on metoprolol at home prior to the admission that has been discontinued at the moment given his amiodarone though it would be reasonable to restart if his heart rate and blood pressure rise during rehab. Because of his new onset A. fib he was started on anticoagulation with Eliquis twice daily though it was renally dosed to 2.5 mg. He will continue his home Norvasc as well as Lasix on discharge. 3. His other home medical diagnoses were evaluated and he was continued on his home medications where appropriate Patient Problems: Active and Suspected Problems Atrial fibrillation (Acute) Acute renal failure (ARF) (Acute) Acute and chronic respiratory failure with hypoxia (Acute) Severe sepsis (Acute) Community acquired pneumonia (Acute) Objective: General: Alert, orientedx3, cooperative, No apparent distress HEENT: Atraumatic, EOMI, Normocephalic Oral: Moist Mucosa Neck: Supple, No JVD, Trachea Midline Lungs: Clear to auscultation, Normal air movement, No rhonchi, No wheeze, No rales, Diminished Cardiovascular: Regular rate, Regular Rhythm, Normal S1, Normal S2, No murmurs, No rub noted, No Gallop Abdomen: Soft, Non Tender, Non-Distended, No Hepato-splenomegaly Extremities: No edema, Capillary Refill Less than 3 Seconds Skin: No rashes, No breakdown Neurological: Neuro grossly intact, strength 4/5, Sensory exam intact to light touch and pain Psych/Mental Status: Appropriate, Flat Affect - Physical Exam Vital Signs Temp Pulse Resp BP Pulse Ox 98.6 F 87 16 100/78 3 02/26/18 09:00 02/26/18 09:00 02/26/18 09:50 02/26/18 09:00 02/26/18 09:00 Oxygen Flow Rate (L/min) 3 Oxygen Delivery Method Nasal Cannula Weight: 119 lb 0.794 oz Body Mass Index (BMI) 18.9 Intake and Output for Last 24 Hours 02/24/18 02/25/18 02/26/18 23:59 23:59 23:59 Intake Total 860 / 860 780 / 780 600 / 600 Output Total 2850 / 2850 2125 / 2125 900 / 900 Balance -1989 / -1989 -1345 / -1345 -300 / -300 Laboratory Tests Past 24 Hrs 02/26/18 02/26/18 04:35 04:35 WBC 13.8 H RBC 3.43 L Hgb 10.1 L Hct 32.3 L MCV 94.2 H MCH 29.4 MCHC 31.3 L RDW 15.7 H RDW Differential 53.9 H Plt Count 380 MPV 9.6 Immature Gran % (Auto) 0.700 Neut % (Auto) 88.4 H Lymph % (Auto) 9.3 L [place] % (Auto) 1.6 Eos % (Auto) 0.0 Baso % (Auto) 0.0 Absolute Neuts (auto) 12.2 H Absolute Lymphs (auto) 1.28 Total Counted Not Reportable Sodium 142 Potassium 3.8 Chloride 96 L Carbon Dioxide 37.0 H Anion Gap 9 BUN 64 H Creatinine 2.09 H Estim Creat Clear Calc 27.00 Est GFR (MDRD) Af Amer 40 L Est GFR (MDRD) Non-Af 33 L BUN/Creatinine Ratio 30.6 H Glucose 105 Calcium 8.5 Home Medications: Medications to take at Discharge Albuterol Aerosols [Ventolin Aerosols] 2.5 mg INHALATION Q4HWA.RT 02/14/18 Amlodipine [Norvasc] 10 mg PO DAILY 02/14/18 Umeclidinium Brm/Vilanterol Tr [Anoro Ellipta 62.5-25 Mcg INH] 1 puff INHALATION DAILY 02/14/18 Albuterol IH (ProAir) [Proair Hfa] 2 puff INHALATION Q4H PRN PRN 02/16/18 Fluticasone Furoate [Arnuity Ellipta] 1 puff INHALATION DAILY 02/16/18 Tamsulosin HCl 1 cap PO DAILY 02/16/18 ALPRAZolam [Xanax] 0.25 mg PO BID PRN PRN tablet 02/26/18 Acetaminophen [Tylenol Tablet] 650 mg PO Q4H PRN PRN tablet 02/26/18 Amiodarone HCl [Cordarone] 200 mg PO TID tablet 02/26/18 Apixaban [Eliquis] 2.5 mg PO BID tablet 02/26/18 Furosemide [Lasix] 40 mg PO DAILY tablet 02/26/18 Guaifenesin [Mucinex] 1,200 mg PO BID tablet 02/26/18 Ipratropium/Albuterol Sulfate [Duoneb] 3 ml INHALATION Q6HWA.RT ampul.neb 02/26/18 Pantoprazole Sodium [Protonix] 40 mg PO DAILY tablet 02/26/18 Quetiapine Fumarate [Seroquel] 25 mg PO BID tablet 02/26/18 busPIRone [Buspar] 5 mg PO 06,,18 tablet 02/26/18 predniSONE tablet 20 mg PO DAILY #20 tablet 02/26/18 Following Prescrptions Were Given to Patient: predniSONE tablet 20 mg PO DAILY #20 tablet Primary Care Physician: Giovanni Aranda MD [Primary Care Provider] - Please follow up with your Primary Care Physician in: 3-5 days Disposition: [facility] facility Minutes spent on discharge:: 35 Patient Condition:: Stable Medical Necessity - Tobacco Use Smoking Status: Former smoker Meaningful Use Info Meaningful Use Diagnoses (Choose all that apply): None applicable Code Visit Inpatient E&M: 14450 Disch Hosp
--- NOTE | 2018-02-26 14:05 | CASEMGMT ---
Physician spoke with patient and he agreed to go to TCU for a short time. SW called patient's brother, Nacho. He said his and sister were going to come in today between 3 and 4 to talk with patient. SW asked him to tell them to encourage him to stay in TCU until he is stronger. Plan: [facility] TCU under skilled level of care. Izabella BROOKE
--- NOTE | 2018-02-26 14:44 | PCM.PN.REN ---
Patient Problems: Active and Suspected Problems Atrial fibrillation (Acute) Acute renal failure (ARF) (Acute) Acute and chronic respiratory failure with hypoxia (Acute) Severe sepsis (Acute) Community acquired pneumonia (Acute) Subjective: doing well without complains. SOB, swelling and cough improving. - Physical Exam General: Alert, Oriented x3, Cooperative, No apparent distress Lungs: Diminished Cardiovascular: Irregular Rate Abdomen: Bowel Sounds Present, Soft, Non Tender, Non-Distended Extremities: Edema - mild UE edema, - - PICC line RUE Skin: - - ecchymosis Musculoskeletal: Muscle Wasting Neurological: Cranial nerves II-XII grossly intact Vital Signs Temp Pulse Resp BP Pulse Ox 98.9 F 95 18 143/84 H 95 02/26/18 14:35 02/26/18 14:35 02/26/18 14:35 02/26/18 14:35 02/26/18 14:35 Oxygen Flow Rate (L/min) 3 Oxygen Delivery Method Nasal Cannula Weight: 54 kg Body Mass Index (BMI) 18.9 Intake and Output for Last 24 Hours 02/24/18 02/25/18 02/26/18 23:59 23:59 23:59 Intake Total 860 / 860 780 / 780 600 / 600 Output Total 2850 / 2850 2125 / 2125 900 / 900 Balance -1989 / -1989 -1345 / -1345 -300 / -300 Laboratory Tests Past 24 Hrs 02/26/18 02/26/18 04:35 04:35 WBC 13.8 H RBC 3.43 L Hgb 10.1 L Hct 32.3 L MCV 94.2 H MCH 29.4 MCHC 31.3 L RDW 15.7 H RDW Differential 53.9 H Plt Count 380 MPV 9.6 Immature Gran % (Auto) 0.700 Neut % (Auto) 88.4 H Lymph % (Auto) 9.3 L [place] % (Auto) 1.6 Eos % (Auto) 0.0 Baso % (Auto) 0.0 Absolute Neuts (auto) 12.2 H Absolute Lymphs (auto) 1.28 Total Counted Not Reportable Sodium 142 Potassium 3.8 Chloride 96 L Carbon Dioxide 37.0 H Anion Gap 9 BUN 64 H Creatinine 2.09 H Estim Creat Clear Calc 27.00 Est GFR (MDRD) Af Amer 40 L Est GFR (MDRD) Non-Af 33 L BUN/Creatinine Ratio 30.6 H Glucose 105 Calcium 8.5 Medical Necessity - Tobacco Use Smoking Status: Former smoker Assessment/Plan All Active Problems Streptococcal pneumonia (Acute) Rhinovirus (Acute) Atrial fibrillation (Acute) Acute renal failure (ARF) (Acute) Acute and chronic respiratory failure with hypoxia (Acute) Severe sepsis (Acute) Community acquired pneumonia (Acute) 1. Acute on chronic kidney disease. Creatinine 1.7 in August 2017. Creatinine unchanged. Cut back lasix to daily dose. 2. Acute respiratory failure due to pneumonia, rhinovirus resolved 3. CAP with strep pna, rhinovirus 4. Debility rehab in progress
--- NOTE | 2018-02-27 12:43 | CASEMGMT ---
Received voicemail from Yazmin at Dr. Aranda's office (ph: [phone]) wanting to know which SNF patient discharged to. Yazmin plans to follow up with SNF weekly regarding patient's condition. Informed Yazmin that patient discharged to [facility] TCU. Josefina Castañeda LPN Clinical Support
== END 2018-02-26 15:15 | disposition skilled nursing facility (03) | DRG 871 ==
LOC: ED 17:12 → ICU 18:19 → PCU 02-16 10:43 → ICU 02-24 10:05 → PCU 02-24 11:09
PROVIDERS: Hospitalist; Internal Medicine; Internal Medicine Cardiovascular Disease; Internal Medicine Critical Care Medicine; Internal Medicine Nephrology; Admitting Provider Hospitalist; Emergency Provider Emergency Medicine; Family Provider Family Medicine; PCP Family Medicine; Referring Provider Hospitalist; Visit Provider Family Medicine
DX: A40.3 Sepsis due to Streptococcus pneumoniae (principal); J96.21 Acute and chronic respiratory failure with hypoxia; A41.89 Other specified sepsis; G93.41 Metabolic encephalopathy; J13 Pneumonia due to Streptococcus pneumoniae; R65.20 Severe sepsis without septic shock; N17.9 Acute kidney failure, unspecified; J44.1 Chronic obstructive pulmonary disease with (acute) exacerbation; J44.0 Chronic obstructive pulmonary disease with (acute) lower respiratory infection; E87.0 Hyperosmolality and hypernatremia; Z99.81 Dependence on supplemental oxygen; I48.91 Unspecified atrial fibrillation; B97.89 Other viral agents as the cause of diseases classified elsewhere; D64.9 Anemia, unspecified; Z87.891 Personal history of nicotine dependence; I12.9 Hypertensive chronic kidney disease with stage 1 through stage 4 chronic kidney disease, or unspecified chronic kidney disease; N18.9 Chronic kidney disease, unspecified
CPT/HCPCS: 31500; 31720; 36569; 36600; 51702; 71045; 76770; 80048; 80053; 80069; 81002; 82550; 82570; 82803; 82962; 83036; 83605; 83735; 83880; 84100; 84300; 84478; 84484; 85014; 85018; 85025; 85027; 85730; 86738; 87040; 87070; 87077; 87086; 87186; 87205; 87449; 87633; 93005; 93306; 94002; 94003; 94640; 94660; 94667; 94668; 94762; 95831; 97110; 97163; 97165; 97530; 97802; 97803; 99251; 99285; J7030; J7040; J7050; A4216; G0463; J0696; J1940

== ENCOUNTER 2018-02-26 15:30 | Inpatient (IN) | payer MEDICARE, OTHER, SELFPAY ==
[2018-02-14 18:49] VITALS: BMI 18.9
[2018-02-26 15:35] VITALS: BMI 20.7
--- NOTE | 2018-02-26 15:39 | NURSING ---
pt arrived from [facility] @ [id number] via bed
[2018-02-26 16:00] VITALS: BP 117/92; PULSE 87; RESP 20; TEMP 36.9; O2SAT 99
[2018-02-26] MEDS: APIXABAN 2.5 MG TABLET PO (17:31)
[2018-02-26] MEDS: QUEtiapine 25 MG Tablet PO (17:31)
[2018-02-26] MEDS: guaiFENesin 1,200 MG Tablet 1200 MG PO (17:31)
[2018-02-26 19:35] VITALS: PULSE 93; RESP 18; O2SAT 95
[2018-02-26] MEDS: Ipratropium/Albuterol Sulfate 3 ML AMPUL.NEB INHALATION (19:35)
--- NOTE | 2018-02-26 21:09 | PCM.HP.STD ---
Problem List (1) Anxiety Status: Acute (2) Streptococcal pneumonia Status: Acute (3) Rhinovirus Status: Acute (4) Atrial fibrillation Status: Acute (5) Acute renal failure (ARF) Status: Acute (6) Acute and chronic respiratory failure with hypoxia Status: Acute (7) Severe sepsis Status: Acute (8) Community acquired pneumonia Status: Acute (9) Hypertension Status: Chronic (10) COPD (chronic obstructive pulmonary disease) Status: Chronic (11) Abdominal aortic aneurysm (AAA) 3.0 cm to 5.5 cm in diameter in male Status: Chronic History of Present Illness Date of Admission: 02/26/18 Chief Complaint: Here for rehabilitation, strengthening, prior to discharge home alone. The patient is a 77 year old Male with below past medical history presented to [facility] Emergency Department 02/14/2018 with shortness of breath, worsening COPD. Increasing shortness of breath x 2 days, on home oxygen. Productive cough of colored sputum. Cyanotic on exam. WBC 19.6, Troponin negative, BUN 76, Cr 3.39. EKG sinus, rate 91. Chest X-ray showed left lower lobe pneumonia, COPD. Lactic acid 3.7. BiPAP, Duoneb, albuterol, Rocephin, Azithromycin given. 02/14/2018 Admit to ICU Rocephin, Azithromycin IV for community acquired pneumonia. BiPAP for respiratory failure secondary to COPD. Patient later required intubation, ventilation. 02/16/2018 Renal ultrasound showed medical kidney disease. 5.3CM Abdominal aortic aneurysm. 02/16/2018 Echo LVSF normal. EF 65%. RVSP 41mm HG. Urine antigen positive for Strep pneumoniae treated with Amoxicillin. Respiratory panel positive for rhinovirus. Intubation in ICU, progressed to 3 Liters oxygen per nasal cannula. Anxiety treated with Seroquel, Xanax, as needed buspar. Acute kidney injury improved with IV fluid hydration. New onset atrial fibrillation with rapid ventricular response treated with amiodarone taper, Eliquis 2.5MG twice daily. 5.3CM AAA should be followed up as outpatient. 02/26/2018 Admit to TCU with debility, here for rehabilitation, strengthening, prior to discharge home alone. Past Medical History Past Medical History (Chronic Problems): Chronic Problems Abdominal aortic aneurysm (AAA) 3.0 cm to 5.5 cm in diameter in male (Chronic) Hypertension (Chronic) Chronic respiratory failure (Chronic) COPD (chronic obstructive pulmonary disease) (Chronic) Allergies No Known Allergies Allergy (Verified 02/14/18 16:18) Home Medications: Ambulatory Orders Medication Instructions Recorded Albuterol Aerosols [Ventolin 2.5 mg INHALATION Q4HWA.RT 02/14/18 Aerosols] Amlodipine [Norvasc] 10 mg PO DAILY 02/14/18 Umeclidinium Brm/Vilanterol Tr 1 puff INHALATION DAILY 02/14/18 [Anoro Ellipta 62.5-25 Mcg INH] Albuterol IH (ProAir) [Proair Hfa] 2 puff INHALATION Q4H PRN PRN 02/16/18 Fluticasone Furoate [Arnuity 1 puff INHALATION DAILY 02/16/18 Ellipta] Tamsulosin HCl 1 cap PO DAILY 02/16/18 ALPRAZolam [Xanax] 0.25 mg PO BID PRN PRN tablet 02/26/18 Acetaminophen [Tylenol Tablet] 650 mg PO Q4H PRN PRN tablet 02/26/18 Amiodarone HCl [Cordarone] 200 mg PO TID 02/26/18 Apixaban [Eliquis] 2.5 mg PO BID 02/26/18 Furosemide [Lasix] 40 mg PO DAILY 02/26/18 Guaifenesin [Mucinex] 1,200 mg PO BID 02/26/18 Ipratropium/Albuterol Sulfate 3 ml INHALATION Q6HWA.RT 02/26/18 [Duoneb] Pantoprazole Sodium [Protonix] 40 mg PO DAILY 02/26/18 Quetiapine Fumarate [Seroquel] 25 mg PO BID 02/26/18 busPIRone [Buspar] 5 mg PO 06,,18 02/26/18 predniSONE tablet 20 mg PO DAILY 02/26/18 Surgical History: herniorrhaphy Psychiatric History: Anxiety Lives: Alone Smoking Status: Former smoker Tobacco Use: Non-smoker, Pipe Alcohol: None Drugs: None - *Family History Maternal History Items: No pertinent history Paternal History Items: No pertinent history Review of Systems Constitutional: Denies: Chills, Fever, Weight Change HEENT: Denies: Head Aches, Sinus Congestion, Sinus Drainage Cardiovascular: Denies: Chest Pain, Palpitations Respiratory: Denies: Cough, Shortness of breath at rest, Sputum production Gastrointestinal: Denies: Abdominal Pain, Nausea, Vomiting Genitourinary: Denies: Dysuria Musculoskeletal: Denies: Joint Pain, Joint Tenderness Skin: Denies: Rash, Wounds Neurological: Denies: Numbness, Tingling, Focal weakness Psychiatric: Denies: Anxiety, Depression, Homicidal Ideations, Suicidal Ideations Hematologic/ Lymphatic: Denies: Easy Bruising, Easy Bleeding VTE Information - Inpt Only VTE Present on Admission: No VTE Mechan Device Prophylaxis: Knee High MICHAEL Hose VTE Pharm Prophylaxis ordered?: No Reason prophylaxis not ordered:: Treatment Not Indicated Patient Problems: Active and Suspected Problems Anxiety (Acute) - Physical Exam General: Alert, Oriented x3, Cooperative HEENT: Atraumatic, PERRLA, EOMI, Normocephalic Neck: Supple, No JVD, Negative Carotid Bruits Lungs: Clear to auscultation, Normal air movement Cardiovascular: Regular rate, No murmurs Abdomen: Bowel Sounds Present, Soft, Non Tender Extremities: No edema, Capillary Refill Less than 3 Seconds Skin: No rashes, No breakdown Musculoskeletal: No Tenderness to Palpation of Joints or Extremities Neurological: Cranial nerves II-XII grossly intact Psych/Mental Status: Normal Affect, Appropriate Vital Signs Temp Pulse Resp BP Pulse Ox 98.4 F 93 18 117/92 H 95 02/26/18 16:00 02/26/18 19:35 02/26/18 19:35 02/26/18 16:00 02/26/18 19:35 Oxygen Flow Rate (L/min) 2.5 Oxygen Delivery Method Nasal Cannula Weight: 61.689 kg Body Mass Index (BMI) 20.7 Assessment/Plan All Active Problems Anxiety (Acute) Streptococcal pneumonia (Acute) Rhinovirus (Acute) Atrial fibrillation (Acute) Acute renal failure (ARF) (Acute) Acute and chronic respiratory failure with hypoxia (Acute) Severe sepsis (Acute) Community acquired pneumonia (Acute) 77 year old male with below past medical history hospitalized for acute respiratory failure requiring intubation secondary to Pneumococcal pneumonia complicated by rhinovirus, acute kidney failure, atrial fibrillation with rapid ventricular response, 5.3CM abdominal aortic aneurysm, admitted to TCU with debility, here for rehabilitation, strengthening, prior to discharge home alone. Debility - PT/OT. Pain - Tylenol 1000MG Q6H PRN mild pain. Bowel - Miralax 17GM daily, Dulcolax 10MG PO daily PRN. Pneumonia vaccination - Administer Prevnar 13 and/or Pneumovax 23 as necessary. DVT prophylaxis - Not necessary, already on Eliquis. COPD - Anoro 1 puff daily, Duoneb 3ML Q6HWA, Albuterol 2.5MG Q4HWA, Proair 2 puffs Q4H PRN. Prednisone taper. Anxiety - Xanax 0.25MG daily PRN x 7 days, then stop (GDR). Buspar 5MG BID x 7 days, then 5MG daily x 7 days, then stop (GDR). Atrial Fibrillation - Amiodarone 200MG TID thru 03/03/2018, 200MG BID thru 03/05/2018, then 200MG daily, Eliquis 2.5MG BID. Hypertension - Amlodipine 10MG daily. Allergic Rhinitis - Flonase 1 spray daily. Edema - Lasix 40MG daily. Congestion - Mucinex 1200MG BID. GERD - Pantoprazole 40MG daily. Behavioral problem - Seroquel 25MG QPM x 7 days, then stop (GDR). BPH - Tamsulosin 0.4MG daily. Acute kidney injury - follow BMP. Abdominal Aortic Aneurysm - 5.3CM, refer to Dr. Lugo for appointment.
--- NOTE | 2018-02-26 21:13 | HP.PCM_ITS ---
Problem List (1) Anxiety Status: Acute (2) Streptococcal pneumonia Status: Acute (3) Rhinovirus Status: Acute (4) Atrial fibrillation Status: Acute (5) Acute renal failure (ARF) Status: Acute (6) Acute and chronic respiratory failure with hypoxia Status: Acute (7) Severe sepsis Status: Acute (8) Community acquired pneumonia Status: Acute (9) Hypertension Status: Chronic (10) COPD (chronic obstructive pulmonary disease) Status: Chronic (11) Abdominal aortic aneurysm (AAA) 3.0 cm to 5.5 cm in diameter in male Status: Chronic History of Present Illness Date of Admission: 02/26/18 Chief Complaint: Here for rehabilitation, strengthening, prior to discharge home alone. The patient is a 77 year old Male with below past medical history presented to [facility] Emergency Department 02/14/2018 with shortness of breath, worsening COPD. Increasing shortness of breath x 2 days, on home oxygen. Productive cough of colored sputum. Cyanotic on exam. WBC 19.6, Troponin negative, BUN 76, Cr 3.39. EKG sinus, rate 91. Chest X-ray showed left lower lobe pneumonia, COPD. Lactic acid 3.7. BiPAP, Duoneb, albuterol, Rocephin, Azithromycin given. 02/14/2018 Admit to ICU Rocephin, Azithromycin IV for community acquired pneumonia. BiPAP for respiratory failure secondary to COPD. Patient later required intubation, ventilation. 02/16/2018 Renal ultrasound showed medical kidney disease. 5.3CM Abdominal aortic aneurysm. 02/16/2018 Echo LVSF normal. EF 65%. RVSP 41mm HG. Urine antigen positive for Strep pneumoniae treated with Amoxicillin. Respiratory panel positive for rhinovirus. Intubation in ICU, progressed to 3 Liters oxygen per nasal cannula. Anxiety treated with Seroquel, Xanax, as needed buspar. Acute kidney injury improved with IV fluid hydration. New onset atrial fibrillation with rapid ventricular response treated with amiodarone taper, Eliquis 2.5MG twice daily. 5.3CM AAA should be followed up as outpatient. 02/26/2018 Admit to TCU with debility, here for rehabilitation, strengthening, prior to discharge home alone. Past Medical History Past Medical History (Chronic Problems): Chronic Problems Abdominal aortic aneurysm (AAA) 3.0 cm to 5.5 cm in diameter in male (Chronic) Hypertension (Chronic) Chronic respiratory failure (Chronic) COPD (chronic obstructive pulmonary disease) (Chronic) Allergies No Known Allergies Allergy (Verified 02/14/18 16:18) Home Medications: Ambulatory Orders Medication Instructions Recorded Albuterol Aerosols [Ventolin 2.5 mg INHALATION Q4HWA.RT 02/14/18 Aerosols] Amlodipine [Norvasc] 10 mg PO DAILY 02/14/18 Umeclidinium Brm/Vilanterol Tr 1 puff INHALATION DAILY 02/14/18 [Anoro Ellipta 62.5-25 Mcg INH] Albuterol IH (ProAir) [Proair Hfa] 2 puff INHALATION Q4H PRN PRN 02/16/18 Fluticasone Furoate [Arnuity 1 puff INHALATION DAILY 02/16/18 Ellipta] Tamsulosin HCl 1 cap PO DAILY 02/16/18 ALPRAZolam [Xanax] 0.25 mg PO BID PRN PRN tablet 02/26/18 Acetaminophen [Tylenol Tablet] 650 mg PO Q4H PRN PRN tablet 02/26/18 Amiodarone HCl [Cordarone] 200 mg PO TID 02/26/18 Apixaban [Eliquis] 2.5 mg PO BID 02/26/18 Furosemide [Lasix] 40 mg PO DAILY 02/26/18 Guaifenesin [Mucinex] 1,200 mg PO BID 02/26/18 Ipratropium/Albuterol Sulfate 3 ml INHALATION Q6HWA.RT 02/26/18 [Duoneb] Pantoprazole Sodium [Protonix] 40 mg PO DAILY 02/26/18 Quetiapine Fumarate [Seroquel] 25 mg PO BID 02/26/18 busPIRone [Buspar] 5 mg PO 06,,18 02/26/18 predniSONE tablet 20 mg PO DAILY 02/26/18 Surgical History: herniorrhaphy Psychiatric History: Anxiety Lives: Alone Smoking Status: Former smoker Tobacco Use: Non-smoker, Pipe Alcohol: None Drugs: None - *Family History Maternal History Items: No pertinent history Paternal History Items: No pertinent history Review of Systems Constitutional: Denies: Chills, Fever, Weight Change HEENT: Denies: Head Aches, Sinus Congestion, Sinus Drainage Cardiovascular: Denies: Chest Pain, Palpitations Respiratory: Denies: Cough, Shortness of breath at rest, Sputum production Gastrointestinal: Denies: Abdominal Pain, Nausea, Vomiting Genitourinary: Denies: Dysuria Musculoskeletal: Denies: Joint Pain, Joint Tenderness Skin: Denies: Rash, Wounds Neurological: Denies: Numbness, Tingling, Focal weakness Psychiatric: Denies: Anxiety, Depression, Homicidal Ideations, Suicidal Ideations Hematologic/ Lymphatic: Denies: Easy Bruising, Easy Bleeding VTE Information - Inpt Only VTE Present on Admission: No VTE Mechan Device Prophylaxis: Knee High MICHAEL Hose VTE Pharm Prophylaxis ordered?: No Reason prophylaxis not ordered:: Treatment Not Indicated Patient Problems: Active and Suspected Problems Anxiety (Acute) - Physical Exam General: Alert, Oriented x3, Cooperative HEENT: Atraumatic, PERRLA, EOMI, Normocephalic Neck: Supple, No JVD, Negative Carotid Bruits Lungs: Clear to auscultation, Normal air movement Cardiovascular: Regular rate, No murmurs Abdomen: Bowel Sounds Present, Soft, Non Tender Extremities: No edema, Capillary Refill Less than 3 Seconds Skin: No rashes, No breakdown Musculoskeletal: No Tenderness to Palpation of Joints or Extremities Neurological: Cranial nerves II-XII grossly intact Psych/Mental Status: Normal Affect, Appropriate Vital Signs Temp Pulse Resp BP Pulse Ox 98.4 F 93 18 117/92 H 95 02/26/18 16:00 02/26/18 19:35 02/26/18 19:35 02/26/18 16:00 02/26/18 19:35 Oxygen Flow Rate (L/min) 2.5 Oxygen Delivery Method Nasal Cannula Weight: 61.689 kg Body Mass Index (BMI) 20.7 Assessment/Plan All Active Problems Anxiety (Acute) Streptococcal pneumonia (Acute) Rhinovirus (Acute) Atrial fibrillation (Acute) Acute renal failure (ARF) (Acute) Acute and chronic respiratory failure with hypoxia (Acute) Severe sepsis (Acute) Community acquired pneumonia (Acute) 77 year old male with below past medical history hospitalized for acute respiratory failure requiring intubation secondary to Pneumococcal pneumonia complicated by rhinovirus, acute kidney failure, atrial fibrillation with rapid ventricular response, 5.3CM abdominal aortic aneurysm, admitted to TCU with patricio uriarte, here for rehabilitation, strengthening, prior to discharge home alone. * Debility - PT/OT. * Pain - Tylenol 1000MG Q6H PRN mild pain. * Bowel - Miralax 17GM daily, Dulcolax 10MG PO daily PRN. * Pneumonia vaccination - Administer Prevnar 13 and/or Pneumovax 23 as necessary. * DVT prophylaxis - Not necessary, already on Eliquis. * COPD - Anoro 1 puff daily, Duoneb 3ML Q6HWA, Albuterol 2.5MG Q4HWA, Proair 2 puffs Q4H PRN. Prednisone taper. * Anxiety - Xanax 0.25MG daily PRN x 7 days, then stop (GDR). Buspar 5MG BID x 7 days, then 5MG daily x 7 days, then stop (GDR). * Atrial Fibrillation - Amiodarone 200MG TID thru 03/03/2018, 200MG BID thru 03/05/2018, then 200MG daily, Eliquis 2.5MG BID. * Hypertension - Amlodipine 10MG daily. * Allergic Rhinitis - Flonase 1 spray daily. * Edema - Lasix 40MG daily. * Congestion - Mucinex 1200MG BID. * GERD - Pantoprazole 40MG daily. * Behavioral problem - Seroquel 25MG QPM x 7 days, then stop (GDR). * BPH - Tamsulosin 0.4MG daily. * Acute kidney injury - follow BMP. * Abdominal Aortic Aneurysm - 5.3CM, refer to Dr. Lugo for appointment.
[2018-02-26] MEDS: Tamsulosin HCl 0.4 MG Capsule PO (21:34)
[2018-02-26] MEDS: Amiodarone 200 MG Tablet PO (21:34)
--- NOTE | 2018-02-26 22:15 | NURSING ---
Code status discussed with pt, pt wishes to be a full code.
--- NOTE | 2018-02-27 01:10 | NURSING ---
Toenails noted to be long during assessment. Pt refused to have this nurse or club concierge trim.
[2018-02-27] MEDS: amLODIPine 5 MG Tablet 10 MG PO (05:24)
[2018-02-27] MEDS: busPIRone 15 MG TABLET 5 MG PO (05:24)
[2018-02-27] MEDS: Pantoprazole Sodium 40 MG Tablet PO (05:24)
[2018-02-27] MEDS: guaiFENesin 1,200 MG Tablet 1200 MG PO ×2 (05:25→16:54)
[2018-02-27] MEDS: Furosemide 40 MG Tablet PO (05:25)
[2018-02-27] MEDS: Amiodarone 200 MG Tablet PO ×3 (05:25→20:37)
[2018-02-27] MEDS: APIXABAN 2.5 MG TABLET PO ×2 (05:25→16:54)
[2018-02-27] MEDS: 0.9% NaCl PICC Flush 10 ML IV ×2 (05:36→14:18)
[2018-02-27 05:45] LABS: Anion Gap 8 (5-15); BUN 63 mg/dL (7-18); BUN/Creat Ratio 26.7 RATIO (10-20); Calcium,Total 8.1 mg/dL (8.5-10.1); Chloride 96 mmol/L (98-107); Creatinine, Serum 2.36 mg/dL (0.70-1.30); EST Glomerular Filtration Rate 29 mL/min (>60); Est Glom Filt Rate - Afr Amer 35 mL/min (>60); Estimated Creatinine Clearance 22.87 ml/min; Glucose 119 mg/dL (74-106); Potassium 3.6 mmol/L (3.5-5.1); Sodium Level 141 mmol/L (136-145)
[2018-02-27 05:59] LABS: Absolute Lymphocyte Count 1.24 X10^3/ul (0.83-4.51); Absolute Neutrophil Count 10.3 X10^3/uL (2.0-7.7); Hematocrit 29.7 % (40-54); Hemoglobin 9.2 g/dl (13.0-16.5); Lymphocyte # 1.24 X10^3/ul (4.0); Lymphocyte % 10.4 % (19-41); Mean Corpuscular Hgb 29.3 pg (27.0-32.0); Mean Corpuscular Volume 94.6 fL (80-94); Mean Platelet Vol. 9.8 fl (6.2-12.0); Monocyte% 2.5 % (0-10); Neutrophil % 86.8 % (47-70); Platelet Count 299 K/mm3 (150-450); RBC Distribution Width CV 15.5 % (11.6-14.6); Red Blood Count 3.14 M/mm3 (4.6-6.2); White Blood Count 11.9 K/mm3 (4.4-11.0)
[2018-02-27 06:00] LABS: POSITIVE COUNT NO; POSITIVE DIFFERENTIAL NO; POSITIVE MORPHOLOGY NO
[2018-02-27 07:30] VITALS: PULSE 811; RESP 18
[2018-02-27] MEDS: Ipratropium/Albuterol Sulfate 3 ML AMPUL.NEB INHALATION (07:30)
[2018-02-27] MEDS: predniSONE 10 MG Tablet 20 MG PO (09:20)
--- NOTE | 2018-02-27 09:26 | NURSING ---
pt requesting when therapy would be back, notified PT/OT for times. Wrote times on pt room board. Pt stated ok, I will discuss that with them Pt took prednisone with applesauce per his request. pt resting in bed, remains in isolation for rhinovirus, all care/treatment provided in room
--- NOTE | 2018-02-27 09:45 | NURSING ---
dr cuba notified of consult via phone order for 5.3 cm AAA.
[2018-02-27] MEDS: Tuberculin,Purif.prot.deriv. 50 TU/ML Vial 5 ML ID (10:43)
[2018-02-27 15:45] VITALS: BP 116/77; PULSE 88; RESP 21; TEMP 36.9; O2SAT 98
[2018-02-27] MEDS: busPIRone 5 MG Tablet PO (16:54)
[2018-02-27] MEDS: Tamsulosin HCl 0.4 MG Capsule PO (16:55)
[2018-02-27 20:35] VITALS: BP 114/84; PULSE 85
[2018-02-27] MEDS: QUEtiapine 25 MG Tablet PO (20:37)
[2018-02-27 20:42] VITALS: PULSE 89; O2SAT 94
[2018-02-27 21:35] VITALS: PULSE 84; RESP 18; O2SAT 95
[2018-02-27] MEDS: Albuterol 2.5 MG/3 ML VIAL.NEB. INHALATION (21:35)
[2018-02-28] VITALS (7 sets, daily range): BP systolic 89–105; BP diastolic 58–84; PULSE 78–96; RESP 16–20; TEMP 36.6–36.7; O2SAT 93–96
[2018-02-28] MEDS: Pantoprazole Sodium 40 MG Tablet PO (05:15)
[2018-02-28] MEDS: APIXABAN 2.5 MG TABLET PO ×2 (05:15→16:48)
[2018-02-28] MEDS: guaiFENesin 1,200 MG Tablet 1200 MG PO ×2 (05:15→16:48)
[2018-02-28] MEDS: Furosemide 40 MG Tablet PO (05:15)
[2018-02-28] MEDS: busPIRone 5 MG Tablet PO (05:16)
[2018-02-28] MEDS: Ipratropium/Albuterol Sulfate 3 ML AMPUL.NEB INHALATION ×3 (07:12→21:09)
[2018-02-28] MEDS: predniSONE 10 MG Tablet 20 MG PO (09:28)
[2018-02-28] MEDS: Iron Polysaccharide Complex 150 MG CAPSULE PO (09:28)
[2018-02-28] MEDS: 0.9% NaCl PICC Flush 10 ML IV (11:23)
--- NOTE | 2018-02-28 15:22 | NURSING ---
Pt insisting on discharging home today. BP 86/60 this AM, recheck 90/60. Amiodarone and norvasc held. BP this afternoon 92/62. Explained to patient that d/t his low blood pressure and respiratory status that he should consider staying for some additional therapy and medical supervision. Pt states I have everything I need at home and my lungs are just fine, this isnt' the first time my blood pressure has been low, it's not big deal. Dr. Payne updated, if patient wishes to discharge home, he must sign AMA paper.
--- NOTE | 2018-02-28 15:33 | NURSING ---
Addendum entered by Alyssa Henley 02/28/18 15:52: PER DR. WHITAKER HOLD 1400 DOSE OF AMIODORONE. Original Note: Pt requesting to leave AMA. States his nephew will come pick him up and take him home.
[2018-02-28] MEDS: Amiodarone 200 MG Tablet PO (20:40)
[2018-03-01] VITALS (7 sets, daily range): BP systolic 88–119; BP diastolic 60–82; PULSE 84–88; RESP 16; TEMP 36.7; O2SAT 91–92
[2018-03-01] MEDS: Amiodarone 200 MG Tablet PO ×2 (06:46→13:10)
[2018-03-01] MEDS: APIXABAN 2.5 MG TABLET PO ×2 (06:46→16:08)
[2018-03-01] MEDS: amLODIPine 5 MG Tablet 10 MG PO (06:46)
[2018-03-01] MEDS: Pantoprazole Sodium 40 MG Tablet PO (06:46)
[2018-03-01] MEDS: Furosemide 40 MG Tablet PO (06:46)
[2018-03-01] MEDS: guaiFENesin 1,200 MG Tablet 1200 MG PO ×2 (06:46→16:08)
[2018-03-01] MEDS: Ipratropium/Albuterol Sulfate 3 ML AMPUL.NEB INHALATION ×2 (06:55→13:25)
[2018-03-01] MEDS: Iron Polysaccharide Complex 150 MG CAPSULE PO (08:12)
[2018-03-01] MEDS: predniSONE 10 MG Tablet 20 MG PO (08:13)
[2018-03-01] MEDS: Tamsulosin HCl 0.4 MG Capsule PO (16:08)
[2018-03-02] MEDS: Furosemide 40 MG Tablet PO (05:46)
[2018-03-02] MEDS: guaiFENesin 1,200 MG Tablet 1200 MG PO ×2 (05:46→17:12)
[2018-03-02] MEDS: Pantoprazole Sodium 40 MG Tablet PO (05:46)
[2018-03-02] MEDS: APIXABAN 2.5 MG TABLET PO ×2 (05:46→17:12)
[2018-03-02 07:45] VITALS: PULSE 84; RESP 20; O2SAT 93
[2018-03-02] MEDS: Ipratropium/Albuterol Sulfate 3 ML AMPUL.NEB INHALATION (07:45)
[2018-03-02] MEDS: Iron Polysaccharide Complex 150 MG CAPSULE PO (08:54)
[2018-03-02] MEDS: predniSONE 10 MG Tablet 20 MG PO (08:54)
[2018-03-02 08:58] VITALS: BP 97/69; PULSE 93; RESP 20; O2SAT 95
--- NOTE | 2018-03-02 09:01 | NURSING ---
Addendum entered by Geeta Giron 03/02/18 09:34: Per overnight cashier report, pt refusing seroquel and buskameron, Dr Payne updated this AM. new order to DC both Original Note: pt BP 97/69 HR 93. Pt refusing amiodarone. Dr Payne dc'd norvas d/t cont low BP's. PT continuously asking for staff to let him know if anyone knows of any helpdesk administrator for home. Pt does not want to be here. MELY Ayala aware. pt sitting up in recliner chair, call light in reach. Pleasant this AM. Dr Payne was in to speak with pt per pt request.
--- NOTE | 2018-03-02 13:46 | PCM.PN.RX ---
<Roly Su D - Last Filed: 03/02/18 13:46> Progress Note - Pharmacy Subjective: TCU Admission Objective: Allergies No Known Allergies Allergy (Verified 02/14/18 16:18) Current Medications Generic Name Dose Route Start Last Admin Trade Name Freq PRN Reason Stop Dose Admin Acetaminophen 1,000 mg 02/26/18 21:35 Tylenol PO Q6H PRN PRN MILD PAIN (1-3/10) Albuterol Sulfate 2.5 mg 02/27/18 07:10 02/27/18 21:35 Ventolin Aerosols INHALATION 2.5 mg Q4H PRN PRN Administration SHORTNESS OF BREATHE/WHEEZE Albuterol/Ipratropium 3 ml 02/26/18 16:15 03/02/18 13:05 Duoneb INHALATION Not Given Q6HWA.RT LIANE Alprazolam 0.25 mg 02/26/18 21:35 Xanax PO DAILY PRN PRN ANXIETY Amiodarone HCl 200 mg 02/26/18 22:00 03/02/18 08:55 Cordarone PO 03/03/18 22:01 Not Given TID LIANE Amiodarone HCl 200 mg 03/04/18 06:00 Cordarone PO 03/05/18 18:01 BID LIANE Amiodarone HCl 200 mg 03/06/18 06:00 Cordarone PO DAILY LIANE Apixaban 2.5 mg 02/26/18 18:00 03/02/18 05:46 Eliquis PO 2.5 mg BID LIANE Administration Bisacodyl 10 mg 02/26/18 21:36 Dulcolax PO DAILY PRN Constipation Furosemide 40 mg 02/27/18 06:00 03/02/18 05:46 Lasix PO 40 mg DAILY LIANE Administration Guaifenesin 1,200 mg 02/26/18 18:00 03/02/18 05:46 Mucinex PO 1,200 mg BID LIANE Administration Nutritional Formula (Lactose Free) 120 ml 02/27/18 06:00 03/02/18 11:49 Ensure Enlive PO Not Given 4X/DAY LIANE Pantoprazole Sodium 40 mg 02/27/18 06:00 03/02/18 05:46 Protonix PO 40 mg DAILY LIANE Administration Polyethylene Glycol 17 gm 02/27/18 06:00 03/02/18 05:44 Miralax PO Not Given DAILY [facility] Polysaccharide Iron Complex 150 mg 02/28/18 08:00 03/02/18 08:54 Ferrex 150 PO 150 mg DAILYCM LIANE Administration Prednisone 30 mg 02/27/18 08:00 03/02/18 08:54 PO 03/15/18 07:59 30 mg DAILY@0800 LIANE Administration Taper Sodium Chloride 10 ml 02/27/18 01:00 02/28/18 11:23 IV 10 ml UD PRN Administration PICC FLUSH Tamsulosin HCl 0.4 mg 02/26/18 17:30 03/01/18 16:08 Flomax PO 0.4 mg DAILY@1730 LIANE Administration Tuberculin PPD 5 tu 03/06/18 10:00 Tubersol, Aplisol, Ppd ID 03/06/18 10:01 X1 ONE Problem List Anxiety (Acute) Abdominal aortic aneurysm (AAA) 3.0 cm to 5.5 cm in diameter in male (Chronic) Vital Signs Temp Pulse Resp BP Pulse Ox 98.1 F 93 20 H 97/69 95 03/01/18 15:41 03/02/18 08:58 03/02/18 08:58 03/02/18 08:58 03/02/18 08:58 Oxygen Flow Rate (L/min) 2.5 Oxygen Delivery Method Nasal Cannula Weight: 61.689 kg Body Mass Index (BMI) 20.7 Sodium 141 mmol/L (136-145) 02/27/18 05:18 Potassium 3.6 mmol/L (3.5-5.1) 02/27/18 05:18 Chloride 96 mmol/L (98-107) L 02/27/18 05:18 Carbon Dioxide 37.0 mmol/L (21.0-32.0) H 02/27/18 05:18 Anion Gap 8 (5-15) 02/27/18 05:18 BUN 63 mg/dL (7-18) H 02/27/18 05:18 Creatinine 2.36 mg/dL (0.70-1.30) H 02/27/18 05:18 Est GFR (MDRD) Af Amer 35 mL/min (>60) L 02/27/18 05:18 Est GFR (MDRD) Non-Af 29 mL/min (>60) L 02/27/18 05:18 BUN/Creatinine Ratio 26.7 RATIO (10-20) H 02/27/18 05:18 Glucose 119 mg/dL (74-106) H 02/27/18 05:18 Assessment/Plan: 1) Pain APAP for mild pain. Continue to monitor prn medication use, daily pain scores. 2) Afib Amiodarone, apixaban. Continue to monitor BP/HR, s/s bleeding. 3) Pulm Duoneb aerosols, albuterol prn, guaifenesin, prednisone taper. Continue to monitor prn medication use, for shortness of breath. 4) GI Pantoprazole. Continue to monitor s/s GI distress. 5) BPH Tamsulosin daily. Continue to monitor for symptoms. 6) Edema Furosemide daily. Continue to monitor swelling, renal function, electrolytes. Psychotropic Medications: 7) Anxiety Alprazolam daily prn. Continue to monitor prn medication use, for anxiety. Unnecessary Medications: None Bowel Regimen: 8) PEG, prn bisacodyl. Continue to monitor prn medication use, for constipation/diarrhea. Date of Note:: 03/02/18 - Provider Comments Provider responsibility: Provider responsible to enter orders to implement recommendations <Taz Payne Chi - Last Filed: 03/02/18 18:06> Progress Note - Pharmacy Subjective: [] Objective: Allergies No Known Allergies Allergy (Verified 02/14/18 16:18) Current Medications Generic Name Dose Route Start Last Admin Trade Name Freq PRN Reason Stop Dose Admin Acetaminophen 1,000 mg 02/26/18 21:35 Tylenol PO Q6H PRN PRN MILD PAIN (1-3/10) Albuterol Sulfate 2.5 mg 02/27/18 07:10 02/27/18 21:35 Ventolin Aerosols INHALATION 2.5 mg Q4H PRN PRN Administration SHORTNESS OF BREATHE/WHEEZE Albuterol/Ipratropium 3 ml 02/26/18 16:15 03/02/18 13:05 Duoneb INHALATION Not Given Q6HWA.RT LIANE Alprazolam 0.25 mg 02/26/18 21:35 Xanax PO DAILY PRN PRN ANXIETY Amiodarone HCl 200 mg 02/26/18 22:00 03/02/18 14:38 Cordarone PO 03/03/18 22:01 200 mg TID LIANE Administration Amiodarone HCl 200 mg 03/04/18 06:00 Cordarone PO 03/05/18 18:01 BID LIANE Amiodarone HCl 200 mg 03/06/18 06:00 Cordarone PO DAILY LIANE Apixaban 2.5 mg 02/26/18 18:00 03/02/18 17:12 Eliquis PO 2.5 mg BID LIANE Administration Bisacodyl 10 mg 02/26/18 21:36 Dulcolax PO DAILY PRN Constipation Furosemide 40 mg 02/27/18 06:00 03/02/18 05:46 Lasix PO 40 mg DAILY LIANE Administration Guaifenesin 1,200 mg 02/26/18 18:00 03/02/18 17:12 Mucinex PO 1,200 mg BID LIANE Administration Nutritional Formula (Lactose Free) 120 ml 02/27/18 06:00 03/02/18 17:14 Ensure Enlive PO 120 ml 4X/DAY LIANE Administration Pantoprazole Sodium 40 mg 02/27/18 06:00 03/02/18 05:46 Protonix PO 40 mg DAILY LIANE Administration Polyethylene Glycol 17 gm 02/27/18 06:00 03/02/18 05:44 Miralax PO Not Given DAILY [facility] Polysaccharide Iron Complex 150 mg 02/28/18 08:00 03/02/18 08:54 [facility] Administration Prednisone 30 mg 02/27/18 08:00 03/02/18 08:54 PO 03/15/18 07:59 30 mg DAILY@0800 LIANE Administration Taper Sodium Chloride 10 ml 02/27/18 01:00 03/02/18 14:36 IV 10 ml UD PRN Administration PICC FLUSH Tamsulosin HCl 0.4 mg 02/26/18 17:30 03/02/18 17:12 Flomax PO 0.4 mg DAILY@1730 [facility] Administration Tuberculin PPD 5 tu 03/06/18 10:00 Tubersol, Aplisol, Ppd ID 03/06/18 10:01 X1 ONE Problem List Anxiety (Acute) Abdominal aortic aneurysm (AAA) 3.0 cm to 5.5 cm in diameter in male (Chronic) Vital Signs Temp Pulse Resp BP Pulse Ox 98.9 F 91 20 H 92/67 95 03/02/18 16:00 03/02/18 16:00 03/02/18 16:00 03/02/18 16:00 03/02/18 16:00 Oxygen Flow Rate (L/min) 2 Oxygen Delivery Method Nasal Cannula Weight: 61.689 kg Body Mass Index (BMI) 20.7 Sodium 141 mmol/L (136-145) 02/27/18 05:18 Potassium 3.6 mmol/L (3.5-5.1) 02/27/18 05:18 Chloride 96 mmol/L (98-107) L 02/27/18 05:18 Carbon Dioxide 37.0 mmol/L (21.0-32.0) H 02/27/18 05:18 Anion Gap 8 (5-15) 02/27/18 05:18 BUN 63 mg/dL (7-18) H 02/27/18 05:18 Creatinine 2.36 mg/dL (0.70-1.30) H 02/27/18 05:18 Est GFR (MDRD) Af Amer 35 mL/min (>60) L 02/27/18 05:18 Est GFR (MDRD) Non-Af 29 mL/min (>60) L 02/27/18 05:18 BUN/Creatinine Ratio 26.7 RATIO (10-20) H 02/27/18 05:18 Glucose 119 mg/dL (74-106) H 02/27/18 05:18 Assessment/Plan: Psychotropic Medications: Unnecessary Medications: Bowel Regimen: - Provider Comments Provider responsibility: Provider responsible to enter orders to implement recommendations Provider Comments to Recommendations by Pharmacy: Agree
--- NOTE | 2018-03-02 13:57 | PHA.CONS_ITS ---
<Roly Su D - Last Filed: 03/02/18 13:46> Progress Note - Pharmacy Subjective: TCU Admission Objective: Allergies No Known Allergies Allergy (Verified 02/14/18 16:18) Current Medications Generic Name Dose Route Start Last Admin Trade Name Freq PRN Reason Stop Dose Admin Acetaminophen 1,000 mg 02/26/18 21:35 Tylenol PO Q6H PRN PRN MILD PAIN (1-3/10) Albuterol Sulfate 2.5 mg 02/27/18 07:10 02/27/18 21:35 Ventolin Aerosols INHALATION 2.5 mg Q4H PRN PRN Administration SHORTNESS OF BREATHE/WHEEZE Albuterol/Ipratropium 3 ml 02/26/18 16:15 03/02/18 13:05 Duoneb INHALATION Not Given Q6HWA.RT LIANE Alprazolam 0.25 mg 02/26/18 21:35 Xanax PO DAILY PRN PRN ANXIETY Amiodarone HCl 200 mg 02/26/18 22:00 03/02/18 08:55 Cordarone PO 03/03/18 22:01 Not Given TID LIANE Amiodarone HCl 200 mg 03/04/18 06:00 Cordarone PO 03/05/18 18:01 BID LIANE Amiodarone HCl 200 mg 03/06/18 06:00 Cordarone PO DAILY [facility] Apixaban 2.5 mg 02/26/18 18:00 03/02/18 05:46 Eliquis PO 2.5 mg BID LIANE Administration Bisacodyl 10 mg 02/26/18 21:36 Dulcolax PO DAILY PRN Constipation Furosemide 40 mg 02/27/18 06:00 03/02/18 05:46 Lasix PO 40 mg DAILY [facility] Administration Guaifenesin 1,200 mg 02/26/18 18:00 03/02/18 05:46 Mucinex PO 1,200 mg BID LIANE Administration Nutritional Formula (Lactose Free) 120 ml 02/27/18 06:00 03/02/18 11:49 Ensure Enlive PO Not Given 4X/DAY [facility] Pantoprazole Sodium 40 mg 02/27/18 06:00 03/02/18 05:46 Protonix PO 40 mg DAILY [facility] Administration Polyethylene Glycol 17 gm 02/27/18 06:00 03/02/18 05:44 Miralax PO Not Given DAILY [facility] Polysaccharide Iron Complex 150 mg 02/28/18 08:00 03/02/18 08:54 Ferrex 150 PO 150 mg DAILYCM LIANE Administration Prednisone 30 mg 02/27/18 08:00 03/02/18 08:54 PO 03/15/18 07:59 30 mg DAILY@0800 LIANE Administration Taper Sodium Chloride 10 ml 02/27/18 01:00 02/28/18 11:23 IV 10 ml UD PRN Administration PICC FLUSH Tamsulosin HCl 0.4 mg 02/26/18 17:30 03/01/18 16:08 Flomax PO 0.4 mg DAILY@1730 LIANE Administration Tuberculin PPD 5 tu 03/06/18 10:00 Tubersol, Aplisol, Ppd ID 03/06/18 10:01 X1 ONE Problem List Anxiety (Acute) Abdominal aortic aneurysm (AAA) 3.0 cm to 5.5 cm in diameter in male (Chronic) Vital Signs Temp Pulse Resp BP Pulse Ox 98.1 F 93 20 H 97/69 95 03/01/18 15:41 03/02/18 08:58 03/02/18 08:58 03/02/18 08:58 03/02/18 08:58 Oxygen Flow Rate (L/min) 2.5 Oxygen Delivery Method Nasal Cannula Weight: 61.689 kg Body Mass Index (BMI) 20.7 Sodium 141 mmol/L (136-145) 02/27/18 05:18 Potassium 3.6 mmol/L (3.5-5.1) 02/27/18 05:18 Chloride 96 mmol/L (98-107) L 02/27/18 05:18 Carbon Dioxide 37.0 mmol/L (21.0-32.0) H 02/27/18 05:18 Anion Gap 8 (5-15) 02/27/18 05:18 BUN 63 mg/dL (7-18) H 02/27/18 05:18 Creatinine 2.36 mg/dL (0.70-1.30) H 02/27/18 05:18 Est GFR (MDRD) Af Amer 35 mL/min (>60) L 02/27/18 05:18 Est GFR (MDRD) Non-Af 29 mL/min (>60) L 02/27/18 05:18 BUN/Creatinine Ratio 26.7 RATIO (10-20) H 02/27/18 05:18 Glucose 119 mg/dL (74-106) H 02/27/18 05:18 Assessment/Plan: 1) Pain APAP for mild pain. Continue to monitor prn medication use, daily pain scores. 2) Afib Amiodarone, apixaban. Continue to monitor BP/HR, s/s bleeding. 3) Pulm Duoneb aerosols, albuterol prn, guaifenesin, prednisone taper. Continue to monitor prn medication use, for shortness of breath. 4) GI Pantoprazole. Continue to monitor s/s GI distress. 5) BPH Tamsulosin daily. Continue to monitor for symptoms. 6) Edema Furosemide daily. Continue to monitor swelling, renal function, electrolytes. Psychotropic Medications: 7) Anxiety Alprazolam daily prn. Continue to monitor prn medication use, for anxiety. Unnecessary Medications: None Bowel Regimen: 8) PEG, prn bisacodyl. Continue to monitor prn medication use, for constipation/diarrhea. Date of Note:: 03/02/18 - Provider Comments Provider responsibility: Provider responsible to enter orders to implement recommendations <Taz Payne Chi - Last Filed: 03/02/18 18:06> Progress Note - Pharmacy Subjective: [] Objective: Allergies No Known Allergies Allergy (Verified 02/14/18 16:18) Current Medications Generic Name Dose Route Start Last Admin Trade Name Freq PRN Reason Stop Dose Admin Acetaminophen 1,000 mg 02/26/18 21:35 Tylenol PO Q6H PRN PRN MILD PAIN (1-3/10) Albuterol Sulfate 2.5 mg 02/27/18 07:10 02/27/18 21:35 Ventolin Aerosols INHALATION 2.5 mg Q4H PRN PRN Administration SHORTNESS OF BREATHE/WHEEZE Albuterol/Ipratropium 3 ml 02/26/18 16:15 03/02/18 13:05 Duoneb INHALATION Not Given Q6HWA.RT LIANE Alprazolam 0.25 mg 02/26/18 21:35 Xanax PO DAILY PRN PRN ANXIETY Amiodarone HCl 200 mg 02/26/18 22:00 03/02/18 14:38 Cordarone PO 03/03/18 22:01 200 mg TID LIANE Administration Amiodarone HCl 200 mg 03/04/18 06:00 Cordarone PO 03/05/18 18:01 BID LIANE Amiodarone HCl 200 mg 03/06/18 06:00 Cordarone PO DAILY [facility] Apixaban 2.5 mg 02/26/18 18:00 03/02/18 17:12 Eliquis PO 2.5 mg BID LIANE Administration Bisacodyl 10 mg 02/26/18 21:36 Dulcolax PO DAILY PRN Constipation Furosemide 40 mg 02/27/18 06:00 03/02/18 05:46 Lasix PO 40 mg DAILY [facility] Administration Guaifenesin 1,200 mg 02/26/18 18:00 03/02/18 17:12 Mucinex PO 1,200 mg BID LIANE Administration Nutritional Formula (Lactose Free) 120 ml 02/27/18 06:00 03/02/18 17:14 Ensure Enlive PO 120 ml 4X/DAY [facility] Administration Pantoprazole Sodium 40 mg 02/27/18 06:00 03/02/18 05:46 Protonix PO 40 mg DAILY [facility] Administration Polyethylene Glycol 17 gm 02/27/18 06:00 03/02/18 05:44 Miralax PO Not Given DAILY [facility] Polysaccharide Iron Complex 150 mg 02/28/18 08:00 03/02/18 08:54 [facility] Administration Prednisone 30 mg 02/27/18 08:00 03/02/18 08:54 PO 03/15/18 07:59 30 mg DAILY@0800 LIANE Administration Taper Sodium Chloride 10 ml 02/27/18 01:00 03/02/18 14:36 IV 10 ml UD PRN Administration PICC FLUSH Tamsulosin HCl 0.4 mg 02/26/18 17:30 03/02/18 17:12 Flomax PO 0.4 mg DAILY@1730 [facility] Administration Tuberculin PPD 5 tu 03/06/18 10:00 Tubersol, Aplisol, Ppd ID 03/06/18 10:01 X1 ONE Problem List Anxiety (Acute) Abdominal aortic aneurysm (AAA) 3.0 cm to 5.5 cm in diameter in male (Chronic) Vital Signs Temp Pulse Resp BP Pulse Ox 98.9 F 91 20 H 92/67 95 03/02/18 16:00 03/02/18 16:00 03/02/18 16:00 03/02/18 16:00 03/02/18 16:00 Oxygen Flow Rate (L/min) 2 Oxygen Delivery Method Nasal Cannula Weight: 61.689 kg Body Mass Index (BMI) 20.7 Sodium 141 mmol/L (136-145) 02/27/18 05:18 Potassium 3.6 mmol/L (3.5-5.1) 02/27/18 05:18 Chloride 96 mmol/L (98-107) L 02/27/18 05:18 Carbon Dioxide 37.0 mmol/L (21.0-32.0) H 02/27/18 05:18 Anion Gap 8 (5-15) 02/27/18 05:18 BUN 63 mg/dL (7-18) H 02/27/18 05:18 Creatinine 2.36 mg/dL (0.70-1.30) H 02/27/18 05:18 Est GFR (MDRD) Af Amer 35 mL/min (>60) L 02/27/18 05:18 Est GFR (MDRD) Non-Af 29 mL/min (>60) L 02/27/18 05:18 BUN/Creatinine Ratio 26.7 RATIO (10-20) H 02/27/18 05:18 Glucose 119 mg/dL (74-106) H 02/27/18 05:18 Assessment/Plan: Psychotropic Medications: Unnecessary Medications: Bowel Regimen: - Provider Comments Provider responsibility: Provider responsible to enter orders to implement recommendations Provider Comments to Recommendations by Pharmacy: Agree
[2018-03-02] MEDS: 0.9% NaCl PICC Flush 10 ML IV ×2 (14:36→21:24)
[2018-03-02] MEDS: Amiodarone 200 MG Tablet PO (14:38)
[2018-03-02 16:00] VITALS: BP 92/67; PULSE 91; RESP 20; TEMP 37.2; O2SAT 95
[2018-03-02] MEDS: Tamsulosin HCl 0.4 MG Capsule PO (17:12)
[2018-03-02 19:50] VITALS: PULSE 82; RESP 20
[2018-03-02 21:22] VITALS: BP 101/68; PULSE 94; O2SAT 97
[2018-03-03] MEDS: Furosemide 40 MG Tablet PO (06:22)
[2018-03-03] MEDS: APIXABAN 2.5 MG TABLET PO ×2 (06:22→17:59)
[2018-03-03] MEDS: Pantoprazole Sodium 40 MG Tablet PO (06:22)
[2018-03-03] MEDS: guaiFENesin 1,200 MG Tablet 1200 MG PO ×2 (06:22→17:59)
[2018-03-03 07:05] VITALS: PULSE 88; RESP 18; O2SAT 90
[2018-03-03] MEDS: Ipratropium/Albuterol Sulfate 3 ML AMPUL.NEB INHALATION ×2 (07:05→15:32)
[2018-03-03] MEDS: predniSONE 10 MG Tablet 20 MG PO (09:01)
[2018-03-03] MEDS: Iron Polysaccharide Complex 150 MG CAPSULE PO (09:01)
[2018-03-03 16:00] VITALS: BP 102/75; PULSE 82; RESP 18; TEMP 36.9; O2SAT 97
[2018-03-03 17:15] VITALS: PULSE 89; RESP 18
[2018-03-03] MEDS: Tamsulosin HCl 0.4 MG Capsule PO (17:59)
[2018-03-03 19:43] VITALS: BP 102/70; PULSE 85
[2018-03-03] MEDS: 0.9% NaCl PICC Flush 10 ML IV ×2 (19:51→19:52)
[2018-03-04] MEDS: Furosemide 40 MG Tablet PO (05:35)
[2018-03-04] MEDS: APIXABAN 2.5 MG TABLET PO ×2 (05:35→17:28)
[2018-03-04] MEDS: guaiFENesin 1,200 MG Tablet 1200 MG PO ×2 (05:35→17:28)
[2018-03-04] MEDS: Pantoprazole Sodium 40 MG Tablet PO (05:35)
[2018-03-04] MEDS: Amiodarone 200 MG Tablet PO ×2 (05:39→17:28)
[2018-03-04 05:41] VITALS: BP 113/67; PULSE 84
[2018-03-04 08:00] VITALS: PULSE 88; RESP 18; O2SAT 93
[2018-03-04] MEDS: Ipratropium/Albuterol Sulfate 3 ML AMPUL.NEB INHALATION ×2 (08:00→18:45)
[2018-03-04] MEDS: Iron Polysaccharide Complex 150 MG CAPSULE PO (09:03)
[2018-03-04] MEDS: predniSONE 10 MG Tablet 20 MG PO (09:03)
--- NOTE | 2018-03-04 09:05 | NURSING ---
pt stating he has a ride that will be picking him up soon to go home. Wants to skip his plan of care meeting this AM. Family is here waiting for meeting.
--- NOTE | 2018-03-04 09:45 | CASEMGMT ---
Plan of care meeting held. Resident present as well as resident family. No discharge date set at this time. Resident is requesting about discharge to home today. Team is not recommending for resident to discharge to home at this time. Resident has been educated on rights and is reporting to plan to discharge AMA today. Resident family declining to provide transportation to home for resident at this time. Resident declining to have a wheelchair van set up. Resident reporting to have home oxygen already set up as well as a walker and wheelchair already set up within the home. Resident reporting to be planning to contact a friend today for transportation home. Resident aware of why team is not recommending for resident to discharge to home today and to continue with services in a skilled facility. Support given. Possible discharge to home today, pending resident setting up transportation. Will continue to follow. MENDY Scott
[2018-03-04] MEDS: Polyethylene Glycol 3350 17 GM PACKET PO (11:19)
[2018-03-04 13:39] VITALS: PULSE 88; RESP 16
[2018-03-04 15:29] VITALS: BP 107/60; PULSE 52; RESP 20; TEMP 36.3; O2SAT 97
--- NOTE | 2018-03-04 17:23 | CASEMGMT ---
Brief interview for mental status (BIMS) and resident mood interview (PHQ-9) completed on this day. BIMS score 13/15. PHQ-9 score
[2018-03-04] MEDS: Tamsulosin HCl 0.4 MG Capsule PO (17:28)
[2018-03-04 18:45] VITALS: PULSE 82; RESP 22
[2018-03-04] MEDS: 0.9% NaCl PICC Flush 10 ML IV ×2 (20:54→20:55)
--- NOTE | 2018-03-05 00:12 | NURSING ---
Upon PICC line assessment clamp on purple lumen noted to be unclamped. Light pink tinge noted in purple lumen. Unable to flush purple lumen, multiple interventions attempted. Clamp on red lumen secured. Red lumen with blood return, sluggish upon flush. Will report to [facility]. Will update Dr Payne.
[2018-03-05] MEDS: Pantoprazole Sodium 40 MG Tablet PO (04:44)
[2018-03-05] MEDS: APIXABAN 2.5 MG TABLET PO ×2 (04:44→17:35)
[2018-03-05] MEDS: guaiFENesin 1,200 MG Tablet 1200 MG PO ×2 (04:44→17:35)
[2018-03-05] MEDS: Amiodarone 200 MG Tablet PO ×2 (04:46→17:36)
[2018-03-05 04:49] VITALS: BP 99/72; PULSE 82
[2018-03-05 04:55] VITALS: PULSE 83; RESP 20
[2018-03-05] MEDS: Albuterol 2.5 MG/3 ML VIAL.NEB. INHALATION (04:55)
[2018-03-05 06:20] VITALS: PULSE 88; RESP 20; O2SAT 96
[2018-03-05] MEDS: Ipratropium/Albuterol Sulfate 3 ML AMPUL.NEB INHALATION ×3 (06:20→19:07)
[2018-03-05] MEDS: predniSONE 10 MG Tablet 20 MG PO (09:14)
[2018-03-05] MEDS: Iron Polysaccharide Complex 150 MG CAPSULE PO (09:15)
--- NOTE | 2018-03-05 11:13 | NURSING ---
Called Dr. Lugo's office to f/u c consult that was called originally on 02/27. talked with April
[2018-03-05] MEDS: Polyethylene Glycol 3350 17 GM PACKET PO (11:52)
[2018-03-05 12:42] VITALS: PULSE 85; RESP 16
[2018-03-05 15:29] VITALS: BP 99/59; PULSE 88; RESP 20; TEMP 36.8; O2SAT 95
[2018-03-05] MEDS: Tamsulosin HCl 0.4 MG Capsule PO (17:35)
[2018-03-05 19:07] VITALS: PULSE 85; RESP 20; O2SAT 94
--- NOTE | 2018-03-05 20:13 | PCA ---
Patient complaining of bottom hurting but refuses to get up out of his recliner and allow any HS care. RN is aware.
[2018-03-06 00:39] VITALS: PULSE 89; RESP 20
[2018-03-06] MEDS: Ipratropium/Albuterol Sulfate 3 ML AMPUL.NEB INHALATION ×3 (00:39→13:13)
[2018-03-06] MEDS: APIXABAN 2.5 MG TABLET PO (05:13)
[2018-03-06] MEDS: Pantoprazole Sodium 40 MG Tablet PO (05:14)
[2018-03-06] MEDS: guaiFENesin 1,200 MG Tablet 1200 MG PO (05:14)
[2018-03-06] MEDS: Amiodarone 200 MG Tablet PO (05:16)
[2018-03-06 06:34] LABS: Anion Gap 8 (5-15); BUN 45 mg/dL (7-18); BUN/Creat Ratio 23.7 RATIO (10-20); Calcium,Total 8.4 mg/dL (8.5-10.1); Chloride 96 mmol/L (98-107); EST Glomerular Filtration Rate 37 mL/min (>60); Est Glom Filt Rate - Afr Amer 44 mL/min (>60); Estimated Creatinine Clearance 27.21 ml/min; Glucose 98 mg/dL (74-106); Potassium 4.2 mmol/L (3.5-5.1); Sodium Level 140 mmol/L (136-145)
[2018-03-06 06:48] LABS: Absolute Neutrophil Count 7.7 X10^3/uL (2.0-7.7); Eosinophil# 0.12 X10^3/uL; Eosinophils% 1.4 % (0-5); Hematocrit 29.5 % (40-54); Hemoglobin 9.1 g/dl (13.0-16.5); Lymphocyte % 5.7 % (19-41); Mean Corp Hgb Conc 30.8 g/gl (32-36); Mean Corpuscular Hgb 29.8 pg (27.0-32.0); Mean Corpuscular Volume 96.7 fL (80-94); Mean Platelet Vol. 10.4 fl (6.2-12.0); Monocyte# 0.48 X10^3/uL; Monocyte% 5.4 % (0-10); Neutrophil % 87.2 % (47-70); Platelet Count 190 K/mm3 (150-450); RBC Distribution Width CV 14.4 % (11.6-14.6); RBC Distribution Width SD 48.6 fl (35.1-43.9); Red Blood Count 3.05 M/mm3 (4.6-6.2); White Blood Count 8.8 K/mm3 (4.4-11.0)
[2018-03-06 06:56] LABS: Differential Indicated SCAN CRITERIA MET; POSITIVE COUNT NO; POSITIVE DIFFERENTIAL YES; POSITIVE MORPHOLOGY NO
[2018-03-06 07:03] VITALS: PULSE 78; RESP 18; O2SAT 98
[2018-03-06] MEDS: predniSONE 10 MG Tablet 20 MG PO (08:43)
[2018-03-06] MEDS: Iron Polysaccharide Complex 150 MG CAPSULE PO (08:44)
[2018-03-06 13:13] VITALS: PULSE 98; RESP 24
--- NOTE | 2018-03-06 13:54 | CASEMGMT ---
Social Work Spoke with resident in room. Resident requesting for discharge date to be set for 03/06/18. Team is agreeable to discharge date and recommending for resident to have continued therapy services. Resident is agreeable to recommendation and requesting for therapy to be set up through outpatient therapy services. Resident plans to set up own outpatient therapy appointment, this social media director provided order to resident. Resident family to provide transportation to home for resident at time of discharge. Resident has home oxygen and a walker already set up within the home. Support given. Proposed discharge date: 03/06/18 PLAN: Discharge to home alone with outpatient physical therapy. Jonathan RAYGOZA MSW
--- NOTE | 2018-03-06 14:08 | DCINST_ITS ---
- Discharge Diagnoses Current Active Problems: Current Active and Chronic Problems Anxiety (Acute) Abdominal aortic aneurysm (AAA) 3.0 cm to 5.5 cm in diameter in male (Chronic) You will use the following diet at home:: No restrictions, Regular Your food should be the consistency of: Regular Your liquids should be the consistency of: Regular/Thin Discharge Activity: Return to Normal Activity, May Shower, Use Walker Weight Bearing Status: Weight bearing as tolerated Call your doctor if you observe: Fever of 101 or Higher, Inability to urinate, Inability to have a bowel movement, Shortness of breath, Chest pain, Uncontrolled pain Allergies/Adverse Reactions: Allergies No Known Allergies Allergy (Verified 02/14/18 16:18) Medications to take at Discharge Albuterol Aerosols [Ventolin Aerosols] 2.5 mg INHALATION Q4HWA.RT 02/14/18 Umeclidinium Brm/Vilanterol Tr [Anoro Ellipta 62.5-25 Mcg INH] 1 puff INHALATION DAILY 02/14/18 Albuterol IH (ProAir) [Proair Hfa] 2 puff INHALATION Q4H PRN PRN 02/16/18 Guaifenesin [Mucinex] 1,200 mg PO BID 02/26/18 ALPRAZolam [Xanax] 0.25 mg PO BID PRN PRN #30 tab 03/06/18 Acetaminophen [Tylenol] 1,000 mg PO Q6H PRN PRN tablet 03/06/18 Amiodarone HCl [Cordarone] 200 mg PO DAILY #30 tablet 03/06/18 Apixaban [Eliquis] 2.5 mg PO BID #60 tablet 03/06/18 Furosemide [Lasix] 40 mg PO DAILY #30 tablet 03/06/18 Ipratropium/Albuterol Sulfate [Duoneb] 3 ml INHALATION Q6HWA.RT #100 ampul.neb 03/06/18 Iron Polysaccharide Complex [Ferrex 150] 150 mg PO DAILYCM #30 capsule 03/06/18 Menthol/Lanolin/Calamine/Znox [Calmoseptine Ointment] 1 applic TOPICAL BID PRN tube 03/06/18 Mineral Oil/Petrolatum,White [Eucerin] 1 applic TOPICAL BID PRN PRN jar 03/06/18 Pantoprazole Sodium [Protonix] 40 mg PO DAILY #30 tablet 03/06/18 Tamsulosin HCl 1 cap PO DAILY #30 capsule 03/06/18 The following prescriptions were given: Ipratropium/Albuterol Sulfate [Duoneb] 3 ml INHALATION Q6HWA.RT #100 ampul.neb ALPRAZolam [Xanax] 0.25 mg PO BID PRN PRN #30 tab PRN Reason: ANXIETY Amiodarone HCl [Cordarone] 200 mg PO DAILY #30 tablet Furosemide [Lasix] 40 mg PO DAILY #30 tablet Iron Polysaccharide Complex [Ferrex 150] 150 mg PO DAILYCM #30 capsule Pantoprazole Sodium [Protonix] 40 mg PO DAILY #30 tablet Tamsulosin HCl 1 cap PO DAILY #30 capsule Apixaban [Eliquis] 2.5 mg PO BID #60 tablet Primary Care Physician: Giovanni Aranda MD [Primary Care Provider] - Please follow up with your Primary Care Physician in: 1 week. Test Results: Test results from this visit will be discussed in further detail at your follow- up appointment, if applicable. Please Follow Up With: Chen Martin DO When: 2 weeks. Proposed Discharge Date: 03/06/18
--- NOTE | 2018-03-06 14:10 | DS.PCM_ITS ---
Discharge Date and Diagnosis - Problem List Patient Problems: Active and Suspected Problems Anxiety (Acute) Date of Admission: 02/26/18 Date of Discharge: 03/06/18 - Primary Discharge Diagnosis Active and Suspected Problems Anxiety (Acute) - Secondary Discharge Diagnosis Chronic Problems Abdominal aortic aneurysm (AAA) 3.0 cm to 5.5 cm in diameter in male (Chronic) Hypertension (Chronic) Chronic respiratory failure (Chronic) COPD (chronic obstructive pulmonary disease) (Chronic) Hospital Course and Treatment Imaging Results: 02/26/18 16:12 Diet: Regular Diet Diet Comments: no added salt Labs (Last 48 Hours) 03/06/18 03/06/18 05:35 05:35 WBC 8.8 RBC 3.05 L Hgb 9.1 L Hct 29.5 L MCV 96.7 H MCH 29.8 MCHC 30.8 L RDW 14.4 RDW Differential 48.6 H Plt Count 190 MPV 10.4 Immature Gran % (Auto) 0.300 Neut % (Auto) 87.2 H Lymph % (Auto) 5.7 L [place] % (Auto) 5.4 Eos % (Auto) 1.4 Baso % (Auto) 0.0 Absolute Neuts (auto) 7.7 Absolute Lymphs (auto) 0.50 L Total Counted Not Reportable Sodium 140 Potassium 4.2 Chloride 96 L Carbon Dioxide 36.0 H Anion Gap 8 BUN 45 H Creatinine 1.90 H Estim Creat Clear Calc 27.21 Est GFR (MDRD) Af Amer 44 L Est GFR (MDRD) Non-Af 37 L BUN/Creatinine Ratio 23.7 H Glucose 98 Calcium 8.4 L Operations: None Procedures: None Summary of Care Provided: The patient is a 77 year old Male with below past medical history hospitalized for acute respiratory failure requiring intubation secondary to Pneumococcal pneumonia complicated by rhinovirus, acute kidney failure, atrial fibrillation with rapid ventricular response, 5.3CM abdominal aortic aneurysm, admitted to TCU with debility, here for rehabilitation, strengthening, prior to discharge home alone. [] Discharge home alone, outpatient physical therapy. Patient Problems: Active and Suspected Problems Anxiety (Acute) - Physical Exam Vital Signs Temp Pulse Resp BP Pulse Ox 98.2 F 98 24 H 99/59 L 98 03/05/18 15:29 03/06/18 13:13 03/06/18 13:13 03/05/18 15:03/06/18 07:03 Oxygen Flow Rate (L/min) 3 Oxygen Delivery Method Nasal Cannula Weight: 59.08 kg Body Mass Index (BMI) 20.7 Intake and Output for Last 24 Hours 03/04/18 03/05/18 03/06/18 23:59 23:59 23:59 Intake Total 960 / 960 1200 / 1200 360 / 360 Output Total 600 / 600 700 / 700 Balance 360 / 360 500 / 500 360 / 360 Laboratory Tests Past 24 Hrs 03/06/18 03/06/18 05:35 05:35 WBC 8.8 RBC 3.05 L Hgb 9.1 L Hct 29.5 L MCV 96.7 H MCH 29.8 MCHC 30.8 L RDW 14.4 RDW Differential 48.6 H Plt Count 190 MPV 10.4 Immature Gran % (Auto) 0.300 Neut % (Auto) 87.2 H Lymph % (Auto) 5.7 L [place] % (Auto) 5.4 Eos % (Auto) 1.4 Baso % (Auto) 0.0 Absolute Neuts (auto) 7.7 Absolute Lymphs (auto) 0.50 L Total Counted Not Reportable Sodium 140 Potassium 4.2 Chloride 96 L Carbon Dioxide 36.0 H Anion Gap 8 BUN 45 H Creatinine 1.90 H Estim Creat Clear Calc 27.21 Est GFR (MDRD) Af Amer 44 L Est GFR (MDRD) Non-Af 37 L BUN/Creatinine Ratio 23.7 H Glucose 98 Calcium 8.4 L Discharge Diet: No Restrictions Discharge Activity: Return to Normal Activity, May Shower, Use Walker Weight Bearing Status: Weight bearing as tolerated Call your doctor if you observe: Fever of 101 or Higher, Inability to urinate, Inability to have a bowel movement, Shortness of breath, Chest pain, Uncontrolled pain Home Medications: Medications to take at Discharge Albuterol Aerosols [Ventolin Aerosols] 2.5 mg INHALATION Q4HWA.RT 02/14/18 Umeclidinium Brm/Vilanterol Tr [Anoro Ellipta 62.5-25 Mcg INH] 1 puff INHALATION DAILY 02/14/18 Albuterol IH (ProAir) [Proair Hfa] 2 puff INHALATION Q4H PRN PRN 02/16/18 Guaifenesin [Mucinex] 1,200 mg PO BID 02/26/18 ALPRAZolam [Xanax] 0.25 mg PO BID PRN PRN #30 tab 03/06/18 Acetaminophen [Tylenol] 1,000 mg PO Q6H PRN PRN tablet 03/06/18 Amiodarone HCl [Cordarone] 200 mg PO DAILY #30 tablet 03/06/18 Apixaban [Eliquis] 2.5 mg PO BID #60 tablet 03/06/18 Furosemide [Lasix] 40 mg PO DAILY #30 tablet 03/06/18 Ipratropium/Albuterol Sulfate [Duoneb] 3 ml INHALATION Q6HWA.RT #100 ampul.neb 03/06/18 Iron Polysaccharide Complex [Ferrex 150] 150 mg PO DAILYCM #30 capsule 03/06/18 Menthol/Lanolin/Calamine/Znox [Calmoseptine Ointment] 1 applic TOPICAL BID PRN tube 03/06/18 Mineral Oil/Petrolatum,White [Eucerin] 1 applic TOPICAL BID PRN PRN jar 03/06/18 Pantoprazole Sodium [Protonix] 40 mg PO DAILY #30 tablet 03/06/18 Tamsulosin HCl 1 cap PO DAILY #30 capsule 03/06/18 Following Prescrptions Were Given to Patient: Ipratropium/Albuterol Sulfate [Duoneb] 3 ml INHALATION Q6HWA.RT #100 ampul.neb ALPRAZolam [Xanax] 0.25 mg PO BID PRN PRN #30 tab PRN Reason: ANXIETY Amiodarone HCl [Cordarone] 200 mg PO DAILY #30 tablet Furosemide [Lasix] 40 mg PO DAILY #30 tablet Iron Polysaccharide Complex [Ferrex 150] 150 mg PO DAILYCM #30 capsule Pantoprazole Sodium [Protonix] 40 mg PO DAILY #30 tablet Tamsulosin HCl 1 cap PO DAILY #30 capsule Apixaban [Eliquis] 2.5 mg PO BID #60 tablet Primary Care Physician: Giovanni Aranda MD [Primary Care Provider] - Please follow up with your Primary Care Physician in: 1 week. Please Follow Up With: Chen Martin DO When: 2 weeks. Please Follow Up With: Aaron Lugo MD - 5.3CM AAA When: 2 weeks. Disposition: Home Minutes spent on discharge:: 30 Patient Condition:: Stable Medical Necessity - Tobacco Use Smoking Status: Former smoker Tobacco Use: Non-smoker, Pipe Meaningful Use Info Meaningful Use Diagnoses (Choose all that apply): None applicable
[2018-03-06 15:29] VITALS: BP 156/90; PULSE 97; RESP 20; TEMP 37.1; O2SAT 94
--- NOTE | 2018-03-10 14:42 | MDS.RN ---
Information for the mds was obtained from review of the clinical record, interview of resident, staff, and direct observation of resident's care.
== END 2018-03-06 14:50 | disposition home or self-care (01) | DRG 947 ==
PROVIDERS: Admitting Provider Family Medicine Geriatric Medicine; Family Provider Family Medicine; PCP Family Medicine; Referring Provider Family Medicine Geriatric Medicine; Visit Provider Family Medicine Geriatric Medicine
DX: R53.81 Other malaise (principal); J13 Pneumonia due to Streptococcus pneumoniae; J96.10 Chronic respiratory failure, unspecified whether with hypoxia or hypercapnia; K21.9 Gastro-esophageal reflux disease without esophagitis; F41.9 Anxiety disorder, unspecified; I48.91 Unspecified atrial fibrillation; I10 Essential (primary) hypertension; J44.9 Chronic obstructive pulmonary disease, unspecified; N40.0 Benign prostatic hyperplasia without lower urinary tract symptoms; I71.4 Abdominal aortic aneurysm, without rupture; Z99.81 Dependence on supplemental oxygen; Z87.891 Personal history of nicotine dependence; B97.89 Other viral agents as the cause of diseases classified elsewhere
CPT/HCPCS: 36415; 80048; 85025; 94640; 97110; 97116; 97162; 97166; 97530; 97535; 97802; A4216